=== PATIENT | female | born 1940 | race Caucasian/White ===

== ENCOUNTER → 2018-01-15 | Outpatient (CLI) | payer MEDICARE ==
--- NOTE | 2018-01-15 14:39 | US ---
EXAMINATION TYPE: US liver DATE OF EXAM: 01/15/2018 COMPARISON: NONE CLINICAL HISTORY: R94.5 Elevated Liver Tests; on multiple medications for epilepsy and HTN; gallbladd er removed EXAM MEASUREMENTS: Liver Length: 18.4 cm Gallbladder Wall: surgically removed CBD: 0.8 cm Right Kidney: 10.2 x 5.3 x 4.0 cm Pancreas: wnl Liver: mildly heterogeneous right lobe . Liver is enlarged at 18 cm. Gallbladder: surgically removed Evidence for sonographic Austin's sign: no CBD: wnl for size post cholecystectomy Right Kidney: lower pole hyperechoic oval focus = 1.4 x 1.4 x 1.1cm (possible angiomyolipoma), upper cortical simple cyst =0.9 x 0.9 x 0.8cm; upper cortical hyperechoic oval mass with adjacent calcific ation (may be small angiomyolipoma with adjacent vessel wall calcification vs. complex mass) and size = 0.7 x 0.5 x 0.5cm. IMPRESSION: 1. 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 This can be further evaluated with CT abdomen pelvis with contrast. 2. Cortical renal cyst. 3. Hepatomegaly with mild fatty infiltration
== END | disposition home or self-care (01) ==
LOC: RADUSWWP 07:36
PROVIDERS: ATTEND Internal Medicine
DX: N28.1 Cyst of kidney, acquired (principal); R16.0 Hepatomegaly, not elsewhere classified; K76.0 Fatty (change of) liver, not elsewhere classified
CPT/HCPCS: 76705

== ENCOUNTER → 2018-09-24 | Outpatient (CLI) | payer MEDICARE ==
[2018-09-24 19:24] LABS: ALT 21 U/L (8-44); AST 36 U/L (13-35); Albumin/Globulin Ratio 1.74 (1.20-2.10); Alkaline Phosphatase 65 U/L (41-126); Bilirubin, Conjugated <0.20 mg/dL (0.20-0.40); Calcium 8.5 mg/dL (8.7-10.3); Carbon Dioxide 26.1 mmol/L (21.6-31.8); Chloride 105 mmol/L (96-109); Cholesterol 281 mg/dL (0-200); Globulin 2.3 g/dL (2.1-3.7); Glucose 76 mg/dL (70-110); LDL Cholesterol,Calculated 158.6 mg/dL (0.0-131.0); Sodium 139 mmol/L (135-145); Total Bilirubin 0.2 mg/dL (0.2-1.2); Total Protein 6.3 g/dL (6.2-8.2)
[2018-09-24 19:33] LABS: Alpha Fetoprotein, Tumor Mkr 7.8 ng/mL (0.0-7.9)
[2018-09-24 21:16] LABS: Iron Saturation 38.16 (12.00-45.00)
[2018-09-24 21:34] LABS: Hemoglobin A1C 5.2 % (4.0-6.0)
[2018-09-24 22:59] LABS: Hepatitis A Antibody IgM Non-Reactive (Non-Reactive); Hepatitis B Core IgM Non-Reactive (Non-Reactive)
[2018-09-25 12:25] LABS: Ceruloplasmin 28.1 mg/dL (20.0-60.0)
== END ==
LOC: LABWHC1 12:06
DX: E78.2 Mixed hyperlipidemia (principal); K76.0 Fatty (change of) liver, not elsewhere classified
CPT/HCPCS: 36415; 80053; 80061; 80074; 82103; 82105; 82248; 82390; 82728; 83036; 83540; 83550; 86038

== ENCOUNTER → 2018-12-31 | Outpatient (CLI) | payer MEDICARE ==
[2018-12-31 16:20] LABS: Albumin 3.9 g/dL (3.80-4.90); Albumin/Globulin Ratio 1.86 (1.60-3.17); Anion Gap 3.7 mmol/L (4.00-12.00); Calcium 9.2 mg/dL (8.7-10.3); Carbon Dioxide 29.3 mmol/L (21.6-31.8); Globulin 2.1 g/dL (1.6-3.3); LDL Cholesterol,Calculated 107.6 mg/dL (0.0-131.0); Potassium 4.8 mmol/L (3.5-5.5); Total Bilirubin 0.5 mg/dL (0.3-1.2); VLDL Calculation 11.4 mg/dL (5.00-40.00)
== END | disposition home or self-care (01) ==
LOC: LABWHC1 10:49
PROVIDERS: ATTEND Internal Medicine Interventional Cardiology
DX: E78.2 Mixed hyperlipidemia (principal)
CPT/HCPCS: 36415; 80053; 80061

== ENCOUNTER → 2019-04-20 | Outpatient (CLI) | payer MEDICARE ==
[2019-04-20 15:57] LABS: LDL Cholesterol,Calculated 100.2 mg/dL (0.0-131.0); VLDL Calculation 18.8 mg/dL (5.00-40.00)
== END | disposition home or self-care (01) ==
LOC: LABWHC1 11:48
PROVIDERS: ATTEND Internal Medicine Interventional Cardiology
DX: E78.2 Mixed hyperlipidemia (principal)
CPT/HCPCS: 36415; 80061; 84450; 84460

== ENCOUNTER → 2020-12-06 | Outpatient (CLI) | payer MEDICARE ==
[2020-12-06 21:51] LABS: Albumin 3.9 g/dL (3.80-4.90); Albumin/Globulin Ratio 1.95 (1.60-3.17); Anion Gap 9.1 mmol/L (4.00-12.00); BUN/Creat Ratio 24.44 Ratio (12.00-20.00); Calcium 8.8 mg/dL (8.7-10.3); Carbon Dioxide 27.9 mmol/L (21.6-31.8); Chol/HDL Ratio 2.8; Non-African American GFR(CKD) 61.2 (60.0-200.0); Potassium 4.6 mmol/L (3.5-5.5); Total Bilirubin 0.5 mg/dL (0.2-1.2); Total Protein 5.9 g/dL (6.2-8.2)
== END | disposition home or self-care (01) ==
LOC: LABWHC1 11:14
PROVIDERS: ATTEND Nurse Practitioner Adult Health
DX: I10 Essential (primary) hypertension (principal); E78.2 Mixed hyperlipidemia
CPT/HCPCS: 36415; 80053; 80061

== ENCOUNTER → 2021-01-02 | Outpatient (CLI) | payer MEDICARE ==
[2021-01-02 19:24] LABS: Chol/HDL Ratio 2.36; LDL Cholesterol,Calculated 109.8 mg/dL (0.0-131.0); VLDL Calculation 15.2 mg/dL (5.00-40.00)
== END | disposition home or self-care (01) ==
LOC: LABWHC1 10:52
PROVIDERS: ATTEND Nurse Practitioner Adult Health
DX: E78.2 Mixed hyperlipidemia (principal)
CPT/HCPCS: 36415; 80061; 84450; 84460

== ENCOUNTER 2021-12-31 19:53 | Observation (INO) | payer MEDICARE ==
[2021-12-31] MEDS ORDERED: ASPIRIN 81 MG PO STA (20:06)
[2021-12-31] MEDS ORDERED: MORPHINE SULFATE 4 MG/ML SYRINGE IV STA (20:11)
[2021-12-31] MEDS ORDERED: KETOROLAC 15 MG/ML 1 ML VIAL IVP STA (20:13)
[2021-12-31 20:32] LABS: Basophils % (A) 0 %; Eosinophils # (A) 0.1 k/uL (0-0.7); Eosinophils % (A) 1 %; HCT 35.7 % (34.0-46.0); HGB 12.1 gm/dL (11.4-16.0); Lymphocytes # (A) 1.8 k/uL (1.0-4.8); Lymphocytes % (A) 44 %; MCH 33.7 pg (25.0-35.0); MCHC 33.9 g/dL (31.0-37.0); MCV 99.3 fL (80.0-100.0); Monocytes # (A) 0.3 k/uL (0-1.0); Monocytes % (A) 6 %; Neutrophils # (A) 1.9 k/uL (1.3-7.7); Neutrophils % (A) 46 %; Platelet Count 214 k/uL (150-450); RBC 3.59 m/uL (3.80-5.40); RDW 13.6 % (11.5-15.5); WBC 4.1 k/uL (3.8-10.6)
[2021-12-31 20:50] LABS: Albumin 3.6 g/dL (3.5-5.0); Potassium 4.2 mmol/L (3.5-5.1); Total Bilirubin 0.4 mg/dL (0.2-1.3); Total Protein 6.3 g/dL (6.3-8.2)
[2021-12-31 21:13] LABS: INR 1.1 (<1.2); Partial Thromboplastin Time 22.4 sec (22.0-30.0); Prothrombin Time 11.5 sec (9.0-12.0)
[2021-12-31] MEDS ORDERED: NITROGLYCERIN SL TABS 0.4 MG TAB SUBLINGUAL STA (21:21)
--- NOTE | 2021-12-31 21:26 | XR ---
EXAMINATION TYPE: XR chest 2V DATE OF EXAM: 12/31/2021 9:00 PM COMPARISON:Chest radiographs from the 2014 TECHNIQUE: XR chest 2V Frontal and lateral views of the chest. CLINICAL INDICATION:Female, 81 years old with history of Chest Pain; FINDINGS: Lungs/Pleura: Prominent interstitial lung markings are seen scattered throughout the lungs. No eviden ce of focal consolidation, pneumothorax or pleural effusion. There is flattening of the diaphragms wi th relative increased lucency within the lung apices. Pulmonary vascularity: Unremarkable. Heart/mediastinum: Cardiomediastinal silhouette is unremarkable. Musculoskeletal: No acute osseous pathology. Multilevel disc degeneration changes. IMPRESSION: 1. Chronic changes without acute pulmonary process. No significant change from prior. 2. COPD changes
--- NOTE | 2021-12-31 21:36 | ED ---
General Adult HPI - General Chief complaint: Chest Pain Stated complaint: Chest Pain Time Seen by Provider: 12/31/21 20:04 Source: EMS, RN notes reviewed, old records reviewed Mode of arrival: EMS - History of Present Illness Initial comments: She is a 81-year-old female who presents emergency Department complaining of left-sided chest pain. Believes it started approximately an hour and a half ago. Describes it as a sharp sensation. She presses her chest, Jansson pain. She states it is palpable. Denies any shortness of breath. States this has happened previously and they were unable to figure out what is causing it. Denies any abdominal pain, nausea, vomiting. Denies any headaches, weakness, numbness. Otherwise has no acute concerns at this time. States she does have a history of a heart attack. Is a poor historian otherwise. His chronic lower extremity edema. Presents over concern for chest pain.Patient did receive 1 nitro tab from EMS, to no effect. - Related Data Home Medications Medication Instructions Recorded Confirmed Divalproex ER [Depakote ER] 250 mg PO BID@0800,1200 12/31/21 12/31/21 Divalproex ER [Depakote ER] 500 mg PO HS 12/31/21 12/31/21 Metoprolol Tartrate [Lopressor] 25 mg PO BID 12/31/21 12/31/21 Multivitamins, Thera [Multivitamin 1 tab PO DAILY 12/31/21 12/31/21 (formulary)] Primidone [Mysoline] 50 mg PO TID 12/31/21 12/31/21 Rosuvastatin [Crestor] 20 mg PO HS 12/31/21 12/31/21 Allergies Allergy/AdvReac Type Severity Reaction Status Date / Time No Known Allergies Allergy Verified 12/31/21 20:47 Review of Systems ROS Statement: Those systems with pertinent positive or pertinent negative responses have been documented in the HPI. Review of Systems: CONST: Denies fever EYES: Denies blurry vision ENT: Denies nasal congestion C/V: Endorses chest pain RESP: Denies shortness of breath GI: Denies abdominal pain : Denies dysuria SKIN: Denies rash. MSK: Denies joint pain. NEURO: Denies headache ROS Other: All systems not noted in ROS Statement are negative. Past Medical History Past Medical History: Hypertension, Seizure Disorder Additional Past Medical History / Comment(s): Headaches History of Any Multi-Drug Resistant Organisms: None Reported Past Surgical History: Appendectomy, Section, Cholecystectomy, Orthopedic Surgery Past Psychological History: No Psychological Hx Reported Past Alcohol Use History: None Reported Past Drug Use History: None Reported General Exam - General Exam Comments Initial Comments: General: Appears in intermittent mild distress secondary to chest pain. HEAD: Normal with no signs of head trauma. EYES: PERRLA, EOMI, conjunctiva normal, no discharge. ENT: Hearing grossly intact, normal oropharynx. RESPIRATORY: Clear breath sounds bilaterally. No wheezes, rales, or rhonchi. C/V: Regular rate and rhythm. S1 and S2 auscultated. Peripheral pulses are 2+ and intact throughout. Patient does have 1+ pitting edema in the bilateral lower extremities and symmetrical chronic per patient. Patient has palpable chest wall pain located over the medial aspect of the left breast. Patient jumps with any mild pressure applied to the site. Appears muscle skeletal in nature. No radiation of the pain. ABD: Abd is soft, nontender, nondistended EXT: Normal range of motion, no obvious deformity SKIN: No rashes or lesions observed on exposed skin. NEURO: Alert and oriented 4. Course Vital Signs 12/31/21 12/31/21 12/31/21 20:01 21:16 23:03 Temperature 98.2 F Pulse Rate 92 88 82 Respiratory 18 20 18 Rate Blood Pressure 159/81 142/95 O2 Sat by Pulse 95 100 97 Oximetry 01/01/22 01/01/22 00:09 00:10 Temperature Pulse Rate 78 78 Respiratory 18 18 Rate Blood Pressure 148/79 148/76 O2 Sat by Pulse 98 97 Oximetry Medical Decision Making - Medical Decision Making Based on the patient's presentation and physical exam, I'm concerned for possible cardiopulmonary etiology for the current symptoms due to her history. Therefore we will obtain a cardiac workup. However it does appear to be more of a chest wall pain issue, as is very obviously palpable, and worse with palpation by staff or the patient. Patient reproduces the pain on palpation herself. It appears to be an atypical chest pain that is unlikely to be cardiogenic in nature. She already received a nitroglycerin tablet from EMS to no effect and therefore we will treat him with morphine, Toradol, aspirin. Patient was in agreement this plan. EKG showed no signs of acute ischemia. Chest x-ray revealed chronic changes without any acute cardiopulmonary process. The laboratory studies are r emarkable for a undetected troponin. On reevaluation, activation states her pain is still present. We will attempt a second nitro tablet. It has no effect. Patient was administered Dilaudid, this had no effect. Patient states it is still severe chest pain. States it is palpable. Patient yells out in pain when I reach to palpate, even if I barely brush her skin. She states during these exams that it hurts on palpation. No skin changes to suggest any rash, such as shingles. Patient is anticipatory in terms of her pain, and seems to jump and cry out prior to myself or the nurse even making contact with her chest wall during exam. When we ask her to press on her chest pain, she presses and screams out in pain. It does appear to be musculoskeletal in nature, however with her suspected cardiac history, she'll be admitted to the hospital for continued monitoring. We'll trend troponins. I spoke with the car worker helper on-call, Dr. Altamirano, who was in agreement to hold heparin at this time. EKGs are unremarkable, including the repeat with no obvious signs of acute ACS. Patient appears to be having chest wall pain. I discussed the case with Dr. goel of the [facility], who accepted the patient. He was also in agreement with the plan. Patient was therefore admitted in stable condition to observation telemetry. Troponins will be trended. Repeat troponin returned while the patient remained in the emergency department and was still undetectable at this time. - Lab Data Result diagrams: 12/31/21 20:17 12/31/21 20:17 Lab Results 12/31/21 12/31/21 12/31/21 Range/Units 20:17 20:17 20:17 WBC 4.1 (3.8-10.6) k/uL RBC 3.59 L (3.80-5.40) m/uL Hgb 12.1 (11.4-16.0) gm/dL Hct 35.7 (34.0-46.0) % MCV 99.3 (80.0-100.0) fL MCH 33.7 (25.0-35.0) pg MCHC 33.9 (31.0-37.0) g/dL RDW 13.6 (11.5-15.5) % Plt Count 214 (150-450) k/uL MPV 8.0 Neutrophils % 46 % Lymphocytes % 44 % Monocytes % 6 % Eosinophils % 1 % Basophils % 0 % Neutrophils # 1.9 (1.3-7.7) k/uL Lymphocytes # 1.8 (1.0-4.8) k/uL Monocytes # 0.3 (0-1.0) k/uL Eosinophils # 0.1 (0-0.7) k/uL Basophils # 0.0 (0-0.2) k/uL PT 11.5 (9.0-12.0) sec INR 1.1 (<1.2) APTT 22.4 (22.0-30.0) sec Sodium 135 L (137-145) mmol/L Potassium 4.2 (3.5-5.1) mmol/L Chloride 103 (98-107) mmol/L Carbon Dioxide 30 (22-30) mmol/L Anion Gap 2 mmol/L BUN 16 (7-17) mg/dL Creatinine 0.79 (0.52-1.04) mg/dL Est GFR (CKD-EPI)AfAm 83 (>60 ml/min/1.73 sqM) Est GFR (CKD-EPI)NonAf 72 (>60 ml/min/1.73 sqM) Glucose 140 H (74-99) mg/dL Calcium 9.0 (8.4-10.2) mg/dL Magnesium 2.0 (1.6-2.3) mg/dL Total Bilirubin 0.4 (0.2-1.3) mg/dL AST 23 (14-36) U/L ALT 11 (4-34) U/L Alkaline Phosphatase 45 (38-126) U/L Troponin I (0.000-0.034) ng/mL NT-Pro-B Natriuret Pep pg/mL Total Protein 6.3 (6.3-8.2) g/dL Albumin 3.6 (3.5-5.0) g/dL 12/31/21 12/31/21 Range/Units 20:17 20:17 WBC (3.8-10.6) k/uL RBC (3.80-5.40) m/uL Hgb (11.4-16.0) gm/dL Hct (34.0-46.0) % MCV (80.0-100.0) fL MCH (25.0-35.0) pg MCHC (31.0-37.0) g/dL RDW (11.5-15.5) % Plt Count (150-450) k/uL MPV Neutrophils % % Lymphocytes % % Monocytes % % Eosinophils % % Basophils % % Neutrophils # (1.3-7.7) k/uL Lymphocytes # (1.0-4.8) k/uL Monocytes # (0-1.0) k/uL Eosinophils # (0-0.7) k/uL Basophils # (0-0.2) k/uL PT (9.0-12.0) sec INR (<1.2) APTT (22.0-30.0) sec Sodium (137-145) mmol/L Potassium (3.5-5.1) mmol/L Chloride (98-107) mmol/L Carbon Dioxide (22-30) mmol/L Anion Gap mmol/L BUN (7-17) mg/dL Creatinine (0.52-1.04) mg/dL Est GFR (CKD-EPI)AfAm (>60 ml/min/1.73 sqM) Est GFR (CKD-EPI)NonAf (>60 ml/min/1.73 sqM) Glucose (74-99) mg/dL Calcium (8.4-10.2) mg/dL Magnesium (1.6-2.3) mg/dL Total Bilirubin (0.2-1.3) mg/dL AST (14-36) U/L ALT (4-34) U/L Alkaline Phosphatase (38-126) U/L Troponin I <0.012 (0.000-0.034) ng/mL NT-Pro-B Natriuret Pep 406 pg/mL Total Protein (6.3-8.2) g/dL Albumin (3.5-5.0) g/dL - EKG Data -: EKG Interpreted by Me EKG Comments: 12-lead Electrocardiogram Interpretation Note EKG was reviewed and interpreted by myself. 12-lead ECG performed at 2000 is interpreted by me as revealing normal sinus rhythm at a rate of 90 beats per minute. [place] is normal. IN interval is 190 ms, QRS duration is 94 ms, QTc is 391 ms.. There were no ST or T wave abnormalities to suggest myocardial ischemia or injury. R wave progression across the precordium was satisfactory. By my interpretation this EKG is non-diagnostic for acute ischemia. repeat ekg was obtained due to continued chest pain. 12-lead Electrocardiogram Interpretation Note EKG was reviewed and interpreted by myself. 12-lead ECG performed at 2212 is interpreted by me as revealing normal sinus rhythm at a rate of 84 beats per minute. [place] is normal. IN interval is 183 ms, QRS duration is 94 ms, QTc is 405 ms.. There were no ST or T wave abnormalities to suggest myocardial ischemia or injury. R wave progression across the precordium was satisfactory. By my interpretation this EKG is non-diagnostic for acute ischemia. Comparison to prior EKGs there are no acute changes. There is some slight QRS changes compared to prior EKGs, however this is likely secondary to lead placement, as the R wave progression is delayed in the second EKG. Disposition Clinical Impression: Chest wall pain Disposition: ADMITTED IP TO THIS HOSP Condition: Stable
[2021-12-31] MEDS ORDERED: HYDROmorphone 0.5 MG/0.5 ML SYRINGE IVP STA (21:52)
[2021-12-31] MEDS ORDERED: ONDANSETRON 4 MG/2 ML VIAL IVP PRN (22:31)
[2021-12-31] MEDS ORDERED: NALOXONE 0.4 MG/ML 1 ML VIAL IV PRN (22:31)
[2021-12-31] MEDS ORDERED: HYDROmorphone 1 MG/ML 1 ML SYRINGE IVP PRN (22:31)
[2022-01-01 01:08] LABS: Appearance,Urine Clear (Clear); Bilirubin,Urine Negative (Negative); Blood,Urine Negative (Negative); Color,Urine Yellow; Glucose,Urine (UA) Negative (Negative); Ketones,Urine Negative (Negative); Leukocyte Esterase,Urine Trace (Negative); Mucus,Urine Rare /hpf; Nitrite,Urine Negative (Negative); PH, Urine 7.5 (5.0-8.0); Protein,Urine Negative (Negative); RBC,Urine 1 /hpf (0-5); Specific Gravity,Urine 1.012 (1.001-1.035); Squamous Epithelial Cell,Urine <1 /hpf (0-4); Urobilinogen,Urine <2.0 mg/dL (<2.0); WBC,Urine 3 /hpf (0-5)
[2022-01-01] MEDS: SODIUM CHLORIDE 0.9% 1,000 ML IV SCH ×2 (02:36→12:41)
[2022-01-01 07:20] VITALS: RESP 16; TEMP 98
[2022-01-01 07:34] LABS: Basophils % (A) 0 %; Eosinophils % (A) 1 %; HCT 33.9 % (34.0-46.0); HGB 11.2 gm/dL (11.4-16.0); Lymphocytes # (A) 1.1 k/uL (1.0-4.8); Lymphocytes % (A) 27 %; MCH 33.7 pg (25.0-35.0); MCHC 32.9 g/dL (31.0-37.0); MCV 102.2 fL (80.0-100.0); Macrocytosis Slight; Mean Platelet Volume 8.1; Monocytes # (A) 0.3 k/uL (0-1.0); Monocytes % (A) 7 %; Neutrophils # (A) 2.5 k/uL (1.3-7.7); Neutrophils % (A) 63 %; Platelet Count 188 k/uL (150-450); RBC 3.32 m/uL (3.80-5.40); RDW 13.1 % (11.5-15.5); WBC 3.9 k/uL (3.8-10.6)
[2022-01-01 07:47] LABS: Albumin 2.9 g/dL (3.5-5.0); Calcium 8.4 mg/dL (8.4-10.2); Potassium 4.5 mmol/L (3.5-5.1); Total Bilirubin 0.5 mg/dL (0.2-1.3); Total Protein 5.5 g/dL (6.3-8.2)
[2022-01-01] MEDS ORDERED: HEPARIN SODIUM,PORCINE/PF 5,000 UNIT/0.5 ML SYRINGE SQ SCH (09:00)
[2022-01-01] MEDS ORDERED: METOPROLOL TARTRATE 25 MG TAB PO SCH (09:00)
[2022-01-01] MEDS ORDERED: ASPIRIN 81 MG PO SCH (09:00)
--- NOTE | 2022-01-01 10:32 | P.CRDCN ---
History of Present Illness History of present illness: HISTORY OF PRESENTING ILLNESS This is a pleasant 81-year-old female past medical history significant for mild nonobstructive coronary artery disease, hypertension, dyslipidemia, seizure disorder. She follows in the office with Dr. Rubio. We have been asked to see in consultation for chest pain. Patient presents with left-sided sharp chest discomfort with palpation and movement of her left arm, starting yesterday. She states she was sitting in the chair and had acute onset and worsening chest discomfort. It is significantly tender to palpation, and aggravated by Deep breathing. Describes it as sharp. It is non-radiating, non-exertional. She does not have any associated symptoms. She denies any injury to her chest. She is somewhat a poor historian. Patient yells out in pain when palpating her left chest. DIAGNOSTICS EKG reveals sinus rhythm, heart rate 84, nonspecific ST ST-T wave abnormalities prior EKG was similar findings Cardiac catheterization 10/2016 revealed normal ejection fraction, 30% distal left main, 30% proximal LAD, 30% mid RCA Echocardiogram 06/2020 revealed an EF 54%, mild aortic regurgitation, moderate mitral regurgitation, mild tricuspid regurgitation Lexiscan stress test 04/2020 was negative for reversible ischemia Chest xray no acute cardiopulmonary process Laboratory reviewed, WBC 3.9, hemoglobin 11.2, platelets 188, troponin negative 3, proBNP 406, sodium 138, potassium 4.5, BUN 18, serum crit 0.8 Current home medications include simvastatin 20 mg nightly, metoprolol tartrate 25 mg twice a day, Depakote, primidone. REVIEW OF SYSTEMS At the time of my exam: CONSTITUTIONAL: Denies fever or chills. CARDIOVASCULAR: Denies chest pain, shortness of breath, orthopnea, PND or palpitations. RESPIRATORY: Denies cough. GASTROINTESTINAL: Denies abdominal pain, diarrhea, constipation, nausea or vomiting. MUSCULOSKELETAL: Positive left chest wall pain with palpation NEUROLOGIC: Denies numbness, tingling, headache or weakness. ENDOCRINE: Denies fatigue, weight change, polydipsia or polyurina. GENITOURINARY: Denies burning, hematuria or urgency with micturation. HEMATOLOGIC: Denies history of anemia or bleeding. PHYSICAL EXAMINATION Blood pressure 145/72, heart rate 85, afebrile, saturations 98% on room air CONSTITUTIONAL: No apparent distress. HEENT: Head is normocephalic. Pupils are equal, round. Sclerae anicteric. Mucous membranes of the mouth are moist. No JVD. No carotid bruit. CHEST EXAMINATION: Lungs are clear to auscultation. Chest wall tenderness is noted on palpation and with deep breathing. HEART EXAMINATION: Regular rate and rhythm. S1, S2 heard. Systolic ejection murmur at the apex noted ABDOMEN: Soft, nontender. Positive bowel sounds. EXTREMITIES: 2+ peripheral pulses, no lower extremity edema and no calf te nderness. SKIN: warm dry NEUROLOGIC EXAMINATION: Patient is awake, alert and oriented x3. ASSESSMENT Chest discomfort, noncardiac, appears musculoskeletal in nature Mild nonobstructive coronary artery disease Hypertension Dyslipidemia History of seizure disorder PLAN Patient with significant chest pain with palpation to her left chest, appears musculoskeletal in nature An acute coronary event has been ruled out with no EKG evidence of ischemia and negative cardiac enzymes. From cardiology perspective, no further cardiac testing indicated at this time. Follow up outpatient with Dr. Rubio. Please reach out with any further questions or concerns Thank you kindly for this consultation. Nurse practitioner note has been reviewed by physician. Signing provider agrees with the documented findings, assessment, and plan of care. Past Medical History Past Medical History: Hypertension, Seizure Disorder Additional Past Medical History / Comment(s): Headaches Last Myocardial Infarction Date:: unknown History of Any Multi-Drug Resistant Organisms: None Reported Past Surgical History: Appendectomy, Section, Cholecystectomy, Orthopedic Surgery Past Psychological History: No Psychological Hx Reported Past Alcohol Use History: None Reported Past Drug Use History: None Reported Medications and Allergies Home Medications Medication Instructions Recorded Confirmed Type Divalproex ER [Depakote ER] 250 mg PO BID@0800,1200 12/31/21 12/31/21 History Divalproex ER [Depakote ER] 500 mg PO HS 12/31/21 12/31/21 History Metoprolol Tartrate [Lopressor] 25 mg PO BID 12/31/21 12/31/21 History Multivitamins, Thera [Multivitamin 1 tab PO DAILY 12/31/21 12/31/21 History (formulary)] Primidone [Mysoline] 50 mg PO TID 12/31/21 12/31/21 History Rosuvastatin [Crestor] 20 mg PO HS 12/31/21 12/31/21 History Allergies Allergy/AdvReac Type Severity Reaction Status Date / Time No Known Allergies Allergy Verified 12/31/21 20:47 Physical Exam Vitals: Vital Signs Temp Pulse Pulse Resp BP BP Pulse Ox 01/01/22 07:00 98 F 85 16 145/72 98 01/01/22 02:20 98.7 F 89 17 148/67 96 01/01/22 00:10 78 18 148/76 97 01/01/22 00:09 78 18 148/79 98 12/31/21 23:03 82 18 142/95 97 12/31/21 21:16 88 20 100 12/31/21 20:01 98.2 F 92 18 159/81 95 Intake and Output 12/31/21 01/01/22 01/01/22 22:59 06:59 14:59 Other: # Voids 2 Weight 72.575 kg Results 01/01/22 06:54 01/01/22 06:54 Cardiac Enzymes 12/31/21 12/31/21 12/31/21 Range/Units 20:17 20:17 23:14 AST 23 (14-36) U/L Troponin I <0.012 <0.012 (0.000-0.034) ng/mL 01/01/22 Range/Units 01:46 AST (14-36) U/L Troponin I <0.012 (0.000-0.034) ng/mL Coagulation 12/31/21 Range/Units 20:17 PT 11.5 (9.0-12.0) sec APTT 22.4 (22.0-30.0) sec CBC 12/31/21 Range/Units 20:17 WBC 4.1 (3.8-10.6) k/uL RBC 3.59 L (3.80-5.40) m/uL Hgb 12.1 (11.4-16.0) gm/dL Hct 35.7 (34.0-46.0) % Plt Count 214 (150-450) k/uL Comprehensive Metabolic Panel 12/31/21 Range/Units 20:17 Sodium 135 L (137-145) mmol/L Potassium 4.2 (3.5-5.1) mmol/L Chloride 103 (98-107) mmol/L Carbon Dioxide 30 (22-30) mmol/L BUN 16 (7-17) mg/dL Creatinine 0.79 (0.52-1.04) mg/dL Glucose 140 H (74-99) mg/dL Calcium 9.0 (8.4-10.2) mg/dL AST 23 (14-36) U/L ALT 11 (4-34) U/L Alkaline Phosphatase 45 (38-126) U/L Total Protein 6.3 (6.3-8.2) g/dL Albumin 3.6 (3.5-5.0) g/dL Current Medications Generic Name Dose Route Start Last Admin Trade Name Freq PRN Reason Stop Dose Admin Heparin Sodium (Porcine) 5,000 unit 01/01/22 09:00 Heparin Sodium,Porcine/Pf 5,000 Unit/0.5 Ml Syringe SQ Q12HR VIC Hydromorphone HCl 1 mg 12/31/21 22:31 Hydromorphone 1 Mg/Ml 1 Ml Syringe IVP Q3HR PRN Severe Pain Sodium Chloride 1,000 mls @ 75 mls/hr 12/31/21 22:45 01/01/22 02:36 Saline 0.9% IV 75 mls/hr .[id number] VIC Administration Naloxone HCl 0.2 mg 12/31/21 22:31 Naloxone 0.4 Mg/Ml 1 Ml Vial IV Q2M PRN Opioid Reversal Ondansetron HCl 4 mg 12/31/21 22:31 Ondansetron 4 Mg/2 Ml Vial IVP Q8HR PRN Nausea And Vomiting Intake and Output 12/31/21 01/01/22 01/01/22 22:59 06:59 14:59 Other: # Voids 2 Weight 72.575 kg 12/31/21 20:17 12/31/21 20:17
[2022-01-01] MEDS ORDERED: ACETAMINOPHEN TAB 325 MG TAB PO STA (15:03)
[2022-01-01 15:42] VITALS: BP 116/65; PULSE 58
--- NOTE | 2022-01-01 16:38 | P.HPIM ---
History of Present Illness 9-year-old female the with the history of a came in with complains of chest pain. Patient pain is in the left side of the chest to crampy in nature and some radiation to the left arm denied any lightheadedness shortness of breath p atient just pain is nonpleuritic not associated with food. Patient was evaluated cardiology patient had history of coronary artery disease, patient had a cardiac catheterization in 2016 which showed around 30% disease in the all 3 coronary vasculature. Stress test on April 2020 is negative for any reversible ischemia. Clinically chest pain appears to be noncardiac. As per cardiology it's musculoskeletal but it appear like psychosomatic at this time. Patient has pain everywhere I touch. REVIEW OF SYSTEMS: CONSTITUTIONAL: No fever, no malaise, no fatigue. HEENT: No recent visual problems or hearing problems. Denied any sore throat. CARDIOVASCULAR: No orthopnea, PND, no palpitations, no syncope. PULMONARY: No shortness of breath, no cough, no hemoptysis. GASTROINTESTINAL: No diarrhea, no nausea, no vomiting, no abdominal pain. NEUROLOGICAL: No headaches, no weakness, no numbness. HEMATOLOGICAL: Denies any bleeding or petechiae. GENITOURINARY: Denies any burning micturition, frequency, or urgency. MUSCULOSKELETAL/RHEUMATOLOGICAL: Denies any joint pain, swelling, or any muscle pain. ENDOCRINE: Denies any polyuria or polydipsia. The rest of the 14-point review of systems is negative. PHYSICAL EXAMINATION: GENERAL: The patient is alert and oriented x3, not in any acute distress. Well developed, well nourished. HEENT: Pupils are round and equally reacting to light. EOMI. No scleral icterus. No conjunctival pallor. Normocephalic, atraumatic. No pharyngeal erythema. No thyromegaly. CARDIOVASCULAR: S1 and S2 present. No murmurs, rubs, or gallops. PULMONARY: Chest is clear to auscultation, no wheezing or crackles. ABDOMEN: Soft, nontender, nondistended, normoactive bowel sounds. No palpable organomegaly. MUSCULOSKELETAL: No joint swelling or deformity. EXTREMITIES: No cyanosis, clubbing, or pedal edema. NEUROLOGICAL: Gross neurological examination did not reveal any focal deficits. SKIN: No rashes. Patient has objective tenderness in multiple locations but not on the bony prominences. Assessment and plan -Chest pain rule out acute medicine syndromes that etiology valid the patient patient just pain appears to be mostly psychosomatic in nature. Patient will be discharged today. -Hypertension -Nonobstructive coronary artery disease -Seizure disorder for which patient is on Depakote which she will continue. Patient will be discharged today in follow-up with primary care physician as an outpatient Past Medical History Past Medical History: Hypertension, Seizure Disorder Additional Past Medical History / Comment(s): Headaches Last Myocardial Infarction Date:: unknown History of Any Multi-Drug Resistant Organisms: None Reported Past Surgical History: Appendectomy, Section, Cholecystectomy, Orthopedic Surgery Past Psychological History: No Psychological Hx Reported Past Alcohol Use History: None Reported Past Drug Use History: None Reported Medications and Allergies Home Medications Medication Instructions Recorded Confirmed Type Divalproex ER [Depakote ER] 250 mg PO BID@0800,1200 12/31/21 12/31/21 History Divalproex ER [Depakote ER] 500 mg PO HS 12/31/21 12/31/21 History Metoprolol Tartrate [Lopressor] 25 mg PO BID 12/31/21 12/31/21 History Multivitamins, Thera [Multivitamin 1 tab PO DAILY 12/31/21 12/31/21 History (formulary)] Primidone [Mysoline] 50 mg PO TID 12/31/21 12/31/21 History Rosuvastatin [Crestor] 20 mg PO HS 12/31/21 12/31/21 History Allergies Allergy/AdvReac Type Severity Reaction Status Date / Time No Known Allergies Allergy Verified 12/31/21 20:47 Physical Exam Vitals: Vital Signs Temp Pulse Pulse Resp BP BP Pulse Ox 01/01/22 15:00 98 F 58 L 16 116/65 99 01/01/22 08:00 85 16 01/01/22 07:00 98 F 85 16 145/72 98 01/01/22 02:20 98.7 F 89 17 148/67 96 01/01/22 00:10 78 18 148/76 97 01/01/22 00:09 78 18 148/79 98 12/31/21 23:03 82 18 142/95 97 12/31/21 21:16 88 20 100 12/31/21 20:01 98.2 F 92 18 159/81 95 Intake and Output 01/01/22 01/01/2222 06:59 14:59 22:59 Intake Total 300 Balance 300 Intake: Oral 300 Other: Voiding Method Toilet # Voids 2 0 1 Results CBC & Chem 7: 01/01/22 06:54 01/01/22 06:54 Labs: Abnormal Lab Results - Last 24 Hours (Table) 12/31/21 12/31/21 01/01/22 Range/Units 20:17 20:17 00:20 RBC 3.59 L (3.80-5.40) m/uL Hgb (11.4-16.0) gm/dL Hct (34.0-46.0) % MCV (80.0-100.0) fL Sodium 135 L (137-145) mmol/L Carbon Dioxide (22-30) mmol/L BUN (7-17) mg/dL Glucose 140 H (74-99) mg/dL AST (14-36) U/L ALT (4-34) U/L Total Protein (6.3-8.2) g/dL Albumin (3.5-5.0) g/dL Ur Leukocyte Esterase Trace H (Negative) Urine Mucus Rare H (None) /hpf 01/01/22 01/01/22 Range/Units 06:54 06:54 RBC 3.32 L (3.80-5.40) m/uL Hgb 11.2 L (11.4-16.0) gm/dL Hct 33.9 L (34.0-46.0) % MCV 102.2 H (80.0-100.0) fL Sodium (137-145) mmol/L Carbon Dioxide 31 H (22-30) mmol/L BUN 18 H (7-17) mg/dL Glucose (74-99) mg/dL AST 234 H (14-36) U/L ALT 129 H (4-34) U/L Total Protein 5.5 L (6.3-8.2) g/dL Albumin 2.9 L (3.5-5.0) g/dL Ur Leukocyte Esterase (Negative) Urine Mucus (None) /hpf Thrombosis Risk Factor Assmnt - Choose All That Apply Any of the Below Risk Factors Present?: Yes Each Factor Represents 1 point: Obesity (BMI >25) Other Risk Factors: Yes Each Risk Factor Represents 3 Points: Age 75 years or older Thrombosis Risk Factor Assessment Total Risk Factor Score: 4 Thrombosis Risk Factor Assessment Level: Moderate Risk
--- NOTE | 2022-01-01 16:39 | P.DS ---
Providers Date of admission: 12/31/21 22:31 Attending physician: Lili Rogers Consults: 12/31/21 22:32 Consult Physician Routine Consulting Provider: [facility] Consult Reason/Comments: chest pain, chest wall pain. Do you want consulting provider notified?: Yes Primary care physician: Mike Sanches [facility] Course: Please refer to history of present illness for further details Patient Condition at Discharge: Stable Plan - Discharge Summary Discharge Rx Participant: Yes New Discharge Prescriptions: Continue Divalproex ER [Depakote ER] 250 mg PO BID@0800,1200 Divalproex ER [Depakote ER] 500 mg PO HS Multivitamins, Thera [Multivitamin (formulary)] 1 tab PO DAILY Primidone [Mysoline] 50 mg PO TID Metoprolol Tartrate [Lopressor] 25 mg PO BID Rosuvastatin [Crestor] 20 mg PO HS Discharge Medication List Divalproex ER [Depakote ER] 250 mg PO BID@0800,1200 12/31/21 [History] Divalproex ER [Depakote ER] 500 mg PO HS 12/31/21 [History] Metoprolol Tartrate [Lopressor] 25 mg PO BID 12/31/21 [History] Multivitamins, Thera [Multivitamin (formulary)] 1 tab PO DAILY 12/31/21 [History] Primidone [Mysoline] 50 mg PO TID 12/31/21 [History] Rosuvastatin [Crestor] 20 mg PO HS 12/31/21 [History] Follow up Appointment(s)/Referral(s): Tony Rubio MD [STAFF PHYSICIAN] - 01/17/22 4:00 pm Mike Sanches MD [Primary Care Provider] - 3 Days Discharge Disposition: HOME SELF-CARE
[2022-01-01] MEDS ORDERED: ATORVASTATIN 40 MG TAB PO SCH (21:00)
== END 2022-01-01 16:15 | disposition home or self-care (01) ==
LOC: EC 19:53 → 6NMEDSUR 22:31
PROVIDERS: ADMIT Hospitalist; ATTEND Hospitalist
DX: R07.89 Other chest pain (principal); I25.2 Old myocardial infarction; R60.0 Localized edema; I10 Essential (primary) hypertension; I25.10 Atherosclerotic heart disease of native coronary artery without angina pectoris; Z79.899 Other long term (current) drug therapy; I08.3 Combined rheumatic disorders of mitral, aortic and tricuspid valves; E78.5 Hyperlipidemia, unspecified; E66.9 Obesity, unspecified; Z68.25 Body mass index [BMI] 25.0-25.9, adult; G40.909 Epilepsy, unspecified, not intractable, without status epilepticus; Z90.49 Acquired absence of other specified parts of digestive tract; Z98.890 Other specified postprocedural states; Z98.891 History of uterine scar from previous surgery
CPT/HCPCS: 96372; 96374; 96375; 99285; 36415; 93005; 83880; 80053 ×2; 83735; 84484 ×2; 85025 ×2; 85610; 85730; 81001; 71046; G0378 ×2; J2270; J1885; J1170; J1644

== ENCOUNTER → 2022-02-02 | Outpatient (CLI) | payer MEDICARE ==
[2022-02-02 14:06] LABS: Basophils # (A) 0.03 X 10*3/uL (0.00-0.10); Basophils % (A) 0.7 %; Eosinophils # (A) 0.04 X 10*3/uL (0.04-0.35); Eosinophils % (A) 0.9 %; HCT 36.7 % (37.2-46.3); HGB 11.6 g/dL (12.0-15.0); Immature Grans, Automated 0.2 %; Lymphocytes # (A) 1.49 X 10*3/uL (0.90-5.00); Lymphocytes % (A) 32.7 %; MCH 31.6 pg (27.0-32.0); MCHC 31.6 g/dL (32.0-37.0); Mean Platelet Volume 10.3 fL (9.5-12.2); Monocytes # (A) 0.45 X 10*3/uL (0.20-1.00); Monocytes % (A) 9.9 %; NRBC Per 100 WBC 0 /100 WBCS (0.0-0.0); Neutrophils # (A) 2.54 X 10*3/uL (1.80-7.70); Neutrophils % (A) 55.6 %; Platelet Count 253 X 10*3/uL (140-440); RBC 3.67 X 10*6/uL (4.10-5.20); RDW 13.2 % (11.5-14.5); WBC 4.56 X 10*3/uL (4.50-10.00)
[2022-02-02 14:20] LABS: ALT 11 U/L (8-44); AST 21 U/L (13-35); African American GFR (CKD) 77.9 (60.0-200.0); Albumin 3.7 g/dL (3.8-4.9); Alkaline Phosphatase 50 U/L (41-126); BUN/Creat Ratio 19.06 Ratio (12.00-20.00); Blood Urea Nitrogen 15.8 mg/dL (9.0-27.0); Calcium 9.1 mg/dL (8.7-10.3); Carbon Dioxide 27.4 mmol/L (20.0-27.5); Chloride 102 mmol/L (96-109); Chol/HDL Ratio 2.34 Ratio; Globulin 2.7 g/dL (1.6-3.3); Glucose 87 mg/dL (70-110); LDL Cholesterol,Calculated 94.6 mg/dL (0.0-131.0); Non-African American GFR(CKD) 67.2 (60.0-200.0); Potassium 4.9 mmol/L (3.5-5.5); Sodium 137 mmol/L (135-145); Total Protein 6.4 g/dL (6.2-8.2)
== END | disposition home or self-care (01) ==
LOC: LABWHC1 01-19 09:47
PROVIDERS: ATTEND Family Medicine
DX: I10 Essential (primary) hypertension (principal); E78.5 Hyperlipidemia, unspecified
CPT/HCPCS: 36415; 80053; 80061; 85025

== ENCOUNTER 2022-04-16 10:14 | Observation (INO) | payer MEDICARE, OTHER ==
[2022-04-16] MEDS ORDERED: SODIUM CHLORIDE 0.9% 500 ML 500 ML IV STA (10:41)
[2022-04-16 10:59] LABS: Basophils % (A) 1 %; Eosinophils # (A) 0.1 k/uL (0-0.7); Eosinophils % (A) 1 %; HCT 34.8 % (34.0-46.0); HGB 11.3 gm/dL (11.4-16.0); Lymphocytes # (A) 0.9 k/uL (1.0-4.8); Lymphocytes % (A) 11 %; MCH 30.4 pg (25.0-35.0); MCHC 32.3 g/dL (31.0-37.0); MCV 94.1 fL (80.0-100.0); Mean Platelet Volume 8.3; Monocytes # (A) 0.5 k/uL (0-1.0); Monocytes % (A) 6 %; Neutrophils # (A) 6.9 k/uL (1.3-7.7); Neutrophils % (A) 81 %; Platelet Count 377 k/uL (150-450); RDW 14.4 % (11.5-15.5); WBC 8.5 k/uL (3.8-10.6)
[2022-04-16 11:11] LABS: Albumin 3.6 g/dL (3.5-5.0); Calcium 9.7 mg/dL (8.4-10.2); Magnesium 1.8 mg/dL (1.6-2.3); Potassium 3.6 mmol/L (3.5-5.1); Total Bilirubin 0.6 mg/dL (0.2-1.3); Total Protein 7.3 g/dL (6.3-8.2)
--- NOTE | 2022-04-16 11:12 | ED ---
General Adult HPI - General Chief complaint: Chest Pain Stated complaint: Chest Pain Time Seen by Provider: 04/16/22 10:20 Source: patient, EMS, RN notes reviewed, old records reviewed Mode of arrival: EMS Limitations: physical limitation - History of Present Illness Initial comments: This is a 81-year-old female presents emergency department via EMS she is at a shelter and told them she is having left-sided chest pain so they sent to the emergency department. Patient states the pain is sharp in nature and is reproducible with palpation. Patient denies any rashes or redness. Patient denies any fever. Patient denies cough patient denies any palpitation. Patient denies being short of breath. Patient states the pain started at 5 AM this morning. Patient states it comes and lasts 1-2 seconds and goes away. Patient denies any abdominal pain patient denies nausea vomiting diarrhea. - Related Data Home Medications Medication Instructions Recorded Confirmed Divalproex ER [Depakote ER] 250 mg PO DAILY@0900,1400 12/31/21 04/16/22 Divalproex ER [Depakote ER] 500 mg PO HS@209912/31/21 04/16/22 Metoprolol Tartrate [Lopressor] 25 mg PO BID@0900,1700 12/31/21 04/16/22 Multivitamins, Thera [Multivitamin 1 tab PO DAILY@1400 12/31/21 04/16/22 (formulary)] Primidone [Mysoline] 50 mg PO TID@0800,1400,2200 12/31/21 04/16/22 Acetaminophen Tab [Tylenol Tab] 500 mg PO Q6HR PRN 04/16/22 04/16/22 Aspirin EC [Ecotrin Low Dose] 81 mg PO HS@209904/16/22 04/16/22 Atorvastatin [Lipitor] 40 mg PO HS@209904/16/22 04/16/22 Budesonide 0.5 mg INHALATION RT-BID@00,209904/16/22 04/16/22 Fluticasone Nasal [place] [Flonase 1 spray EA NOSTRIL DAILY@0900 04/16/22 04/16/22 Nasal [place]] Furosemide [Lasix] 40 mg PO BID@0600,1200 04/16/22 04/16/22 Ipratropium-Albuterol Nebulize 3 ml INHALATION RT-Q6H 04/16/22 04/16/22 [Duoneb 0.5 mg-3 mg/3 ml Soln] Megestrol [Megace] 400 mg PO DAILY@89904/16/22 04/16/22 Pantoprazole [Protonix] 40 mg PO DAILY@59904/16/22 04/16/22 Potassium Chloride ER [K-Dur 20] 20 meq PO DAILY@89904/16/22 04/16/22 Propylene Glycol/Peg 400/Pf 1 drop BOTH EYES HS@209904/16/22 04/16/22 [Systane 0.3-0.4% Eye Drop] Sertraline [Zoloft] 25 mg PO DAILY@89904/16/22 04/16/22 Sodium Chloride 0.65% Nasal [Deep 1 spray NASAL BID PRN 04/16/22 04/16/22 Sea (Saline)] diphenhydrAMINE [Benadryl] 12.5 mg PO HS@209904/16/22 04/16/22 Allergies Allergy/AdvReac Type Severity Reaction Status Date / Time aspirin Allergy Unknown Verified 04/16/22 10:25 Iodinated Contrast Media Allergy Unknown Verified 04/16/22 10:25 lanolin Allergy Unknown Verified 04/16/22 10:25 Penicillins Allergy Unknown Verified 04/16/22 10:25 latex AdvReac Rash/Hives Verified 04/16/22 10:25 Review of Systems ROS Statement: Those systems with pertinent positive or pertinent negative responses have been documented in the HPI. ROS Other: All systems not noted in ROS Statement are negative. Past Medical History Past Medical History: Hypertension, Seizure Disorder Additional Past Medical History / Comment(s): Headaches Last Myocardial Infarction Date:: unknown History of Any Multi-Drug Resistant Organisms: None Reported Past Surgical History: Appendectomy, Section, Cholecystectomy, Orthopedic Surgery Past Psychological History: No Psychological Hx Reported Smoking Status: Never smoker Past Alcohol Use History: None Reported Past Drug Use History: None Reported General Exam - General Exam Comments Initial Comments: GENERAL: Patient is well-developed and well-nourished. Patient is nontoxic and well- hydrated and is in no acute distress. ENT: Neck is soft and supple. No significant lymphadenopathy is noted. Oropharynx is clear. Moist mucous membranes. Neck has full range of motion without eliciting any pain. EYES: The sclera were anicteric and conjunctiva were pink and moist. Extraocular movements were intact and pupils were equal round and reactive to light. Eyelids were unremarkable. PULMONARY: Unlabored respirations. Good breath sounds bilaterally. No audible rales rhonchi or wheezing was noted. CARDIOVASCULAR: There is a regular rate and rhythm without any murmurs gallops or rubs. Chest pain is reproducible above the left breast ABDOMEN: Soft and nontender with normal bowel sounds. No palpable organomegaly was noted. There is no palpable pulsatile mass. SKIN: Skin is clear with no lesions or rashes and otherwise unremarkable. NEUROLOGIC: Patient is alert and oriented 2. Cranial nerves II through XII are grossly intact. Motor and sensory are also intact. Normal speech, volume and content. Symmetrical smile. MUSCULOSKELETAL: Normal extremities with adequate strength and full range of motion. No lower extremity swelling or edema. No calf tenderness. LYMPHATICS: No significant lymphadenopathy is noted PSYCHIATRIC: Normal psychiatric evaluation. Limitations: physical limitation Course Vital Signs 04/16/22 04/16/22 10:19 12:04 Temperature 97.8 F Pulse Rate 118 H 108 H Respiratory 18 20 Rate Blood Pressure 114/73 113/71 O2 Sat by Pulse 97 99 Oximetry Medical Decision Making - Medical Decision Making EKG shows sinus tachycardia to 114 bpm DE interval is 152 QRS is under QT interval 3:30 QTC is 398. Patient's EKG shows no ST segment elevation or depression Chest x-ray shows bilateral pleural effusions. Patient received Toradol emergency department as well as 0.5 Dilaudid and she continued to complain of left-sided chest pain. Patient is extremely poor historian. And seems to be very dramatic when you're in the room however when outside of the room she doesn't seem to complain much. I spoke with sounds physician Z agreed to admit the patient admitted the patient wrote admitting orders. - Lab Data Result diagrams: 04/16/22 10:49 04/16/22 10:49 Lab Results 04/16/22 04/16/22 04/16/22 Range/Units 10:49 10:49 10:49 WBC 8.5 (3.8-10.6) k/uL RBC 3.70 L (3.80-5.40) m/uL Hgb 11.3 L (11.4-16.0) gm/dL Hct 34.8 (34.0-46.0) % MCV 94.1 (80.0-100.0) fL MCH 30.4 (25.0-35.0) pg MCHC 32.3 (31.0-37.0) g/dL RDW 14.4 (11.5-15.5) % Plt Count 377 (150-450) k/uL MPV 8.3 Neutrophils % 81 % Lymphocytes % 11 % Monocytes % 6 % Eosinophils % 1 % Basophils % 1 % Neutrophils # 6.9 (1.3-7.7) k/uL Lymphocytes # 0.9 L (1.0-4.8) k/uL Monocytes # 0.5 (0-1.0) k/uL Eosinophils # 0.1 (0-0.7) k/uL Basophils # 0.0 (0-0.2) k/uL Sodium 133 L (137-145) mmol/L Potassium 3.6 (3.5-5.1) mmol/L Chloride 88 L (98-107) mmol/L Carbon Dioxide 25 (22-30) mmol/L Anion Gap 20 mmol/L BUN 26 H (7-17) mg/dL Creatinine 0.88 (0.52-1.04) mg/dL Est GFR (CKD-EPI)AfAm 73 (>60 ml/min/1.73 sqM) Est GFR (CKD-EPI)NonAf 63 (>60 ml/min/1.73 sqM) Glucose 78 (74-99) mg/dL Calcium 9.7 (8.4-10.2) mg/dL Magnesium 1.8 (1.6-2.3) mg/dL Total Bilirubin 0.6 (0.2-1.3) mg/dL AST 29 (14-36) U/L ALT 12 (4-34) U/L Alkaline Phosphatase 84 (38-126) U/L Troponin I <0.012 (0.000-0.034) ng/mL Total Protein 7.3 (6.3-8.2) g/dL Albumin 3.6 (3.5-5.0) g/dL Disposition Clinical Impression: Chest pain, Pleural effusion, Urinary tract infection Disposition: ADMITTED IP TO THIS HOSP Referrals: Mike Sanches MD [Primary Care Provider] - 1-2 days Time of Disposition: 12:59
[2022-04-16] MEDS ORDERED: cefTRIAXone IN SWFI 1,000 MG/10 ML SYRINGE IVP STA (11:13)
--- NOTE | 2022-04-16 11:16 | XR ---
EXAMINATION TYPE: XR chest 2V DATE OF EXAM: 04/16/2022 10:57 AM COMPARISON: Chest radiographs from 12/31/2021 TECHNIQUE: XR chest 2V Frontal and lateral views of the chest. CLINICAL INDICATION:Female, 81 years old with history of Chest Pain; FINDINGS: Lungs/Pleura: Low lung volumes with bibasilar atelectasis. Blunting of the costophrenic angles. There is no evidence of focal consolidation, or pneumothorax. Pulmonary vascularity: Unremarkable. Heart/mediastinum: Cardiomediastinal silhouette is unremarkable. Musculoskeletal: No acute osseous pathology. IMPRESSION: Small bilateral pleural effusions associated atelectasis.
[2022-04-16] MEDS ORDERED: KETOROLAC 15 MG/ML 1 ML VIAL IVP STA (12:25)
[2022-04-16] MEDS ORDERED: HYDROmorphone 0.5 MG/0.5 ML SYRINGE IVP STA (13:00)
[2022-04-16] MEDS ORDERED: NITROGLYCERIN SL TABS 0.4 MG TAB SUBLINGUAL PRN (13:02)
[2022-04-16] MEDS ORDERED: SODIUM CHLORIDE 0.65% NASAL SPRAY 44 ML BTL NASAL PRN (14:18)
[2022-04-16] MEDS ORDERED: ACETAMINOPHEN TAB 500 MG TAB PO PRN (14:18)
--- NOTE | 2022-04-16 14:29 | P.HPIM ---
History of Present Illness H&P Date: 04/16/22 Chief Complaint: Chest pain 81-year-old woman with a history of hyperlipidemia, CAD, seizure disorder, COPD presented with chest pain. She had a left heart catheterization 2016 which showed 30% nonocclusive CAD in all 3 major vessels. She also had a stress test in 2019 which was negative for reversible ischemia. Patient says that her pain is sharp in nature and includes a left side of her chest. It started today. Movement makes it worse. She denies fevers, chills, nausea, vomiting, palpitations, syncope, presyncope, cough, dyspnea, abdominal pain, constipation, diarrhea, dysuria, dyschezia, numbness/weakness of extremities, diaphoresis. In the emergency room, patient is afebrile, 114/73, heart rate 118, 97% on room air. CBC shows mild anemia down to 11.3, chemistries show mild hyponatremia to 133, mildly elevated BUN at 26, creatinine is normal. LFTs are unremarkable. Initial troponin was less than 0.012. EKG shows sinus tachycardia with incomplete right bundle-branch block. Chest x-ray shows small bilateral pleural effusions. All Systems reviewed and pertinent positives and negatives noted in HPI, all other symptoms are negative Gen: in no apparent distress, resting comfortably in bed Eyes: PERRL, no scleral injection or icterus HENT: normocephalic, atraumatic, good hearing acuity, moist mucous membranes Neck: no tracheal deviation, full range of motion Resp: good air exchange, breathing comfortably with no accessory muscle use, no tactile fremitus, clear to auscultation bilaterally CVS: good distal perfusion x 4, no pitting edema, regular rate and rhythm GI: soft, no tenderness to palpation, periumbilical area, ND, no hepatosplenom egaly : no suprapubic tenderness, no CVAT, almeida catheter not present MSK: no clubbing, no cyanosis, no noted contractures of extremities, tenderness to palpation of the chest, abdomen, extremities Skin: no noted rashes, petechiae; temperature of skin is appropriate Neuro: moving all extremities without signs of weakness, CN II-XII intact Psych: cooperative, euthymic mood, insight and judgment intact Labs and imaging reviewed as above Assessment/plan: Musculoskeletal chest pain -Admit to observation, telemetry -PT consult -Pain control -Trend troponins Pleural effusions, bilateral -Obtain BNP -Echocardiogram COPD without exacerbation Nonocclusive CAD Seizure disorder Hyperlipidemia -Home medications reviewed and reconciled Patient is full code DVT prophylaxis with enoxaparin daily Past Medical History Past Medical History: Hypertension, Seizure Disorder Additional Past Medical History / Comment(s): Headaches Last Myocardial Infarction Date:: unknown History of Any Multi-Drug Resistant Organisms: None Reported Past Surgical History: Appendectomy, Section, Cholecystectomy, Orthopedic Surgery Past Psychological History: No Psychological Hx Reported Smoking Status: Never smoker Past Alcohol Use History: None Reported Past Drug Use History: None Reported Medications and Allergies Home Medications Medication Instructions Recorded Confirmed Type Divalproex ER [Depakote ER] 250 mg PO DAILY@0900,1400 12/31/21 04/16/22 History Divalproex ER [Depakote ER] 500 mg PO HS@209912/31/21 04/16/22 History Metoprolol Tartrate [Lopressor] 25 mg PO BID@0900,1700 12/31/21 04/16/22 History Multivitamins, Thera [Multivitamin 1 tab PO DAILY@1400 12/31/21 04/16/22 History (formulary)] Primidone [Mysoline] 50 mg PO TID@0800,1400,2200 12/31/21 04/16/22 History Acetaminophen Tab [Tylenol Tab] 500 mg PO Q6HR PRN 04/16/22 04/16/22 History Aspirin EC [Ecotrin Low Dose] 81 mg PO HS@209904/16/22 04/16/22 History Atorvastatin [Lipitor] 40 mg PO HS@209904/16/22 04/16/22 History Budesonide 0.5 mg INHALATION RT-BID@0900,2100 04/16/22 04/16/22 History Fluticasone Nasal [place] [Flonase 1 spray EA NOSTRIL DAILY@0900 04/16/22 04/16/22 History Nasal [place]] Furosemide [Lasix] 40 mg PO BID@0600,1200 04/16/22 04/16/22 History Ipratropium-Albuterol Nebulize 3 ml INHALATION RT-Q6H 04/16/22 04/16/22 History [Duoneb 0.5 mg-3 mg/3 ml Soln] Megestrol [Megace] 400 mg PO DAILY@89904/16/22 04/16/22 History Pantoprazole [Protonix] 40 mg PO DAILY@59904/16/22 04/16/22 History Potassium Chloride ER [K-Dur 20] 20 meq PO DAILY@89904/16/22 04/16/22 History Propylene Glycol/Peg 400/Pf 1 drop BOTH EYES HS@209904/16/22 04/16/22 History [Systane 0.3-0.4% Eye Drop] Sertraline [Zoloft] 25 mg PO DAILY@89904/16/22 04/16/22 History Sodium Chloride 0.65% Nasal [Deep 1 spray NASAL BID PRN 04/16/22 04/16/22 History Sea (Saline)] diphenhydrAMINE [Benadryl] 12.5 mg PO HS@209904/16/22 04/16/22 History Allergies Allergy/AdvReac Type Severity Reaction Status Date / Time aspirin Allergy Unknown Verified 04/16/22 10:25 Iodinated Contrast Media Allergy Unknown Verified 04/16/22 10:25 lanolin Allergy Unknown Verified 04/16/22 10:25 Penicillins Allergy Unknown Verified 04/16/22 10:25 latex AdvReac Rash/Hives Verified 04/16/22 10:25 Physical Exam Osteopathic Statement: *. No significant issues noted on an osteopathic structural exam other than those noted in the History and Physical/Consult. Vitals: Vital Signs Temp Pulse Resp BP Pulse Ox 04/16/22 13:02 95 04/16/22 12:04 108 H 20 113/71 99 04/16/22 10:19 97.8 F 118 H 18 114/73 97 Intake and Output 04/15/22 04/16/22 04/16/22 22:59 06:59 14:59 Other: Weight 71.3 kg Results CBC & Chem 7: 04/16/22 10:49 04/16/22 10:49 Labs: Abnormal Lab Results - Last 24 Hours (Table) 04/16/22 04/16/22 Range/Units 10:49 10:49 RBC 3.70 L (3.80-5.40) m/uL Hgb 11.3 L (11.4-16.0) gm/dL Lymphocytes # 0.9 L (1.0-4.8) k/uL Sodium 133 L (137-145) mmol/L Chloride 88 L (98-107) mmol/L BUN 26 H (7-17) mg/dL
[2022-04-16] MEDS: METOPROLOL TARTRATE 25 MG TAB PO SCH (16:55)
[2022-04-16] MEDS: KETOROLAC 15 MG/ML 1 ML VIAL IVP SCH (17:47)
[2022-04-16] MEDS ORDERED: diphenhydrAMINE 25 MG CAP PO SCH (21:00)
[2022-04-16] MEDS ORDERED: NON FORMULARY DRUG (Propylene Glycol/Peg 400/Pf [Systane 0.3-0.4% Eye Drop] 1 EACH Dropere BOTH EYES SCH (21:00)
[2022-04-16] MEDS ORDERED: ATORVASTATIN 40 MG TAB PO SCH (21:00)
[2022-04-16] MEDS ORDERED: DIVALPROEX ER 250 MG TAB.ER.24H PO SCH (21:00)
[2022-04-16] MEDS: IPRATROPIUM-ALBUTEROL 3 ML NEB INHALATION SCH (21:05)
[2022-04-16] MEDS: BUDESONIDE 0.5 MG/2 ML NEBU INHALATION SCH (21:05)
[2022-04-16] MEDS: PRIMIDONE 50 MG TAB PO SCH (21:20)
[2022-04-17] MEDS: KETOROLAC 15 MG/ML 1 ML VIAL IVP SCH ×4 (01:14→16:37)
[2022-04-17] MEDS: FUROSEMIDE 40 MG TAB PO SCH ×2 (04:59→11:35)
[2022-04-17] MEDS: IPRATROPIUM-ALBUTEROL 3 ML NEB INHALATION SCH ×3 (05:19→12:42)
[2022-04-17] MEDS ORDERED: PANTOPRAZOLE 40 MG TABLET PO SCH (06:00)
[2022-04-17] MEDS: BUDESONIDE 0.5 MG/2 ML NEBU INHALATION SCH (07:56)
[2022-04-17] MEDS: DIVALPROEX ER 250 MG TAB.ER.24H PO SCH ×2 (08:09→15:14)
[2022-04-17] MEDS: PRIMIDONE 50 MG TAB PO SCH ×2 (08:09→15:14)
[2022-04-17] MEDS: METOPROLOL TARTRATE 25 MG TAB PO SCH (08:10)
[2022-04-17] MEDS ORDERED: MEGESTROL 400 MG/10 ML CUP PO SCH (09:00)
[2022-04-17] MEDS ORDERED: FLUTICASONE 50MCG/SPRAY NASAL 16GM EA NOSTRIL SCH (09:00)
[2022-04-17] MEDS ORDERED: ASPIRIN 325 MG TAB PO SCH ×2 (09:00)
[2022-04-17] MEDS ORDERED: SERTRALINE 25 MG TAB PO SCH (09:00)
[2022-04-17 11:12] LABS: Chol/HDL Ratio 4.32 Ratio; LDL Cholesterol,Calculated 105.8 mg/dL (0.0-131.0)
--- NOTE | 2022-04-17 12:24 | CA ---
Transthoracic Echo Report Name: Arin Fulton Age: 81 Gender: F : 1940 Exam Date: 04/17/2022 08:25 Exam Location: [facility] Ht (in): 66 Wt (lb): 157 Ordering Physician: Nannette Maxwell MD Attending/Referring Phys: [employer] Developer Aziza Olsen RDCS Procedure CPT: Indications: pleural effusions Cardiac Hx: Technical Quality: Fair Contrast 1: Total Dose (mL): Contrast 2: Total Dose (mL): MEASUREMENTS (Male / Female) Normal Values 2D ECHO LV Diastolic Diameter PLAX 4.0 cm 4.2 - 5.9 / 3.9 - 5.3 cm LV Systolic Diameter PLAX 2.2 cm IVS Diastolic Thickness 1.0 cm 0.6 - 1.0 / 0.6 - 0.9 cm LVPW Diastolic Thickness 0.9 cm 0.6 - 1.0 / 0.6 - 0.9 cm LV Relative Wall Thickness 0.5 RV Internal Dim ED PLAX 2.1 cm LA Volume 29.6 cm??? 18 - 58 / 22 - 52 cm??? M-MODE Aortic Root Diameter MM 2.9 cm LA Systolic Diameter MM 2.9 cm LA Ao Ratio MM 1.0 AV Cusp Separation MM 1.3 cm DOPPLER AV Peak Velocity 132.7 cm/s AV Peak Gradient 7.0 mmHg LVOT Peak Velocity 111.0 cm/s LVOT Peak Gradient 4.9 mmHg MV Area PHT 4.2 cm??? Mitral E Point Velocity 93.0 cm/s Mitral A Point Velocity 107.7 cm/s Mitral E to A Ratio 0.9 MV Deceleration Time 179.4 ms TR Peak Velocity 210.3 cm/s TR Peak Gradient 17.7 mmHg Right Ventricular Systolic Press 21.4 mmHg FINDINGS Left Ventricle Mildly increased septal wall thickness. Mildly increased left ventricular wall thickness. Normal left ventricular systolic function with no obvious regional wall motion abnormalities. Left ventricular ejection fraction is estimated at 55 %. Right Ventricle Normal right ventricular size and function. Right ventricular systolic pressure within normal limits. Right Atrium Normal right atrial size. Left Atrium Normal left atrial size. No evidence for an atrial septal defect. Mitral Valve No mitral stenosis, regurgitation or prolapse.mitral valve thickened. Mild mitral annular calcification. Aortic Valve No aortic valve stenosis or regurgitation. Aortic valve sclerosis. Tricuspid Valve Structurally normal tricuspid valve. Mild tricuspid regurgitation. Pulmonic Valve Structurally normal pulmonic valve. Trace pulmonic regurgitation. Pericardium Small pericardial effusion. Aorta Normal size aortic root and proximal ascending aorta. CONCLUSIONS Normal left ventricular dimension and systolic function Previewed by: Dr. Brandon Pisano MD (Electronically Signed) Final Date: 17 April 2022 12:23
--- NOTE | 2022-04-17 12:56 | P.PN ---
Subjective Progress Note Date: 04/17/22 81-year-old woman with a history of hyperlipidemia, CAD, seizure disorder, COPD presented with chest pain. In the emergency room, patient is afebrile, 114/73, heart rate 118, 97% on room air. CBC shows mild anemia down to 11.3, chemistries show mild hyponatremia to 133, mildly elevated BUN at 26, creatinine is normal. LFTs are unremarkable. Initial troponin was less than 0.012. EKG shows sinus tachycardia with incomplete right bundle-branch block. Chest x-ray shows small bilateral pleural effusions. 04/17: Echo normal, troponins negative. Pain is reproducible on palpation of chest. Pt stable for d/c with pain regimen, PT/OT. Insurance authorization is pending. Gen: in no apparent distress, resting comfortably in bed Eyes: PERRL, no scleral injection or icterus HENT: normocephalic, atraumatic, good hearing acuity, moist mucous membranes Neck: no tracheal deviation, full range of motion Resp: good air exchange, breathing comfortably with no accessory muscle use, no tactile fremitus, clear to auscultation bilaterally CVS: good distal perfusion x 4, no pitting edema, regular rate and rhythm GI: soft, no tenderness to palpation, periumbilical area, ND, no hepatosplenomegaly : no suprapubic tenderness, no CVAT, almeida catheter not present MSK: no clubbing, no cyanosis, no noted contractures of extremities, tenderness to palpation of the chest, abdomen, extremities Skin: no noted rashes, petechiae; temperature of skin is appropriate Neuro: moving all extremities without signs of weakness, CN II-XII intact Psych: cooperative, euthymic mood, insight and judgment intact Assessment/plan: Musculoskeletal chest pain -Admit to observation, telemetry -PT consult -Pain control -Trend troponins Pleural effusions, bilateral -Obtain BNP -Echocardiogram COPD without exacerbation Nonocclusive CAD Seizure disorder Hyperlipidemia -Home medications reviewed and reconciled Patient is full code DVT prophylaxis with enoxaparin daily Objective - Vital Signs Vital signs: Vital Signs Temp 97.8 F 04/17/22 07:00 Pulse 92 04/17/22 08:12 Resp 18 04/17/22 08:00 BP 94/57 04/17/22 07:00 Pulse Ox 96 04/17/22 07:00 FiO2 Intake & Output 04/16/22 04/17/22 04/17/22 18:59 06:59 18:59 Intake Total 290 90 Balance 290 90 Weight 71.3 kg Intake: Intake, IV Titration 50 Amount cefTRIAXone 1 gm In 50 Sodium Chloride 0.9% 50 ml @ 100 mls/hr IVPB Q24HR [facility] Rx#:[id number] Oral 240 90 Other: Voiding Method Diaper Diaper # Voids 1 0 - Labs CBC & Chem 7: 04/16/22 10:49 04/16/22 10:49 Labs: Abnormal Lab Results - Last 24 Hours (Table) 04/17/22 Range/Units 06:32 Triglycerides 151.00 H (0.00-149.00) mg/dL
[2022-04-17 13:33] VITALS: BMI 25.3
[2022-04-17 13:52] VITALS: BP 102/64; PULSE 85; RESP 16; TEMP 97.4
[2022-04-17] MEDS ORDERED: MULTIVITAMINS, THERA 1 EACH TAB PO SCH (14:00)
--- NOTE | 2022-04-17 15:46 | P.DS ---
Providers Date of admission: 04/16/22 13:17 Expected date of discharge: 04/17/22 Attending physician: Darcy Law MD Primary care physician: Mike Sanches Hospital Course: Musculoskeletal chest pain Pleural effusions, bilateral COPD without exacerbation Nonocclusive CAD Seizure disorder Hyperlipidemia 81-year-old woman with a history of hyperlipidemia, CAD, seizure disorder, COPD presented with chest pain. In the emergency room, patient is afebrile, 114/73, heart rate 118, 97% on room air. CBC shows mild anemia down to 11.3, chemistries show mild hyponatremia to 133, mildly elevated BUN at 26, creatinine is normal. LFTs are unremarkable. Initial troponin was less than 0.012. EKG shows sinus tachycardia with incomplete right bundle-branch block. Chest x-ray shows small bilateral pleural effusions. 04/17: Echo normal, troponins negative. Pain is reproducible on palpation of chest. Pt stable for d/c with pain regimen, PT/OT. Insurance authorization is pending and completed. Pt to go to [facility] for more rehab. Lidocaine patches prescribed for pain. Gen: in no apparent distress, resting comfortably in bed Eyes: PERRL, no scleral injection or icterus HENT: normocephalic, atraumatic, good hearing acuity, moist mucous membranes Neck: no tracheal deviation, full range of motion Resp: good air exchange, breathing comfortably with no accessory muscle use, no tactile fremitus, clear to auscultation bilaterally CVS: good distal perfusion x 4, no pitting edema, regular rate and rhythm GI: soft, no tenderness to palpation, periumbilical area, ND, no hepatosplenomegaly : no suprapubic tenderness, no CVAT, almeida catheter not present MSK: no clubbing, no cyanosis, no noted contractures of extremities, tenderness to palpation of the chest, abdomen, extremities Skin: no noted rashes, petechiae; temperature of skin is appropriate Neuro: moving all extremities without signs of weakness, CN II-XII intact Psych: cooperative, euthymic mood, insight and judgment intact Patient Condition at Discharge: Good Plan - Discharge Summary Discharge Rx Participant: No New Discharge Prescriptions: New Lidocaine 5% Patch [Lidoderm 5% Patch] 1 patch TOPICAL DAILY #30 patch Clopidogrel [Plavix] 75 mg PO DAILY #30 tablet Continue Divalproex ER [Depakote ER] 250 mg PO DAILY@0900,1400 Divalproex ER [Depakote ER] 500 mg PO HS@2100 Multivitamins, Thera [Multivitamin (formulary)] 1 tab PO DAILY@1400 Acetaminophen Tab [Tylenol] 500 mg PO Q6HR PRN PRN Reason: Pain Potassium Chloride ER [K-Dur 20] 20 meq PO DAILY@0900 diphenhydrAMINE [Benadryl] 12.5 mg PO HS@2100 Primidone [Mysoline] 50 mg PO TID@0800,1400,2200 Metoprolol Tartrate [Lopressor] 25 mg PO BID@0900,1700 Sodium Chloride 0.65% Nasal [Deep Sea (Saline)] 1 spray NASAL BID PRN PRN Reason: DRY NOSE Ipratropium-Albuterol Nebulize [Duoneb 0.5 mg-3 mg/3 ml Soln] 3 ml INHALATION RT-Q6H Furosemide [Lasix] 40 mg PO BID@0600,1200 Budesonide 0.5 mg INHALATION RT-BID@0900,2100 Sertraline [Zoloft] 25 mg PO DAILY@0900 Propylene Glycol/Peg 400/Pf [Systane 0.3-0.4% Eye Drop] 1 drop BOTH EYES HS@2100 Pantoprazole [Protonix] 40 mg PO DAILY@0600 Megestrol [Megace] 400 mg PO DAILY@0900 Fluticasone Nasal [place] [Flonase Nasal [place]] 1 spray EA NOSTRIL DAILY@0900 Atorvastatin [Lipitor] 40 mg PO HS@2100 Aspirin EC [Ecotrin Low Dose] 81 mg PO HS@2100 Discharge Medication List Divalproex ER [Depakote ER] 250 mg PO DAILY@0900,1400 12/31/21 [History] Divalproex ER [Depakote ER] 500 mg PO HS@2100 12/31/21 [History] Metoprolol Tartrate [Lopressor] 25 mg PO BID@0900,1700 12/31/21 [History] Multivitamins, Thera [Multivitamin (formulary)] 1 tab PO DAILY@1400 12/31/21 [History] Primidone [Mysoline] 50 mg PO TID@0800,1400,2200 12/31/21 [History] Acetaminophen Tab [Tylenol] 500 mg PO Q6HR PRN 04/16/22 [History] Aspirin EC [Ecotrin Low Dose] 81 mg PO HS@209904/16/22 [History] Atorvastatin [Lipitor] 40 mg PO HS@209904/16/22 [History] Budesonide 0.5 mg INHALATION RT-BID@899,209904/16/22 [History] Fluticasone Nasal [place] [Flonase Nasal [place]] 1 spray EA NOSTRIL DAILY@89904/16/22 [History] Furosemide [Lasix] 40 mg PO BID@0600,1200 04/16/22 [History] Ipratropium-Albuterol Nebulize [Duoneb 0.5 mg-3 mg/3 ml Soln] 3 ml INHALATION RT-Q6H 04/16/22 [History] Megestrol [Megace] 400 mg PO DAILY@89904/16/22 [History] Pantoprazole [Protonix] 40 mg PO DAILY@59904/16/22 [History] Potassium Chloride ER [K-Dur 20] 20 meq PO DAILY@89904/16/22 [History] Propylene Glycol/Peg 400/Pf [Systane 0.3-0.4% Eye Drop] 1 drop BOTH EYES HS@209904/16/22 [History] Sertraline [Zoloft] 25 mg PO DAILY@89904/16/22 [History] Sodium Chloride 0.65% Nasal [Deep Sea (Saline)] 1 spray NASAL BID PRN 04/16/22 [History] diphenhydrAMINE [Benadryl] 12.5 mg PO HS@209904/16/22 [History] Clopidogrel [Plavix] 75 mg PO DAILY #30 tablet 04/17/22 [Rx] Lidocaine 5% Patch [Lidoderm 5% Patch] 1 patch TOPICAL DAILY #30 patch 04/17/22 [Rx] Follow up Appointment(s)/Referral(s): Mike Sanches MD [Primary Care Provider] - 1-2 days Discharge Disposition: TRANSFER TO [facility]
== END 2022-04-17 17:22 ==
LOC: EC 10:14 → EEVIPCON 13:17 → 6NMEDSUR 13:17
PROVIDERS: ADMIT Internal Medicine; ATTEND Internal Medicine
DX: R07.89 Other chest pain (principal); J90 Pleural effusion, not elsewhere classified; J44.9 Chronic obstructive pulmonary disease, unspecified; I10 Essential (primary) hypertension; G40.909 Epilepsy, unspecified, not intractable, without status epilepticus; N39.0 Urinary tract infection, site not specified; I25.10 Atherosclerotic heart disease of native coronary artery without angina pectoris; E78.5 Hyperlipidemia, unspecified; I45.10 Unspecified right bundle-branch block; E87.1 Hypo-osmolality and hyponatremia; D64.9 Anemia, unspecified; R79.89 Other specified abnormal findings of blood chemistry; J98.11 Atelectasis; R00.0 Tachycardia, unspecified; Z79.82 Long term (current) use of aspirin; Z79.51 Long term (current) use of inhaled steroids; Z79.899 Other long term (current) drug therapy; Z90.49 Acquired absence of other specified parts of digestive tract; Z98.891 History of uterine scar from previous surgery; Z98.890 Other specified postprocedural states
CPT/HCPCS: 96376 ×3; 96365; 96366; 96361; 96375; 99285; 36415; 94640 ×2; 93005; 93306; 97163; 97167; 83880; 80061; 80053; 83735; 84484; 85025; 71046; G0378 ×2; J0696 ×2; S0179; J1885 ×2; J1170

== ENCOUNTER 2022-04-21 21:30 | Observation (INO) | payer MEDICARE ==
[2022-04-21] MEDS ORDERED: SODIUM CHLORIDE 0.9% 1,000 ML IV STA (21:42)
--- NOTE | 2022-04-21 21:48 | ED ---
Chest Pain HPI - General Chief Complaint: Chest Pain Stated Complaint: Chest Pain Time Seen by Provider: 04/21/22 21:40 Source: patient, EMS, RN notes reviewed, old records reviewed Mode of arrival: EMS Limitations: physical limitation - History of Present Illness Initial Comments: This is a 81-year-old female to the emergency department for evaluation. Patient's is presenting to us us for evaluation regards to chest pain. Patient does have history of high blood pressure. History of seizure disorder. Patient has no cough or congestion or shortness of breath no recent travel history or sick contacts MD Complaint: chest pain -: days(s) Onset: during rest, during exertion Pain Location: substernal Pain Radiation: none Severity: mild Severity scale (1-10): 3 Quality: tightness Consistency: intermittent Improves With: nothing Worsens With: nothing Other Symptoms: palpitations Treatments Prior to Arrival: none - Related Data Home Medications Medication Instructions Recorded Confirmed Divalproex ER [Depakote ER] 250 mg PO BID@0900,1400 12/31/21 04/21/22 Metoprolol Tartrate [Lopressor] 25 mg PO BID@0900,209912/31/21 04/21/22 Multivitamins, Thera [Multivitamin 1 tab PO DAILY@0900 12/31/21 04/21/22 (formulary)] Primidone [Mysoline] 50 mg PO TID@0800,1400,209912/31/21 04/21/22 Acetaminophen Tab [Tylenol] 500 mg PO Q6HR PRN 04/16/22 04/21/22 Aspirin EC [Ecotrin Low Dose] 81 mg PO DAILY@89904/16/22 04/21/22 Atorvastatin [Lipitor] 40 mg PO HS@209904/16/22 04/21/22 Budesonide 0.5 mg INHALATION RT-BID@0900,209904/16/22 04/21/22 Fluticasone Nasal [place] [Flonase 1 spray EA NOSTRIL DAILY@89904/16/22 04/21/22 Nasal [place]] Furosemide [Lasix] 40 mg PO BID@0600,1200 04/16/22 04/21/22 Ipratropium-Albuterol Nebulize 3 ml INHALATION RT-Q6H 04/16/22 04/21/22 [Duoneb 0.5 mg-3 mg/3 ml Soln] Megestrol [Megace] 400 mg PO DAILY@89904/16/22 04/21/22 Pantoprazole [Protonix] 40 mg PO DAILY@59904/16/22 04/21/22 Potassium Chloride ER [K-Dur 20] 20 meq PO DAILY@89904/16/22 04/21/22 Propylene Glycol/Peg 400/Pf 1 drop BOTH EYES HS@209904/16/22 04/21/22 [Systane 0.3-0.4% Eye Drop] Sertraline [Zoloft] 25 mg PO DAILY@89904/16/22 04/21/22 Sodium Chloride 0.65% Nasal [Deep 1 spray NASAL BID PRN 04/16/22 04/21/22 Sea (Saline)] diphenhydrAMINE [Benadryl] 12.5 mg PO HS@209904/16/22 04/21/22 Clopidogrel [Plavix] 75 mg PO DAILY@89904/21/22 04/21/22 Divalproex Sodium [Depakote] 500 mg PO HS@209904/21/22 04/21/22 Previous Rx's Medication Instructions Recorded Cefdinir [Omnicef] 300 mg PO Q12HR 3 Days #6 capsule 04/17/22 Lidocaine 5% Patch [Lidoderm 5% 1 patch TOPICAL DAILY #30 patch 04/17/22 Patch] Allergies Allergy/AdvReac Type Severity Reaction Status Date / Time aspirin Allergy Unknown Verified 04/21/22 21:34 Iodinated Contrast Media Allergy Unknown Verified 04/21/22 21:34 lanolin Allergy Unknown Verified 04/21/22 21:34 Penicillins Allergy Unknown Verified 04/21/22 21:34 latex AdvReac Rash/Hives Verified 04/21/22 21:34 Review of Systems ROS Statement: Those systems with pertinent positive or pertinent negative responses have been documented in the HPI. ROS Other: All systems not noted in ROS Statement are negative. EKG Findings - EKG Comments: EKG Findings:: EKG is sinus tachycaradia 101 MA 172 QRS 94 QTc 397 Past Medical History Past Medical History: Hypertension, Seizure Disorder Additional Past Medical History / Comment(s): Headaches Last Myocardial Infarction Date:: unknown History of Any Multi-Drug Resistant Organisms: None Reported Past Surgical History: Appendectomy, Section, Cholecystectomy, Orthopedic Surgery Past Psychological History: No Psychological Hx Reported Smoking Status: Never smoker Past Alcohol Use History: None Reported Past Drug Use History: None Reported General Exam Limitations: physical limitation General appearance: alert, in no apparent distress, anxious Head exam: Present: atraumatic, normocephalic, normal inspection Eye exam: Present: normal appearance, PERRL, EOMI. Absent: scleral icterus, conjunctival injection, periorbital swelling ENT exam: Present: normal exam, mucous membranes moist Neck exam: Present: normal inspection. Absent: tenderness, meningismus, lymphadenopathy Respiratory exam: Present: normal lung sounds bilaterally. Absent: respiratory distress, wheezes, rales, rhonchi, stridor Cardiovascular Exam: Present: regular rate, normal rhythm, normal heart sounds. Absent: systolic murmur, diastolic murmur, rubs, gallop, clicks GI/Abdominal exam: Present: soft, normal bowel sounds. Absent: distended, tenderness, guarding, rebound, rigid Extremities exam: Present: normal inspection, full ROM, normal capillary refill. Absent: tenderness, pedal edema, joint swelling, calf tenderness Back exam: Present: normal inspection Neurological exam: Present: alert, oriented X3, CN II-XII intact Psychiatric exam: Present: normal affect, normal mood Skin exam: Present: warm, dry, intact, normal color. Absent: rash Course Vital Signs 04/21/22 04/21/22 21:31 23:09 Temperature 98.2 F Pulse Rate 105 H 74 Respiratory 18 20 Rate Blood Pressure 105/68 130/70 O2 Sat by Pulse 90 L 96 Oximetry - Reevaluation(s) Reevaluation #1: 04/21/22 22:07 Medical records reviewed Reevaluation #2: 04/22/22 00:57 A shunt remains poor historian but continues to complain screen Chest pain - Consultations Consultation #1: Spoke with admitting physicians who agreed to admit this patient Chest Pain MDM - MDM 81 female to the emergency department for evaluation patient continues to complain of chest pain here in the ER. Patient will be admitted for chest pain observation correction of potassium and magnesium. Recurrent pleural effusions Disposition Clinical Impression: Chest wall pain, Chest pain, Pleural effusion, Atypical chest pain, Hypokalemia, Hypomagnesemia Disposition: ADMITTED IP TO THIS HOSP Condition: Fair Is patient prescribed a controlled substance at d/c from ED?: No Referrals: Mike Sanches MD [Primary Care Provider] - 1-2 days Time of Disposition: 01:00
[2022-04-21 22:15] LABS: Basophils % (A) 1 %; Eosinophils # (A) 0.1 k/uL (0-0.7); Eosinophils % (A) 3 %; HCT 36.6 % (34.0-46.0); HGB 12.1 gm/dL (11.4-16.0); Lymphocytes # (A) 1.6 k/uL (1.0-4.8); Lymphocytes % (A) 36 %; MCH 30.7 pg (25.0-35.0); MCV 93.3 fL (80.0-100.0); Mean Platelet Volume 7.6; Monocytes # (A) 0.3 k/uL (0-1.0); Monocytes % (A) 7 %; Neutrophils # (A) 2.3 k/uL (1.3-7.7); Neutrophils % (A) 52 %; Platelet Count 298 k/uL (150-450); RBC 3.92 m/uL (3.80-5.40); RDW 14.5 % (11.5-15.5); WBC 4.4 k/uL (3.8-10.6)
[2022-04-21] MEDS ORDERED: MORPHINE SULFATE 2 MG/ML SYRINGE IVP STA (22:18)
[2022-04-21 22:30] LABS: INR 1.3 (<1.2); Partial Thromboplastin Time 25.3 sec (22.0-30.0); Prothrombin Time 13.7 sec (9.0-12.0)
[2022-04-21 22:31] LABS: ALT 13 U/L (4-34); AST 38 U/L (14-36); African American GFR (CKD) >90 (>60 ml/min/1.73 sqM); Albumin 3.5 g/dL (3.5-5.0); Alkaline Phosphatase 84 U/L (38-126); Anion Gap 14 mmol/L; Blood Urea Nitrogen 15 mg/dL (7-17); Calcium 9.2 mg/dL (8.4-10.2); Carbon Dioxide 29 mmol/L (22-30); Chloride 90 mmol/L (98-107); Glucose 68 mg/dL (74-99); Lipase 438 U/L (23-300); Magnesium 1.5 mg/dL (1.6-2.3); Non-African American GFR(CKD) 84 (>60 ml/min/1.73 sqM); Potassium 3.2 mmol/L (3.5-5.1); Sodium 133 mmol/L (137-145); Total Bilirubin 0.5 mg/dL (0.2-1.3); Total Protein 7.2 g/dL (6.3-8.2)
--- NOTE | 2022-04-21 23:23 | XR ---
EXAMINATION TYPE: XR chest 1V portable DATE OF EXAM: 04/21/2022 COMPARISON: 04/16/2022 HISTORY: Chest pain TECHNIQUE: Single view FINDINGS: There is blunting of the costophrenic angles. No heart failure. Heart is slightly enlarged. IMPRESSION: Chronic bilateral pleural effusions without much change compared to recent exam. No obvio us heart failure. Lower lobe pneumonia also possible.
[2022-04-22] MEDS ORDERED: NALOXONE 0.4 MG/ML 1 ML VIAL IV PRN (00:55)
[2022-04-22] MEDS ORDERED: ONDANSETRON 4 MG/2 ML VIAL IVP PRN (00:55)
[2022-04-22] MEDS ORDERED: POTASSIUM BICARBONATE/CIT AC 20 MEQ TABLET.EFF PO ONE (01:00)
[2022-04-22] MEDS: SODIUM CHLORIDE 0.9% 1,000 ML IV SCH ×4 (01:59→21:28)
[2022-04-22] MEDS: MAGNESIUM SULFATE-D5W PMX 1 GM in DEXTROSE/WATER 1 100ML.BAG IVPB SCH ×2 (02:00→02:50)
[2022-04-22] MEDS: MORPHINE SULFATE 4 MG/ML SYRINGE IV PRN ×2 (07:25→11:19)
[2022-04-22] MEDS ORDERED: SODIUM CHLORIDE 0.65% NASAL SPRAY 44 ML BTL NASAL PRN (07:52)
[2022-04-22] MEDS: POTASSIUM CHLORIDE ER 20 MEQ TAB.ER PO SCH (09:09)
[2022-04-22] MEDS: ASPIRIN 81 MG PO SCH (09:09)
[2022-04-22] MEDS: MULTIVITAMINS, THERA 1 EACH TAB PO SCH (09:09)
[2022-04-22] MEDS: POTASSIUM CHLORIDE 20 MEQ in WATER FOR INJECTION 1 100ML.BAG IVPB SCH (09:09)
[2022-04-22] MEDS: CLOPIDOGREL 75 MG TAB PO SCH (09:09)
[2022-04-22] MEDS: PRIMIDONE 50 MG TAB PO SCH ×3 (09:10→21:28)
[2022-04-22] MEDS: SERTRALINE 25 MG TAB PO SCH (09:10)
[2022-04-22] MEDS: DIVALPROEX ER 250 MG TAB.ER.24H PO SCH ×2 (09:11→14:33)
[2022-04-22 11:10] LABS: Basophils % (A) 1 %; Eosinophils # (A) 0.1 k/uL (0-0.7); Eosinophils % (A) 2 %; HCT 30.7 % (34.0-46.0); HGB 10.1 gm/dL (11.4-16.0); Lymphocytes # (A) 0.9 k/uL (1.0-4.8); Lymphocytes % (A) 18 %; MCHC 32.7 g/dL (31.0-37.0); MCV 94.8 fL (80.0-100.0); Mean Platelet Volume 7.3; Monocytes # (A) 0.2 k/uL (0-1.0); Monocytes % (A) 5 %; Neutrophils # (A) 3.5 k/uL (1.3-7.7); Neutrophils % (A) 72 %; Platelet Count 242 k/uL (150-450); RBC 3.24 m/uL (3.80-5.40); RDW 14.5 % (11.5-15.5); WBC 4.8 k/uL (3.8-10.6)
[2022-04-22] MEDS: FLUTICASONE 50MCG/SPRAY NASAL 16GM EA NOSTRIL SCH (11:19)
[2022-04-22] MEDS: MEGESTROL 400 MG/10 ML CUP PO SCH (11:19)
[2022-04-22 11:22] LABS: African American GFR (CKD) >90 (>60 ml/min/1.73 sqM); Anion Gap 11 mmol/L; Blood Urea Nitrogen 13 mg/dL (7-17); Calcium 8.5 mg/dL (8.4-10.2); Carbon Dioxide 28 mmol/L (22-30); Chloride 97 mmol/L (98-107); Glucose 59 mg/dL (74-99); Magnesium 1.7 mg/dL (1.6-2.3); Non-African American GFR(CKD) 89 (>60 ml/min/1.73 sqM); Potassium 4.2 mmol/L (3.5-5.1); Sodium 136 mmol/L (137-145)
[2022-04-22] MEDS: FUROSEMIDE 40 MG TAB PO SCH (11:23)
[2022-04-22] MEDS: BUDESONIDE 0.5 MG/2 ML NEBU INHALATION SCH ×2 (11:34→19:55)
[2022-04-22] MEDS: IPRATROPIUM-ALBUTEROL 3 ML NEB INHALATION SCH ×3 (11:34→19:54)
[2022-04-22 12:14] LABS: C Reactive Protein 5.7 mg/dL (<1.0)
[2022-04-22] MEDS: METOPROLOL TARTRATE 25 MG TAB PO SCH ×2 (14:33→21:28)
--- NOTE | 2022-04-22 16:05 | P.CRDCN ---
History of Present Illness History of present illness: HISTORY OF PRESENTING ILLNESS This is a pleasant 81-year-old female past medical history significant for mild nonobstructive coronary artery disease, hypertension, dyslipidemia, seizure diso rder. She follows in the office with Dr. Rubio. Patient states she has been having sharp left chest pain around her breasts when she moves her arm and with palpation. Denies any shortness breath. Pain is worse with any movement. Pain is very reproducible with outpatient. Troponins noted to be normal 3. EKG was sinus rhythm without significant ST or T wave abnormalities. DIAGNOSTICS EKG reveals sinus rhythm, heart rate 84, nonspecific ST ST-T wave abnormalities prior EKG was similar findings Cardiac catheterization 10/2016 revealed normal ejection fraction, 30% distal left main, 30% proximal LAD, 30% mid RCA Echocardiogram 06/2020 revealed an EF 54%, mild aortic regurgitation, moderate mitral regurgitation, mild tricuspid regurgitation Lexiscan stress test 04/2020 was negative for reversible ischemia Chest xray no acute cardiopulmonary process Laboratory reviewed, WBC 3.9, hemoglobin 11.2, platelets 188, troponin negative 3, proBNP 406, sodium 138, potassium 4.5, BUN 18, serum crit 0.8 Current home medications include simvastatin 20 mg nightly, metoprolol tartrate 25 mg twice a day, Depakote, primidone. REVIEW OF SYSTEMS At the time of my exam: CONSTITUTIONAL: Denies fever or chills. CARDIOVASCULAR: Denies chest pain, shortness of breath, orthopnea, PND or palpitations. RESPIRATORY: Denies cough. GASTROINTESTINAL: Denies abdominal pain, diarrhea, constipation, nausea or vomiting. MUSCULOSKELETAL: Positive left chest wall pain with palpation NEUROLOGIC: Denies numbness, tingling, headache or weakness. ENDOCRINE: Denies fatigue, weight change, polydipsia or polyurina. GENITOURINARY: Denies burning, hematuria or urgency with micturation. HEMATOLOGIC: Denies history of anemia or bleeding. PHYSICAL EXAMINATION Vitals reviewed CONSTITUTIONAL: No apparent distress. HEENT: Head is normocephalic. Pupils are equal, round. Sclerae anicteric. Mucous membranes of the mouth are moist. No JVD. No carotid bruit. CHEST EXAMINATION: Lungs are clear to auscultation. Chest wall tenderness is noted on palpation and with deep breathing. HEART EXAMINATION: Regular rate and rhythm. S1, S2 heard. Systolic ejection murmur at the apex noted ABDOMEN: Soft, nontender. Positive bowel sounds. EXTREMITIES: 2+ peripheral pulses, no lower extremity edema and no calf tender ness. SKIN: warm dry NEUROLOGIC EXAMINATION: Patient is awake, alert and oriented x3. ASSESSMENT Chest discomfort, noncardiac, appears musculoskeletal in nature Mild nonobstructive coronary artery disease Hypertension Dyslipidemia History of seizure disorder PLAN Patient with reproducible chest pain which is not cardiac in etiology. Otherwise appears stable from a cardiac standpoint. Patient is stable for discharge home and follow-up in one week with Dr. Rubio. Past Medical History Past Medical History: Hypertension, Seizure Disorder Additional Past Medical History / Comment(s): Headaches Last Myocardial Infarction Date:: unknown History of Any Multi-Drug Resistant Organisms: None Reported Past Surgical History: Appendectomy, Section, Cholecystectomy, Orthopedic Surgery Past Psychological History: No Psychological Hx Reported Smoking Status: Never smoker Past Alcohol Use History: None Reported Past Drug Use History: None Reported Medications and Allergies Home Medications Medication Instructions Recorded Confirmed Type Divalproex ER [Depakote ER] 250 mg PO BID@0900,1400 12/31/21 04/21/22 History Metoprolol Tartrate [Lopressor] 25 mg PO BID@0900,2100 12/31/21 04/21/22 History Multivitamins, Thera [Multivitamin 1 tab PO DAILY@89912/31/21 04/21/22 History (formulary)] Primidone [Mysoline] 50 mg PO TID@0800,1400,209912/31/21 04/21/22 History Acetaminophen Tab [Tylenol] 500 mg PO Q6HR PRN 04/16/22 04/21/22 History Aspirin EC [Ecotrin Low Dose] 81 mg PO DAILY@89904/16/22 04/21/22 History Atorvastatin [Lipitor] 40 mg PO HS@209904/16/22 04/21/22 History Budesonide 0.5 mg INHALATION RT-BID@00,209904/16/22 04/21/22 History Fluticasone Nasal [place] [Flonase 1 spray EA NOSTRIL DAILY@00 04/16/22 04/21/22 History Nasal [place]] Furosemide [Lasix] 40 mg PO BID@0600,1200 04/16/22 04/21/22 History Ipratropium-Albuterol Nebulize 3 ml INHALATION RT-Q6H 04/16/22 04/21/22 History [Duoneb 0.5 mg-3 mg/3 ml Soln] Megestrol [Megace] 400 mg PO DAILY@89904/16/22 04/21/22 History Pantoprazole [Protonix] 40 mg PO DAILY@59904/16/22 04/21/22 History Potassium Chloride ER [K-Dur 20] 20 meq PO DAILY@89904/16/22 04/21/22 History Propylene Glycol/Peg 400/Pf 1 drop BOTH EYES HS@209904/16/22 04/21/22 History [Systane 0.3-0.4% Eye Drop] Sertraline [Zoloft] 25 mg PO DAILY@89904/16/22 04/21/22 History Sodium Chloride 0.65% Nasal [Deep 1 spray NASAL BID PRN 04/16/22 04/21/22 History Sea (Saline)] diphenhydrAMINE [Benadryl] 12.5 mg PO HS@209904/16/22 04/21/22 History Cefdinir [Omnicef] 300 mg PO Q12HR 3 Days #6 capsule 04/17/22 04/21/22 Rx Lidocaine 5% Patch [Lidoderm 5% 1 patch TOPICAL DAILY #30 patch 04/17/22 04/21/22 Rx Patch] Clopidogrel [Plavix] 75 mg PO DAILY@89904/21/22 04/21/22 History Divalproex Sodium [Depakote] 500 mg PO HS@209904/21/22 04/21/22 History Allergies Allergy/AdvReac Type Severity Reaction Status Date / Time aspirin Allergy Unknown Verified 04/21/22 21:34 Iodinated Contrast Media Allergy Unknown Verified 04/21/22 21:34 lanolin Allergy Unknown Verified 04/21/22 21:34 Penicillins Allergy Unknown Verified 04/21/22 21:34 latex AdvReac Rash/Hives Verified 04/21/22 21:34 Physical Exam Vitals: Vital Signs Temp Pulse Pulse Resp BP BP Pulse Ox 04/22/22 14:04 97.5 F L 81 16 104/59 98 04/22/22 11:45 72 04/22/22 11:35 72 04/22/22 07:00 97.5 F L 79 16 106/63 98 04/22/22 03:16 64 18 04/22/22 03:15 98.0 F 64 18 123/64 94 L 04/22/22 03:07 97.9 F 79 18 103/58 98 04/22/22 01:47 74 20 100/68 96 04/22/22 01:00 77 19 110/70 96 04/21/22 23:09 74 20 130/70 96 04/21/22 21:31 98.2 F 105 H 18 105/68 90 L Intake and Output 04/22/22 04/22/22 04/22/22 06:59 14:59 22:59 Output Total 400 150 Balance -400 -150 Output: Urine 400 150 Other: Voiding Method Indwelling Catheter Indwelling Catheter Weight 74 kg Results 04/22/22 10:48 04/22/22 10:57 Cardiac Enzymes 04/21/22 04/21/22 04/22/22 Range/Units 21:54 21:54 03:03 AST 38 H (14-36) U/L Troponin I <0.012 0.015 (0.000-0.034) ng/mL 04/22/22 Range/Units 06:28 AST (14-36) U/L Troponin I 0.014 (0.000-0.034) ng/mL Coagulation 04/21/22 Range/Units 21:54 PT 13.7 H (9.0-12.0) sec APTT 25.3 (22.0-30.0) sec CBC 04/21/22 04/22/22 Range/Units 21:54 10:48 WBC 4.4 4.8 (3.8-10.6) k/uL RBC 3.92 3.24 L (3.80-5.40) m/uL Hgb 12.1 10.1 L (11.4-16.0) gm/dL Hct 36.6 30.7 L (34.0-46.0) % Plt Count 298 242 (150-450) k/uL Comprehensive Metabolic Panel 04/21/22 04/22/22 Range/Units 21:54 10:57 Sodium 133 L 136 L (137-145) mmol/L Potassium 3.2 L 4.2 (3.5-5.1) mmol/L Chloride 90 L 97 L (98-107) mmol/L Carbon Dioxide 29 28 (22-30) mmol/L BUN 15 13 (7-17) mg/dL Creatinine 0.66 0.57 (0.52-1.04) mg/dL Glucose 68 L 59 L (74-99) mg/dL Calcium 9.2 8.5 (8.4-10.2) mg/dL AST 38 H (14-36) U/L ALT 13 (4-34) U/L Alkaline Phosphatase 84 (38-126) U/L Total Protein 7.2 (6.3-8.2) g/dL Albumin 3.5 (3.5-5.0) g/dL Current Medications Generic Name Dose Route Start Last Admin Trade Name Freq PRN Reason Stop Dose Admin Acetaminophen 500 mg 04/22/22 07:52 Acetaminophen Tab 500 Mg Tab PO Q6HR PRN Pain Albuterol/Ipratropium 3 ml 04/22/22 08:00 04/22/22 11:34 Ipratropium-Albuterol 3 Ml Neb INHALATION 3 ml RT-Q6H VIC Administration Artificial Tears 1 drops 04/22/22 21:00 Artificial Tears-Hypromellose Drops 15 Ml Btl BOTH EYES HS@2100 [facility] Aspirin 81 mg 04/22/22 09:00 04/22/22 09:09 Aspirin 81 Mg PO 81 mg DAILY@0900 VIC Administration Atorvastatin Calcium 40 mg 04/22/22 21:00 Atorvastatin 40 Mg Tab PO HS@2100 [facility] Budesonide 0.5 mg 04/22/22 09:00 04/22/22 11:34 Budesonide 0.5 Mg/2 Ml Nebu INHALATION Not Given RT-BID@00,2099 [facility] Clopidogrel Bisulfate 75 mg 04/22/22 09:00 04/22/22 09:09 Clopidogrel 75 Mg Tab PO 75 mg DAILY@0900 VIC Administration Divalproex Sodium 500 mg 04/22/22 21:00 Divalproex 500 Mg Tablet. PO HS@2100 [facility] Divalproex Sodium 250 mg 04/22/22 09:00 04/22/22 14:33 Divalproex Er 250 Mg Tab.Er.24h PO 250 mg BID@0900,1400 VIC Administration Fluticasone Propionate 1 spray 04/22/22 09:00 04/22/22 11:19 Fluticasone 50mcg/[place] Nasal 16gm EA NOSTRIL 1 spray DAILY@0900 VIC Administration Furosemide 40 mg 04/22/22 12:00 04/22/22 11:23 Furosemide 40 Mg Tab PO 40 mg BID@0600,1200 VIC Administration Potassium Chloride 20 meq/ IV 100 mls @ 50 mls/hr 04/22/22 09:00 04/22/22 09:09 Solution IVPB 50 mls/hr DAILY VIC Administration Sodium Chloride 1,000 mls @ 130 mls/hr 04/22/22 01:00 04/22/22 11:19 Saline 0.9% IV 130 mls/hr .Q7H42M VIC Administration Megestrol Acetate 400 mg 04/22/22 09:00 04/22/22 11:19 Megestrol 400 Mg/10 Ml Cup PO 400 mg DAILY@09 VIC Administration Metoprolol Tartrate 25 mg 04/22/22 09:00 04/22/22 14:33 Metoprolol Tartrate 25 Mg Tab PO Not Given BID@09,2100 [facility] Morphine Sulfate 4 mg 04/22/22 00:55 04/22/22 11:19 Morphine Sulfate 4 Mg/Ml Syringe IV 4 mg Q4HR PRN Administration Severe Pain Multivitamins 1 each 04/22/22 09:00 04/22/22 09:09 Multivitamins, Thera 1 Each Tab PO 1 each DAILY@09 VIC Administration Naloxone HCl 0.2 mg 04/22/22 00:55 Naloxone 0.4 Mg/Ml 1 Ml Vial IV Q2M PRN Opioid Reversal Ondansetron HCl 4 mg 04/22/22 00:55 Ondansetron 4 Mg/2 Ml Vial IVP Q8HR PRN Nausea And Vomiting Pantoprazole Sodium 40 mg 04/23/22 06:00 Pantoprazole 40 Mg Tablet PO DAILY@0600 VIC Potassium Chloride 20 meq 04/22/22 09:00 04/22/22 09:09 Potassium Chloride Er 20 Meq Tab.Er PO 20 meq DAILY@0900 VIC Administration Primidone 50 mg 04/22/22 08:00 04/22/22 14:33 Primidone 50 Mg Tab PO 50 mg TID@0800,1400,2100 VIC Administration Sertraline HCl 25 mg 04/22/22 09:00 04/22/22 09:10 Sertraline 25 Mg Tab PO 25 mg DAILY@0900 VIC Administration Sodium Chloride 1 spray 04/22/22 07:52 Sodium Chloride 0.65% Nasal [place] 44 Ml Btl NASAL BID PRN DRY NOSE Intake and Output 04/22/22 04/22/22 04/22/22 06:59 14:59 22:59 Output Total 400 150 Balance -400 -150 Output: Urine 400 150 Other: Voiding Method Indwelling Catheter Indwelling Catheter Weight 74 kg 04/22/22 10:48 04/22/22 10:57
--- NOTE | 2022-04-22 17:40 | P.HPIM ---
History of Present Illness H&P Date: 04/22/22 Chief Complaint: Chest pain 81-year-old female to the emergency department for evaluation. Patient's is presenting to us us for evaluation regards to chest pain. Patient does have history of high blood pressure. History of seizure disorder. Patient has no cough or congestion or shortness of breath no recent travel history or sick contacts EKG reveals sinus rhythm, heart rate 84, nonspecific ST ST-T wave abnormalities prior EKG was similar findings Cardiac catheterization 10/2016 revealed normal ejection fraction, 30% distal left main, 30% proximal LAD, 30% mid RCA Echocardiogram 06/2020 revealed an EF 54%, mild aortic regurgitation, moderate mitral regurgitation, mild tricuspid regurgitation Lexiscan stress test 04/2020 was negative for reversible ischemia Chest xray no acute cardiopulmonary process Laboratory reviewed, WBC 3.9, hemoglobin 11.2, platelets 188, troponin negative 3, proBNP 406, sodium 138, potassium 4.5, BUN 18, serum crit 0.8 Review of Systems REVIEW OF SYSTEMS: CONSTITUTIONAL: No fever, no malaise, no fatigue. HEENT: No recent visual problems or hearing problems. Denied any sore throat. CARDIOVASCULAR: No chest pain, orthopnea, PND, no palpitations, no syncope. PULMONARY: No shortness of breath, no cough, no hemoptysis. GASTROINTESTINAL: No diarrhea, no nausea, no vomiting, no abdominal pain. NEUROLOGICAL: No headaches, no weakness, no numbness. HEMATOLOGICAL: Denies any bleeding or petechiae. GENITOURINARY: Denies any burning micturition, frequency, or urgency. MUSCULOSKELETAL/RHEUMATOLOGICAL: Denies any joint pain, swelling, or any muscle pain. ENDOCRINE: Denies any polyuria or polydipsia. The rest of the 14-point review of systems is negative. Past Medical History Past Medical History: Hypertension, Seizure Disorder Additional Past Medical History / Comment(s): Headaches Last Myocardial Infarction Date:: unknown History of Any Multi-Drug Resistant Organisms: None Reported Past Surgical History: Appendectomy, Section, Cholecystectomy, Orthopedic Surgery Past Psychological History: No Psychological Hx Reported Smoking Status: Never smoker Past Alcohol Use History: None Reported Past Drug Use History: None Reported Medications and Allergies Home Medications Medication Instructions Recorded Confirmed Type Divalproex ER [Depakote ER] 250 mg PO BID@0900,1400 12/31/21 04/21/22 History Metoprolol Tartrate [Lopressor] 25 mg PO BID@0900,2100 12/31/21 04/21/22 History Multivitamins, Thera [Multivitamin 1 tab PO DAILY@89912/31/21 04/21/22 History (formulary)] Primidone [Mysoline] 50 mg PO TID@0800,1400,2100 12/31/21 04/21/22 History Acetaminophen Tab [Tylenol] 500 mg PO Q6HR PRN 04/16/22 04/21/22 History Aspirin EC [Ecotrin Low Dose] 81 mg PO DAILY@89904/16/22 04/21/22 History Atorvastatin [Lipitor] 40 mg PO HS@209904/16/22 04/21/22 History Budesonide 0.5 mg INHALATION RT-BID@899,209904/16/22 04/21/22 History Fluticasone Nasal [place] [Flonase 1 spray EA NOSTRIL DAILY@89904/16/22 04/21/22 History Nasal [place]] Furosemide [Lasix] 40 mg PO BID@0600,1200 04/16/22 04/21/22 History Ipratropium-Albuterol Nebulize 3 ml INHALATION RT-Q6H 04/16/22 04/21/22 History [Duoneb 0.5 mg-3 mg/3 ml Soln] Megestrol [Megace] 400 mg PO DAILY@89904/16/22 04/21/22 History Pantoprazole [Protonix] 40 mg PO DAILY@59904/16/22 04/21/22 History Potassium Chloride ER [K-Dur 20] 20 meq PO DAILY@89904/16/22 04/21/22 History Propylene Glycol/Peg 400/Pf 1 drop BOTH EYES HS@209904/16/22 04/21/22 History [Systane 0.3-0.4% Eye Drop] Sertraline [Zoloft] 25 mg PO DAILY@89904/16/22 04/21/22 History Sodium Chloride 0.65% Nasal [Deep 1 spray NASAL BID PRN 04/16/22 04/21/22 History Sea (Saline)] diphenhydrAMINE [Benadryl] 12.5 mg PO HS@209904/16/22 04/21/22 History Cefdinir [Omnicef] 300 mg PO Q12HR 3 Days #6 capsule 04/17/22 04/21/22 Rx Lidocaine 5% Patch [Lidoderm 5% 1 patch TOPICAL DAILY #30 patch 04/17/22 04/21/22 Rx Patch] Clopidogrel [Plavix] 75 mg PO DAILY@0900 04/21/22 04/21/22 History Divalproex Sodium [Depakote] 500 mg PO HS@2100 04/21/22 04/21/22 History Allergies Allergy/AdvReac Type Severity Reaction Status Date / Time aspirin Allergy Unknown Verified 04/21/22 21:34 Iodinated Contrast Media Allergy Unknown Verified 04/21/22 21:34 lanolin Allergy Unknown Verified 04/21/22 21:34 Penicillins Allergy Unknown Verified 04/21/22 21:34 latex AdvReac Rash/Hives Verified 04/21/22 21:34 Physical Exam Vitals: Vital Signs Temp Pulse Pulse Resp BP BP Pulse Ox 04/22/22 07:00 97.5 F L 79 16 106/63 98 04/22/22 03:16 64 18 04/22/22 03:15 98.0 F 64 18 123/64 94 L 04/22/22 03:07 97.9 F 79 18 103/58 98 04/22/22 01:47 74 20 100/68 96 04/22/22 01:00 77 19 110/70 96 04/21/22 23:09 74 20 130/70 96 04/21/22 21:31 98.2 F 105 H 18 105/68 90 L Intake and Output 04/21/22 04/22/22 04/22/22 22:59 06:59 14:59 Output Total 400 Balance -400 Output: Urine 400 Other: Voiding Method Indwelling Catheter Indwelling Catheter Weight 69.853 kg 74 kg PHYSICAL EXAMINATION: GENERAL: The patient is alert and oriented x3, not in any acute distress. Well developed, well nourished. HEENT: Pupils are round and equally reacting to light. EOMI. No scleral icterus. No conjunctival pallor. Normocephalic, atraumatic. No pharyngeal erythema. No thyromegaly. CARDIOVASCULAR: S1 and S2 present. No murmurs, rubs, or gallops. PULMONARY: Chest is clear to auscultation, no wheezing or crackles. ABDOMEN: Soft, nontender, nondistended, normoactive bowel sounds. No palpable organomegaly. MUSCULOSKELETAL: No joint swelling or deformity. EXTREMITIES: No cyanosis, clubbing, or pedal edema. NEUROLOGICAL: Gross neurological examination did not reveal any focal deficits. SKIN: No rashes. Results CBC & Chem 7: 04/22/22 10:48 04/22/22 10:57 Labs: Abnormal Lab Results - Last 24 Hours (Table) 04/21/22 04/21/22 Range/Units 21:54 21:54 PT 13.7 H (9.0-12.0) sec INR 1.3 H (<1.2) Sodium 133 L (137-145) mmol/L Potassium 3.2 L (3.5-5.1) mmol/L Chloride 90 L (98-107) mmol/L Glucose 68 L (74-99) mg/dL Magnesium 1.5 L (1.6-2.3) mg/dL AST 38 H (14-36) U/L Lipase 438 H (23-300) U/L Thrombosis Risk Factor Assmnt - Choose All That Apply Any of the Below Risk Factors Present?: No Other Risk Factors: No Each Risk Factor Represents 3 Points: Age 75 years or older Thrombosis Risk Factor Assessment Total Risk Factor Score: 3 Thrombosis Risk Factor Assessment Level: Very Low Risk Assessment and Plan Assessment: 1. Chest pain rule out acute coronary syndrome; we will admit to telemetry and monitor cardiac enzymes every 43 and monitor EKG; further recommendations once patient gets evaluated by cardiology 2. Electrolyte imbalance; hypokalemia/hypomagnesemia; supplemented in ED; we will monitor electrolytes closely and make further supplementation as needed 2. Hypertension; metoprolol 25 mg twice a day 3. Hyperlipidemia; simvastatin 20 mg by mouth daily at bedtime 4. History of seizure disorder; continue with home dose of Depakote and primidone 5. Bilateral pleural effusion; which is chronic and stable; patient currently in no acute distress 6. Elevated lipase; abdominal exam is benign; we will repeat lipase level and make recommendations accordingly DVT prophylaxis; SCDs CODE STATUS; full code
[2022-04-22 19:02] LABS: Albumin 3.1 g/dL (3.5-5.0); Albumin/Globulin Ratio 0.9; Globulin 3.3 g/dL; Total Bilirubin 0.4 mg/dL (0.2-1.3); Total Protein 6.4 g/dL (6.3-8.2)
[2022-04-22] MEDS: ARTIFICIAL TEARS-HYPROMELLOSE DROPS 15 ML BTL BOTH EYES SCH (21:26)
[2022-04-22] MEDS: ATORVASTATIN 40 MG TAB PO SCH (21:28)
[2022-04-22] MEDS: DIVALPROEX 500 MG TABLET.DR PO SCH (21:28)
[2022-04-23] MEDS: IPRATROPIUM-ALBUTEROL 3 ML NEB INHALATION SCH ×4 (01:23→19:34)
[2022-04-23] MEDS: FUROSEMIDE 40 MG TAB PO SCH ×2 (06:32→11:14)
[2022-04-23] MEDS: PANTOPRAZOLE 40 MG TABLET PO SCH (06:32)
[2022-04-23] MEDS: BUDESONIDE 0.5 MG/2 ML NEBU INHALATION SCH ×2 (07:29→19:35)
[2022-04-23] MEDS: SERTRALINE 25 MG TAB PO SCH (08:23)
[2022-04-23] MEDS: METOPROLOL TARTRATE 25 MG TAB PO SCH ×2 (08:23→20:50)
[2022-04-23] MEDS: POTASSIUM CHLORIDE ER 20 MEQ TAB.ER PO SCH (08:23)
[2022-04-23] MEDS: PRIMIDONE 50 MG TAB PO SCH ×3 (08:23→20:43)
[2022-04-23] MEDS: MULTIVITAMINS, THERA 1 EACH TAB PO SCH (08:23)
[2022-04-23] MEDS: CLOPIDOGREL 75 MG TAB PO SCH (08:23)
[2022-04-23] MEDS: ASPIRIN 81 MG PO SCH (08:23)
[2022-04-23] MEDS: FLUTICASONE 50MCG/SPRAY NASAL 16GM EA NOSTRIL SCH (08:23)
[2022-04-23] MEDS: MEGESTROL 400 MG/10 ML CUP PO SCH (08:23)
[2022-04-23] MEDS: DIVALPROEX ER 250 MG TAB.ER.24H PO SCH ×2 (08:23→13:04)
[2022-04-23] MEDS: POTASSIUM CHLORIDE 20 MEQ in WATER FOR INJECTION 1 100ML.BAG IVPB SCH (08:23)
[2022-04-23] MEDS: SODIUM CHLORIDE 0.9% 1,000 ML IV SCH (08:24)
[2022-04-23 09:10] LABS: Basophils # (A) 0.03 X 10*3/uL (0.00-0.10); Basophils % (A) 0.8 %; Eosinophils # (A) 0.14 X 10*3/uL (0.04-0.35); Eosinophils % (A) 3.9 %; HCT 29.8 % (37.2-46.3); HGB 9.3 g/dL (12.0-15.0); Immature Grans, Automated 0.3 %; Lymphocytes # (A) 0.84 X 10*3/uL (0.90-5.00); Lymphocytes % (A) 23.2 %; MCH 29.6 pg (27.0-32.0); MCHC 31.2 g/dL (32.0-37.0); MCV 94.9 fL (80.0-97.0); Mean Platelet Volume 10.5 fL (9.5-12.2); Monocytes # (A) 0.41 X 10*3/uL (0.20-1.00); Monocytes % (A) 11.3 %; NRBC Per 100 WBC 0 /100 WBCS (0.0-0.0); Neutrophils # (A) 2.19 X 10*3/uL (1.80-7.70); Neutrophils % (A) 60.5 %; Platelet Count 197 X 10*3/uL (140-440); RBC 3.14 X 10*6/uL (4.10-5.20); RDW 14.6 % (11.5-14.5); WBC 3.62 X 10*3/uL (4.50-10.00)
--- NOTE | 2022-04-23 09:18 | US ---
EXAMINATION TYPE: US abdomen limited DATE OF EXAM: 04/23/2022 COMPARISON: US 01/15/18. CLINICAL HISTORY: abdominal pain. Epigastric pain. Cholecystectomy. Limited due to patient not being able to hold breath. EXAM MEASUREMENTS: Liver Length: 13.1 cm Gallbladder Wall: Surgically absent CBD: 0.6 cm Right Kidney: 11.9 x 4.0 x 4.7 cm Pancreas: Partially obscured by bowel gas Liver: wnl Gallbladder: Surgically absent Evidence for sonographic Austin's sign: No CBD: wnl Right Kidney: Cystic area seen in super pole measuring 1.3 x 1.1 x 1.0 cm. 2 echogenic areas seen - one in sup pole and one in inf pole. Inferior pole is larger measuring 0.9 x 0.9 x 0.7 cm. IMPRESSION: 1. Hyperechoic areas within the right kidney likely represent small nonobstructing renal calculi
[2022-04-23] MEDS ORDERED: Magnesium Replacement Protocol 1 EACH MISC MISCELLANE PRN (09:21)
[2022-04-23 09:29] LABS: BUN/Creat Ratio 11.71 Ratio (12.00-20.00); Globulin 2.9 g/dL (1.6-3.3)
[2022-04-23 09:30] LABS: ALT 20 U/L (8-44); AST 51 U/L (13-35); African American GFR (CKD) 97.6 (60.0-200.0); Albumin 2.6 g/dL (3.8-4.9); Albumin/Globulin Ratio 0.89 (1.60-3.17); Alkaline Phosphatase 81 U/L (41-126); Bilirubin, Conjugated <0.20 mg/dL (0.20-0.40); Blood Urea Nitrogen 7.7 mg/dL (9.0-27.0); Calcium 8.4 mg/dL (8.7-10.3); Carbon Dioxide 28.5 mmol/L (20.0-27.5); Chloride 100 mmol/L (96-109); Glucose 68 mg/dL (70-110); Lipase 35 U/L (14-63); Magnesium 1.5 mg/dL (1.5-2.4); Non-African American GFR(CKD) 84.2 (60.0-200.0); Phosphorus 2.8 mg/dL (2.4-5.1); Potassium 5.2 mmol/L (3.5-5.5); Sodium 140 mmol/L (135-145); Total Bilirubin <0.15 mg/dL (0.30-1.20); Total Protein 5.5 g/dL (6.2-8.2)
[2022-04-23] MEDS: MAGNESIUM SULFATE-D5W PMX 1 GM in DEXTROSE/WATER 1 100ML.BAG IVPB SCH ×2 (09:57→11:14)
[2022-04-23 10:15] LABS: Lipase 370 U/L (23-300)
[2022-04-23] MEDS ORDERED: diphenhydrAMINE 50 MG/ML 1 ML VIAL IVP ONE (12:40)
[2022-04-23] MEDS ORDERED: methylPREDNISolone SOD SUCCI 125 MG/2 ML VIAL IV ONE (12:40)
[2022-04-23] MEDS ORDERED: FAMOTIDINE 20 MG/2 ML VIAL IV ONE (12:40)
[2022-04-23 14:09] VITALS: BMI 26.4
--- NOTE | 2022-04-23 14:41 | CT ---
EXAMINATION TYPE: CT chest angio for PE CT DLP: 257.20 mGycm, Automated exposure control for dose reduction was used. DATE OF EXAM: 04/23/2022 2:10 PM COMPARISON: CTA chest 06/08/2015. Chest radiograph 04/21/2022 CLINICAL INDICATION:Female, 81 years old with history of PE; Elevated d-dimer TECHNIQUE/CONTRAST: CTA scan of the thorax is performed with IV Contrast, patient injected with 100 mL of Isovue 370, pul monary embolism protocol. MIP images are created and reviewed. FINDINGS: Pulmonary Artery: There is no evidence for a filling defect within the pulmonary vasculature to sugge st acute pulmonary embolism. The pulmonary artery is of normal size. Lungs/Pleura: No pneumothorax. Moderate bilateral pleural effusions with near complete atelectasis of the bilateral lower lobes and partial atelectasis of the right middle lobe. Minimal right upper lobe pleural parenchymal scarring demonstrated. Airway: Large airways are patent. Heart: The heart is mildly enlarged for size. Trace pericardial fluid. Vasculature: Mild atherosclerotic calcifications are present throughout the aorta and its branches. N o thoracic aortic aneurysm. Coronary artery calcifications. Mediastinum: No gross evidence of adenopathy. Musculoskeletal: Mild degenerative disc disease changes are present throughout the thoracolumbar spin e. No acute osseous anomalies. Soft Tissues: Unremarkable. Lower neck: No significant findings. Upper Abdomen: No significant findings. IMPRESSION: 1. No evidence of pulmonary embolism. 2. Moderate bilateral pleural effusions with associated atelectasis and cardiomegaly.
[2022-04-23 15:24] LABS: % Iron Saturation 38.29 (12.00-45.00); Iron 58 ug/dL (50-170); Total Iron Binding Capacity 151 ug/dL (228-460); Vitamin B12 >2000.0 pg/mL (200.0-944.0)
--- NOTE | 2022-04-23 15:58 | P.DS ---
Providers Date of admission: 04/22/22 00:55 Attending physician: Lili Rogers Primary care physician: Mike Sanches Hospital Course: Diagnosis Chest pain ACS is ruled out most likely musculoskeletal Electrolyte imbalance with hypokalemia, hypomagnesemia Hypertension currently normotensive Anemia, ongoing work-up B12, Folate, Iron studies have been completed. No evidence for acute bleeding. Hyperlipidemia History of seizure disorder Bilateral pleural effusion, chronic and stable Elevated lipase, benign, can follow up outpatient Elevated D-Dimer, CTA has been completed Full Code Discharge Disposition Patient is stable for discharge back to rehab in guarded prognosis. Recommend repeat labs in 2-3 days. Iron studies, B12 and Folate levels are pending which can be followed up outpatient. She has been cleared by cardiology. Hospital Course This is a pleasant 81 year old female with medical history of hypertension, hyperlipidemia, seizure disorder, chronic pleural effusion who presents to the hospital with concern of sharp left-sided chest pain around her breast which is reproducible with palpation. She denies any shortness of breath. Pain is reproducible and is also worse with movement. Patient underwent cardiac evaluation. Troponins are negative 3, EKG shows sinus rhythm without significant ST or T-wave abnormalities. She does also have history of nonobstructive coronary artery disease and follows with Dr Rubio in the office. Cardiology has no further work up in patient. Chest x-ray on admission shows chronic bilateral pleural effusions without much change compared to recent exam. There is no heart failure. left lower lobe pneumonia is also possible. Although there is no white count on admission patient has no fevers and procalcitonin level was found to be 0.05. Clinically pneumonia is not felt likely. CRP was found to be 5.7 on admission. HGB was found to be 10.1 and 9.3 with no signs for acute active bleeding. B12 and folate levels as well as iron studies have been completed and are pending results. This can be monitored outpatient. D-Dimer was found to be elevated at 3.[address] angiography has been completed. AST elevated at 85, 51. Lipase 350, 370. Abdomen ultrasound shows liver within normal limits she is post cholecystectomy. Abdomen ultrasound did show hyperechoic area within the right kidney likely representing small nonobstructing renal calculi. Patient has remained afebrile, blood pressure stable 123/64, heart rate in the 70s normal sinus rhythm, 97% on 2L nasal cannula. 04/23/2022 Patient evaluated today at the bedside. Denies fever, denies cough, no shortness of breath. No chest pain at rest. With palpation there is left sharp chest pain under left breast. Would recommend follow up with routine breast screening outpatient with mammogram if patient is not up to date. No nausea, vomiting, or diarrhea noted. Appetite is fair. Would recommend to continue oral protein supplements with meals. She is alert and oriented, focal neurological exam is negative. Abdomen is soft and nontender. Lungs are clear, S1 S2 auscultated. No peripheral edema noted. Chest CTA showing no evidence for PE, with moderate bilateral pleural effusions and associated atelectasis and cardiomegaly. Labs are reviewed today; white count 3.62, hgb 9.3, D-Dimer 2.24, sodium 140, potassium 5.2, chloride 100, BUN 7.7, creatinine 0.7, magnesium 1.5, AST 51, total eneida <0.15. Please see medication reconciliation for a list of current medications. Thank you for allowing us to participate in the care of this patient. The impression and plan of care has been dictated by Jessica Ding, Nurse Practitioner as directed. Dr. Georgette MD I have performed a history and physical examination and medical decision making of this patient, discussed the same with the dictator, and agree with the dictators assessment and plan as written, documented as a scribe. Based on total visit time, I have performed more than 50% of this visit. Patient Condition at Discharge: Fair Plan - Discharge Summary Discharge Rx Participant: No New Discharge Prescriptions: Continue Divalproex ER [Depakote ER] 250 mg PO BID@0900,1400 Multivitamins, Thera [Multivitamin (formulary)] 1 tab PO DAILY@0900 Acetaminophen Tab [Tylenol] 500 mg PO Q6HR PRN PRN Reason: Pain diphenhydrAMINE [Benadryl] 12.5 mg PO HS@2100 Lidocaine 5% Patch [Lidoderm 5% Patch] 1 patch TOPICAL DAILY #30 patch Clopidogrel [Plavix] 75 mg PO DAILY@0900 Primidone [Mysoline] 50 mg PO TID@0800,1400,2100 Metoprolol Tartrate [Lopressor] 25 mg PO BID@0900,2100 Sodium Chloride 0.65% Nasal [Deep Sea (Saline)] 1 spray NASAL BID PRN PRN Reason: DRY NOSE Ipratropium-Albuterol Nebulize [Duoneb 0.5 mg-3 mg/3 ml Soln] 3 ml INHALATION RT-Q6H Furosemide [Lasix] 40 mg PO BID@0600,1200 Budesonide 0.5 mg INHALATION RT-BID@0900,2099 Sertraline [Zoloft] 25 mg PO DAILY@0900 Propylene Glycol/Peg 400/Pf [Systane 0.3-0.4% Eye Drop] 1 drop BOTH EYES HS@2100 Pantoprazole [Protonix] 40 mg PO DAILY@0600 Megestrol [Megace] 400 mg PO DAILY@0900 Fluticasone Nasal [place] [Flonase Nasal [place]] 1 spray EA NOSTRIL DAILY@0900 Atorvastatin [Lipitor] 40 mg PO HS@2100 Aspirin EC [Ecotrin Low Dose] 81 mg PO DAILY@0900 Divalproex Sodium [Depakote] 500 mg PO HS@2100 Discontinued Potassium Chloride ER [K-Dur 20] 20 meq PO DAILY@0900 Cefdinir [Omnicef] 300 mg PO Q12HR 3 Days #6 capsule Discharge Medication List Divalproex ER [Depakote ER] 250 mg PO BID@0900,1400 12/31/21 [History] Metoprolol Tartrate [Lopressor] 25 mg PO BID@0900,209912/31/21 [History] Multivitamins, Thera [Multivitamin (formulary)] 1 tab PO DAILY@0900 12/31/21 [History] Primidone [Mysoline] 50 mg PO TID@0800,1400,209912/31/21 [History] Acetaminophen Tab [Tylenol] 500 mg PO Q6HR PRN 04/16/22 [History] Aspirin EC [Ecotrin Low Dose] 81 mg PO DAILY@0900 04/16/22 [History] Atorvastatin [Lipitor] 40 mg PO HS@209904/16/22 [History] Budesonide 0.5 mg INHALATION RT-BID@0900,209904/16/22 [History] Fluticasone Nasal [place] [Flonase Nasal [place]] 1 spray EA NOSTRIL DAILY@0900 04/16/22 [History] Furosemide [Lasix] 40 mg PO BID@0600,1200 04/16/22 [History] Ipratropium-Albuterol Nebulize [Duoneb 0.5 mg-3 mg/3 ml Soln] 3 ml INHALATION RT-Q6H 04/16/22 [History] Megestrol [Megace] 400 mg PO DAILY@89904/16/22 [History] Pantoprazole [Protonix] 40 mg PO DAILY@59904/16/22 [History] Propylene Glycol/Peg 400/Pf [Systane 0.3-0.4% Eye Drop] 1 drop BOTH EYES HS@209904/16/22 [History] Sertraline [Zoloft] 25 mg PO DAILY@89904/16/22 [History] Sodium Chloride 0.65% Nasal [Deep Sea (Saline)] 1 spray NASAL BID PRN 04/16/22 [History] diphenhydrAMINE [Benadryl] 12.5 mg PO HS@209904/16/22 [History] Lidocaine 5% Patch [Lidoderm 5% Patch] 1 patch TOPICAL DAILY #30 patch 04/17/22 [Rx] Clopidogrel [Plavix] 75 mg PO DAILY@89904/21/22 [History] Divalproex Sodium [Depakote] 500 mg PO HS@209904/21/22 [History] Follow up Appointment(s)/Referral(s): Tony Rubio MD [STAFF PHYSICIAN] - 2 Weeks Mike Sanches MD [Primary Care Provider] - 1-2 days Ambulatory/Diagnostic Orders: Basic Metabolic Panel [LAB.AMB] Time Frame: 2 Days, Location: None Selected Complete Blood Count w/diff [LAB.AMB] Time Frame: 2 Days, Location: None Selected Magnesium [LAB.AMB] Time Frame: 2 Days, Location: None Selected Activity/Diet/Wound Care/Special Instructions: Recommend routine breast screening with mammogram outpatient. Continue with Santiago protein supplementation twice a day with meals. Dysphagia level 3: Chopped Diet with 1:1 Supervision. Discharge Disposition: TRANSFER TO SNF/ECF
[2022-04-23] MEDS: DIVALPROEX 500 MG TABLET.DR PO SCH (20:43)
[2022-04-23] MEDS: ARTIFICIAL TEARS-HYPROMELLOSE DROPS 15 ML BTL BOTH EYES SCH (20:43)
[2022-04-23] MEDS: ATORVASTATIN 40 MG TAB PO SCH (20:43)
[2022-04-24] MEDS: IPRATROPIUM-ALBUTEROL 3 ML NEB INHALATION SCH ×4 (02:52→19:37)
[2022-04-24] MEDS: FUROSEMIDE 40 MG TAB PO SCH ×2 (05:28→11:27)
[2022-04-24] MEDS: PANTOPRAZOLE 40 MG TABLET PO SCH (05:28)
[2022-04-24 06:16] LABS: Basophils % (A) 1 %; Eosinophils % (A) 1 %; HCT 31.8 % (34.0-46.0); HGB 10.3 gm/dL (11.4-16.0); Lymphocytes # (A) 1.3 k/uL (1.0-4.8); Lymphocytes % (A) 35 %; MCH 30.5 pg (25.0-35.0); MCHC 32.5 g/dL (31.0-37.0); MCV 93.8 fL (80.0-100.0); Mean Platelet Volume 8.3; Monocytes # (A) 0.3 k/uL (0-1.0); Monocytes % (A) 8 %; Neutrophils % (A) 54 %; Platelet Count 158 k/uL (150-450); RBC 3.38 m/uL (3.80-5.40); RDW 15.1 % (11.5-15.5); WBC 3.8 k/uL (3.8-10.6)
[2022-04-24 06:23] LABS: African American GFR (CKD) >90 (>60 ml/min/1.73 sqM); Anion Gap 11 mmol/L; Blood Urea Nitrogen 12 mg/dL (7-17); Calcium 8.7 mg/dL (8.4-10.2); Carbon Dioxide 29 mmol/L (22-30); Chloride 94 mmol/L (98-107); Glucose 70 mg/dL (74-99); Non-African American GFR(CKD) 79 (>60 ml/min/1.73 sqM); Potassium 4.3 mmol/L (3.5-5.1); Sodium 134 mmol/L (137-145)
[2022-04-24] MEDS: BUDESONIDE 0.5 MG/2 ML NEBU INHALATION SCH ×2 (07:40→19:37)
[2022-04-24] MEDS: MEGESTROL 400 MG/10 ML CUP PO SCH (09:35)
[2022-04-24] MEDS: DIVALPROEX ER 250 MG TAB.ER.24H PO SCH ×2 (09:35→15:45)
[2022-04-24] MEDS: PRIMIDONE 50 MG TAB PO SCH ×3 (09:35→20:37)
[2022-04-24] MEDS: ASPIRIN 81 MG PO SCH (09:36)
[2022-04-24] MEDS: MULTIVITAMINS, THERA 1 EACH TAB PO SCH (09:36)
[2022-04-24] MEDS: CLOPIDOGREL 75 MG TAB PO SCH (09:36)
[2022-04-24] MEDS: SERTRALINE 25 MG TAB PO SCH (09:36)
[2022-04-24] MEDS: METOPROLOL TARTRATE 25 MG TAB PO SCH ×2 (09:36→20:36)
[2022-04-24] MEDS: FLUTICASONE 50MCG/SPRAY NASAL 16GM EA NOSTRIL SCH (09:45)
--- NOTE | 2022-04-24 14:09 | P.PN ---
Subjective Progress Note Date: 04/24/22 81-year-old female to the emergency department for evaluation. Patient's is presenting to us us for evaluation regards to chest pain. Patient does have history of high blood pressure. History of seizure disorder. Patient has no cough or congestion or shortness of breath no recent travel history or sick contacts EKG reveals sinus rhythm, heart rate 84, nonspecific ST ST-T wave abnormalities prior EKG was similar findings Cardiac catheterization 10/2016 revealed normal ejection fraction, 30% distal left main, 30% proximal LAD, 30% mid RCA Echocardiogram 06/2020 revealed an EF 54%, mild aortic regurgitation, moderate mitral regurgitation, mild tricuspid regurgitation Lexiscan stress test 04/2020 was negative for reversible ischemia Chest xray no acute cardiopulmonary process Laboratory reviewed, WBC 3.9, hemoglobin 11.2, platelets 188, troponin negative 3, proBNP 406, sodium 138, potassium 4.5, BUN 18, serum crit 0.8 04/23/2022 Patient evaluated today at the bedside. Denies fever, denies cough, no shortness of breath. No chest pain at rest. With palpation there is left sharp chest pain under left breast. Would recommend follow up with routine breast screening outpatient with mammogram if patient is not up to date. No nausea, vomiting, or diarrhea noted. Appetite is fair. Would recommend to continue oral protein supplements with meals. She is alert and oriented, focal neurological exam is negative. Abdomen is soft and nontender. Lungs are clear, S1 S2 auscultated. No peripheral edema noted. Chest CTA showing no evidence for PE, with moderate bilateral pleural effusions and associated atelectasis and cardiomegaly. Labs are reviewed today; white count 3.62, hgb 9.3, D-Dimer 2.24, sodium 140, potassium 5.2, chloride 100, BUN 7.7, creatinine 0.7, magnesium 1.5, AST 51, total eneida <0.15. 04/24/2022 Patient has not received insurance auth. Reviewed chest CTA and felt patient possible mild heart failure exacerbation, she will be given a dose of IV lasix today and tomorrow morning. Procalcitonin level 0.05. Will repeat proBNP was 122 on admission. She should be able to discharge to rehab tomorrow if there is insurance authorization. Otherwise she denies pain today. No acute events overnight. Tolerating diet, no nausea, vomiting, diarrhea. Eating about 50% of meals. Labs today show hemoglobin 10.3, sodium 134, potassium 4.3, magnesium 2.0. She is afebrile, blood pressure 114/67, 76 heart rate normal sinus rhythm, and 96% on 2L nasal cannula. Review of Systems Constitutional: Denied any fatigue denied any fever. Cardio vascular: denied any chest pain, palpitations Gastrointestinal: denied any nausea, vomiting, diarrhea Pulmonary: Denied any shortness of breath cough Neurologic denied any new focal deficits All inpatient medications were reviewed and appropriate changes in these medications as dictated in the interval history and assessment and plan. PHYSICAL EXAMINATION: GENERAL: The patient is alert and oriented x3, not in any acute distress. Well developed, well nourished. HEENT: Pupils are round and equally reacting to light. EOMI. No scleral icterus. No conjunctival pallor. Normocephalic, atraumatic. No pharyngeal erythema. No thyromegaly. CARDIOVASCULAR: S1 and S2 present. No murmurs, rubs, or gallops. PULMONARY: Chest is clear to auscultation, no wheezing or crackles. ABDOMEN: Soft, nontender, nondistended, normoactive bowel sounds. No palpable organomegaly. MUSCULOSKELETAL: No joint swelling or deformity. EXTREMITIES: No cyanosis, clubbing, or pedal edema. NEUROLOGICAL: Gross neurological examination did not reveal any focal deficits. SKIN: No rashes. Assessment and Plan Assessment Chest pain ACS is ruled out most likely musculoskeletal Mild acute diastolic heart failure with moderate pleural effusions on CTA, pat ient will be given IV lasix Elevated D-Dimer, no evidence for pulmonary embolism found on imaging Electrolyte imbalance with hypokalemia, hypomagnesemia, resolved Hypertension currently normotensive Anemia, ongoing work-up B12, Folate, Iron studies have been completed. No evidence for acute bleeding. Hyperlipidemia History of seizure disorder Bilateral pleural effusion, chronic Elevated lipase, benign, can follow up outpatient Stage 2 decubitus ulcer right buttock, present on admission Full Code Plan Repeat proBNP Patient had 2D echo completed 04/17/2022 with normal LV function Patient will be given IV lasix 40 mg today and tomorrow morning Continue with protein supplementation BID Indwelling catheter in place investigation whether chronic or can be discontinued prior to discharge Pending insurance authorization for return to subacute rehab If authorization tomorrow patient will be transitioned to oral lasix and discharge back to rehab The impression and plan of care has been dictated by Jessica Ding Nurse Practitioner as directed. Dr. Georgette MD I have performed a history and physical examination and medical decision making of this patient, discussed the same with the dictator, and agree with the dictators assessment and plan as written, documented as a scribe. Based on total visit time, I have performed more than 50% of this visit. Objective - Vital Signs Vital signs: Vital Signs Temp 98.3 F 04/24/22 07:00 Pulse 76 04/24/22 11:57 Resp 16 04/24/22 08:00 BP 111/63 04/24/22 07:00 Pulse Ox 96 04/24/22 07:41 FiO2 Intake & Output 04/23/22 04/24/22 04/24/22 18:59 06:59 18:59 Intake Total 300 Output Total 1600 600 Balance -1600 -300 Weight 72 kg 73.5 kg Intake: Oral 300 Output: Urine 1600 600 Other: Voiding Method Indwelling Catheter Indwelling Catheter Indwelling Catheter # Bowel Movements 0 - Labs CBC & Chem 7: 04/24/22 04:58 04/24/22 04:58 Labs: Abnormal Lab Results - Last 24 Hours (Table) 04/23/22 04/23/22 04/24/22 Range/Units 09:52 09:52 04:58 RBC (3.80-5.40) m/uL Hgb (11.4-16.0) gm/dL Hct (34.0-46.0) % Sodium 134 L (137-145) mmol/L Chloride 94 L (98-107) mmol/L Glucose 70 L (74-99) mg/dL TIBC 151 L (228-460) ug/dL Transferrin 108.0 L (204.0-354.0) mg/dL Ferritin 1894.0 H (10.0-291.0) ng/mL Vitamin B12 >2000.0 H (200.0-944.0) pg/mL RBC Folate 846 H (280 - 791) ng/mL 04/24/22 Range/Units 04:58 RBC 3.38 L (3.80-5.40) m/uL Hgb 10.3 L (11.4-16.0) gm/dL Hct 31.8 L (34.0-46.0) % Sodium (137-145) mmol/L Chloride (98-107) mmol/L Glucose (74-99) mg/dL TIBC (228-460) ug/dL Transferrin (204.0-354.0) mg/dL Ferritin (10.0-291.0) ng/mL Vitamin B12 (200.0-944.0) pg/mL RBC Folate (280 - 791) ng/mL Assessment and Plan Time with Patient: Less than 30
[2022-04-24] MEDS: FUROSEMIDE 10 MG/ML 4 ML VIAL IV SCH (15:47)
[2022-04-24] MEDS: ARTIFICIAL TEARS-HYPROMELLOSE DROPS 15 ML BTL BOTH EYES SCH (20:37)
[2022-04-24] MEDS: DIVALPROEX 500 MG TABLET.DR PO SCH (20:37)
[2022-04-24] MEDS: ATORVASTATIN 40 MG TAB PO SCH (20:37)
[2022-04-24] MEDS: ACETAMINOPHEN TAB 500 MG TAB PO PRN (21:08)
[2022-04-25] MEDS: IPRATROPIUM-ALBUTEROL 3 ML NEB INHALATION SCH ×3 (01:09→11:09)
[2022-04-25] MEDS: PANTOPRAZOLE 40 MG TABLET PO SCH (05:53)
[2022-04-25] MEDS: BUDESONIDE 0.5 MG/2 ML NEBU INHALATION SCH (07:12)
[2022-04-25 07:26] VITALS: BP 100/59; PULSE 84; RESP 18; TEMP 98.2
[2022-04-25 08:56] LABS: Basophils # (A) 0.04 X 10*3/uL (0.00-0.10); Eosinophils # (A) 0.11 X 10*3/uL (0.04-0.35); Eosinophils % (A) 2.8 %; HCT 26.2 % (37.2-46.3); HGB 8.6 g/dL (12.0-15.0); Immature Grans, Automated 0.5 %; Lymphocytes # (A) 1.35 X 10*3/uL (0.90-5.00); Lymphocytes % (A) 34.6 %; MCH 30.2 pg (27.0-32.0); MCHC 32.8 g/dL (32.0-37.0); MCV 91.9 fL (80.0-97.0); Mean Platelet Volume 10.7 fL (9.5-12.2); Monocytes # (A) 0.37 X 10*3/uL (0.20-1.00); Monocytes % (A) 9.5 %; NRBC Per 100 WBC 0 /100 WBCS (0.0-0.0); Neutrophils # (A) 2.01 X 10*3/uL (1.80-7.70); Neutrophils % (A) 51.6 %; Platelet Count 187 X 10*3/uL (140-440); RBC 2.85 X 10*6/uL (4.10-5.20); RDW 15.2 % (11.5-14.5)
[2022-04-25] MEDS: ASPIRIN 81 MG PO SCH (09:59)
[2022-04-25] MEDS: DIVALPROEX ER 250 MG TAB.ER.24H PO SCH (09:59)
[2022-04-25] MEDS: SERTRALINE 25 MG TAB PO SCH (09:59)
[2022-04-25] MEDS: CLOPIDOGREL 75 MG TAB PO SCH (09:59)
[2022-04-25] MEDS: PRIMIDONE 50 MG TAB PO SCH (10:00)
[2022-04-25] MEDS: ACETAMINOPHEN TAB 500 MG TAB PO PRN (10:00)
[2022-04-25] MEDS: MEGESTROL 400 MG/10 ML CUP PO SCH ×2 (10:00→10:08)
[2022-04-25] MEDS: METOPROLOL TARTRATE 25 MG TAB PO SCH (10:00)
[2022-04-25] MEDS: MULTIVITAMINS, THERA 1 EACH TAB PO SCH (10:00)
[2022-04-25] MEDS: FLUTICASONE 50MCG/SPRAY NASAL 16GM EA NOSTRIL SCH (10:01)
[2022-04-25] MEDS: FUROSEMIDE 10 MG/ML 4 ML VIAL IV SCH (10:01)
[2022-04-25 10:43] LABS: African American GFR (CKD) 81.3 (60.0-200.0); Albumin 2.8 g/dL (3.8-4.9); Albumin/Globulin Ratio 0.93 (1.60-3.17); Anion Gap 13.4 mmol/L (10.00-18.00); BUN/Creat Ratio 19.5 Ratio (12.00-20.00); Blood Urea Nitrogen 15.6 mg/dL (9.0-27.0); Calcium 8.8 mg/dL (8.7-10.3); Carbon Dioxide 27.6 mmol/L (20.0-27.5); Non-African American GFR(CKD) 70.1 (60.0-200.0); Total Bilirubin 0.2 mg/dL (0.30-1.20); Total Protein 5.8 g/dL (6.2-8.2)
--- NOTE | 2022-04-25 11:48 | P.DS ---
Providers Date of admission: 04/22/22 00:55 Attending physician: Lili Rogers Primary care physician: Mike Sanches Hospital Course: Diagnosis Chest pain ACS is ruled out most likely musculoskeletal Electrolyte imbalance with hypokalemia, hypomagnesemia resolved Hypertension currently normotensive Anemia, ongoing work-up B12, Folate, Iron studies have been completed. No evidence for acute bleeding. Hyperlipidemia History of seizure disorder Bilateral pleural effusion, chronic and stable Elevated lipase, benign, can follow up outpatient Elevated D-Dimer, CTA shows no evidence for pulmonary embolism Full Code Discharge Disposition Patient is stable for discharge back to rehab in guarded prognosis. Recommend repeat labs in 2-3 days. She has been cleared by cardiology and can follow up in the office outpatient. Hospital Course This is a pleasant 81 year old female with medical history of hypertension, hyperlipidemia, seizure disorder, chronic pleural effusion who presents to the hospital with concern of sharp left-sided chest pain around her breast which is reproducible with palpation. She denies any shortness of breath. Pain is reproducible and is also worse with movement. Patient underwent cardiac evaluation. Troponins are negative 3, EKG shows sinus rhythm without significant ST or T-wave abnormalities. She does also have history of nonobstructive coronary artery disease and follows with Dr Rubio in the office. Cardiology has no further work up in patient. Chest x-ray on admission shows chronic bilateral pleural effusions without much change compared to recent exam. There is no heart failure. left lower lobe pneumonia is also possible. Although there is no white count on admission patient has no fevers and procalcitonin level was found to be 0.05. Clinically pneumonia is not felt likely. CRP was found to be 5.7 on admission. HGB was found to be 10.1 and 9.3 with no signs for acute active bleeding. B12 and folate levels as well as iron studies have been completed and are pending results. This can be monitored outpatient. D-Dimer was found to be elevated at 3.56. Chest CTA showing no evidence for PE, with moderate bilateral pleural effusions and associated atelectasis and cardiomegaly. AST elevated at 85, 51. Lipase 350, 370. Abdomen ultrasound shows liver within normal limits she is post cholecystectomy. Liver enzymes have normalized. Abdomen ultrasound did show hyperechoic area within the right kidney likely representing small nonobstructing renal calculi. Patient has remained afebrile, blood pressure stable 123/64, heart rate in the 70s normal sinus rhythm, 97% on 2L nasal cannula. 04/25/2022 Patient is evaluated today resting in bed. At rest denies shortness of breath, no chest pain noted. Repeat BNP 671. She received a dose of IV lasix x 2. Shes had good urine output. She continues with indwelling catheter from previous admission from urinary retention and will see urology outpatient. She will discharge with IDC in place. Patient continues with musculoskeletal left sided chest pain with movement. EKG was completed today due to complaints of left sided chest pain and EKG shows normal sinus rhythm with no ST or T wave abnormalities. Heart rate in the 70s. No acute osseous abnormalities have been found on imaging. Iron studies have been completed, no iron deficiency anemia, no acute bleeding noted. Will follow up and repeat CBC outpatient. No nausea, vomiting, diarrhea, no abdominal pain. Denies dysuria. Lungs are clear, Left base diminished no wheezing or crackles. Patient is encouraged to use incentive spirometry. S1 S2 auscultated, abdomen is soft and nontender. Continues with indwelling catheter. She is alert x 3, hard of hearing. Focal neurological exam is negative. Labs today showing white count 3.90, hgb 8.6, sodium 136, potassium 4.0, BUN 15.6, creatinine 0.8, glucose 76. Liver enzymes have normalized. She is afebrile, blood pressure 100/59, 93% room air. Patient will be discharged back to rehab today with indwelling catheter in place. She has been transitioned back to oral lasix. Please see medication reconciliation for a list of current medications. Thank you for allowing us to participate in the care of this patient. The impression and plan of care has been dictated by Jessica Ding, Nurse Practitioner as directed. Dr. Georgette MD I have performed a history and physical examination and medical decision making of this patient, discussed the same with the dictator, and agree with the dictators assessment and plan as written, documented as a scribe. Based on total visit time, I have performed more than 50% of this visit. Patient Condition at Discharge: Fair Plan - Discharge Summary Discharge Rx Participant: No New Discharge Prescriptions: Continue Divalproex ER [Depakote ER] 250 mg PO BID@0900,1400 Multivitamins, Thera [Multivitamin (formulary)] 1 tab PO DAILY@0900 Acetaminophen Tab [Tylenol] 500 mg PO Q6HR PRN PRN Reason: Pain diphenhydrAMINE [Benadryl] 12.5 mg PO HS@2100 Lidocaine 5% Patch [Lidoderm 5% Patch] 1 patch TOPICAL DAILY #30 patch Clopidogrel [Plavix] 75 mg PO DAILY@0900 Primidone [Mysoline] 50 mg PO TID@0800,1400,2099 Metoprolol Tartrate [Lopressor] 25 mg PO BID@0900,2099 Sodium Chloride 0.65% Nasal [Deep Sea (Saline)] 1 spray NASAL BID PRN PRN Reason: DRY NOSE Ipratropium-Albuterol Nebulize [Duoneb 0.5 mg-3 mg/3 ml Soln] 3 ml INHALATION RT-Q6H Furosemide [Lasix] 40 mg PO BID@0600,1200 Budesonide 0.5 mg INHALATION RT-BID@0900,2099 Sertraline [Zoloft] 25 mg PO DAILY@0900 Propylene Glycol/Peg 400/Pf [Systane 0.3-0.4% Eye Drop] 1 drop BOTH EYES HS@2100 Pantoprazole [Protonix] 40 mg PO DAILY@0600 Megestrol [Megace] 400 mg PO DAILY@0900 Fluticasone Nasal [place] [Flonase Nasal [place]] 1 spray EA NOSTRIL DAILY@0900 Atorvastatin [Lipitor] 40 mg PO HS@2100 Aspirin EC [Ecotrin Low Dose] 81 mg PO DAILY@0900 Divalproex Sodium [Depakote] 500 mg PO HS@2100 Discontinued Potassium Chloride ER [K-Dur 20] 20 meq PO DAILY@0900 Cefdinir [Omnicef] 300 mg PO Q12HR 3 Days #6 capsule Discharge Medication List Divalproex ER [Depakote ER] 250 mg PO BID@0900,1400 12/31/21 [History] Metoprolol Tartrate [Lopressor] 25 mg PO BID@0900,209912/31/21 [History] Multivitamins, Thera [Multivitamin (formulary)] 1 tab PO DAILY@0900 12/31/21 [History] Primidone [Mysoline] 50 mg PO TID@0800,1400,209912/31/21 [History] Acetaminophen Tab [Tylenol] 500 mg PO Q6HR PRN 04/16/22 [History] Aspirin EC [Ecotrin Low Dose] 81 mg PO DAILY@89904/16/22 [History] Atorvastatin [Lipitor] 40 mg PO HS@209904/16/22 [History] Budesonide 0.5 mg INHALATION RT-BID@899,209904/16/22 [History] Fluticasone Nasal [place] [Flonase Nasal [place]] 1 spray EA NOSTRIL DAILY@89904/16/22 [History] Furosemide [Lasix] 40 mg PO BID@0600,1200 04/16/22 [History] Ipratropium-Albuterol Nebulize [Duoneb 0.5 mg-3 mg/3 ml Soln] 3 ml INHALATION RT-Q6H 04/16/22 [History] Megestrol [Megace] 400 mg PO DAILY@89904/16/22 [History] Pantoprazole [Protonix] 40 mg PO DAILY@59904/16/22 [History] Propylene Glycol/Peg 400/Pf [Systane 0.3-0.4% Eye Drop] 1 drop BOTH EYES HS@209904/16/22 [History] Sertraline [Zoloft] 25 mg PO DAILY@89904/16/22 [History] Sodium Chloride 0.65% Nasal [Deep Sea (Saline)] 1 spray NASAL BID PRN 04/16/22 [History] diphenhydrAMINE [Benadryl] 12.5 mg PO HS@209904/16/22 [History] Lidocaine 5% Patch [Lidoderm 5% Patch] 1 patch TOPICAL DAILY #30 patch 04/17/22 [Rx] Clopidogrel [Plavix] 75 mg PO DAILY@89904/21/22 [History] Divalproex Sodium [Depakote] 500 mg PO HS@209904/21/22 [History] Follow up Appointment(s)/Referral(s): Tony Rubio MD [STAFF PHYSICIAN] - 2 Weeks Mike Sanches MD [Primary Care Provider] - 1-2 days Ambulatory/Diagnostic Orders: Basic Metabolic Panel [LAB.AMB] Time Frame: 2 Days, Location: None Selected Complete Blood Count w/diff [LAB.AMB] Time Frame: 2 Days, Location: None Selected Magnesium [LAB.AMB] Time Frame: 2 Days, Location: None Selected Activity/Diet/Wound Care/Special Instructions: Recommend routine breast screening with mammogram outpatient. Continue with Santiago protein supplementation twice a day with meals. Dysphagia level 3: Chopped Diet with 1:1 Supervision. Discharge Disposition: TRANSFER TO SNF/ECF
[2022-04-25] MEDS ORDERED: FUROSEMIDE 40 MG TAB PO SCH (16:00)
== END 2022-04-25 14:25 ==
LOC: EC 21:30 → 6NMEDSUR 04-22 00:55
PROVIDERS: ADMIT Hospitalist; ATTEND Hospitalist
DX: R07.89 Other chest pain (principal); E87.6 Hypokalemia; E83.42 Hypomagnesemia; J90 Pleural effusion, not elsewhere classified; I11.9 Hypertensive heart disease without heart failure; R79.89 Other specified abnormal findings of blood chemistry; R74.8 Abnormal levels of other serum enzymes; J98.11 Atelectasis; L89.312 Pressure ulcer of right buttock, stage 2; G40.909 Epilepsy, unspecified, not intractable, without status epilepticus; I25.10 Atherosclerotic heart disease of native coronary artery without angina pectoris; I08.3 Combined rheumatic disorders of mitral, aortic and tricuspid valves; D64.9 Anemia, unspecified; E78.5 Hyperlipidemia, unspecified; H91.90 Unspecified hearing loss, unspecified ear; Z79.82 Long term (current) use of aspirin; Z79.02 Long term (current) use of antithrombotics/antiplatelets; Z79.51 Long term (current) use of inhaled steroids; Z79.899 Other long term (current) drug therapy; Z88.6 Allergy status to analgesic agent; Z91.041 Radiographic dye allergy status; Z91.040 Latex allergy status; Z88.0 Allergy status to penicillin; Z91.048 Other nonmedicinal substance allergy status; Z90.49 Acquired absence of other specified parts of digestive tract; Z98.891 History of uterine scar from previous surgery; Z98.890 Other specified postprocedural states; Z86.711 Personal history of pulmonary embolism; Z96.0 Presence of urogenital implants
CPT/HCPCS: 96376 ×2; 96361 ×4; 96365; 96366 ×2; 96367; 96375 ×3; 99285; 36415; 94640 ×7; 94760 ×2; 93005; 97116; 97530; 97163; 97535 ×2; 97167; 85379 ×2; 82747; 83880 ×2; 80053 ×3; 80048 ×2; 80076; 82607; 82728; 82248; 83540; 83550; 83690 ×3; 83735 ×4; 84100; 84484 ×2; 85025 ×5; 85610; 85730; 86140; 84145; 71045; 76705; 71275; G0378 ×4; J2270 ×2; J1200; J1940 ×2; J2930; J3360; J3480 ×2; J3475 ×2; S0179 ×3; Q9967

== ENCOUNTER 2022-05-11 00:11 | Inpatient (IN) | payer MEDICARE ==
[2022-05-11] MEDS ORDERED: SODIUM CHLORIDE 0.9% 500 ML 500 ML IV STA (00:37)
[2022-05-11] MEDS ORDERED: MORPHINE SULFATE 4 MG/ML SYRINGE IVP STA (00:42)
[2022-05-11] MEDS ORDERED: ONDANSETRON 4 MG/2 ML VIAL IVP STA (00:42)
--- NOTE | 2022-05-11 00:42 | ED ---
Abdominal Pain HPI - General Chief Complaint: Abdominal Pain Stated Complaint: Abdominal pain Time Seen by Provider: 05/11/22 00:41 Source: EMS Mode of arrival: EMS - Related Data Home Medications Medication Instructions Recorded Confirmed Divalproex ER [Depakote ER] 250 mg PO BID@0900,1400 12/31/21 04/21/22 Metoprolol Tartrate [Lopressor] 25 mg PO BID@0900,2100 12/31/21 04/21/22 Multivitamins, Thera [Multivitamin 1 tab PO DAILY@89912/31/21 04/21/22 (formulary)] Primidone [Mysoline] 50 mg PO TID@0800,1400,209912/31/21 04/21/22 Acetaminophen Tab [Tylenol] 500 mg PO Q6HR PRN 04/16/22 04/21/22 Aspirin EC [Ecotrin Low Dose] 81 mg PO DAILY@89904/16/22 04/21/22 Atorvastatin [Lipitor] 40 mg PO HS@209904/16/22 04/21/22 Budesonide 0.5 mg INHALATION RT-BID@899,209904/16/22 04/21/22 Fluticasone Nasal [place] [Flonase 1 spray EA NOSTRIL DAILY@89904/16/22 04/21/22 Nasal [place]] Furosemide [Lasix] 40 mg PO BID@0600,1200 04/16/22 04/21/22 Ipratropium-Albuterol Nebulize 3 ml INHALATION RT-Q6H 04/16/22 04/21/22 [Duoneb 0.5 mg-3 mg/3 ml Soln] Megestrol [Megace] 400 mg PO DAILY@89904/16/22 04/21/22 Pantoprazole [Protonix] 40 mg PO DAILY@59904/16/22 04/21/22 Propylene Glycol/Peg 400/Pf 1 drop BOTH EYES HS@209904/16/22 04/21/22 [Systane 0.3-0.4% Eye Drop] Sertraline [Zoloft] 25 mg PO DAILY@89904/16/22 04/21/22 Sodium Chloride 0.65% Nasal [Deep 1 spray NASAL BID PRN 04/16/22 04/21/22 Sea (Saline)] diphenhydrAMINE [Benadryl] 12.5 mg PO HS@209904/16/22 04/21/22 Clopidogrel [Plavix] 75 mg PO DAILY@0900 04/21/22 04/21/22 Divalproex Sodium [Depakote] 500 mg PO HS@209904/21/22 04/21/22 Previous Rx's Medication Instructions Recorded Lidocaine 5% Patch [Lidoderm 5% 1 patch TOPICAL DAILY #30 patch 04/17/22 Patch] Allergies Allergy/AdvReac Type Severity Reaction Status Date / Time aspirin Allergy Unknown Verified 04/21/22 21:34 Iodinated Contrast Media Allergy Unknown Verified 04/21/22 21:34 lanolin Allergy Unknown Verified 04/21/22 21:34 Penicillins Allergy Unknown Verified 04/21/22 21:34 latex AdvReac Rash/Hives Verified 04/21/22 21:34 Review of Systems ROS Statement: Those systems with pertinent positive or pertinent negative responses have been documented in the HPI. ROS Other: All systems not noted in ROS Statement are negative. Past Medical History Past Medical History: Hypertension, Seizure Disorder Additional Past Medical History / Comment(s): Headaches Last Myocardial Infarction Date:: unknown History of Any Multi-Drug Resistant Organisms: None Reported Past Surgical History: Appendectomy, Section, Cholecystectomy, Orthopedic Surgery Past Psychological History: No Psychological Hx Reported Smoking Status: Never smoker Past Alcohol Use History: None Reported Past Drug Use History: None Reported Course Vital Signs 05/11/22 05/11/22 00:16 02:16 Temperature 97.6 F Pulse Rate 89 71 Respiratory 16 16 Rate Blood Pressure 123/73 115/65 O2 Sat by Pulse 95 97 Oximetry Medical Decision Making - Lab Data Result diagrams: 05/11/22 00:54 05/11/22 00:54 Lab Results 05/11/22 05/11/22 05/11/22 Range/Units 00:37 00:54 00:54 WBC 3.3 L (3.8-10.6) k/uL RBC 3.33 L (3.80-5.40) m/uL Hgb 10.1 L (11.4-16.0) gm/dL Hct 31.5 L (34.0-46.0) % MCV 94.5 (80.0-100.0) fL MCH 30.2 (25.0-35.0) pg MCHC 31.9 (31.0-37.0) g/dL RDW 16.7 H (11.5-15.5) % Plt Count 290 (150-450) k/uL MPV 7.8 Neutrophils % 45 % Lymphocytes % 38 % Monocytes % 8 % Eosinophils % 7 % Basophils % 1 % Neutrophils # 1.5 (1.3-7.7) k/uL Lymphocytes # 1.3 (1.0-4.8) k/uL Monocytes # 0.3 (0-1.0) k/uL Eosinophils # 0.2 (0-0.7) k/uL Basophils # 0.0 (0-0.2) k/uL Anisocytosis Slight Sodium 135 L (137-145) mmol/L Potassium 2.8 L (3.5-5.1) mmol/L Chloride 99 (98-107) mmol/L Carbon Dioxide 32 H (22-30) mmol/L Anion Gap 4 mmol/L BUN 9 (7-17) mg/dL Creatinine 0.64 (0.52-1.04) mg/dL Est GFR (CKD-EPI)AfAm >90 (>60 ml/min/1.73 sqM) Est GFR (CKD-EPI)NonAf 85 (>60 ml/min/1.73 sqM) Glucose 107 H (74-99) mg/dL Calcium 8.6 (8.4-10.2) mg/dL Magnesium 1.7 (1.6-2.3) mg/dL Total Bilirubin 0.3 (0.2-1.3) mg/dL AST 31 (14-36) U/L ALT 13 (4-34) U/L Alkaline Phosphatase 77 (38-126) U/L Total Protein 6.1 L (6.3-8.2) g/dL Albumin 2.9 L (3.5-5.0) g/dL Amylase 108 (30-110) U/L Lipase 608 H (23-300) U/L Urine Color Yellow Urine Appearance Cloudy H (Clear) Urine pH 6.0 (5.0-8.0) Ur Specific [place] 1.016 (1.001-1.035) Urine Protein 1+ H (Negative) Urine Glucose (UA) Negative (Negative) Urine Ketones Negative (Negative) Urine Blood Large H (Negative) Urine Nitrite Negative (Negative) Urine Bilirubin Negative (Negative) Urine Urobilinogen <2.0 (<2.0) mg/dL Ur Leukocyte Esterase Large H (Negative) Urine RBC >182 H (0-5) /hpf Urine WBC >182 H (0-5) /hpf Ur Squamous Epith Cells 1 (0-4) /hpf Calcium Oxalate Crystal Rare H (None) /hpf Urine Bacteria Moderate H (None) /hpf Hyaline Casts 3 H (0-2) /lpf Urine Mucus Occasional H (None) /hpf - EKG Data -: EKG Interpreted by Me (EKG shows sinus rhythm 77. 100 QRS 105 and QTC 438) Disposition Clinical Impression: Pleural effusion, Urinary tract infection, Hypokalemia, Hypomagnesemia, Weakness, Pneumonia, Abdominal pain Disposition: ADMITTED IP TO THIS HOSP Condition: Fair Is patient prescribed a controlled substance at d/c from ED?: No Referrals: Mike Sanches MD [Primary Care Provider] - 1-2 days
[2022-05-11 01:04] LABS: Anisocytosis Slight; Basophils % (A) 1 %; Eosinophils # (A) 0.2 k/uL (0-0.7); Eosinophils % (A) 7 %; HCT 31.5 % (34.0-46.0); HGB 10.1 gm/dL (11.4-16.0); Lymphocytes # (A) 1.3 k/uL (1.0-4.8); Lymphocytes % (A) 38 %; MCH 30.2 pg (25.0-35.0); MCHC 31.9 g/dL (31.0-37.0); MCV 94.5 fL (80.0-100.0); Mean Platelet Volume 7.8; Monocytes # (A) 0.3 k/uL (0-1.0); Monocytes % (A) 8 %; Neutrophils # (A) 1.5 k/uL (1.3-7.7); Neutrophils % (A) 45 %; Platelet Count 290 k/uL (150-450); RBC 3.33 m/uL (3.80-5.40); RDW 16.7 % (11.5-15.5); WBC 3.3 k/uL (3.8-10.6)
[2022-05-11 01:14] LABS: ALT 13 U/L (4-34); AST 31 U/L (14-36); African American GFR (CKD) >90 (>60 ml/min/1.73 sqM); Albumin 2.9 g/dL (3.5-5.0); Alkaline Phosphatase 77 U/L (38-126); Amylase 108 U/L (30-110); Anion Gap 4 mmol/L; Blood Urea Nitrogen 9 mg/dL (7-17); Calcium 8.6 mg/dL (8.4-10.2); Carbon Dioxide 32 mmol/L (22-30); Chloride 99 mmol/L (98-107); Glucose 107 mg/dL (74-99); Lipase 608 U/L (23-300); Magnesium 1.7 mg/dL (1.6-2.3); Non-African American GFR(CKD) 85 (>60 ml/min/1.73 sqM); Potassium 2.8 mmol/L (3.5-5.1); Sodium 135 mmol/L (137-145); Total Bilirubin 0.3 mg/dL (0.2-1.3); Total Protein 6.1 g/dL (6.3-8.2)
--- NOTE | 2022-05-11 01:40 | CT ---
EXAMINATION TYPE: CT abdomen pelvis wo con DATE OF EXAM: 05/11/2022 COMPARISON: None HISTORY: generalized abdominal pain. possible obstruction/ileus CT DLP: 776 mGycm Automated exposure control for dose reduction was used. Images obtained from the diaphragm to the floor the pelvis with no contrast. There are bilateral pleural effusions. There is infiltrate and atelectasis at both lung bases. Heart is top normal in size. No pericardial effusion. Liver shows no focal defect. Spleen is intact. There is no evidence of pancreatic mass. Stomach is in tact. There is no adrenal mass. There are multiple small right side renal calculi. There is no hydronephros is. Ureters are not dilated. There is no retroperitoneal adenopathy. Abdominal aorta is atheromatous. There is some free fluid in the pelvis. There is Kong catheter in the urinary bladder. Bladder is a lmost empty. No pelvic mass. There is hysterectomy. There is no mesenteric edema. No evidence of free air. The lumbar spine is intact. There is vacuum di sc at L5-S1. No compression fracture. The bony pelvis is intact. The hip joints are intact. There are some mildly distended small bowel loops. IMPRESSION: There is some mild free fluid in the pelvis. No bowel obstruction. Nonobstructing right-sided renal c alculi. Bilateral lower lobe pneumonia and atelectasis. Moderate bilateral pleural effusions.
[2022-05-11 02:22] LABS: Appearance,Urine Cloudy (Clear); Bacteria,Urine Moderate /hpf; Bilirubin,Urine Negative (Negative); Blood,Urine Large (Negative); Calcium Oxalate Crystals,Urine Rare /hpf; Color,Urine Yellow; Glucose,Urine (UA) Negative (Negative); Hyaline Casts,Urine 3 /lpf (0-2); Ketones,Urine Negative (Negative); Leukocyte Esterase,Urine Large (Negative); Mucus,Urine Occasional /hpf; Nitrite,Urine Negative (Negative); Protein,Urine 1+ (Negative); RBC,Urine >182 /hpf (0-5); Specific Gravity,Urine 1.016 (1.001-1.035); Squamous Epithelial Cell,Urine 1 /hpf (0-4); Urobilinogen,Urine <2.0 mg/dL (<2.0); WBC,Urine >182 /hpf (0-5)
[2022-05-11] MEDS ORDERED: ONDANSETRON 4 MG/2 ML VIAL IVP PRN (02:29)
[2022-05-11] MEDS ORDERED: NALOXONE 0.4 MG/ML 1 ML VIAL IV PRN (02:29)
[2022-05-11] MEDS ORDERED: MORPHINE SULFATE 4 MG/ML SYRINGE IV PRN (02:29)
[2022-05-11] MEDS ORDERED: AZITHROMYCIN 500 MG in SODIUM CHLORIDE 0.9% 250 ML IVPB STA (02:30)
[2022-05-11] MEDS ORDERED: KETOROLAC 15 MG/ML 1 ML VIAL IVP STA (04:12)
[2022-05-11] MEDS ORDERED: Potassium Replacement Protocol 1 EACH MISC MISCELLANE PRN (04:13)
[2022-05-11] MEDS ORDERED: LORazepam 2 MG/ML INJ IV PRN (04:13)
[2022-05-11] MEDS ORDERED: Magnesium Replacement Protocol 1 EACH MISC MISCELLANE PRN (04:14)
[2022-05-11] MEDS: SODIUM CHLORIDE 0.9% 1,000 ML IV SCH ×2 (04:21→11:17)
[2022-05-11] MEDS: MAGNESIUM SULFATE-D5W PMX 1 GM in DEXTROSE/WATER 1 100ML.BAG IVPB SCH ×2 (04:50→06:25)
[2022-05-11] MEDS: POTASSIUM CHLORIDE 10 MEQ in WATER FOR INJECTION 1 100ML.BAG IVPB SCH ×6 (05:55→12:28)
[2022-05-11] MEDS ORDERED: clonazePAM 0.5 MG TAB PO PRN (13:18)
[2022-05-11] MEDS ORDERED: SODIUM CHLORIDE 0.65% NASAL SPRAY 44 ML BTL NASAL PRN (13:18)
[2022-05-11] MEDS ORDERED: NITROGLYCERIN SL TABS 0.4 MG TAB SUBLINGUAL PRN (13:18)
[2022-05-11] MEDS ORDERED: SIMETHICONE 80 MG CHEWABLE PO PRN (13:18)
--- NOTE | 2022-05-11 13:47 | HP ---
HISTORY AND PHYSICAL DATE OF SERVICE: 05/11/2022 CHIEF COMPLAINTS: Change in mental status and abdominal pain. HISTORY OF PRESENT ILLNESS: This 81-year-old woman with a past medical history of asthma, seizure disorder and hypertension, being followed by Dr. Sanches in [facility] on [facility], is complaining of abdominal pain which is diffuse in character. Patient came to [facility]. CT scan of the abdomen showed bilateral pleural effusion, bilateral pneumonia. Patient admitted for further evaluation and treatment. The patient also had a UTI. The patient is unable to provide a detailed history; most of the history is taken from my discussion with staff and review of the chart at this time. Patient has been started on broad-spectrum IV antibiotics. PAST MEDICAL HISTORY: Reviewed. It includes asthma, hypertension. HOME MEDICATIONS: Reviewed. They include Benadryl. Doses and the rest of the medications are noted. ALLERGIES: ALLERGIES INCLUDE ASPIRIN. Family history, social history and review of systems could not be taken because of the patient's mental status. PHYSICAL EXAMINATION: Pulse 88, blood pressure 96/60, respirations 16. HEENT: Conjunctivae normal. NECK: No jugular venous distention. CARDIOVASCULAR: S1, S2 muffled. RESPIRATION: Breath sounds diminished at the bases. A few scattered rhonchi. ABDOMEN: ntd LEGS: No edema. No swelling. NERVOUS SYSTEM: Diffusely weak. LABS: WBC 3.3, hemoglobin 10.1. Potassium 2.3, sodium is 135. ASSESSMENT: 1. Acute bilateral pneumonia. 2. Acute urinary tract infection. 3. Abdominal pain. 4. Hypokalemia. 5. History of asthma. 6. Bilateral pleural effusion. 7. Seizure disorder. 8. Multiple medical issues. RECOMMENDATIONS AND DISCUSSION: In this 81-year-old woman who presented with multiple complex medical issues, we will monitor the patient closely. Empiric antibiotics have been initiated. Will add bronchodilators to her current regimen and closely monitor. Cut down the IV fluids. Portable chest x-ray. I would also recommend pulmonary consultation. Prognosis is guarded because of multiple complex medical issues. See orders for further details. Further recommendations to follow. Currently patient is FULL CODE. MMODL / IJN: [id number] / MTDD
--- NOTE | 2022-05-11 14:02 | XR ---
EXAMINATION TYPE: XR chest 1V portable DATE OF EXAM: 05/11/2022 COMPARISON: Chest x-ray 04/21/[address] chest 04/23/2022 HISTORY: Congestive heart failure TECHNIQUE: Single frontal view of the chest is obtained. FINDINGS: I basilar increased attenuation is present, the left hemidiaphragm is obscured, this blunt ing of the costophrenic angles. The heart is enlarged. No evident pneumothorax. Central vascularity a ppears prominently. There is some prominence interstitium. Prominent lung volume may be indicative of underlying COPD. The aorta is dense. There is degenerative disc disease in the visualized spine. IMPRESSION: Correlate for congestive heart failure with basilar effusions, pneumonia not excluded. C orrelate for pulmonary hypertension.
[2022-05-11] MEDS: ACETAMINOPHEN TAB 325 MG TAB PO PRN ×2 (14:49→21:14)
[2022-05-11] MEDS: PRIMIDONE 50 MG TAB PO SCH ×2 (14:50→21:14)
[2022-05-11] MEDS: DIVALPROEX 250 MG TABLET.DR PO SCH (14:58)
[2022-05-11] MEDS: FUROSEMIDE 10 MG/ML 4 ML VIAL IV SCH ×2 (15:19→20:57)
[2022-05-11] MEDS: IPRATROPIUM-ALBUTEROL 3 ML NEB INHALATION SCH ×3 (15:43→19:49)
--- NOTE | 2022-05-11 16:06 | P.CNPUL ---
History of Present Illness Consult date: 05/11/22 Requesting physician: Lili Rogers Reason for consult: dyspnea, hypoxemia, abnormal CXR/CT Chief complaint: Abdominal pain History of present illness: This is a 81-year-old female patient with a known history of hypertension, seizure disorder, hypertension, hyperlipidemia, congestive heart failure who resides at [facility] on the [place]. Prior to that she had been at [facility] and we had seen her in consultation for pleural effusion. At that time she had declined thoracentesis. She presented here early this morning by EMS with complaints of abdominal pain. Chest x-ray showed possible congestive heart failure with basilar effusions. He pneumonia not excluded. Computed tomography scan of the abdomen and pelvis revealed some mild free fluid in the pelvis. No bowel obstruction. No obstructing right-sided renal calculi. There is bilateral lower lobe atelectasis and moderate bilateral pleural effusions. We are consulted for the same. She is today on the regular medical floor. She is resting comfortably in bed. Awake and alert in no acute distress. She denies any worsening shortness of breath, cough and congestion. She is somewhat dyspneic with conversation. Maintaining O2 saturation in the mid 90s on 2 L/m per nasal cannula. She's afebrile. White count 3.3. Hemoglobin 10.1. Platelets 290. Sodium 135. Potassium 2.8. Bicarb 32. BUN 9. Creatinine 0.64. Glucose 107. ProBNP 241. Amylase 108. Lipase 608. Urine with moderate bacteria cloudy with sediment. She's been initiated on ceftriaxone and azithromycin along with bronchodilators. She is given Lasix 40 mg IV every 12 hours. 0.9 normal saline at 130 ML's per hour. Review of Systems REVIEW OF SYSTEMS: CONSTITUTIONAL: Denies any recent significant weight loss or weight gain. EYES: Denies change in vision. EARS, NOSE, MOUTH, THROAT: Denies headaches, denies sore throat. CARDIOVASCULAR: Denies chest pain, palpitations or syncopal episodes. RESPIRATORY: Positive for shortness of breath, no cough, congestion or hemoptysis. GASTROINTESTINAL: Positive for abdominal pain GENITOURINARY: Denies hematuria, denies infections. MUSKULOSKELETAL: Denies pain, denies swelling. INTEGUMENTARY: Denies rash, denies eczema. NEUROLOGICAL: Denies recent memory loss, no recent seizure activity. PSYCHIATRIC: Denies anxiety, denies depression. HEMATOLOGIC/LYMPHATIC: Denies anemia, denies enlarged lymph nodes. Past Medical History Past Medical History: Asthma, Hypertension, Seizure Disorder Additional Past Medical History / Comment(s): Headaches Last Myocardial Infarction Date:: unknown History of Any Multi-Drug Resistant Organisms: None Reported Past Surgical History: Appendectomy, Section, Cholecystectomy, Ortho pedic Surgery Past Anesthesia/Blood Transfusion Reactions: Unable to Obtain Past Psychological History: No Psychological Hx Reported Smoking Status: Never smoker Past Alcohol Use History: None Reported Past Drug Use History: None Reported Medications and Allergies Home Medications Medication Instructions Recorded Confirmed Type Metoprolol Tartrate [Lopressor] 25 mg PO BID@0900,2100 12/31/21 05/11/22 History Multivitamins, Thera [Multivitamin 1 tab PO DAILY@0900 12/31/21 05/11/22 History (formulary)] Primidone [Mysoline] 50 mg PO TID@0800,1400,2100 12/31/21 05/11/22 History Acetaminophen Tab [Tylenol] 500 mg PO Q6HR PRN 04/16/22 05/11/22 History Aspirin EC [Ecotrin Low Dose] 81 mg PO DAILY@0900 04/16/22 05/11/22 History Atorvastatin [Lipitor] 40 mg PO HS@209904/16/22 05/11/22 History Budesonide 0.5 mg INHALATION RT-BID@0900,209904/16/22 05/11/22 History Fluticasone Nasal [place] [Flonase 1 spray EA NOSTRIL DAILY@0900 04/16/22 05/11/22 History Nasal [place]] Furosemide [Lasix] 40 mg PO BID@0600,1200 04/16/22 05/11/22 History Ipratropium-Albuterol Nebulize 3 ml INHALATION RT-Q6H 04/16/22 05/11/22 History [Duoneb 0.5 mg-3 mg/3 ml Soln] Megestrol [Megace] 400 mg PO DAILY@0900 04/16/22 05/11/22 History Pantoprazole [Protonix] 40 mg PO DAILY@0600 04/16/22 05/11/22 History Propylene Glycol/Peg 400/Pf 1 drop BOTH EYES HS@209904/16/22 05/11/22 History [Systane 0.3-0.4% Eye Drop] Sertraline [Zoloft] 25 mg PO DAILY@0900 04/16/22 05/11/22 History Sodium Chloride 0.65% Nasal [Deep 1 spray NASAL BID PRN 04/16/22 05/11/22 History Sea (Saline)] diphenhydrAMINE [Benadryl] 12.5 mg PO HS@2100 04/16/22 05/11/22 History Lidocaine 5% Patch [Lidoderm 5% 1 patch TOPICAL DAILY #30 patch 04/17/22 05/11/22 Rx Patch] Clopidogrel [Plavix] 75 mg PO DAILY@0900 04/21/22 05/11/22 History Divalproex Sodium [Depakote] 500 mg PO HS@2100 04/21/22 05/11/22 History Divalproex [Depakote] 250 mg PO BID@0900,1400 05/11/22 05/11/22 History Ensure Clear 1 can PO BID@0900,1300 05/11/22 05/11/22 History Nitroglycerin Sl Tabs [Nitrostat] 0.4 mg SUBLINGUAL Q5M PRN 05/11/22 05/11/22 History Simethicone [Mylanta Gas Minis] 125 mg PO Q8H PRN 05/11/22 05/11/22 History clonazePAM [KlonoPIN] 0.5 mg PO BID PRN 05/11/22 05/11/22 History Allergies Allergy/AdvReac Type Severity Reaction Status Date / Time aspirin Allergy Unknown Verified 05/11/22 08:10 Iodinated Contrast Media Allergy Unknown Verified 05/11/22 08:10 lanolin Allergy Unknown Verified 05/11/22 08:10 Penicillins Allergy Unknown Verified 05/11/22 08:10 latex AdvReac Rash/Hives Verified 05/11/22 08:10 Physical Exam Vitals: Vital Signs Temp Pulse Pulse Resp BP BP Pulse Ox 05/11/22 10:33 88 16 05/11/22 09:17 97 05/11/22 08:00 97.6 F 88 96/60 97 05/11/22 03:41 98.6 F 78 16 103/59 97 05/11/22 02:16 71 16 115/65 97 05/11/22 00:16 97.6 F 89 16 123/73 95 Intake and Output 05/11/22 05/11/22 05/11/22 06:59 14:59 22:59 Output Total 500 Balance -500 Output: Urine 500 Other: Voiding Method Indwelling Catheter Indwelling Catheter Weight 72 kg GENERAL EXAM: Alert, pale, frail 81-year-old female patient, on 2 L nasal cannula, fairly comfortable in no apparent distress. HEAD: Normocephalic. EYES: Normal reaction of pupils, equal size. NOSE: Clear with pink turbinates. THROAT: No erythema or exudates. NECK: No masses, no JVD. CHEST: No chest wall deformity. LUNGS: Equal air entry with crackles in the bilateral bases. CVS: S1 and S2 normal with no audible murmur, regular rhythm. ABDOMEN: Tender to palpation. No hepatosplenomegaly, normal bowel sounds, no guarding or rigidity. SPINE: No scoliosis or deformity SKIN: No rashes CENTRAL NERVOUS SYSTEM: No focal deficits, tone is normal in all 4 extremities. EXTREMITIES: There is 1+ peripheral edema. No clubbing, no cyanosis. Peripheral pulses are intact. Results - Laboratory Findings CBC and BMP: 05/11/22 00:54 05/11/22 00:54 Abnormal lab findings: Abnormal Labs 05/11/22 05/11/22 05/11/22 00:37 00:54 00:54 WBC 3.3 L RBC 3.33 L Hgb 10.1 L Hct 31.5 L RDW 16.7 H Sodium 135 L Potassium 2.8 L Carbon Dioxide 32 H Glucose 107 H Total Protein 6.1 L Albumin 2.9 L Lipase 608 H Urine Appearance Cloudy H Urine Protein 1+ H Urine Blood Large H Ur Leukocyte Esterase Large H Urine RBC >182 H Urine WBC >182 H Calcium Oxalate Crystal Rare H Urine Bacteria Moderate H Hyaline Casts 3 H Urine Mucus Occasional H - Diagnostic Findings Chest x-ray: image reviewed Assessment and Plan Assessment: 1 Abdominal pain of unclear etiology, possibly secondary to pancreatitis, urinary tract infection. Computed tomography scan of the abdomen revealed no bowel obstruction. Nonobstructing right-sided renal calculi. 2 Acute hypoxemic respiratory failure secondary to bilateral pleural effusions and atelectasis. Cannot rule out pneumonia. 3 Recent admission to [facility] with noted pleural effusion, however the patient had declined thoracentesis at that time 4 Recent admission here with CT angiogram showing bilateral pleural effusions on 04/23/2022, no pulmonary consult 5 History of hypertension 6 History of seizure disorder 7 Hyperlipidemia 8 Gastroesophageal reflux disease 9 History of diastolic congestive heart failure 10 Urinary tract infection, cultures pending Plan: The patient was seen and evaluated Chest x-ray, labs, CT scan of the abdomen and pelvis reviewed Continue IV diuretics Continue antibiotics Titrate the FiO2 as tolerated No plans for thoracentesis at this time Patient had declined thoracentesis in the past We will continue to follow and make further recommendations based on her clinical status I have personally seen and examined the patient, performed the documentation and the assessment and plan as written. Number of minutes spent on the visit: 20.
[2022-05-11] MEDS: BUDESONIDE 0.5 MG/2 ML NEBU INHALATION SCH (19:29)
[2022-05-11] MEDS ORDERED: IPRATROPIUM-ALBUTEROL 3 ML NEB INHALATION PRN (19:33)
[2022-05-11] MEDS: ATORVASTATIN 40 MG TAB PO SCH (21:13)
[2022-05-11] MEDS: METOPROLOL TARTRATE 25 MG TAB PO SCH (21:14)
[2022-05-11] MEDS: DIVALPROEX 500 MG TABLET.DR PO SCH (21:14)
[2022-05-11] MEDS: ARTIFICIAL TEARS-HYPROMELLOSE DROPS 15 ML BTL BOTH EYES SCH (21:34)
[2022-05-12] MEDS: AZITHROMYCIN 500 MG in SODIUM CHLORIDE 0.9% 250 ML IVPB SCH (05:05)
[2022-05-12] MEDS: PANTOPRAZOLE 40 MG TABLET PO SCH (06:20)
[2022-05-12] MEDS: SODIUM CHLORIDE 0.9% 1,000 ML IV SCH (06:51)
[2022-05-12] MEDS: ASPIRIN 81 MG PO SCH (07:29)
[2022-05-12] MEDS: PRIMIDONE 50 MG TAB PO SCH ×3 (07:29→20:30)
[2022-05-12] MEDS: METOPROLOL TARTRATE 25 MG TAB PO SCH ×3 (07:30→22:06)
[2022-05-12] MEDS: MULTIVITAMINS, THERA 1 EACH TAB PO SCH (07:30)
[2022-05-12] MEDS: CLOPIDOGREL 75 MG TAB PO SCH (07:30)
[2022-05-12] MEDS: FLUTICASONE 50MCG/SPRAY NASAL 16GM EA NOSTRIL SCH (07:31)
[2022-05-12] MEDS: FUROSEMIDE 10 MG/ML 4 ML VIAL IV SCH ×2 (07:31→20:29)
[2022-05-12] MEDS: MEGESTROL 400 MG/10 ML CUP PO SCH (07:31)
[2022-05-12] MEDS: DIVALPROEX 250 MG TABLET.DR PO SCH ×2 (07:31→14:04)
[2022-05-12] MEDS: IPRATROPIUM-ALBUTEROL 3 ML NEB INHALATION SCH ×4 (07:44→20:53)
[2022-05-12] MEDS: BUDESONIDE 0.5 MG/2 ML NEBU INHALATION SCH ×2 (07:44→20:53)
[2022-05-12] MEDS ORDERED: NON FORMULARY DRUG (Ensure Clear 1 BOX Ml) PO SCH (09:00)
[2022-05-12 09:11] LABS: Basophils # (A) 0.04 X 10*3/uL (0.00-0.10); Basophils % (A) 1.6 %; Eosinophils # (A) 0.19 X 10*3/uL (0.04-0.35); Eosinophils % (A) 7.7 %; HCT 30.1 % (37.2-46.3); HGB 9.1 g/dL (12.0-15.0); Immature Grans, Automated 0.8 %; Lymphocytes # (A) 0.71 X 10*3/uL (0.90-5.00); Lymphocytes % (A) 28.6 %; MCH 29.5 pg (27.0-32.0); MCHC 30.2 g/dL (32.0-37.0); MCV 97.7 fL (80.0-97.0); Mean Platelet Volume 10.4 fL (9.5-12.2); Monocytes # (A) 0.21 X 10*3/uL (0.20-1.00); Monocytes % (A) 8.5 %; NRBC Per 100 WBC 0 /100 WBCS (0.0-0.0); Neutrophils # (A) 1.31 X 10*3/uL (1.80-7.70); Neutrophils % (A) 52.8 %; Platelet Count 281 X 10*3/uL (140-440); RBC 3.08 X 10*6/uL (4.10-5.20); RDW 17.4 % (11.5-14.5); WBC 2.48 X 10*3/uL (4.50-10.00)
[2022-05-12 09:19] LABS: African American GFR (CKD) 100.5 (60.0-200.0); Albumin 2.6 g/dL (3.8-4.9); Albumin/Globulin Ratio 0.96 (1.60-3.17); Anion Gap 8.1 mmol/L (10.00-18.00); BUN/Creat Ratio 11.33 Ratio (12.00-20.00); Blood Urea Nitrogen 6.8 mg/dL (9.0-27.0); Calcium 8.6 mg/dL (8.7-10.3); Carbon Dioxide 27.9 mmol/L (20.0-27.5); Globulin 2.7 g/dL (1.6-3.3); Non-African American GFR(CKD) 86.7 (60.0-200.0); Potassium 3.8 mmol/L (3.5-5.5); Total Bilirubin 0.2 mg/dL (0.30-1.20); Total Protein 5.3 g/dL (6.2-8.2)
[2022-05-12] MEDS: ACETAMINOPHEN TAB 325 MG TAB PO PRN (11:55)
--- NOTE | 2022-05-12 12:46 | P.PN ---
Subjective Progress Note Date: 05/12/22 Principal diagnosis: Dyspnea, hypoxia This is a 81-year-old female patient with a known history of hypertension, seizure disorder, hypertension, hyperlipidemia, congestive heart failure who resides at [facility] on the [place]. Prior to that she had been at [facility] and we had seen her in consultation for pleural effusion. At that time she had declined thoracentesis. She presented here early this morning by EMS with complaints of abdominal pain. Chest x-ray showed possible congestive heart failure with basilar effusions. He pneumonia not excluded. Computed tomography scan of the abdomen and pelvis revealed some mild free fluid in the pelvis. No bowel obstruction. No obstructing right-sided renal calculi. There is bilateral lower lobe atelectasis and moderate bilateral pleural effusions. We are consulted for the same. She is today on the regular medical floor. She is resting comfortably in bed. Awake and alert in no acute distress. She denies any worsening shortness of breath, cough and congestion. She is somewhat dyspneic with conversation. Maintaining O2 saturation in the mid 90s on 2 L/m per nasal cannula. She's afebrile. White count 3.3. Hemoglobin 10.1. Platelets 290. Sodium 135. Potassium 2.8. Bicarb 32. BUN 9. Creatini ne 0.64. Glucose 107. ProBNP 241. Amylase 108. Lipase 608. Urine with moderate bacteria cloudy with sediment. She's been initiated on ceftriaxone and azithromycin along with bronchodilators. She is given Lasix 40 mg IV every 12 hours. 0.9 normal saline at 130 ML's per hour. On 05/12/2022 patient seen in follow-up on medical surgical floor. She is awake and alert, in no acute distress, on 2 L of oxygen pulse ox is 98%, she remains on IV diuretics at 40 mg every 12 hours, she is in negative net fluid balance over the last 24 hours, does not appear to be in any acute distress. Afebrile, no complex of chest discomfort, just appears to be fatigued, and pale. His labs have been reviewed, white blood cell count is 2.48, hemoglobin is 9.1, platelet count is 281, sodium is 1:30, potassium is 3.8, BUN is 6.8, creatinine 0.6. Urinalysis showed evidence of urinary tract infection Rocephin. Also remains on nebulized bronchodilators. Urine culture is pending, blood cultures have shown no growth thus far. Objective - Vital Signs Vital signs: Vital Signs Temp 98.5 F 05/12/22 08:01 Pulse 85 05/12/22 11:41 Resp 18 05/12/22 09:27 BP 109/62 05/12/22 08:01 Pulse Ox 98 05/12/22 08:01 FiO2 Intake & Output 05/11/22 05/12/22 05/12/22 18:59 06:59 18:59 Output Total 300 300 Balance -300 -300 Output: Urine 300 300 Other: Voiding Method Indwelling Catheter Indwelling Catheter Indwelling Catheter - Exam GENERAL EXAM: Alert, very pleasant, 81-year-old on 2 L of oxygen and pulse ox of 90%, resting in bed, appears weak and fatigued and pale but no acute distress HEAD: Normocephalic/atraumatic. EYES: Normal reaction of pupils, equal size. Conjunctiva pink, sclera white. NOSE: Clear with pink turbinates. THROAT: No erythema or exudates. NECK: No masses, no JVD, no thyroid enlargement, no adenopathy. CHEST: No chest wall deformity. Symmetrical expansion. LUNGS: Equal air entry with no crackles, wheeze, rhonchi or dullness. CVS: Regular rate and rhythm, normal S1 and S2, no gallops, no murmurs, no rubs ABDOMEN: Soft, nontender. No hepatosplenomegaly, normal bowel sounds, no guarding or rigidity. EXTREMITIES: No clubbing, no edema, no cyanosis, 2+ pulses and upper and lower extremities. MUSCULOSKELETAL: Muscle strength and tone normal. SPINE: No scoliosis or deformity SKIN: No rashes CENTRAL NERVOUS SYSTEM: Alert and oriented -3. No focal deficits, tone is normal in all 4 extremities. PSYCHIATRIC: Alert and oriented -3. Appropriate affect. Intact judgment and insight. - Labs CBC & Chem 7: 05/12/22 05:58 05/12/22 05:58 Labs: Abnormal Lab Results - Last 24 Hours (Table) 05/12/22 05/12/22 Range/Units 05:58 05:58 WBC 2.48 L (4.50-10.00) X 10*3/uL RBC 3.08 L (4.10-5.20) X 10*6/uL Hgb 9.1 L (12.0-15.0) g/dL Hct 30.1 L (37.2-46.3) % MCV 97.7 H (80.0-97.0) fL MCHC 30.2 L (32.0-37.0) g/dL RDW 17.4 H (11.5-14.5) % Neutrophils # 1.31 L (1.80-7.70) X 10*3/uL Lymphocytes # 0.71 L (0.90-5.00) X 10*3/uL Carbon Dioxide 27.9 H (20.0-27.5) mmol/L Anion Gap 8.10 L (10.00-18.00) mmol/L BUN 6.8 L (9.0-27.0) mg/dL BUN/Creatinine Ratio 11.33 L (12.00-20.00) Ratio Calcium 8.6 L (8.7-10.3) mg/dL Total Bilirubin 0.20 L (0.30-1.20) mg/dL AST 99 H (13-35) U/L ALT 46 H (8-44) U/L Total Protein 5.3 L (6.2-8.2) g/dL Albumin 2.6 L (3.8-4.9) g/dL Albumin/Globulin Ratio 0.96 L (1.60-3.17) g/dL Microbiology - Last 24 Hours (Table) 05/11/22 02:55 Blood Culture - Preliminary Blood No Growth after 24 hours 05/11/22 02:35 Blood Culture - Preliminary Blood No Growth after 24 hours 05/11/22 00:37 Urine Culture - Preliminary Urine,Voided Assessment and Plan Plan: Assessment: #1. Abdominal pain of unclear etiology, computed tomography scan of the abdomen revealed no bowel obstruction, and showed a nonobstructing right-sided renal calculi #2. Acute urinary tract infection #3. Acute hypoxic respiratory failure, chest x-ray showing basilar effusions, possibility of pneumonia seems to be less likely however not entirely excluded, #4. Neutropenia, likely related to sepsis secondary to urinary tract infection #5. Recent hospitalization at the [facility], and patient was noted to have bilateral pleural effusions she declined thoracentesis at that time #6. History of hypertension #7. Seizure disorder #8. Hyperlipidemia #9. GERD/reflux #10. History of diastolic congestive heart failure Plan: Continue diuretics Continue antibiotics Urine culture is still pending Today's labs have been noted We'll continue to follow patient's clinical course I have personally seen and examined the patient, performed the documentation and the assessment and plan as written. Number of minutes spent on the visit: [10] Time with Patient: Less than 30
--- NOTE | 2022-05-12 17:58 | PN ---
PROGRESS NOTE DATE OF SERVICE: 05/12/2022 This 81-year-old woman who was admitted with acute bilateral pneumonia also had possible pancreatitis. The patient also has some pleural effusion. No chest pain. No palpitations. No fever. PHYSICAL EXAMINATION: Pulse is 81, blood pressure 109/60, respiration 15. HEENT: Conjunctivae normal. NECK: No jugular venous distention. CARDIOVASCULAR: S1, S2 muffled. RESPIRATION: Breath sounds diminished at the bases. ABDOMEN: Soft. Minimal diffuse discomfort. LEGS: No edema. No swelling. NERVOUS SYSTEM: No focal deficit. LABS: WBC 2.42. Other labs are noted. ASSESSMENT: 1. Possible acute bilateral pneumonia. 2. Acute urinary tract infection. 3. Possible acute pancreatitis with abdominal pain. 4. Hypokalemia. 5. History of asthma. 6. Bilateral pleural effusion. 7. Seizure disorder. 8. Multiple medical issues. RECOMMENDATIONS AND DISCUSSION: I recommend to continue current medications, continue symptomatic treatment. Continue with the antibiotics. Closely follow with Pulmonary. Guarded prognosis. Further recommendations to follow. See orders for details. Repeat labs in the morning. MMODL / IJN: [id number] /
[2022-05-12] MEDS ORDERED: KETOROLAC 15 MG/ML 1 ML VIAL IVP STA (20:17)
[2022-05-12] MEDS: DIVALPROEX 500 MG TABLET.DR PO SCH (20:29)
[2022-05-12] MEDS: ATORVASTATIN 40 MG TAB PO SCH (20:30)
[2022-05-12] MEDS: ARTIFICIAL TEARS-HYPROMELLOSE DROPS 15 ML BTL BOTH EYES SCH (20:30)
[2022-05-13] MEDS: AZITHROMYCIN 500 MG in SODIUM CHLORIDE 0.9% 250 ML IVPB SCH (04:08)
[2022-05-13] MEDS: SODIUM CHLORIDE 0.9% 1,000 ML IV SCH (04:09)
[2022-05-13] MEDS: PANTOPRAZOLE 40 MG TABLET PO SCH (05:51)
[2022-05-13] MEDS: BUDESONIDE 0.5 MG/2 ML NEBU INHALATION SCH ×2 (08:05→20:45)
[2022-05-13] MEDS: IPRATROPIUM-ALBUTEROL 3 ML NEB INHALATION SCH ×4 (08:05→20:45)
[2022-05-13] MEDS: MEGESTROL 400 MG/10 ML CUP PO SCH (08:07)
[2022-05-13] MEDS: CLOPIDOGREL 75 MG TAB PO SCH (08:07)
[2022-05-13] MEDS: ASPIRIN 81 MG PO SCH (08:07)
[2022-05-13] MEDS: MULTIVITAMINS, THERA 1 EACH TAB PO SCH (08:07)
[2022-05-13] MEDS: DIVALPROEX 250 MG TABLET.DR PO SCH ×2 (08:07→13:06)
[2022-05-13] MEDS: PRIMIDONE 50 MG TAB PO SCH ×3 (08:07→20:52)
[2022-05-13] MEDS: METOPROLOL TARTRATE 25 MG TAB PO SCH ×2 (08:07→20:52)
[2022-05-13] MEDS: FUROSEMIDE 10 MG/ML 4 ML VIAL IV SCH (08:08)
[2022-05-13] MEDS: FLUTICASONE 50MCG/SPRAY NASAL 16GM EA NOSTRIL SCH (08:08)
[2022-05-13] MEDS: ACETAMINOPHEN TAB 325 MG TAB PO PRN ×2 (08:27→16:03)
[2022-05-13 09:28] LABS: ALT 31 U/L (8-44); AST 50 U/L (13-35); African American GFR (CKD) 99.6 (60.0-200.0); Albumin 2.7 g/dL (3.8-4.9); Albumin/Globulin Ratio 1.14 (1.60-3.17); Alkaline Phosphatase 76 U/L (41-126); Amylase 99 U/L (23-121); BUN/Creat Ratio 16.72 Ratio (12.00-20.00); Blood Urea Nitrogen 10.3 mg/dL (9.0-27.0); Calcium 8.5 mg/dL (8.7-10.3); Carbon Dioxide 27.5 mmol/L (20.0-27.5); Chloride 104 mmol/L (96-109); Globulin 2.3 g/dL (1.6-3.3); Glucose 95 mg/dL (70-110); Lipase 46 U/L (14-63); Sodium 137 mmol/L (135-145); Total Bilirubin <0.15 mg/dL (0.30-1.20)
[2022-05-13 09:33] LABS: Basophils # (A) 0.03 X 10*3/uL (0.00-0.10); Basophils % (A) 0.9 %; Eosinophils # (A) 0.23 X 10*3/uL (0.04-0.35); Eosinophils % (A) 6.6 %; HCT 27.3 % (37.2-46.3); HGB 8.4 g/dL (12.0-15.0); Immature Grans, Automated 0.3 %; Lymphocytes # (A) 1.18 X 10*3/uL (0.90-5.00); Lymphocytes % (A) 33.7 %; MCH 29.7 pg (27.0-32.0); MCHC 30.8 g/dL (32.0-37.0); MCV 96.5 fL (80.0-97.0); Mean Platelet Volume 10.4 fL (9.5-12.2); Monocytes # (A) 0.38 X 10*3/uL (0.20-1.00); Monocytes % (A) 10.9 %; NRBC Per 100 WBC 0 /100 WBCS (0.0-0.0); Neutrophils # (A) 1.67 X 10*3/uL (1.80-7.70); Neutrophils % (A) 47.6 %; Platelet Count 263 X 10*3/uL (140-440); RBC 2.83 X 10*6/uL (4.10-5.20); RDW 17.5 % (11.5-14.5)
--- NOTE | 2022-05-13 11:38 | P.PN ---
Subjective Progress Note Date: 05/13/22 Principal diagnosis: Dyspnea, hypoxia This is a 81-year-old female patient with a known history of hypertension, seizure disorder, hypertension, hyperlipidemia, congestive heart failure who resides at [facility] on the [place]. Prior to that she had been at [facility] and we had seen her in consultation for pleural effusion. At that time she had declined thoracentesis. She presented here early this morning by EMS with complaints of abdominal pain. Chest x-ray showed possible congestive heart failure with basilar effusions. He pneumonia not excluded. Computed tomography scan of the abdomen and pelvis revealed some mild free fluid in the pelvis. No bowel obstruction. No obstructing right-sided renal calculi. There is bilateral lower lobe atelectasis and moderate bilateral pleural effusions. We are consulted for the same. She is today on the regular medical floor. She is resting comfortably in bed. Awake and alert in no acute distress. She denies any worsening shortness of breath, cough and congestion. She is somewhat dyspneic with conversation. Maintaining O2 saturation in the mid 90s on 2 L/m per nasal cannula. She's afebrile. White count 3.3. Hemoglobin 10.1. Platelets 290. Sodium 135. Potassium 2.8. Bicarb 32. BUN 9. Creatini ne 0.64. Glucose 107. ProBNP 241. Amylase 108. Lipase 608. Urine with moderate bacteria cloudy with sediment. She's been initiated on ceftriaxone and azithromycin along with bronchodilators. She is given Lasix 40 mg IV every 12 hours. 0.9 normal saline at 130 ML's per hour. On 05/12/2022 patient seen in follow-up on medical surgical floor. She is awake and alert, in no acute distress, on 2 L of oxygen pulse ox is 98%, she remains on IV diuretics at 40 mg every 12 hours, she is in negative net fluid balance over the last 24 hours, does not appear to be in any acute distress. Afebrile, no complex of chest discomfort, just appears to be fatigued, and pale. His labs have been reviewed, white blood cell count is 2.48, hemoglobin is 9.1, platelet count is 281, sodium is 1:30, potassium is 3.8, BUN is 6.8, creatinine 0.6. Urinalysis showed evidence of urinary tract infection Rocephin. Also remains on nebulized bronchodilators. Urine culture is pending, blood cultures have shown no growth thus far. On 05/13/2022 patient seen in follow-up on medical surgical floor. Patient is awake and alert, in no acute distress, resting comfortably in bed. Room air pulse ox is 94%, she is breathing comfortably, she has had no fever or chills. She remains on oral diuretics with Lasix 40 mg every 12 hours, remains on empiric antibiotics and bronchodilators. She's had no acute issues overnight, urine culture showed enterococcus urinnae, and blood culture was negative. Today's labs have been noted, white blood cell count is 3.5, hemoglobin is 8.4, electrolytes and renal profile are unremarkable. Patient is maintaining negative net fluid balance. No clear evidence of bleeding, patient remains on baby aspirin, and Plavix. Objective - Vital Signs Vital signs: Vital Signs Temp 97.7 F 05/13/22 07:48 Pulse 77 05/13/22 10:56 Resp 18 05/13/22 10:56 BP 104/63 05/13/22 07:48 Pulse Ox 95 05/13/22 08:06 FiO2 Intake & Output 05/12/22 05/13/22 05/13/22 18:59 06:59 18:59 Intake Total 400 Output Total 400 300 Balance 0 -300 Intake: Oral 400 Output: Urine 400 300 Other: Voiding Method Indwelling Catheter Indwelling Catheter Indwelling Catheter - Exam GENERAL EXAM: Alert, very pleasant, 81-year-old on 2 L of oxygen and pulse ox of 95%, resting in bed, appears weak and fatigued and pale but no acute distress HEAD: Normocephalic/atraumatic. EYES: Normal reaction of pupils, equal size. Conjunctiva pink, sclera white. NOSE: Clear with pink turbinates. THROAT: No erythema or exudates. NECK: No masses, no JVD, no thyroid enlargement, no adenopathy. CHEST: No chest wall deformity. Symmetrical expansion. LUNGS: Equal air entry with no crackles, wheeze, rhonchi or dullness. CVS: Regular rate and rhythm, normal S1 and S2, no gallops, no murmurs, no rubs ABDOMEN: Soft, nontender. No hepatosplenomegaly, normal bowel sounds, no guarding or rigidity. EXTREMITIES: No clubbing, no edema, no cyanosis, 2+ pulses and upper and lower extremities. MUSCULOSKELETAL: Muscle strength and tone normal. SPINE: No scoliosis or deformity SKIN: No rashes CENTRAL NERVOUS SYSTEM: Alert and oriented -3. No focal deficits, tone is normal in all 4 extremities. PSYCHIATRIC: Alert and oriented -3. Appropriate affect. Intact judgment and insight. - Labs CBC & Chem 7: 05/13/22 05:48 05/13/22 05:48 Labs: Abnormal Lab Results - Last 24 Hours (Table) 05/13/22 05/13/22 Range/Units 05:48 05:48 WBC 3.50 L (4.50-10.00) X 10*3/uL RBC 2.83 L (4.10-5.20) X 10*6/uL Hgb 8.4 L (12.0-15.0) g/dL Hct 27.3 L (37.2-46.3) % MCHC 30.8 L (32.0-37.0) g/dL RDW 17.5 H (11.5-14.5) % Neutrophils # 1.67 L (1.80-7.70) X 10*3/uL Anion Gap 5.50 L (10.00-18.00) mmol/L Calcium 8.5 L (8.7-10.3) mg/dL Total Bilirubin <0.15 L (0.30-1.20) mg/dL AST 50 H (13-35) U/L Total Protein 5.0 L (6.2-8.2) g/dL Albumin 2.7 L (3.8-4.9) g/dL Albumin/Globulin Ratio 1.14 L (1.60-3.17) g/dL Microbiology - Last 24 Hours (Table) 05/11/22 02:55 Blood Culture - Preliminary Blood No Growth after 48 hours 05/11/22 02:35 Blood Culture - Preliminary Blood No Growth after 48 hours 05/11/22 00:37 Urine Culture - Final Urine,Voided Aerococcus urinae Assessment and Plan Plan: Assessment: #1. Abdominal pain of unclear etiology, computed tomography scan of the abdomen revealed no bowel obstruction, and showed a nonobstructing right-sided renal calculi #2. Acute urinary tract infection #3. Acute hypoxic respiratory failure, chest x-ray showing basilar effusions, possibility of pneumonia seems to be less likely however not entirely excluded, #4. Neutropenia, likely related to sepsis secondary to urinary tract infection #5. Recent hospitalization at the [facility], and patient was noted to have bilateral pleural effusions she declined thoracentesis at that time #6. History of hypertension #7. Seizure disorder #8. Hyperlipidemia #9. GERD/reflux #10. History of diastolic congestive heart failure #11. Anemia, with no clear evidence of bleeding, stool for occult blood has been ordered Plan: No worsening dyspnea Continue diuretics Continue antibiotics Stool for occult blood Monitor hemoglobin We'll continue to follow patient's clinical course I have personally seen and examined the patient, performed the documentation and the assessment and plan as written. Number of minutes spent on the visit: [10] Time with Patient: Less than 30
[2022-05-13] MEDS: DOCUSATE 100 MG CAP PO SCH ×2 (13:06→21:00)
--- NOTE | 2022-05-13 15:08 | PN ---
PROGRESS NOTE DATE OF SERVICE: 05/13/2022 This 81-year-old woman who was admitted with bilateral pneumonia also had pancreatitis. Patient is being closely monitored. No chest pain. No palpitations. No fever. PHYSICAL EXAMINATION: Pulse 78, blood pressure 104/60, respiration 18. HEENT: Conjunctivae normal. NECK: No jugular venous distention. CARDIOVASCULAR: S1, S2 muffled. RESPIRATION: Bilateral scattered rhonchi and crackles. ABDOMEN: Soft. NERVOUS SYSTEM: No focal deficit. LABS: Reviewed. WBC 3.2, hemoglobin is 8.4. ASSESSMENT: 1. Acute bilateral pneumonia. 2. Acute urinary tract infection, present on admission. 3. Possible acute pancreatitis with abdominal pain. 4. Hypokalemia. 5. History of asthma. 6. Multiple medical issues. RECOMMENDATIONS AND DISCUSSION: In this 81-year-old woman who presented with multiple complex medical issues, we will monitor the patient closely, continue the current medication. Continue the broad- spectrum IV antibiotics. Will repeat labs and closely follow with Pulmonary. Guarded prognosis. Further recommendations to follow. MMODL / IJN: [id number] /
[2022-05-13] MEDS: FUROSEMIDE 40 MG TAB PO SCH (16:03)
[2022-05-13] MEDS: DIVALPROEX 500 MG TABLET.DR PO SCH (20:52)
[2022-05-13] MEDS: ATORVASTATIN 40 MG TAB PO SCH (20:52)
[2022-05-13] MEDS: ARTIFICIAL TEARS-HYPROMELLOSE DROPS 15 ML BTL BOTH EYES SCH (20:59)
[2022-05-14] MEDS: AZITHROMYCIN 500 MG in SODIUM CHLORIDE 0.9% 250 ML IVPB SCH (05:39)
[2022-05-14] MEDS: SODIUM CHLORIDE 0.9% 1,000 ML IV SCH (05:39)
[2022-05-14] MEDS: PANTOPRAZOLE 40 MG TABLET PO SCH (06:19)
[2022-05-14] MEDS: PRIMIDONE 50 MG TAB PO SCH ×3 (08:04→21:04)
[2022-05-14] MEDS: DOCUSATE 100 MG CAP PO SCH ×2 (08:04→21:04)
[2022-05-14] MEDS: MULTIVITAMINS, THERA 1 EACH TAB PO SCH (08:04)
[2022-05-14] MEDS: CLOPIDOGREL 75 MG TAB PO SCH (08:04)
[2022-05-14] MEDS: METOPROLOL TARTRATE 25 MG TAB PO SCH ×2 (08:04→21:04)
[2022-05-14] MEDS: MEGESTROL 400 MG/10 ML CUP PO SCH (08:04)
[2022-05-14] MEDS: FUROSEMIDE 40 MG TAB PO SCH ×2 (08:04→18:24)
[2022-05-14] MEDS: ASPIRIN 81 MG PO SCH (08:04)
[2022-05-14] MEDS: DIVALPROEX 250 MG TABLET.DR PO SCH ×2 (08:04→13:18)
[2022-05-14] MEDS: ACETAMINOPHEN TAB 325 MG TAB PO PRN ×2 (08:20→13:49)
[2022-05-14] MEDS: IPRATROPIUM-ALBUTEROL 3 ML NEB INHALATION SCH ×4 (08:52→19:10)
[2022-05-14] MEDS: BUDESONIDE 0.5 MG/2 ML NEBU INHALATION SCH ×2 (08:52→19:10)
[2022-05-14 09:20] LABS: Basophils # (A) 0.04 X 10*3/uL (0.00-0.10); Eosinophils % (A) 5.2 %; HCT 27.8 % (37.2-46.3); HGB 8.5 g/dL (12.0-15.0); Immature Grans, Automated 0.3 %; Lymphocytes # (A) 1.28 X 10*3/uL (0.90-5.00); Lymphocytes % (A) 33.3 %; MCH 29.4 pg (27.0-32.0); MCHC 30.6 g/dL (32.0-37.0); MCV 96.2 fL (80.0-97.0); Mean Platelet Volume 10.8 fL (9.5-12.2); NRBC Per 100 WBC 0 /100 WBCS (0.0-0.0); Neutrophils # (A) 1.81 X 10*3/uL (1.80-7.70); Neutrophils % (A) 47.2 %; Platelet Count 277 X 10*3/uL (140-440); RBC 2.89 X 10*6/uL (4.10-5.20); RDW 17.8 % (11.5-14.5); WBC 3.84 X 10*3/uL (4.50-10.00)
[2022-05-14 11:06] LABS: African American GFR (CKD) 100.5 (60.0-200.0); Anion Gap 5.9 mmol/L (10.00-18.00); Calcium 8.5 mg/dL (8.7-10.3); Carbon Dioxide 27.1 mmol/L (20.0-27.5); Non-African American GFR(CKD) 86.7 (60.0-200.0); Potassium 3.9 mmol/L (3.5-5.5)
--- NOTE | 2022-05-14 12:05 | XR ---
EXAMINATION TYPE: XR chest 1V portable DATE OF EXAM: 05/14/2022 COMPARISON: Prior chest x-ray 05/11/2022 HISTORY: Shortness of breath TECHNIQUE: Single frontal view of the chest is obtained. FINDINGS: Right basilar increased attenuation persists, the hemidiaphragm is obscured on the left. N o evident pneumothorax. Cardiac mediastinal silhouette is stable. The aorta is dense. Bone mineraliza tion is low. IMPRESSION: Correlate for basilar atelectasis versus pneumonia, maybe associated effusion, follow-up is recommended
[2022-05-14] MEDS: FLUTICASONE 50MCG/SPRAY NASAL 16GM EA NOSTRIL SCH (12:08)
--- NOTE | 2022-05-14 13:07 | P.PN ---
Subjective Progress Note Date: 05/14/22 Principal diagnosis: Dyspnea, hypoxia This is a 81-year-old female patient with a known history of hypertension, seizure disorder, hypertension, hyperlipidemia, congestive heart failure who resides at [facility] on the [place]. Prior to that she had been at [facility] and we had seen her in consultation for pleural effusion. At that time she had declined thoracentesis. She presented here early this morning by EMS with complaints of abdominal pain. Chest x-ray showed possible congestive heart failure with basilar effusions. He pneumonia not excluded. Computed tomography scan of the abdomen and pelvis revealed some mild free fluid in the pelvis. No bowel obstruction. No obstructing right-sided renal calculi. There is bilateral lower lobe atelectasis and moderate bilateral pleural effusions. We are consulted for the same. She is today on the regular medical floor. She is resting comfortably in bed. Awake and alert in no acute distress. She denies any worsening shortness of breath, cough and congestion. She is somewhat dyspneic with conversation. Maintaining O2 saturation in the mid 90s on 2 L/m per nasal cannula. She's afebrile. White count 3.3. Hemoglobin 10.1. Platelets 290. Sodium 135. Potassium 2.8. Bicarb 32. BUN 9. Creatini ne 0.64. Glucose 107. ProBNP 241. Amylase 108. Lipase 608. Urine with moderate bacteria cloudy with sediment. She's been initiated on ceftriaxone and azithromycin along with bronchodilators. She is given Lasix 40 mg IV every 12 hours. 0.9 normal saline at 130 ML's per hour. On 05/12/2022 patient seen in follow-up on medical surgical floor. She is awake and alert, in no acute distress, on 2 L of oxygen pulse ox is 98%, she remains on IV diuretics at 40 mg every 12 hours, she is in negative net fluid balance over the last 24 hours, does not appear to be in any acute distress. Afebrile, no complex of chest discomfort, just appears to be fatigued, and pale. His labs have been reviewed, white blood cell count is 2.48, hemoglobin is 9.1, platelet count is 281, sodium is 1:30, potassium is 3.8, BUN is 6.8, creatinine 0.6. Urinalysis showed evidence of urinary tract infection Rocephin. Also remains on nebulized bronchodilators. Urine culture is pending, blood cultures have shown no growth thus far. On 05/13/2022 patient seen in follow-up on medical surgical floor. Patient is awake and alert, in no acute distress, resting comfortably in bed. Room air pulse ox is 94%, she is breathing comfortably, she has had no fever or chills. She remains on oral diuretics with Lasix 40 mg every 12 hours, remains on empiric antibiotics and bronchodilators. She's had no acute issues overnight, urine culture showed enterococcus urinnae, and blood culture was negative. Today's labs have been noted, white blood cell count is 3.5, hemoglobin is 8.4, electrolytes and renal profile are unremarkable. Patient is maintaining negative net fluid balance. No clear evidence of bleeding, patient remains on baby aspirin, and Plavix. On 05/14/2022 patient is seen in follow-up on medical surgical floor. She is awake and alert, she is on room air satting 91-94%, no worsening cough, the patient is complaining of increased abdominal distention, and epigastric discomfort. No nausea or vomiting, nursing staff reports that patient has not had a bowel movement in several days. Patient had small bilateral pleural effusions, she currently remains on diuretics, follow-up chest x-ray showing basilar atelectasis and maybe associated effusion. Today's labs have been reviewed, blood blood cell count is improving and is up to 3.8, hemoglobin is 8.5, electrolytes and renal profile are unremarkable, amylase and lipase were within normal limits at 99 and 46 respectively. Patient currently remains on Rocephin, nebulized breathing treatments, and oral Lasix 40 mg twice daily. 1+ lower extremity edema remains, patient is in -2400 mL net fluid balance over the last 24 hours. Objective - Vital Signs Vital signs: Vital Signs Temp 98.2 F 05/14/22 08:00 Pulse 80 05/14/22 11:45 Resp 18 05/14/22 08:00 BP 118/67 05/14/22 08:00 Pulse Ox 91 L 05/14/22 08:00 FiO2 Intake & Output 05/13/22 05/14/22 05/14/22 18:59 06:59 18:59 Output Total 800 1650 Balance -800 -1650 Output: Urine 800 1650 Other: Voiding Method Indwelling Catheter Indwelling Catheter Indwelling Catheter - Exam GENERAL EXAM: Alert, very pleasant, 81-year-old on 2 L of oxygen and pulse ox of 95%, resting in bed, appears weak and fatigued and pale but no acute distress HEAD: Normocephalic/atraumatic. EYES: Normal reaction of pupils, equal size. Conjunctiva pink, sclera white. NOSE: Clear with pink turbinates. THROAT: No erythema or exudates. NECK: No masses, no JVD, no thyroid enlargement, no adenopathy. CHEST: No chest wall deformity. Symmetrical expansion. LUNGS: Equal air entry with no crackles, wheeze, rhonchi, some basilar dullness CVS: Regular rate and rhythm, normal S1 and S2, no gallops, no murmurs, no rubs ABDOMEN: Soft, nontender. No hepatosplenomegaly, normal bowel sounds, no guarding or rigidity. EXTREMITIES: No clubbing, 1+ edema, no cyanosis, 2+ pulses and upper and lower extremities. MUSCULOSKELETAL: Muscle strength and tone normal. SPINE: No scoliosis or deformity SKIN: No rashes CENTRAL NERVOUS SYSTEM: Alert and oriented -3. No focal deficits, tone is normal in all 4 extremities. PSYCHIATRIC: Alert and oriented -3. Appropriate affect. Intact judgment and insight. - Labs CBC & Chem 7: 05/14/22 06:22 05/14/22 06:22 Labs: Abnormal Lab Results - Last 24 Hours (Table) 05/14/22 05/14/22 Range/Units 06:22 06:22 WBC 3.84 L (4.50-10.00) X 10*3/uL RBC 2.89 L (4.10-5.20) X 10*6/uL Hgb 8.5 L (12.0-15.0) g/dL Hct 27.8 L (37.2-46.3) % MCHC 30.6 L (32.0-37.0) g/dL RDW 17.8 H (11.5-14.5) % Anion Gap 5.90 L (10.00-18.00) mmol/L Calcium 8.5 L (8.7-10.3) mg/dL Microbiology - Last 24 Hours (Table) 05/11/22 02:55 Blood Culture - Preliminary Blood No Growth after 72 hours 05/11/22 02:35 Blood Culture - Preliminary Blood No Growth after 72 hours Assessment and Plan Plan: Assessment: #1. Abdominal pain of unclear etiology, computed tomography scan of the abdomen revealed no bowel obstruction, and showed a nonobstructing right-sided renal calculi #2. Acute urinary tract infection #3. Acute hypoxic respiratory failure, chest x-ray showing basilar effusions, possibility of pneumonia seems to be less likely however not entirely excluded, #4. Neutropenia, likely related to sepsis secondary to urinary tract infection #5. Recent hospitalization at the [facility], and patient was noted to have bilateral pleural effusions she declined thoracentesis at that time #6. History of hypertension #7. Seizure disorder #8. Hyperlipidemia #9. GERD/reflux #10. History of diastolic congestive heart failure #11. Anemia, with no clear evidence of bleeding, stool for occult blood has been ordered Plan: Patient denies cough, phlegm production or wheezing She is a bit dyspneic related to increased abdominal distention and epigastric discomfort She has not had a bowel movement in several days Surgical consultation has been requested She continues on oral diuretics,, follow-up chest x-ray showing bibasilar atelectasis and small pleural effusions No plans for thoracentesis We'll continue to monitor her clinical course and make further recommendations I have personally seen and examined the patient, performed the documentation and the assessment and plan as written. Number of minutes spent on the visit: [10] Time with Patient: Less than 30
[2022-05-14] MEDS: BARIUM SULFATE 450 ML ORAL.SUSP BOTTLE PO PRN ×2 (13:18→16:12)
--- NOTE | 2022-05-14 13:51 | CDI ---
Documentation Clarification Form Date: 05/14/2022 01:21:45 PM From: Noreen Montero RN CCDS Admit Date: 05/11/2022 02:29:00 AM Patient Name: Arin Fulton Visit Number: [id number] Discharge Date: ATTENTION: The Clinical Documentation Specialists (CDI) and [facility] Coding Staff appreciate your assistance in clarifying documentation. Please respond to the clarification below the line at the bottom and electronically sign. The CDI & [facility] Coding staff will review the response and follow-up if needed. Please note: Queries are made part of the Legal Health Record. If you have any questions, please contact the author of this message via ITS. Dr. Lili Rogers Sepsis 05/12, Pulmonary progress note, but is not noted in subsequent documentation. Clarification is requested. History/Risk Factors: 81-year-old female presents to the ED for abdominal pain. Medical history: Asthma, HTN, chronic diastolic chf. Clinical Indicators: 05/11, VSS B/P 123/73; HR 89; SpO2 97.6 F Oral; RR 16; SpO2 95% ra 05/11, Labs: Wbc 3.3 05/11, Culture UA: Aerococcus urinae 05/11, CXR: Correlate for congestive heart failure. 05/12, Pulmonary consult: Neutropenia, likely related to sepsis secondary to UTI. Treatment: 05/11 Azithromycin 500mg IVPB x 1; 05/11 Ceftriaxone 2gm IVPB x 1; 05/11 Ceftriaxone 1gm IVPB Q12H; 05/12 Azithromycin 500mg IVPB Q24H. Please clarify if the Sepsis is: [ ] Sepsis POA confirmed, remains under treatment [ ] Sepsis POA confirmed, resolved [ ] Sepsis ruled out [ ] Other condition, please specify [ ] Unable to determine (Template Last Revised: December 2020) Unable to determine MTDD
[2022-05-14 16:13] VITALS: BMI 25.6
--- NOTE | 2022-05-14 18:11 | CT ---
EXAMINATION TYPE: CT abdomen pelvis wo con DATE OF EXAM: 05/14/2022 COMPARISON: 05/11/2022 HISTORY: epigastric pain CT DLP: 757 mGycm Automated exposure control for dose reduction was used. Images obtained from the diaphragm to the floor the pelvis with oral contrast only. There are moderately large bilateral pleural effusions. Heart is top normal in size. There is small p ericardial effusion. There is some atelectasis and infiltrate at the lung bases. There is coronary ar bill calcification. Liver is intact. Spleen is intact. There is no evidence of pancreatic mass. The stomach is intact. Ga llbladder appears absent. There is no adrenal mass. The bile ducts are not dilated. Kidneys have normal size. There are several right-sided renal calculi measuring up to 7 mm. No hydronephrosis. Ureters are not dilated. Abdomina l aorta is atheromatous. There is no retroperitoneal adenopathy. There is Kong catheter in the urina ry bladder. No evidence of bladder mass. No inguinal hernia. There is some mild presacral edema. There is no evidence of a bowel obstruction. Fecal pattern is normal. No evidence of free air. No asc ites. IMPRESSION: Nonobstructing right-sided renal calculi. Presacral fluid. No bowel obstruction. Large pleural effusions with basilar infiltrates and atelectasis. No significant change compared to recent exam.
[2022-05-14] MEDS: DIVALPROEX 500 MG TABLET.DR PO SCH (21:04)
[2022-05-14] MEDS: ARTIFICIAL TEARS-HYPROMELLOSE DROPS 15 ML BTL BOTH EYES SCH (21:04)
[2022-05-14] MEDS: ATORVASTATIN 40 MG TAB PO SCH (21:04)
[2022-05-15] MEDS: SODIUM CHLORIDE 0.9% 1,000 ML IV SCH ×2 (05:04→09:22)
[2022-05-15] MEDS: PANTOPRAZOLE 40 MG TABLET PO SCH (05:07)
[2022-05-15] MEDS: ACETAMINOPHEN TAB 325 MG TAB PO PRN (05:16)
[2022-05-15 07:06] LABS: Anisocytosis Slight; Basophils % (A) 1 %; Eosinophils # (A) 0.2 k/uL (0-0.7); Eosinophils % (A) 6 %; HCT 28.4 % (34.0-46.0); HGB 9.1 gm/dL (11.4-16.0); Lymphocytes # (A) 0.9 k/uL (1.0-4.8); Lymphocytes % (A) 30 %; MCH 30.6 pg (25.0-35.0); MCHC 31.8 g/dL (31.0-37.0); MCV 96.1 fL (80.0-100.0); Macrocytosis Slight; Mean Platelet Volume 7.7; Monocytes # (A) 0.3 k/uL (0-1.0); Monocytes % (A) 10 %; Neutrophils # (A) 1.6 k/uL (1.3-7.7); Neutrophils % (A) 52 %; Platelet Count 277 k/uL (150-450); RBC 2.96 m/uL (3.80-5.40); RDW 17.3 % (11.5-15.5); WBC 3.1 k/uL (3.8-10.6)
[2022-05-15 07:24] LABS: African American GFR (CKD) >90 (>60 ml/min/1.73 sqM); Anion Gap 1 mmol/L; Blood Urea Nitrogen 5 mg/dL (7-17); Calcium 7.9 mg/dL (8.4-10.2); Carbon Dioxide 28 mmol/L (22-30); Chloride 107 mmol/L (98-107); Glucose 82 mg/dL (74-99); Non-African American GFR(CKD) >90 (>60 ml/min/1.73 sqM); Potassium 3.5 mmol/L (3.5-5.1); Sodium 136 mmol/L (137-145)
[2022-05-15] MEDS: PRIMIDONE 50 MG TAB PO SCH ×3 (08:33→20:24)
[2022-05-15] MEDS: METOPROLOL TARTRATE 25 MG TAB PO SCH ×2 (08:34→20:24)
[2022-05-15] MEDS: DIVALPROEX 250 MG TABLET.DR PO SCH ×2 (08:34→14:41)
[2022-05-15] MEDS: CLOPIDOGREL 75 MG TAB PO SCH (08:34)
[2022-05-15] MEDS: DOCUSATE 100 MG CAP PO SCH ×2 (08:34→20:24)
[2022-05-15] MEDS: FUROSEMIDE 40 MG TAB PO SCH ×2 (08:34→19:43)
[2022-05-15] MEDS: MULTIVITAMINS, THERA 1 EACH TAB PO SCH (08:34)
[2022-05-15] MEDS: ASPIRIN 81 MG PO SCH (08:35)
[2022-05-15] MEDS: MEGESTROL 400 MG/10 ML CUP PO SCH (08:38)
[2022-05-15] MEDS: BUDESONIDE 0.5 MG/2 ML NEBU INHALATION SCH ×2 (08:40→20:07)
[2022-05-15] MEDS: IPRATROPIUM-ALBUTEROL 3 ML NEB INHALATION SCH ×4 (08:41→20:07)
[2022-05-15] MEDS: POTASSIUM CHLORIDE ER 20 MEQ TAB.ER PO SCH ×2 (09:20→10:35)
[2022-05-15] MEDS: FLUTICASONE 50MCG/SPRAY NASAL 16GM EA NOSTRIL SCH (09:22)
--- NOTE | 2022-05-15 15:01 | P.PN ---
Subjective Progress Note Date: 05/15/22 Principal diagnosis: Pneumonia. On 05/13/2022 patient seen in follow-up on medical surgical floor. Patient is awake and alert, in no acute distress, resting comfortably in bed. Room air pulse ox is 94%, she is breathing comfortably, she has had no fever or chills. She remains on oral diuretics with Lasix 40 mg every 12 hours, remains on empiric antibiotics and bronchodilators. She's had no acute issues overnight, urine culture showed enterococcus urinnae, and blood culture was negative. Today's labs have been noted, white blood cell count is 3.5, hemoglobin is 8.4, electrolytes and renal profile are unremarkable. Patient is maintaining negative net fluid balance. No clear evidence of bleeding, patient remains on baby aspirin, and Plavix. On 05/14/2022 patient is seen in follow-up on medical surgical floor. She is awake and alert, she is on room air satting 91-94%, no worsening cough, the patient is complaining of increased abdominal distention, and epigastric discomfort. No nausea or vomiting, nursing staff reports that patient has not had a bowel movement in several days. Patient had small bilateral pleural effusions, she currently remains on diuretics, follow-up chest x-ray showing basilar atelectasis and maybe associated effusion. Today's labs have been reviewed, blood blood cell count is improving and is up to 3.8, hemoglobin is 8.5, electrolytes and renal profile are unremarkable, amylase and lipase were within normal limits at 99 and 46 respectively. Patient currently remains on Rocephin, nebulized breathing treatments, and oral Lasix 40 mg twice daily. 1+ lower extremity edema remains, patient is in -2400 mL net fluid balance over the last 24 hours. Progress note dated 05/15/2022. This is a 81-year-old female who seen today in room 472. She is alert and awake. She is not manifesting any signs of estrogen toward distress. She is on 2 L of nasal O2. She's getting saline at 40 mL an hour. The epigastric abdominal discomfort that she was describing yesterday, is apparently much better today. Also, it appears that her breathing is very stable as well. She denies any difficulty in her breathing. White count 3.1, hemoglobin 9.1, hematocrit 28.4, and platelet count 277,000. Sodium 136, potassium 3.5, chlorides 107, CO2 28, BUN 5, with a creatinine 0.49. Urine specimen was positive for Aerococcus urinae. Chest x-ray from yesterday was consistent with basilar atelectasis versus pneumonia. She is currently on Rocephin. Objective - Vital Signs Vital signs: Vital Signs Temp 98.3 F 05/15/22 11:46 Pulse 84 05/15/22 13:33 Resp 16 05/15/22 11:46 BP 109/66 05/15/22 11:46 Pulse Ox 91 L 05/15/22 11:46 FiO2 Intake & Output 05/14/22 05/15/22 05/15/22 18:59 06:59 18:59 Output Total 1000 675 350 Balance -1000 -675 -350 Weight 72 kg Output: Urine 1000 675 350 Other: Voiding Method Indwelling Catheter Indwelling Catheter Indwelling Catheter - Exam No acute distress, oriented 3. Currently on 2 L nasal cannula. HEENT examination is grossly unremarkable. Neck supple. Full range of motion. No adenopathy thyromegaly or neck vein distention. Cardiovascular examination reveals regular rhythm rate. S1-S2 normal. No S3 or S4. No discernible murmur noted. Heart rate 84 bpm. Lungs reveal mostly clear breath sounds. She does not take deep breaths. Mild scattered rhonchi. No wheezes or crackles. 2 L saturation is 93%. Abdomen soft bowel sounds are heard. No masses or tenderness. Extremities are intact. No cyanosis clubbing or edema. Skin is without rash or lesion. Neurologic examination is brief but nonfocal. - Labs CBC & Chem 7: 05/15/22 06:35 05/15/22 11:37 Labs: Abnormal Lab Results - Last 24 Hours (Table) 05/15/22 05/15/22 Range/Units 06:35 06:35 WBC 3.1 L (3.8-10.6) k/uL RBC 2.96 L (3.80-5.40) m/uL Hgb 9.1 L (11.4-16.0) gm/dL Hct 28.4 L (34.0-46.0) % RDW 17.3 H (11.5-15.5) % Lymphocytes # 0.9 L (1.0-4.8) k/uL Sodium 136 L (137-145) mmol/L BUN 5 L (7-17) mg/dL Creatinine 0.49 L (0.52-1.04) mg/dL Calcium 7.9 L (8.4-10.2) mg/dL Microbiology - Last 24 Hours (Table) 05/11/22 02:55 Blood Culture - Preliminary Blood No Growth after 96 hours 05/11/22 02:35 Blood Culture - Preliminary Blood No Growth after 96 hours Assessment and Plan Assessment: Abdominal pain, of unclear etiology, much improved. Acute urinary tract infection with Aerococcus. Acute hypoxemic respiratory failure, secondary to atelectasis versus pneumonia, and small effusions. Leukopenia, possibly related to sepsis. Recent hospitalization at [facility], where thoracentesis was declined. History of hypertension. Seizure disorder. Hyperlipidemia. GERD. History of diastolic CHF. History of anemia. Plan: Plan dated 05/15/2022. The patient continues on appropriate medications for her urinary tract infection, including Rocephin. She's also getting breathing treatments, and Pulmicort. Steroids are not necessary at this time. We will continue to follow and make recommendations were appropriate. No additional recommendations are made. Prognosis is guarded. Time with Patient: Less than 30
[2022-05-15] MEDS: ATORVASTATIN 40 MG TAB PO SCH (20:24)
[2022-05-15] MEDS: DIVALPROEX 500 MG TABLET.DR PO SCH (20:24)
[2022-05-15] MEDS: ARTIFICIAL TEARS-HYPROMELLOSE DROPS 15 ML BTL BOTH EYES SCH (20:25)
--- NOTE | 2022-05-16 01:23 | P.PN ---
Subjective Progress Note Date: 05/14/22 This is a 81-year-old female who was recently admitted bilateral pneumonia also has pancreatitis and being closely monitored. Patient has multiple concerns of pain including abdominal distention noted on exam today and will order CT abdomen pelvis which is currently pending. Recommend decreasing the diet to clear liquids and will also obtain a chest x-ray. Multiple medical consultations following and appreciate input and recommendations. Patient continues with indwelling Kong catheter and will continue for now. Awaiting cultures. Patient is currently afebrile and denies chest pain or shortness of breath. Patient continues to be extremely anxious at times as well. Patient is confused. Patient is maintained on IV ceftriaxone with infectious disease following and also continued on breathing inhalational treatments and oral Lasix and will continue. Patient is weak and will have physical therapy evaluate. Possible ECF being planned. Review of systems: Unable to obtain as patient is confused Active Medications Acetaminophen (Acetaminophen Tab 325 Mg Tab) 650 mg PO Q6HR PRN PRN Reason: Fever and/ or Pain Last Admin: 05/14/22 13:49 Dose: 650 mg Albuterol/Ipratropium (Ipratropium-Albuterol 3 Ml Neb) 3 ml INHALATION RT-QID [facility] Last Admin: 05/14/22 11:36 Dose: 3 ml Albuterol/Ipratropium (Ipratropium-Albuterol 3 Ml Neb) 3 ml INHALATION RT-Q2H PRN PRN Reason: Shortness Of Breath Or Wheezing Artificial Tears (Artificial Tears-Hypromellose Drops 15 Ml Btl) 1 drops BOTH EYES HS@2100 [facility] Last Admin: 05/13/22 20:59 Dose: 1 drops Aspirin (Aspirin 81 Mg) 81 mg PO DAILY@0900 [facility] Last Admin: 05/14/22 08:04 Dose: 81 mg Atorvastatin Calcium (Atorvastatin 40 Mg Tab) 40 mg PO HS@2100 [facility] Last Admin: 05/13/22 20:52 Dose: 40 mg Barium Sulfate (Barium Sulfate 450 Ml Oral.Susp Bottle) 450 ml PO Q3HR PRN PRN Reason: CT Scan Stop: 05/15/22 12:38 Last Admin: 05/14/22 13:18 Dose: 450 ml Budesonide (Budesonide 0.5 Mg/2 Ml Nebu) 0.5 mg INHALATION RT-BID@0900,2099 [facility] Last Admin: 05/14/22 08:52 Dose: 0.5 mg Clonazepam (Clonazepam 0.5 Mg Tab) 0.5 mg PO BID PRN PRN Reason: Anxiety Last Admin: 05/14/22 13:49 Dose: 0.5 mg Clopidogrel Bisulfate (Clopidogrel 75 Mg Tab) 75 mg PO DAILY@0900 [facility] Last Admin: 05/14/22 08:04 Dose: 75 mg Divalproex Sodium (Divalproex 500 Mg Tablet.) 500 mg PO HS@2100 [facility] Last Admin: 05/13/22 20:52 Dose: 500 mg Divalproex Sodium (Divalproex 250 Mg Tablet.) 250 mg PO BID@0900,1400 [facility] Last Admin: 05/14/22 13:18 Dose: 250 mg Docusate Sodium (Docusate 100 Mg Cap) 100 mg PO BID [facility] Last Admin: 05/14/22 08:04 Dose: 100 mg Fluticasone Propionate (Fluticasone 50mcg/[place] Nasal 16gm) 1 spray EA NOSTRIL DAILY@0900 [facility] Last Admin: 05/14/22 12:08 Dose: 1 spray Furosemide (Furosemide 40 Mg Tab) 40 mg PO BID@0900,1600 [facility] Last Admin: 05/14/22 08:04 Dose: 40 mg Sodium Chloride (Saline 0.9%) 1,000 mls @ 40 mls/hr IV .Q24H [facility] Last Admin: 05/14/22 05:39 Dose: 40 mls/hr Ceftriaxone Sodium 1 gm/ (Sodium Chloride) 50 mls @ 100 mls/hr IVPB Q12HR [facility]; Protocol Last Admin: 05/14/22 08:04 Dose: 100 mls/hr Lorazepam (Lorazepam 2 Mg/Ml Inj) 0.5 mg IV BID PRN PRN Reason: Anxiety Last Admin: 05/11/22 05:02 Dose: 0.5 mg Megestrol Acetate (Megestrol 400 Mg/10 Ml Cup) 400 mg PO DAILY@0900 [facility] Last Admin: 05/14/22 08:04 Dose: 400 mg Metoprolol Tartrate (Metoprolol Tartrate 25 Mg Tab) 25 mg PO BID@0900,2100 [facility] Last Admin: 05/14/22 08:04 Dose: 25 mg Miscellaneous Information (Potassium Replacement Protocol 1 Each Misc) 1 each MISCELLANE DAILY PRN; Protocol PRN Reason: Per Protocol Miscellaneous Information (Magnesium Replacement Protocol 1 Each Misc) 1 each MISCELLANE DAILY PRN; Protocol PRN Reason: Per Protocol Morphine Sulfate (Morphine Sulfate 4 Mg/Ml Syringe) 4 mg IV Q4HR PRN PRN Reason: Severe Pain Last Admin: 05/11/22 02:42 Dose: 4 mg Multivitamins (Multivitamins, Thera 1 Each Tab) 1 each PO DAILY@0900 [facility] Last Admin: 05/14/22 08:04 Dose: 1 each Naloxone HCl (Naloxone 0.4 Mg/Ml 1 Ml Vial) 0.2 mg IV Q2M PRN PRN Reason: Opioid Reversal Nitroglycerin (Nitroglycerin Sl Tabs 0.4 Mg Tab) 0.4 mg SUBLINGUAL Q5M PRN PRN Reason: Chest Pain Ondansetron HCl (Ondansetron 4 Mg/2 Ml Vial) 4 mg IVP Q8HR PRN PRN Reason: Nausea And Vomiting Pantoprazole Sodium (Pantoprazole 40 Mg Tablet) 40 mg PO DAILY@0600 [facility] Last Admin: 05/14/22 06:19 Dose: 40 mg Primidone (Primidone 50 Mg Tab) 50 mg PO TID@0800,1400,2100 [facility] Last Admin: 05/14/22 13:18 Dose: 50 mg Simethicone (Simethicone 80 Mg Chewable) 120 mg PO Q8H PRN PRN Reason: GAS Sodium Chloride (Sodium Chloride 0.65% Nasal [place] 44 Ml Btl) 1 spray NASAL BID PRN PRN Reason: DRY NOSE PHYSICAL EXAMINATION: GENERAL: The patient is confused, awake, Well developed, well nourished. HEENT: Pupils are round and equally reacting to light. EOMI. no scleral icterus. No conjunctival pallor. Normocephalic, atraumatic. No pharyngeal erythema. No thyromegaly. CARDIOVASCULAR: S1 and S2 muffled PULMONARY: diminished breath sounds bilaterally with some scattered rhonchi noted. ABDOMEN: Firm. tender on exam. obese. distended, normoactive bowel sounds. No palpable organomegaly. MUSCULOSKELETAL: No joint swelling or deformity. EXTREMITIES: No cyanosis, clubbing, or pedal edema. NEUROLOGICAL: Unable to completely assess as patient is confused. Diffuse weakness SKIN: No rashes. Assessment: Acute bilateral pneumonia Sepsis, present on admission possibly secondary to pneumonia or acute urinary tract infection Acute urinary tract infection, present on admission Possible acute pancreatitis with abdominal pain Hypokalemia History of asthma Multiple medical issues GI prophylaxis DVT prophylaxis Full code Plan: Recommend to continue with current medications and management with multiple medical consultations following. Patient is maintained on IV antibiotics and will continue while waiting for cultures. Patient's abdomen is distended and firm and will repeat CT abdomen is patient is also having pain. Recommend decreasing the diet to clear liquids and will await CT abdomen and pelvis. Repeat chest x-ray ordered which shows correlate for basilar atelectasis versus pneumonia may be associated effusion. Patient to be evaluated by PT/OT and possibly planning ECF as patient continues to be weak. Follow-up on CT report and recommend repeat labs and awaiting cultures at this time. Due to multiple complex medical issues, prognosis is guarded. The impression and plan of care has been dictated by Renetta Fox, nurse practitioner as directed. MD Libby I have performed a history and examination and MDM of this patient, discussed the same with the dictator, and agree with the dictator's assessment and plan as written ,documented as a scribe. Based on total visit time, I have performed more than 50% of the visit. Any additional findings or plans will be noted. Objective - Vital Signs Vital signs: Vital Signs Temp 98.2 F 05/14/22 08:00 Pulse 78 05/14/22 09:05 Resp 18 05/14/22 08:00 BP 118/67 05/14/22 08:00 Pulse Ox 91 L 05/14/22 08:00 FiO2 Intake & Output 05/13/22 05/14/22 05/14/22 18:59 06:59 18:59 Output Total 800 1650 Balance -800 -1650 Output: Urine 800 1650 Other: Voiding Method Indwelling Catheter Indwelling Catheter Indwelling Catheter - Labs CBC & Chem 7: 05/15/22 06:35 05/15/22 11:37 Labs: Abnormal Lab Results - Last 24 Hours (Table) 05/14/22 Range/Units 06:22 WBC 3.84 L (4.50-10.00) X 10*3/uL RBC 2.89 L (4.10-5.20) X 10*6/uL Hgb 8.5 L (12.0-15.0) g/dL Hct 27.8 L (37.2-46.3) % MCHC 30.6 L (32.0-37.0) g/dL RDW 17.8 H (11.5-14.5) % Microbiology - Last 24 Hours (Table) 05/11/22 02:55 Blood Culture - Preliminary Blood No Growth after 72 hours 05/11/22 02:35 Blood Culture - Preliminary Blood No Growth after 72 hours
--- NOTE | 2022-05-16 01:33 | P.PN ---
Subjective Progress Note Date: 05/15/22 This is a 81-year-old female who was recently admitted bilateral pneumonia also has pancreatitis and being closely monitored. Patient has multiple concerns of pain including abdominal distention noted on exam today and will order CT abdomen pelvis which is currently pending. Recommend decreasing the diet to clear liquids and will also obtain a chest x-ray. Multiple medical consultations following and appreciate input and recommendations. Patient continues with indwelling Kong catheter and will continue for now. Awaiting cultures. Patient is currently afebrile and denies chest pain or shortness of breath. Patient continues to be extremely anxious at times as well. Patient is confused. Patient is maintained on IV ceftriaxone with infectious disease following and also continued on breathing inhalational treatments and oral Lasix and will continue. Patient is weak and will have physical therapy evaluate. Possible ECF being planned. 05/15/2022 Patient is seen in follow up today and reports her abdominal pain is improved and is reporting to feeling hungry. Will slowly advance diet to tolerance and follow up in am. Pulmonary and ID following and patient is continued on IV ceftriaxone for UTI. Patient is afebrile and denies worsening shortness of breath. Patient is intermittently using 1-2 L via NC. Patient to continue with breathing treatments as well. PT/OT following. Patient to go to ECF once stabilized. Will follow up with chest xray in the am. CT abd/pelvis was done and revealed non-obstructing renal calculi with continued large pleural effusions with no significant change from previous exam. Review of systems: Unable to obtain as patient is confused Active Medications Acetaminophen (Acetaminophen Tab 325 Mg Tab) 650 mg PO Q6HR PRN PRN Reason: Fever and/ or Pain Last Admin: 05/15/22 05:16 Dose: 650 mg Albuterol/Ipratropium (Ipratropium-Albuterol 3 Ml Neb) 3 ml INHALATION RT-QID [facility] Last Admin: 05/15/22 20:07 Dose: 3 ml Albuterol/Ipratropium (Ipratropium-Albuterol 3 Ml Neb) 3 ml INHALATION RT-Q2H PRN PRN Reason: Shortness Of Breath Or Wheezing Artificial Tears (Artificial Tears-Hypromellose Drops 15 Ml Btl) 1 drops BOTH EYES HS@2100 [facility] Last Admin: 05/15/22 20:25 Dose: 1 drops Aspirin (Aspirin 81 Mg) 81 mg PO DAILY@0900 [facility] Last Admin: 05/15/22 08:35 Dose: 81 mg Atorvastatin Calcium (Atorvastatin 40 Mg Tab) 40 mg PO HS@2100 [facility] Last Admin: 05/15/22 20:24 Dose: 40 mg Budesonide (Budesonide 0.5 Mg/2 Ml Nebu) 0.5 mg INHALATION RT-BID@0900,2100 [facility] Last Admin: 05/15/22 20:07 Dose: 0.5 mg Clonazepam (Clonazepam 0.5 Mg Tab) 0.5 mg PO BID PRN PRN Reason: Anxiety Last Admin: 05/14/22 13:49 Dose: 0.5 mg Clopidogrel Bisulfate (Clopidogrel 75 Mg Tab) 75 mg PO DAILY@0900 [facility] Last Admin: 05/15/22 08:34 Dose: 75 mg Divalproex Sodium (Divalproex 500 Mg Tablet.) 500 mg PO HS@2100 [facility] Last Admin: 05/15/22 20:24 Dose: 500 mg Divalproex Sodium (Divalproex 250 Mg Tablet.) 250 mg PO BID@0900,1400 [facility] Last Admin: 05/15/22 14:41 Dose: 250 mg Docusate Sodium (Docusate 100 Mg Cap) 100 mg PO BID [facility] Last Admin: 05/15/22 20:24 Dose: 100 mg Fluticasone Propionate (Fluticasone 50mcg/[place] Nasal 16gm) 1 spray EA NOSTRIL DAILY@0900 [facility] Last Admin: 05/15/22 09:22 Dose: 1 spray Furosemide (Furosemide 40 Mg Tab) 40 mg PO BID@0900,1600 [facility] Last Admin: 05/15/22 19:43 Dose: 40 mg Sodium Chloride (Saline 0.9%) 1,000 mls @ 40 mls/hr IV .Q24H [facility] Last Admin: 05/15/22 09:22 Dose: 40 mls/hr Ceftriaxone Sodium 1 gm/ (Sodium Chloride) 50 mls @ 100 mls/hr IVPB Q12HR [facility]; Protocol Last Admin: 05/15/22 20:24 Dose: 100 mls/hr Lorazepam (Lorazepam 2 Mg/Ml Inj) 0.5 mg IV BID PRN PRN Reason: Anxiety Last Admin: 05/11/22 05:02 Dose: 0.5 mg Megestrol Acetate (Megestrol 400 Mg/10 Ml Cup) 400 mg PO DAILY@0900 [facility] Last Admin: 05/15/22 08:38 Dose: 400 mg Metoprolol Tartrate (Metoprolol Tartrate 25 Mg Tab) 25 mg PO BID@0900,2100 [facility] Last Admin: 05/15/22 20:24 Dose: 25 mg Miscellaneous Information (Potassium Replacement Protocol 1 Each Misc) 1 each MISCELLANE DAILY PRN; Protocol PRN Reason: Per Protocol Miscellaneous Information (Magnesium Replacement Protocol 1 Each Misc) 1 each MISCELLANE DAILY PRN; Protocol PRN Reason: Per Protocol Morphine Sulfate (Morphine Sulfate 4 Mg/Ml Syringe) 4 mg IV Q4HR PRN PRN Reason: Severe Pain Last Admin: 05/11/22 02:42 Dose: 4 mg Multivitamins (Multivitamins, Thera 1 Each Tab) 1 each PO DAILY@0900 [facility] Last Admin: 05/15/22 08:34 Dose: 1 each Naloxone HCl (Naloxone 0.4 Mg/Ml 1 Ml Vial) 0.2 mg IV Q2M PRN PRN Reason: Opioid Reversal Nitroglycerin (Nitroglycerin Sl Tabs 0.4 Mg Tab) 0.4 mg SUBLINGUAL Q5M PRN PRN Reason: Chest Pain Ondansetron HCl (Ondansetron 4 Mg/2 Ml Vial) 4 mg IVP Q8HR PRN PRN Reason: Nausea And Vomiting Pantoprazole Sodium (Pantoprazole 40 Mg Tablet) 40 mg PO DAILY@0600 [facility] Last Admin: 05/15/22 05:07 Dose: 40 mg Primidone (Primidone 50 Mg Tab) 50 mg PO TID@0800,1400,2100 [facility] Last Admin: 05/15/22 20:24 Dose: 50 mg Simethicone (Simethicone 80 Mg Chewable) 120 mg PO Q8H PRN PRN Reason: GAS Sodium Chloride (Sodium Chloride 0.65% Nasal [place] 44 Ml Btl) 1 spray NASAL BID PRN PRN Reason: DRY NOSE PHYSICAL EXAMINATION: GENERAL: The patient is confused, more alert today, awake, Well developed, well nourished. HEENT: Pupils are round and equally reacting to light. EOMI. no scleral icterus. No conjunctival pallor. Normocephalic, atraumatic. No pharyngeal erythema. No thyromegaly. CARDIOVASCULAR: S1 and S2 muffled PULMONARY: diminished breath sounds bilaterally with some scattered rhonchi noted. ABDOMEN: soft. non tender on exam. obese. mildly distended, normoactive bowel sounds. No palpable organomegaly. MUSCULOSKELETAL: No joint swelling or deformity. EXTREMITIES: No cyanosis, clubbing, or pedal edema. NEUROLOGICAL: Unable to completely assess as patient is confused. Diffuse weakness SKIN: No rashes. Assessment: Acute bilateral pneumonia Sepsis, present on admission possibly secondary to pneumonia or acute urinary tract infection Acute urinary tract infection, present on admission Possible acute pancreatitis with abdominal pain Bilateral pleural effusions Hypokalemia History of asthma Multiple medical issues GI prophylaxis DVT prophylaxis Full code Plan: Recommend to continue with current medications and management with multiple medical consultations following. Patient is maintained on IV antibiotics and will continue for now and will discuss with ID about discharge planning and abx on discharge. Patient's abdomen is soft and denies any further pain. Patient is reporting she feels hungry and requesting an advance in diet. Will increase to low fiber and monitor for tolerance and any further abdominal pain. Repeat chest x-ray ordered for am and will repeat am labs. Patient to be followed by PT/OT as planning on ECF as patient continues to be weak. Due to multiple complex medical issues, prognosis is guarded. Possible discharge in 24-48 hours. The impression and plan of care has been dictated by Renetta Fox, nurse practitioner as directed. MD Libby I have performed a history and examination and MDM of this patient, discussed the same with the dictator, and agree with the dictator's assessment and plan as written ,documented as a scribe. Based on total visit time, I have performed more than 50% of the visit. Any additional findings or plans will be noted. Objective - Vital Signs Vital signs: Vital Signs Temp 98.4 F 05/15/22 19:52 Pulse 107 H 05/15/22 20:45 Resp 14 05/15/22 20:45 BP 108/68 05/15/22 19:52 Pulse Ox 94 L 05/15/22 19:52 FiO2 Intake & Output 05/15/22 05/15/22 05/16/22 06:59 18:59 06:59 Output Total 675 350 Balance -675 -350 Output: Urine 675 350 Other: Voiding Method Indwelling Catheter Indwelling Catheter Indwelling Catheter - Labs CBC & Chem 7: 05/15/22 06:35 05/15/22 11:37 Labs: Abnormal Lab Results - Last 24 Hours (Table) 05/15/22 05/15/22 Range/Units 06:35 06:35 WBC 3.1 L (3.8-10.6) k/uL RBC 2.96 L (3.80-5.40) m/uL Hgb 9.1 L (11.4-16.0) gm/dL Hct 28.4 L (34.0-46.0) % RDW 17.3 H (11.5-15.5) % Lymphocytes # 0.9 L (1.0-4.8) k/uL Sodium 136 L (137-145) mmol/L BUN 5 L (7-17) mg/dL Creatinine 0.49 L (0.52-1.04) mg/dL Calcium 7.9 L (8.4-10.2) mg/dL Microbiology - Last 24 Hours (Table) 05/11/22 02:55 Blood Culture - Preliminary Blood No Growth after 96 hours 05/11/22 02:35 Blood Culture - Preliminary Blood No Growth after 96 hours
[2022-05-16] MEDS: PANTOPRAZOLE 40 MG TABLET PO SCH (06:33)
[2022-05-16 07:35] LABS: African American GFR (CKD) >90 (>60 ml/min/1.73 sqM); Anion Gap 4 mmol/L; Blood Urea Nitrogen 7 mg/dL (7-17); Calcium 8.4 mg/dL (8.4-10.2); Carbon Dioxide 26 mmol/L (22-30); Chloride 109 mmol/L (98-107); Glucose 85 mg/dL (74-99); Non-African American GFR(CKD) 88 (>60 ml/min/1.73 sqM); Potassium 4.4 mmol/L (3.5-5.1); Sodium 139 mmol/L (137-145)
--- NOTE | 2022-05-16 07:38 | XR ---
EXAMINATION TYPE: XR chest 1V portable DATE OF EXAM: 05/16/2022 COMPARISON: Chest x-ray 05/14/2022 HISTORY: Shortness of breath TECHNIQUE: Single frontal view of the chest is obtained. FINDINGS: Bibasilar increased attenuation obscures the hemidiaphragms. Central vascularity and inter stitium are increased. There is no evident pneumothorax. Heart is likely stable. Aorta is dense. IMPRESSION: Correlate for congestive heart failure with basilar effusions, pneumonia not excluded.
[2022-05-16] MEDS: IPRATROPIUM-ALBUTEROL 3 ML NEB INHALATION SCH ×4 (07:57→20:42)
[2022-05-16] MEDS: BUDESONIDE 0.5 MG/2 ML NEBU INHALATION SCH ×2 (07:57→20:42)
[2022-05-16] MEDS: MULTIVITAMINS, THERA 1 EACH TAB PO SCH (08:42)
[2022-05-16] MEDS: ASPIRIN 81 MG PO SCH (08:42)
[2022-05-16] MEDS: PRIMIDONE 50 MG TAB PO SCH ×3 (08:42→19:53)
[2022-05-16] MEDS: DOCUSATE 100 MG CAP PO SCH ×2 (08:42→19:53)
[2022-05-16] MEDS: METOPROLOL TARTRATE 25 MG TAB PO SCH ×2 (08:42→19:53)
[2022-05-16] MEDS: CLOPIDOGREL 75 MG TAB PO SCH (08:42)
[2022-05-16] MEDS: FUROSEMIDE 40 MG TAB PO SCH (08:42)
[2022-05-16] MEDS: DIVALPROEX 250 MG TABLET.DR PO SCH ×2 (08:44→13:48)
[2022-05-16] MEDS: MEGESTROL 400 MG/10 ML CUP PO SCH (08:44)
[2022-05-16] MEDS: FLUTICASONE 50MCG/SPRAY NASAL 16GM EA NOSTRIL SCH (08:44)
[2022-05-16] MEDS: ACETAMINOPHEN TAB 325 MG TAB PO PRN ×2 (10:06→19:56)
--- NOTE | 2022-05-16 12:12 | P.PN ---
Subjective Progress Note Date: 05/16/22 Principal diagnosis: Pneumonia. On 05/13/2022 patient seen in follow-up on medical surgical floor. Patient is awake and alert, in no acute distress, resting comfortably in bed. Room air pulse ox is 94%, she is breathing comfortably, she has had no fever or chills. She remains on oral diuretics with Lasix 40 mg every 12 hours, remains on empiric antibiotics and bronchodilators. She's had no acute issues overnight, urine culture showed enterococcus urinnae, and blood culture was negative. Today's labs have been noted, white blood cell count is 3.5, hemoglobin is 8.4, electrolytes and renal profile are unremarkable. Patient is maintaining negative net fluid balance. No clear evidence of bleeding, patient remains on baby aspirin, and Plavix. On 05/14/2022 patient is seen in follow-up on medical surgical floor. She is awake and alert, she is on room air satting 91-94%, no worsening cough, the patient is complaining of increased abdominal distention, and epigastric discomfort. No nausea or vomiting, nursing staff reports that patient has not had a bowel movement in several days. Patient had small bilateral pleural effusions, she currently remains on diuretics, follow-up chest x-ray showing basilar atelectasis and maybe associated effusion. Today's labs have been reviewed, blood blood cell count is improving and is up to 3.8, hemoglobin is 8.5, electrolytes and renal profile are unremarkable, amylase and lipase were within normal limits at 99 and 46 respectively. Patient currently remains on Rocephin, nebulized breathing treatments, and oral Lasix 40 mg twice daily. 1+ lower extremity edema remains, patient is in -2400 mL net fluid balance over the last 24 hours. Progress note dated 05/15/2022. This is a 81-year-old female who seen today in room 472. She is alert and awake. She is not manifesting any signs of estrogen toward distress. She is on 2 L of nasal O2. She's getting saline at 40 mL an hour. The epigastric abdominal discomfort that she was describing yesterday, is apparently much better today. Also, it appears that her breathing is very stable as well. She denies any difficulty in her breathing. White count 3.1, hemoglobin 9.1, hematocrit 28.4, and platelet count 277,000. Sodium 136, potassium 3.5, chlorides 107, CO2 28, BUN 5, with a creatinine 0.49. Urine specimen was positive for Aerococcus urinae. Chest x-ray from yesterday was consistent with basilar atelectasis versus pneumonia. She is currently on Rocephin. Progress note dated 05/16/2022. 81-year-old female seen in room 472. She remains on saline at 10 mL an hour, and 2 L of oxygen by nasal cannula. She is clinically very stable. Her chest x -ray is potentially consistent with mild CHF. I did order a pro-calcitonin level, and an N-terminal proBNP. Sodium 139, potassium 4.4, chlorides 109, CO2 26, BUN 7, creatinine 0.58. The patient denies any shortness of breath, and denies any abdominal discomfort. Objective - Vital Signs Vital signs: Vital Signs Temp 97.6 F 05/16/22 07:11 Pulse 85 05/16/22 11:57 Resp 20 05/16/22 10:00 BP 126/59 05/16/22 08:37 Pulse Ox 90 L 05/16/22 08:37 FiO2 Intake & Output 05/15/22 05/16/22 05/16/22 18:59 06:59 18:59 Intake Total 480 Output Total 350 200 Balance -350 280 Intake: Intake, IV Titration 480 Amount Sodium Chloride 0.9% 1, 480 000 ml @ 40 mls/hr IV . Q24H [facility] Rx#:[id number] Output: Urine 350 200 Other: Voiding Method Indwelling Catheter Indwelling Catheter Indwelling Catheter - Exam No acute distress, oriented 3. Currently on 2 L nasal cannula. HEENT examination is grossly unremarkable. Neck supple. Full range of motion. No adenopathy thyromegaly or neck vein distention. Cardiovascular examination reveals regular rhythm rate. S1-S2 normal. No S3 or S4. No discernible murmur noted. Heart rate 84 bpm. Lungs reveal mostly clear breath sounds. She does not take deep breaths. Mild scattered rhonchi. No wheezes or crackles. 2 L saturation is 94%. Room air saturation is 90%. Abdomen soft bowel sounds are heard. No masses or tenderness. Extremities are intact. No cyanosis clubbing or edema. Skin is without rash or lesion. Neurologic examination is brief but nonfocal. - Labs CBC & Chem 7: 05/15/22 06:35 05/16/22 06:40 Labs: Abnormal Lab Results - Last 24 Hours (Table) 05/16/22 Range/Units 06:40 Chloride 109 H (98-107) mmol/L Microbiology - Last 24 Hours (Table) 05/11/22 02:55 Blood Culture - Preliminary Blood No Growth after 120 hours 05/11/22 02:35 Blood Culture - Preliminary Blood No Growth after 120 hours Assessment and Plan Assessment: Abdominal pain, of unclear etiology, much improved. Acute urinary tract infection with Aerococcus. Acute hypoxemic respiratory failure, secondary to atelectasis, CHF and/or pneumonia. Leukopenia, possibly related to sepsis. Recent hospitalization at [facility], where thoracentesis was declined. History of hypertension. Seizure disorder. Hyperlipidemia. GERD. History of diastolic CHF. History of anemia. Plan: Plan dated 05/15/2022. The patient continues on appropriate medications for her urinary tract infection, including Rocephin. She's also getting breathing treatments, and Pulmicort. Steroids are not necessary at this time. We will continue to follow and make recommendations were appropriate. No additional recommendations are made. Prognosis is guarded. Plan dated 05/16/2022. The patient appears to be doing relatively well. She is being treated for a urinary tract infection with Rocephin. Her respiratory status is stable. Chest x-rays reviewed. Labs, x-rays, and medications are reviewed. The abdominal pain that she was having previously, has not resolved itself. She has no new complaints today. We will continue to follow make recommendations. Time with Patient: Less than 30
--- NOTE | 2022-05-16 13:27 | CDI ---
Documentation Clarification Form Date: 05/16/2022 01:04:07 PM From: Noreen Montero RN CCDS Admit Date: 05/11/2022 02:29:00 AM Patient Name: Arin Fulton Visit Number: [id number] Discharge Date: ATTENTION: The Clinical Documentation Specialists (CDI) and [facility] Coding Staff appreciate your assistance in clarifying documentation. Please respond to the clarification below the line at the bottom and electronically sign. The CDI & [facility] Coding staff will review the response and follow-up if needed. Please note: Queries are made part of the Legal Health Record. If you have any questions, please contact the author of this message via ITS. Dr. Giovani Burgess There is documentation of CHF, 05/16, Pulmonology progress note. Additional clarification is requested. History/Risk Factors: 81-year-old female presents to the ED via EMS from ECF for abdominal pain. The patient had been seen at [facility] pleural effusion at that time declined thoracentesis. Pulmonary has been consulted for the same. Medical History: 05/11, Pulmonary consult: Diastolic CHF, Asthma, HTN and Seizure disorder Clinical Indicators: 05/11, VSS: B/P 123/73; HR 89; Temp 97.6 F Oral; RR 16; SpO2 95% room air 05/11, BNP: 241 05/11,CXR: Correlate for congestive heart failure with basilar effusions, pneumonia not excluded. 05/16, Pulmonary progress note: Acute hypoxemic respiratory failure, secondary to atelectasis, CHF and/or pneumonia. 04/17, Echo: EF 55% Normal left ventricular dimension and systolic function Treatment: 05/11 05/13 Lasix 50mg IV Q12H; 05/13- 05/16 Lasix 40mg PO BID; 05/16 Lasix 50mg IV Q12H; 05/11 Lopressor 25mg PO BID. Can you please clarify the acuity of the Diastolic CHF? [ ] Chronic Diastolic CHF [ ] Acute on Chronic Diastolic CHF [ ] Other, please specify [ ] Unable to determine (Template Last Revised: December 2020) MTDD
[2022-05-16] MEDS: FUROSEMIDE 10 MG/ML 4 ML VIAL IV SCH ×2 (13:49→19:53)
[2022-05-16] MEDS: LACTULOSE 20 GM/30 ML CUP PO SCH ×3 (15:43→20:01)
--- NOTE | 2022-05-16 16:33 | P.PN ---
Subjective Progress Note Date: 05/16/22 This is a 81-year-old female who was recently admitted bilateral pneumonia also has pancreatitis and being closely monitored. Patient has multiple concerns of pain including abdominal distention noted on exam today and will order CT abdomen pelvis which is currently pending. Recommend decreasing the diet to clear liquids and will also obtain a chest x-ray. Multiple medical consultations following and appreciate input and recommendations. Patient continues with indwelling Kong catheter and will continue for now. Awaiting cultures. Patient is currently afebrile and denies chest pain or shortness of breath. Patient continues to be extremely anxious at times as well. Patient is confused. Patient is maintained on IV ceftriaxone with infectious disease following and also continued on breathing inhalational treatments and oral Lasix and will continue. Patient is weak and will have physical therapy evaluate. Possible ECF being planned. 05/15/2022 Patient is seen in follow up today and reports her abdominal pain is improved and is reporting to feeling hungry. Will slowly advance diet to tolerance and follow up in am. Pulmonary and ID following and patient is continued on IV ceftriaxone for UTI. Patient is afebrile and denies worsening shortness of breath. Patient is intermittently using 1-2 L via NC. Patient to continue with breathing treatments as well. PT/OT following. Patient to go to ECF once stabilized. Will follow up with chest xray in the am. CT abd/pelvis was done and revealed non-obstructing renal calculi with continued large pleural effusions with no significant change from previous exam. 05/16/2022 Patient is seen and evaluated in follow-up this morning reports her abdominal pain continues to improve and reports no abdominal pain today and tolerating full liquid diet. Patient continues with effusions with pulmonary following and was maintained on oral Lasix and will transition to IV Lasix as patient abdomen continues to be distended and has been having intermittent periods of shortness of breath. Chest x-ray this morning shows some chf and continued lower extremity swelling and edema. Will add yair wraps to bilateral lower extremities and encouraged elevating while at rest. Continue with breathing treatments. Patient is afebrile and denies chest pain or shortness of breath. Review of systems: Unable to obtain as patient is confused Active Medications Acetaminophen (Acetaminophen Tab 325 Mg Tab) 650 mg PO Q6HR PRN PRN Reason: Fever and/ or Pain Last Admin: 05/16/22 10:06 Dose: 650 mg Albuterol/Ipratropium (Ipratropium-Albuterol 3 Ml Neb) 3 ml INHALATION RT-QID [facility] Last Admin: 05/16/22 15:06 Dose: 3 ml Albuterol/Ipratropium (Ipratropium-Albuterol 3 Ml Neb) 3 ml INHALATION RT-Q2H PRN PRN Reason: Shortness Of Breath Or Wheezing Artificial Tears (Artificial Tears-Hypromellose Drops 15 Ml Btl) 1 drops BOTH EYES HS@2099 [facility] Last Admin: 05/15/22 20:25 Dose: 1 drops Aspirin (Aspirin 81 Mg) 81 mg PO DAILY@899 [facility] [place] Last Admin: 05/16/22 08:42 Dose: 81 mg Atorvastatin Calcium (Atorvastatin 40 Mg Tab) 40 mg PO HS@2099 [facility] [place] Last Admin: 05/15/22 20:24 Dose: 40 mg Budesonide (Budesonide 0.5 Mg/2 Ml Nebu) 0.5 mg INHALATION RT-BID@899,2099 [facility] [place] Last Admin: 05/16/22 07:57 Dose: 0.5 mg Clonazepam (Clonazepam 0.5 Mg Tab) 0.5 mg PO BID PRN PRN Reason: Anxiety Last Admin: 05/14/22 13:49 Dose: 0.5 mg Clopidogrel Bisulfate (Clopidogrel 75 Mg Tab) 75 mg PO DAILY@0900 [facility] [place] Last Admin: 05/16/22 08:42 Dose: 75 mg Divalproex Sodium (Divalproex 500 Mg Tablet.Dr) 500 mg PO HS@2099 [facility] [place] Last Admin: 05/15/22 20:24 Dose: 500 mg Divalproex Sodium (Divalproex 250 Mg Tablet.Dr) 250 mg PO BID@0900,1400 [facility] [place] Last Admin: 05/16/22 13:48 Dose: 250 mg Docusate Sodium (Docusate 100 Mg Cap) 100 mg PO BID [facility] [place] Last Admin: 05/16/22 08:42 Dose: 100 mg Fluticasone Propionate (Fluticasone 50mcg/[place] Nasal 16gm) 1 spray EA NOSTRIL DAILY@0900 [facility] [place] Last Admin: 05/16/22 08:44 Dose: 1 spray Furosemide (Furosemide 10 Mg/Ml 4 Ml Vial) 40 mg IV Q12HR [facility] [place] Last Admin: 05/16/22 13:49 Dose: 40 mg Sodium Chloride (Saline 0.9%) 1,000 mls @ 40 mls/hr IV .Q24H [facility] [place] Last Admin: 05/15/22 09:22 Dose: 40 mls/hr Ceftriaxone Sodium 1 gm/ (Sodium Chloride) 50 mls @ 100 mls/hr IVPB Q12HR [facility]; Protocol Last Admin: 05/16/22 08:43 Dose: 100 mls/hr Lactulose (Lactulose 20 Gm/30 Ml Cup) 30 gm PO TID [facility] [place] Last Admin: 05/16/22 15:43 Dose: Not Given Lorazepam (Lorazepam 2 Mg/Ml Inj) 0.5 mg IV BID PRN PRN Reason: Anxiety Last Admin: 05/11/22 05:02 Dose: 0.5 mg Megestrol Acetate (Megestrol 400 Mg/10 Ml Cup) 400 mg PO DAILY@0900 [facility] [place] Last Admin: 05/16/22 08:44 Dose: 400 mg Metoprolol Tartrate (Metoprolol Tartrate 25 Mg Tab) 25 mg PO BID@0900,2100 [facility] [place] Last Admin: 05/16/22 08:42 Dose: 25 mg Miscellaneous Information (Potassium Replacement Protocol 1 Each Misc) 1 each MISCELLANE DAILY PRN; Protocol PRN Reason: Per Protocol Miscellaneous Information (Magnesium Replacement Protocol 1 Each Misc) 1 each MISCELLANE DAILY PRN; Protocol PRN Reason: Per Protocol Morphine Sulfate (Morphine Sulfate 4 Mg/Ml Syringe) 4 mg IV Q4HR PRN PRN Reason: Severe Pain Last Admin: 05/11/22 02:42 Dose: 4 mg Multivitamins (Multivitamins, Thera 1 Each Tab) 1 each PO DAILY@0900 [facility] [place] Last Admin: 05/16/22 08:42 Dose: 1 each Naloxone HCl (Naloxone 0.4 Mg/Ml 1 Ml Vial) 0.2 mg IV Q2M PRN PRN Reason: Opioid Reversal Nitroglycerin (Nitroglycerin Sl Tabs 0.4 Mg Tab) 0.4 mg SUBLINGUAL Q5M PRN PRN Reason: Chest Pain Ondansetron HCl (Ondansetron 4 Mg/2 Ml Vial) 4 mg IVP Q8HR PRN PRN Reason: Nausea And Vomiting Pantoprazole Sodium (Pantoprazole 40 Mg Tablet) 40 mg PO DAILY@0600 [facility] [place] Last Admin: 05/16/22 06:33 Dose: 40 mg Primidone (Primidone 50 Mg Tab) 50 mg PO TID@0800,1400,2100 [facility] Last Admin: 05/16/22 13:48 Dose: 50 mg Simethicone (Simethicone 80 Mg Chewable) 120 mg PO Q8H PRN PRN Reason: GAS Sodium Chloride (Sodium Chloride 0.65% Nasal [place] 44 Ml Btl) 1 spray NASAL BID PRN PRN Reason: DRY NOSE PHYSICAL EXAMINATION: GENERAL: The patient is confused, more alert today, awake, Well developed, well nourished. HEENT: Pupils are round and equally reacting to light. EOMI. no scleral icterus. No conjunctival pallor. Normocephalic, atraumatic. No pharyngeal erythema. No thyromegaly. CARDIOVASCULAR: S1 and S2 muffled PULMONARY: diminished breath sounds bilaterally with some scattered rhonchi noted. ABDOMEN: firm distended. non tender on exam. obese. normoactive bowel sounds. No palpable organomegaly. MUSCULOSKELETAL: No joint swelling or deformity. EXTREMITIES: No cyanosis, clubbing, bilateral lower extremity edema noted NEUROLOGICAL: Unable to completely assess as patient is confused. Diffuse weakness SKIN: No rashes. Assessment: Acute bilateral pneumonia Sepsis, present on admission possibly secondary to pneumonia or acute urinary tract infection Acute urinary tract infection, present on admission Possible acute pancreatitis with abdominal pain Bilateral pleural effusions Hypokalemia History of asthma Multiple medical issues GI prophylaxis DVT prophylaxis Full code Plan: Recommend to continue with current medications and management with multiple medical consultations following. Patient is maintained on IV antibiotics and will continue for now. Patient's abdomen is more firm and distended today and unsure of last bowel movement. will add lactulose until bowel movement. Patient is reporting she is tolerating advance in diet. Will transition to IV lasix bid for lower extremity edema and abdominal distention. Encouraged elevating lower extremities and yair wraps to them. Patient to be followed by PT/OT as planning on ECF as patient continues to be weak. Due to multiple complex medical issues, prognosis is guarded. Possible discharge in the next 24-48 hours. The impression and plan of care has been dictated by Renetta Fox, nurse practitioner as directed. MD Libby I have performed a history and examination and MDM of this patient, discussed the same with the dictator, and agree with the dictator's assessment and plan as written ,documented as a scribe. Based on total visit time, I have performed more than 50% of the visit. Any additional findings or plans will be noted. Objective - Vital Signs Vital signs: Vital Signs Temp 98.0 F 05/16/22 13:19 Pulse 90 05/16/22 15:16 Resp 18 05/16/22 15:16 BP 112/70 05/16/22 13:19 Pulse Ox 96 05/16/22 13:19 FiO2 Intake & Output 05/15/22 05/16/22 05/16/22 18:59 06:59 18:59 Intake Total 480 Output Total 350 200 Balance -350 280 Intake: Intake, IV Titration 480 Amount Sodium Chloride 0.9% 1, 480 000 ml @ 40 mls/hr IV . Q24H [facility] Rx#:[id number] Output: Urine 350 200 Other: Voiding Method Indwelling Catheter Indwelling Catheter Indwelling Catheter - Labs CBC & Chem 7: 05/15/22 06:35 05/16/22 06:40 Labs: Abnormal Lab Results - Last 24 Hours (Table) 05/16/22 Range/Units 06:40 Chloride 109 H (98-107) mmol/L Microbiology - Last 24 Hours (Table) 05/11/22 02:55 Blood Culture - Preliminary Blood No Growth after 120 hours 05/11/22 02:35 Blood Culture - Preliminary Blood No Growth after 120 hours
[2022-05-16] MEDS ORDERED: LORazepam 0.5 MG TAB PO PRN (17:26)
[2022-05-16] MEDS: DIVALPROEX 500 MG TABLET.DR PO SCH (19:53)
[2022-05-16] MEDS: ATORVASTATIN 40 MG TAB PO SCH (19:53)
[2022-05-16] MEDS: ARTIFICIAL TEARS-HYPROMELLOSE DROPS 15 ML BTL BOTH EYES SCH (23:00)
[2022-05-17] MEDS: SODIUM CHLORIDE 0.9% 1,000 ML IV SCH (06:23)
[2022-05-17] MEDS: PANTOPRAZOLE 40 MG TABLET PO SCH (06:24)
[2022-05-17] MEDS: FUROSEMIDE 10 MG/ML 4 ML VIAL IV SCH ×2 (07:50→19:35)
[2022-05-17] MEDS: PRIMIDONE 50 MG TAB PO SCH ×3 (08:08→19:35)
[2022-05-17] MEDS: BUDESONIDE 0.5 MG/2 ML NEBU INHALATION SCH ×2 (08:12→19:55)
[2022-05-17] MEDS: IPRATROPIUM-ALBUTEROL 3 ML NEB INHALATION SCH ×4 (08:12→19:55)
[2022-05-17] MEDS: CLOPIDOGREL 75 MG TAB PO SCH (10:07)
[2022-05-17] MEDS: DOCUSATE 100 MG CAP PO SCH ×2 (10:08→19:35)
[2022-05-17] MEDS: MEGESTROL 400 MG/10 ML CUP PO SCH (10:08)
[2022-05-17] MEDS: DIVALPROEX 250 MG TABLET.DR PO SCH ×2 (10:08→14:44)
[2022-05-17] MEDS: MULTIVITAMINS, THERA 1 EACH TAB PO SCH (10:08)
[2022-05-17] MEDS: LACTULOSE 20 GM/30 ML CUP PO SCH ×3 (10:08→19:37)
[2022-05-17] MEDS: METOPROLOL TARTRATE 25 MG TAB PO SCH ×2 (10:08→19:35)
[2022-05-17] MEDS: ASPIRIN 81 MG PO SCH (10:08)
[2022-05-17] MEDS: FLUTICASONE 50MCG/SPRAY NASAL 16GM EA NOSTRIL SCH (10:15)
--- NOTE | 2022-05-17 12:42 | XR ---
Abdomen HISTORY: Constipation Frontal view of the abdomen on [address] scan 05/14/2022 There is high dense material throughout the distribution of the colon, gas-distended colon is present . Lung bases show patchy increased attenuation as on prior. No evident pneumoperitoneum. Suspect ther e is some retained fecal debris within the pelvis. 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 impression: Contrast hasn't coursed into the colon in the interval. There may be some retained fecal debris, findings suggest constipation. Persistent basilar effusions, associated atelectasis may be pr esent, correlate to exclude pneumonia
[2022-05-17] MEDS ORDERED: NA PHOS,M-B/NA PHOS,DI-BA 133 ML ENEMA RECTAL ONE (14:12)
--- NOTE | 2022-05-17 14:31 | P.PN ---
Subjective Progress Note Date: 05/17/22 Principal diagnosis: Pneumonia. On 05/13/2022 patient seen in follow-up on medical surgical floor. Patient is awake and alert, in no acute distress, resting comfortably in bed. Room air pulse ox is 94%, she is breathing comfortably, she has had no fever or chills. She remains on oral diuretics with Lasix 40 mg every 12 hours, remains on empiric antibiotics and bronchodilators. She's had no acute issues overnight, urine culture showed enterococcus urinnae, and blood culture was negative. Today's labs have been noted, white blood cell count is 3.5, hemoglobin is 8.4, electrolytes and renal profile are unremarkable. Patient is maintaining negative net fluid balance. No clear evidence of bleeding, patient remains on baby aspirin, and Plavix. On 05/14/2022 patient is seen in follow-up on medical surgical floor. She is awake and alert, she is on room air satting 91-94%, no worsening cough, the patient is complaining of increased abdominal distention, and epigastric discomfort. No nausea or vomiting, nursing staff reports that patient has not had a bowel movement in several days. Patient had small bilateral pleural effusions, she currently remains on diuretics, follow-up chest x-ray showing basilar atelectasis and maybe associated effusion. Today's labs have been reviewed, blood blood cell count is improving and is up to 3.8, hemoglobin is 8.5, electrolytes and renal profile are unremarkable, amylase and lipase were within normal limits at 99 and 46 respectively. Patient currently remains on Rocephin, nebulized breathing treatments, and oral Lasix 40 mg twice daily. 1+ lower extremity edema remains, patient is in -2400 mL net fluid balance over the last 24 hours. Progress note dated 05/15/2022. This is a 81-year-old female who seen today in room 472. She is alert and awake. She is not manifesting any signs of estrogen toward distress. She is on 2 L of nasal O2. She's getting saline at 40 mL an hour. The epigastric abdominal discomfort that she was describing yesterday, is apparently much better today. Also, it appears that her breathing is very stable as well. She denies any difficulty in her breathing. White count 3.1, hemoglobin 9.1, hematocrit 28.4, and platelet count 277,000. Sodium 136, potassium 3.5, chlorides 107, CO2 28, BUN 5, with a creatinine 0.49. Urine specimen was positive for Aerococcus urinae. Chest x-ray from yesterday was consistent with basilar atelectasis versus pneumonia. She is currently on Rocephin. Progress note dated 05/16/2022. 81-year-old female seen in room 472. She remains on saline at 10 mL an hour, and 2 L of oxygen by nasal cannula. She is clinically very stable. Her chest x -ray is potentially consistent with mild CHF. I did order a pro-calcitonin level, and an N-terminal proBNP. Sodium 139, potassium 4.4, chlorides 109, CO2 26, BUN 7, creatinine 0.58. The patient denies any shortness of breath, and denies any abdominal discomfort. Progress note dated 05/17/2022. 81-year-old female seen again in room 472. Physical therapy was working with the patient today. She has a difficult time getting out of bed, and is very stiff. In addition, if she moves quickly, she gets lightheaded and dizzy. When I saw her today, she is not receiving any IV fluids, or supplemental oxygen. She remains on Rocephin for a urinary tract infection with Aerococcus. No new labs today. Abdominal x-ray suggests constipation. Objective - Vital Signs Vital signs: Vital Signs Temp 97.4 F L 05/17/22 13:36 Pulse 84 05/17/22 13:36 Resp 17 05/17/22 13:36 BP 102/71 05/17/22 13:36 Pulse Ox 95 05/17/22 13:36 FiO2 Intake & Output 05/16/22 05/17/22 05/17/22 18:59 06:59 18:59 Output Total 1600 1775 1000 Balance -1599 -1775 -1000 Weight 72 kg Output: Urine 1600 1775 1000 Other: Voiding Method Indwelling Catheter Indwelling Catheter Indwelling Catheter - Exam No acute distress, oriented 3. Room air saturation 95%. HEENT examination is grossly unremarkable. Neck supple. Full range of motion. No adenopathy thyromegaly or neck vein distention. Cardiovascular examination reveals regular rhythm rate. S1-S2 normal. No S3 or S4. No discernible murmur noted. Heart rate 80 bpm. Lungs reveal mostly clear breath sounds. She does not take deep breaths. Mild scattered rhonchi. No wheezes or crackles. Abdomen soft bowel sounds are heard. No masses or tenderness. Extremities are intact. No cyanosis clubbing or edema. Skin is without rash or lesion. Neurologic examination is brief but nonfocal. - Labs CBC & Chem 7: 05/15/22 06:35 05/16/22 06:40 Labs: Microbiology - Last 24 Hours (Table) 05/11/22 02:55 Blood Culture - Final Blood No Growth after 144 hours 05/11/22 02:35 Blood Culture - Final Blood No Growth after 144 hours Assessment and Plan Assessment: Abdominal pain, of unclear etiology, much improved. Acute urinary tract infection with Aerococcus. Acute hypoxemic respiratory failure, secondary to atelectasis, CHF and/or pneumonia. Leukopenia, possibly related to sepsis. Recent hospitalization at [facility], where thoracentesis was declined. History of hypertension. Seizure disorder. Hyperlipidemia. GERD. History of diastolic CHF. History of anemia. Plan: Plan dated 05/15/2022. The patient continues on appropriate medications for her urinary tract infection, including Rocephin. She's also getting breathing treatments, and Pulmicort. Steroids are not necessary at this time. We will continue to follow and make recommendations were appropriate. No additional recommendations are made. Prognosis is guarded. Plan dated 05/16/2022. The patient appears to be doing relatively well. She is being treated for a urinary tract infection with Rocephin. Her respiratory status is stable. Chest x-rays reviewed. Labs, x-rays, and medications are reviewed. The abdominal pain that she was having previously, has not resolved itself. She has no new complaints today. We will continue to follow make recommendations. Plan dated 05/17/2022. The patient appears to be doing much better. She's on room air now. Saturations are 95-96%. Her N-terminal proBNP was only to 87. Her pro- calcitonin level was 0.03. She remains on Rocephin. Some consideration to de-e scalation of antibiotics and/or oral antibiotics should be given. The patient is not having any respiratory issues at this time. She is working with physical therapy the time of the evaluation. Labs, x-rays, and medications are reviewed. Time with Patient: Less than 30
[2022-05-17] MEDS: ATORVASTATIN 40 MG TAB PO SCH (19:35)
[2022-05-17] MEDS: DIVALPROEX 500 MG TABLET.DR PO SCH (19:35)
[2022-05-17] MEDS: ARTIFICIAL TEARS-HYPROMELLOSE DROPS 15 ML BTL BOTH EYES SCH (19:37)
--- NOTE | 2022-05-18 02:24 | P.PN ---
Subjective Progress Note Date: 05/17/22 This is a 81-year-old female who was recently admitted bilateral pneumonia also has pancreatitis and being closely monitored. Patient has multiple concerns of pain including abdominal distention noted on exam today and will order CT abdomen pelvis which is currently pending. Recommend decreasing the diet to clear liquids and will also obtain a chest x-ray. Multiple medical consultations following and appreciate input and recommendations. Patient continues with indwelling Almeida catheter and will continue for now. Awaiting cultures. Patient is currently afebrile and denies chest pain or shortness of breath. Patient continues to be extremely anxious at times as well. Patient is confused. Patient is maintained on IV ceftriaxone with infectious disease following and also continued on breathing inhalational treatments and oral Lasix and will continue. Patient is weak and will have physical therapy evaluate. Possible ECF being planned. 05/15/2022 Patient is seen in follow up today and reports her abdominal pain is improved and is reporting to feeling hungry. Will slowly advance diet to tolerance and follow up in am. Pulmonary and ID following and patient is continued on IV ceftriaxone for UTI. Patient is afebrile and denies worsening shortness of breath. Patient is intermittently using 1-2 L via NC. Patient to continue with breathing treatments as well. PT/OT following. Patient to go to ECF once stabilized. Will follow up with chest xray in the am. CT abd/pelvis was done and revealed non-obstructing renal calculi with continued large pleural effusions with no significant change from previous exam. 05/16/2022 Patient is seen and evaluated in follow-up this morning reports her abdominal pain continues to improve and reports no abdominal pain today and tolerating full liquid diet. Patient continues with effusions with pulmonary following and was maintained on oral Lasix and will transition to IV Lasix as patient abdomen continues to be distended and has been having intermittent periods of shortness of breath. Chest x-ray this morning shows some chf and continued lower extremity swelling and edema. Will add yair wraps to bilateral lower extremities and encouraged elevating while at rest. Continue with breathing treatments. Patient is afebrile and denies chest pain or shortness of breath. 05/17/2022 Patient is evaluated today and no reported bowel movement but is passing gas. Per nursing staff, patient was refusing lactulose. Discussed with the patient an d RN the importance of medication compliance and abd xray ordered. consider enema. Patient is afebrile and denies chest pain or shortness of breath. Patient is weak and working with physical therapy and will be returning to [facility] once discharged. Patient encouraged oral intake and continue lactulose until bowel movement. Patient is also on IV lasix bid and will transition back to her scheduled 40 mg oral bid. Pulmonary following. Patient was also on ceftriaxone for UTI and has received adequate coverage and will discontinue. Continue almeida catheter. Review of systems: Unable to obtain as patient is confused Active Medications Acetaminophen (Acetaminophen Tab 325 Mg Tab) 650 mg PO Q6HR PRN PRN Reason: Fever and/ or Pain Last Admin: 05/16/22 10:06 Dose: 650 mg Albuterol/Ipratropium (Ipratropium-Albuterol 3 Ml Neb) 3 ml INHALATION RT-QID [facility] Last Admin: 05/16/22 15:06 Dose: 3 ml Albuterol/Ipratropium (Ipratropium-Albuterol 3 Ml Neb) 3 ml INHALATION RT-Q2H PRN PRN Reason: Shortness Of Breath Or Wheezing Artificial Tears (Artificial Tears-Hypromellose Drops 15 Ml Btl) 1 drops BOTH EYES HS@2099 [facility] Last Admin: 05/15/22 20:25 Dose: 1 drops Aspirin (Aspirin 81 Mg) 81 mg PO DAILY@899 [facility] Last Admin: 05/16/22 08:42 Dose: 81 mg Atorvastatin Calcium (Atorvastatin 40 Mg Tab) 40 mg PO HS@2099 [facility] Last Admin: 05/15/22 20:24 Dose: 40 mg Budesonide (Budesonide 0.5 Mg/2 Ml Nebu) 0.5 mg INHALATION RT-BID@ [facility] Last Admin: 05/16/22 07:57 Dose: 0.5 mg Clonazepam (Clonazepam 0.5 Mg Tab) 0.5 mg PO BID PRN PRN Reason: Anxiety Last Admin: 05/14/22 13:49 Dose: 0.5 mg Clopidogrel Bisulfate (Clopidogrel 75 Mg Tab) 75 mg PO DAILY@09 [facility] Last Admin: 05/16/22 08:42 Dose: 75 mg Divalproex Sodium (Divalproex 500 Mg Tablet.) 500 mg PO HS@2099 [facility] Last Admin: 05/15/22 20:24 Dose: 500 mg Divalproex Sodium (Divalproex 250 Mg Tablet.Dr) 250 mg PO BID@0900,1400 [facility] Last Admin: 05/16/22 13:48 Dose: 250 mg Docusate Sodium (Docusate 100 Mg Cap) 100 mg PO BID [facility] Last Admin: 05/16/22 08:42 Dose: 100 mg Fluticasone Propionate (Fluticasone 50mcg/[place] Nasal 16gm) 1 spray EA NOSTRIL DAILY@0900 [facility] Last Admin: 05/16/22 08:44 Dose: 1 spray Furosemide (Furosemide 10 Mg/Ml 4 Ml Vial) 40 mg IV Q12HR [facility] Last Admin: 05/16/22 13:49 Dose: 40 mg Sodium Chloride (Saline 0.9%) 1,000 mls @ 40 mls/hr IV .Q24H [facility] Last Admin: 05/15/22 09:22 Dose: 40 mls/hr Ceftriaxone Sodium 1 gm/ (Sodium Chloride) 50 mls @ 100 mls/hr IVPB Q12HR [facility]; Protocol Last Admin: 05/16/22 08:43 Dose: 100 mls/hr Lactulose (Lactulose 20 Gm/30 Ml Cup) 30 gm PO TID [facility] Last Admin: 05/16/22 15:43 Dose: Not Given Lorazepam (Lorazepam 2 Mg/Ml Inj) 0.5 mg IV BID PRN PRN Reason: Anxiety Last Admin: 05/11/22 05:02 Dose: 0.5 mg Megestrol Acetate (Megestrol 400 Mg/10 Ml Cup) 400 mg PO DAILY@0900 [facility] Last Admin: 05/16/22 08:44 Dose: 400 mg Metoprolol Tartrate (Metoprolol Tartrate 25 Mg Tab) 25 mg PO BID@0900,2100 [facility] Last Admin: 05/16/22 08:42 Dose: 25 mg Miscellaneous Information (Potassium Replacement Protocol 1 Each Misc) 1 each MISCELLANE DAILY PRN; Protocol PRN Reason: Per Protocol Miscellaneous Information (Magnesium Replacement Protocol 1 Each Misc) 1 each MISCELLANE DAILY PRN; Protocol PRN Reason: Per Protocol Morphine Sulfate (Morphine Sulfate 4 Mg/Ml Syringe) 4 mg IV Q4HR PRN PRN Reason: Severe Pain Last Admin: 05/11/22 02:42 Dose: 4 mg Multivitamins (Multivitamins, Thera 1 Each Tab) 1 each PO DAILY@0900 [facility] Last Admin: 05/16/22 08:42 Dose: 1 each Naloxone HCl (Naloxone 0.4 Mg/Ml 1 Ml Vial) 0.2 mg IV Q2M PRN PRN Reason: Opioid Reversal Nitroglycerin (Nitroglycerin Sl Tabs 0.4 Mg Tab) 0.4 mg SUBLINGUAL Q5M PRN PRN Reason: Chest Pain Ondansetron HCl (Ondansetron 4 Mg/2 Ml Vial) 4 mg IVP Q8HR PRN PRN Reason: Nausea And Vomiting Pantoprazole Sodium (Pantoprazole 40 Mg Tablet) 40 mg PO DAILY@0600 [facility] Last Admin: 05/16/22 06:33 Dose: 40 mg Primidone (Primidone 50 Mg Tab) 50 mg PO TID@0800,1400,2100 [facility] Last Admin: 05/16/22 13:48 Dose: 50 mg Simethicone (Simethicone 80 Mg Chewable) 120 mg PO Q8H PRN PRN Reason: GAS Sodium Chloride (Sodium Chloride 0.65% Nasal [place] 44 Ml Btl) 1 spray NASAL BID PRN PRN Reason: DRY NOSE PHYSICAL EXAMINATION: GENERAL: The patient is confused, more alert today, awake, Well developed, well nourished. HEENT: Pupils are round and equally reacting to light. EOMI. no scleral icterus. No conjunctival pallor. Normocephalic, atraumatic. No pharyngeal erythema. No thyromegaly. CARDIOVASCULAR: S1 and S2 muffled PULMONARY: diminished breath sounds bilaterally with some scattered rhonchi noted. ABDOMEN: less firm distended. non tender on exam. obese. normoactive bowel sounds. No palpable organomegaly. MUSCULOSKELETAL: No joint swelling or deformity. EXTREMITIES: No cyanosis, clubbing, bilateral lower extremity edema noted NEUROLOGICAL: Unable to completely assess as patient is confused. Diffuse weakness SKIN: No rashes. Assessment: Acute bilateral pneumonia Sepsis, present on admission possibly secondary to pneumonia or acute urinary tract infection Acute urinary tract infection, present on admission Possible acute pancreatitis with abdominal pain, improved constipation Bilateral pleural effusions Hypokalemia History of asthma Multiple medical issues GI prophylaxis DVT prophylaxis Full code Plan: Recommend to continue with current medications and management with multiple [facility] consultations following. Patient is maintained on IV antibiotics and will discontinue as patient has received adequate amount of abx. Patient had been refusing lactulose for bowel movement and xray of the abdomen consistent with constipation. Will order fleet enema. Patient is reporting she is tolerating advance in diet. Will transition IV lasix back to oral. Encouraged elevating lower extremities and yair wraps to them. Patient to be followed by PT/OT as planning on ECF as patient continues to be weak. Due to multiple complex medical issues, prognosis is guarded. Possible discharge to [facility] in the next 24 hours. The impression and plan of care has been dictated by Renetta Fox, nurse practitioner as directed. MD Libby I have performed a history and examination and MDM of this patient, discussed the same with the dictator, and agree with the dictator's assessment and plan as written ,documented as a scribe. Based on total visit time, I have performed more than 50% of the visit. Any additional findings or plans will be noted. Objective - Vital Signs Vital signs: Vital Signs Temp 98.6 F 05/18/22 01:42 Pulse 93 05/18/22 01:42 Resp 16 05/18/22 01:42 BP 101/61 05/18/22 01:42 Pulse Ox 93 L 05/18/22 01:42 FiO2 Intake & Output 05/17/22 05/17/22 05/18/22 06:59 18:59 06:59 Output Total 1775 1000 Balance -1775 -1000 Weight 72 kg Output: Urine 1775 1000 Other: Voiding Method Indwelling Catheter Indwelling Catheter Indwelling Catheter # Bowel Movements 1 - Labs CBC & Chem 7: 05/15/22 06:35 05/16/22 06:40 Labs: Microbiology - Last 24 Hours (Table) 05/11/22 02:55 Blood Culture - Final Blood No Growth after 144 hours 05/11/22 02:35 Blood Culture - Final Blood No Growth after 144 hours
[2022-05-18] MEDS: SODIUM CHLORIDE 0.9% 1,000 ML IV SCH (06:24)
[2022-05-18] MEDS: PANTOPRAZOLE 40 MG TABLET PO SCH (06:24)
[2022-05-18] MEDS: MEGESTROL 400 MG/10 ML CUP PO SCH (07:55)
[2022-05-18] MEDS: DOCUSATE 100 MG CAP PO SCH (07:55)
[2022-05-18] MEDS: ASPIRIN 81 MG PO SCH (07:56)
[2022-05-18] MEDS: DIVALPROEX 250 MG TABLET.DR PO SCH (07:56)
[2022-05-18] MEDS: PRIMIDONE 50 MG TAB PO SCH (07:56)
[2022-05-18] MEDS: MULTIVITAMINS, THERA 1 EACH TAB PO SCH (07:56)
[2022-05-18] MEDS: LACTULOSE 20 GM/30 ML CUP PO SCH (07:57)
[2022-05-18] MEDS: FLUTICASONE 50MCG/SPRAY NASAL 16GM EA NOSTRIL SCH (07:57)
[2022-05-18] MEDS: CLOPIDOGREL 75 MG TAB PO SCH (07:57)
--- NOTE | 2022-05-18 07:59 | CDI ---
Documentation Clarification Form Date: 05/16/2022 01:04:07 PM From: Noreen Montero RN CCDS Admit Date: 05/11/2022 02:29:00 AM Patient Name: Arin Fulton Visit Number: [id number] Discharge Date: ATTENTION: The Clinical Documentation Specialists (CDI) and [facility] Coding Staff appreciate your assistance in clarifying documentation. Please respond to the clarification below the line at the bottom and electronically sign. The CDI & [facility] Coding staff will review the response and follow-up if needed. Please note: Queries are made part of the Legal Health Record. If you have any questions, please contact the author of this message via ITS. Dr. Giovani Burgess There is documentation of CHF, 05/16, Pulmonology progress note. Additional clarification is requested. History/Risk Factors: 81-year-old female presents to the ED via EMS from ECF for abdominal pain. The patient had been seen at [facility] pleural effusion at that time declined thoracentesis. Pulmonary has been consulted for the same. Medical History: 05/11, Pulmonary consult: Diastolic CHF, Asthma, HTN and Seizure disorder Clinical Indicators: 05/11, VSS: B/P 123/73; HR 89; Temp 97.6 F Oral; RR 16; SpO2 95% room air 05/11, BNP: 241 05/11,CXR: Correlate for congestive heart failure with basilar effusions, pneumonia not excluded. 05/16, Pulmonary progress note: Acute hypoxemic respiratory failure, secondary to atelectasis, CHF and/or pneumonia. 04/17, Echo: EF 55% Normal left ventricular dimension and systolic function Treatment: 05/11 05/13 Lasix 50mg IV Q12H; 05/13- 05/16 Lasix 40mg PO BID; 05/16 Lasix 50mg IV Q12H; 05/11 Lopressor 25mg PO BID. Can you please clarify the acuity of the Diastolic CHF? [ ] Chronic Diastolic CHF [ ] Acute on Chronic Diastolic CHF [ ] Other, please specify [ ] Unable to determine (Template Last Revised: December 2020) MTDD
[2022-05-18] MEDS: METOPROLOL TARTRATE 25 MG TAB PO SCH (08:03)
[2022-05-18] MEDS: IPRATROPIUM-ALBUTEROL 3 ML NEB INHALATION SCH ×3 (08:38→16:12)
[2022-05-18] MEDS: BUDESONIDE 0.5 MG/2 ML NEBU INHALATION SCH (08:38)
[2022-05-18] MEDS ORDERED: FUROSEMIDE 40 MG TAB PO SCH (09:00)
--- NOTE | 2022-05-18 11:57 | P.PN ---
Subjective Progress Note Date: 05/18/22 Principal diagnosis: Dyspnea, hypoxia This is a 81-year-old female patient with a known history of hypertension, seizure disorder, hypertension, hyperlipidemia, congestive heart failure who resides at [facility] on the [place]. Prior to that she had been at [facility] and we had seen her in consultation for pleural effusion. At that time she had declined thoracentesis. She presented here early this morning by EMS with complaints of abdominal pain. Chest x-ray showed possible congestive heart failure with basilar effusions. He pneumonia not excluded. Computed tomography scan of the abdomen and pelvis revealed some mild free fluid in the pelvis. No bowel obstruction. No obstructing right-sided renal calculi. There is bilateral lower lobe atelectasis and moderate bilateral pleural effusions. We are consulted for the same. She is today on the regular medical floor. She is resting comfortably in bed. Awake and alert in no acute distress. She denies any worsening shortness of breath, cough and congestion. She is somewhat dyspneic with conversation. Maintaining O2 saturation in the mid 90s on 2 L/m per nasal cannula. She's afebrile. White count 3.3. Hemoglobin 10.1. Platelets 290. Sodium 135. Potassium 2.8. Bicarb 32. BUN 9. Creatini ne 0.64. Glucose 107. ProBNP 241. Amylase 108. Lipase 608. Urine with moderate bacteria cloudy with sediment. She's been initiated on ceftriaxone and azithromycin along with bronchodilators. She is given Lasix 40 mg IV every 12 hours. 0.9 normal saline at 130 ML's per hour. On 05/12/2022 patient seen in follow-up on medical surgical floor. She is awake and alert, in no acute distress, on 2 L of oxygen pulse ox is 98%, she remains on IV diuretics at 40 mg every 12 hours, she is in negative net fluid balance over the last 24 hours, does not appear to be in any acute distress. Afebrile, no complex of chest discomfort, just appears to be fatigued, and pale. His labs have been reviewed, white blood cell count is 2.48, hemoglobin is 9.1, platelet count is 281, sodium is 1:30, potassium is 3.8, BUN is 6.8, creatinine 0.6. Urinalysis showed evidence of urinary tract infection Rocephin. Also remains on nebulized bronchodilators. Urine culture is pending, blood cultures have shown no growth thus far. On 05/13/2022 patient seen in follow-up on medical surgical floor. Patient is awake and alert, in no acute distress, resting comfortably in bed. Room air pulse ox is 94%, she is breathing comfortably, she has had no fever or chills. She remains on oral diuretics with Lasix 40 mg every 12 hours, remains on empiric antibiotics and bronchodilators. She's had no acute issues overnight, urine culture showed enterococcus urinnae, and blood culture was negative. Today's labs have been noted, white blood cell count is 3.5, hemoglobin is 8.4, electrolytes and renal profile are unremarkable. Patient is maintaining negative net fluid balance. No clear evidence of bleeding, patient remains on baby aspirin, and Plavix. On 05/14/2022 patient is seen in follow-up on medical surgical floor. She is awake and alert, she is on room air satting 91-94%, no worsening cough, the patient is complaining of increased abdominal distention, and epigastric discomfort. No nausea or vomiting, nursing staff reports that patient has not had a bowel movement in several days. Patient had small bilateral pleural effusions, she currently remains on diuretics, follow-up chest x-ray showing basilar atelectasis and maybe associated effusion. Today's labs have been reviewed, blood blood cell count is improving and is up to 3.8, hemoglobin is 8.5, electrolytes and renal profile are unremarkable, amylase and lipase were within normal limits at 99 and 46 respectively. Patient currently remains on Rocephin, nebulized breathing treatments, and oral Lasix 40 mg twice daily. 1+ lower extremity edema remains, patient is in -2400 mL net fluid balance over the last 24 hours. On 05/18/2022 patient is seen in follow-up on medical surgical floor. She is calm and comfortable, she sits up in the recliner. Room air pulse ox is 92%, she denies any pulmonary complaints, no cough, no chest pain, no phlegm production. Vital signs have been stable. Her abdomen feels better today, is soft on physical exam. No nausea or vomiting. Serum pro calcitonin level was low at 0.03, proBNP was 287. Last chest x-ray from 05/16/2022 shows central vascularity and interstitial. Patient remains on oral Lasix 40 mg twice daily. Objective - Vital Signs Vital signs: Vital Signs Temp 99.1 F 05/18/22 08:00 Pulse 75 05/18/22 08:56 Resp 16 05/18/22 08:00 BP 121/64 05/18/22 08:00 Pulse Ox 92 L 05/18/22 08:00 FiO2 Intake & Output 05/17/22 05/18/22 05/18/22 18:59 06:59 18:59 Output Total 1000 1400 Balance -1000 -1400 Weight 72 kg Output: Urine 1000 1400 Other: Voiding Method Indwelling Catheter Indwelling Catheter # Bowel Movements 1 - Exam GENERAL EXAM: Alert, very pleasant, 81-year-old on 2 L of oxygen and pulse ox of 95%, resting in bed, appears weak and fatigued and pale but no acute distress HEAD: Normocephalic/atraumatic. EYES: Normal reaction of pupils, equal size. Conjunctiva pink, sclera white. NOSE: Clear with pink turbinates. THROAT: No erythema or exudates. NECK: No masses, no JVD, no thyroid enlargement, no adenopathy. CHEST: No chest wall deformity. Symmetrical expansion. LUNGS: Equal air entry with no crackles, wheeze, rhonchi, some basilar dullness CVS: Regular rate and rhythm, normal S1 and S2, no gallops, no murmurs, no rubs ABDOMEN: Soft, nontender. No hepatosplenomegaly, normal bowel sounds, no guarding or rigidity. EXTREMITIES: No clubbing, 1+ edema, no cyanosis, 2+ pulses and upper and lower extremities. MUSCULOSKELETAL: Muscle strength and tone normal. SPINE: No scoliosis or deformity SKIN: No rashes CENTRAL NERVOUS SYSTEM: Alert and oriented -3. No focal deficits, tone is normal in all 4 extremities. PSYCHIATRIC: Alert and oriented -3. Appropriate affect. Intact judgment and insight. - Labs CBC & Chem 7: 05/15/22 06:35 05/16/22 06:40 Assessment and Plan Plan: Assessment: #1. Abdominal pain of unclear etiology, computed tomography scan of the abdomen revealed no bowel obstruction, and showed a nonobstructing right-sided renal calculi #2. Acute urinary tract infection #3. Acute hypoxic respiratory failure, chest x-ray showing basilar effusions, possibility of pneumonia seems to be less likely however not entirely excluded, #4. Neutropenia, likely related to sepsis secondary to urinary tract infection, improved #5. Recent hospitalization at the [facility], and patient was noted to have bilateral pleural effusions she declined thoracentesis at that time #6. History of hypertension #7. Seizure disorder #8. Hyperlipidemia #9. GERD/reflux #10. History of diastolic congestive heart failure #11. Anemia, with no clear evidence of bleeding, stool for occult blood has been ordered Plan: Patient denies any pulmonary complaints Breathing comfortable, remains on room air Last chest x-ray was showing changes consistent with CHF Continue oral diuretics From pulmonary perspective she could be considered for discharge to ECF We'll see on as needed basis I have personally seen and examined the patient, performed the documentation and the assessment and plan as written. Number of minutes spent on the visit: [10] Time with Patient: Less than 30
--- NOTE | 2022-05-18 12:29 | P.DS ---
Providers Date of admission: 05/11/22 02:29 Expected date of discharge: 05/18/22 Attending physician: Lili Rogers Consults: 05/11/22 13:21 Consult Physician Routine Consulting Provider: Brandon Jacinto Consult Reason/Comments: pneumonia Do you want consulting provider notified?: Yes Primary care physician: Lemuel Shattuck Hospital Course: 81-year-old female who was recently admitted bilateral pneumonia also has pancreatitis and being closely monitored. Patient has multiple concerns of pain including abdominal distention noted on exam today and will order CT abdomen pelvis which is currently pending. Recommend decreasing the diet to clear liquids and will also obtain a chest x-ray. Multiple medical consultations following and appreciate input and recommendations. Patient continues with indwelling Al[place] catheter and will continue for now. Awaiting cultures. Patient is currently afebrile and denies chest pain or shortness of breath. Patient continues to be extremely anxious at times as well. Patient is confused. Patient is maintained on IV ceftriaxone with infectious disease following and also continued on breathing inhalational treatments and oral Lasix and will continue. Patient is weak and will have physical therapy evaluate. Possible ECF being planned. 05/15/2022 Patient is seen in follow up today and reports her abdominal pain is improved and is reporting to feeling hungry. Will slowly advance diet to tolerance and follow up in am. Pulmonary and ID following and patient is continued on IV ceftriaxone for UTI. Patient is afebrile and denies worsening shortness of breath. Patient is intermittently using 1-2 L via NC. Patient to continue with breathing treatments as well. PT/OT following. Patient to go to ECF once stabilized. Will follow up with chest xray in the am. CT abd/pelvis was done and revealed non-obstructing renal calculi with continued large pleural effusions with no significant change from previous exam. 05/16/2022 Patient is seen and evaluated in follow-up this morning reports her abdominal pain continues to improve and reports no abdominal pain today and tolerating full liquid diet. Patient continues with effusions with pulmonary following and was maintained on oral Lasix and will transition to IV Lasix as patient abdomen continues to be distended and has been having intermittent periods of shortness of breath. Chest x-ray this morning shows some chf and continued lower extremity swelling and edema. Will add yair wraps to bilateral lower extremities and encouraged elevating while at rest. Continue with breathing treatments. Patient is afebrile and denies chest pain or shortness of breath. 05/17/2022 Patient is evaluated today and no reported bowel movement but is passing gas. Per nursing staff, patient was refusing lactulose. Discussed with the patient and RN the importance of medication compliance and abd xray ordered. consider enema. Patient is afebrile and denies chest pain or shortness of breath. Patient is weak and working with physical therapy and will be returning to [facility] once discharged. Patient encouraged oral intake and continue lactulose until bowel movement. Patient is also on IV lasix bid and will transition back to her scheduled 40 mg oral bid. Pulmonary following. Patient was also on ceftriaxone for UTI and has received adequate coverage and will discontinue. Continue almeida catheter. 05/18/2022; patient is hemodynamically stable; cleared for discharge from pulmonary service; patient to discharge to [facility] Patient Condition at Discharge: Fair Plan - Discharge Summary Discharge Rx Participant: Yes New Discharge Prescriptions: No Action Multivitamins, Thera [Multivitamin (formulary)] 1 tab PO DAILY@0900 Acetaminophen Tab [Tylenol] 500 mg PO Q6HR PRN PRN Reason: Pain diphenhydrAMINE [Benadryl] 12.5 mg PO HS@2100 Lidocaine 5% Patch [Lidoderm 5% Patch] 1 patch TOPICAL DAILY #30 patch Clopidogrel [Plavix] 75 mg PO DAILY@0900 Nitroglycerin Sl Tabs [Nitrostat] 0.4 mg SUBLINGUAL Q5M PRN PRN Reason: Chest Pain Primidone [Mysoline] 50 mg PO TID@0800,1400,2100 Metoprolol Tartrate [Lopressor] 25 mg PO BID@0900,2100 Sodium Chloride 0.65% Nasal [Deep Sea (Saline)] 1 spray NASAL BID PRN PRN Reason: DRY NOSE Ipratropium-Albuterol Nebulize [Duoneb 0.5 mg-3 mg/3 ml Soln] 3 ml INHALATION RT-Q6H Furosemide [Lasix] 40 mg PO BID@0600,1200 Budesonide 0.5 mg INHALATION RT-BID@0900,2100 Sertraline [Zoloft] 25 mg PO DAILY@0900 Propylene Glycol/Peg 400/Pf [Systane 0.3-0.4% Eye Drop] 1 drop BOTH EYES HS@2100 Pantoprazole [Protonix] 40 mg PO DAILY@0600 Megestrol [Megace] 400 mg PO DAILY@0900 Fluticasone Nasal [place] [Flonase Nasal [place]] 1 spray EA NOSTRIL DAILY@0900 Atorvastatin [Lipitor] 40 mg PO HS@2100 Aspirin EC [Ecotrin Low Dose] 81 mg PO DAILY@0900 Divalproex Sodium [Depakote] 500 mg PO HS@2100 clonazePAM [KlonoPIN] 0.5 mg PO BID PRN PRN Reason: Anxiety Divalproex [Depakote] 250 mg PO BID@0900,1400 Ensure Clear 1 can PO BID@0900,1300 Simethicone [Mylanta Gas Minis] 125 mg PO Q8H PRN PRN Reason: GAS Discharge Medication List Metoprolol Tartrate [Lopressor] 25 mg PO BID@0900,209912/31/21 [History] Multivitamins, Thera [Multivitamin (formulary)] 1 tab PO DAILY@0900 12/31/21 [History] Primidone [Mysoline] 50 mg PO TID@0800,1400,209912/31/21 [History] Acetaminophen Tab [Tylenol] 500 mg PO Q6HR PRN 04/16/22 [History] Aspirin EC [Ecotrin Low Dose] 81 mg PO DAILY@89904/16/22 [History] Atorvastatin [Lipitor] 40 mg PO HS@209904/16/22 [History] Budesonide 0.5 mg INHALATION RT-BID@0900,209904/16/22 [History] Fluticasone Nasal [place] [Flonase Nasal [place]] 1 spray EA NOSTRIL DAILY@0904/16/22 [History] Furosemide [Lasix] 40 mg PO BID@0600,1200 04/16/22 [History] Ipratropium-Albuterol Nebulize [Duoneb 0.5 mg-3 mg/3 ml Soln] 3 ml INHALATION RT-Q6H 04/16/22 [History] Megestrol [Megace] 400 mg PO DAILY@0904/16/22 [History] Pantoprazole [Protonix] 40 mg PO DAILY@0604/16/22 [History] Propylene Glycol/Peg 400/Pf [Systane 0.3-0.4% Eye Drop] 1 drop BOTH EYES HS@209904/16/22 [History] Sertraline [Zoloft] 25 mg PO DAILY@89904/16/22 [History] Sodium Chloride 0.65% Nasal [Deep Sea (Saline)] 1 spray NASAL BID PRN 04/16/22 [History] diphenhydrAMINE [Benadryl] 12.5 mg PO HS@209904/16/22 [History] Lidocaine 5% Patch [Lidoderm 5% Patch] 1 patch TOPICAL DAILY #30 patch 04/17/22 [Rx] Clopidogrel [Plavix] 75 mg PO DAILY@89904/21/22 [History] Divalproex Sodium [Depakote] 500 mg PO HS@209904/21/22 [History] Divalproex [Depakote] 250 mg PO BID@0900,1400 05/11/22 [History] Ensure Clear 1 can PO BID@0900,1300 05/11/22 [History] Nitroglycerin Sl Tabs [Nitrostat] 0.4 mg SUBLINGUAL Q5M PRN 05/11/22 [History] Simethicone [Mylanta Gas Minis] 125 mg PO Q8H PRN 05/11/22 [History] clonazePAM [KlonoPIN] 0.5 mg PO BID PRN 05/11/22 [History] Follow up Appointment(s)/Referral(s): Mike Sanches MD [Primary Care Provider] - 1-2 days [facility], [NON-STAFF] - As Needed
[2022-05-18 15:02] VITALS: BP 97/60; PULSE 90; RESP 17; TEMP 98.5
--- NOTE | 2022-05-22 07:40 | CDI ---
Documentation Clarification Form Date: 05/16/2022 01:04:07 PM From: Noreen Montero RN CCDS Admit Date: 05/11/2022 02:29:00 AM Patient Name: Arin Fulton Visit Number: [id number] Discharge Date: ATTENTION: The Clinical Documentation Specialists (CDI) and [facility] Coding Staff appreciate your assistance in clarifying documentation. Please respond to the clarification below the line at the bottom and electronically sign. The CDI & [facility] Coding staff will review the response and follow-up if needed. Please note: Queries are made part of the Legal Health Record. If you have any questions, please contact the author of this message via ITS. Dr. Giovani Burgess There is documentation of CHF, 05/16, Pulmonology progress note. Additional clarification is requested. History/Risk Factors: 81-year-old female presents to the ED via EMS from ECF for abdominal pain. The patient had been seen at [facility] pleural effusion at that time declined thoracentesis. Pulmonary has been consulted for the same. Medical History: 05/11, Pulmonary consult: Diastolic CHF, Asthma, HTN and Seizure disorder Clinical Indicators: 05/11, VSS: B/P 123/73; HR 89; Temp 97.6 F Oral; RR 16; SpO2 95% room air 05/11, BNP: 241 05/11,CXR: Correlate for congestive heart failure with basilar effusions, pneumonia not excluded. 05/16, Pulmonary progress note: Acute hypoxemic respiratory failure, secondary to atelectasis, CHF and/or pneumonia. 04/17, Echo: EF 55% Normal left ventricular dimension and systolic function Treatment: 05/11 05/13 Lasix 50mg IV Q12H; 05/13- 05/16 Lasix 40mg PO BID; 05/16 Lasix 50mg IV Q12H; 05/11 Lopressor 25mg PO BID. Can you please clarify the acuity of the Diastolic CHF? [ ] Chronic Diastolic CHF [ X] Acute on Chronic Diastolic CHF [ ] Other, please specify [ ] Unable to determine (Template Last Revised: December 2020) MTDD
== END 2022-05-18 16:40 | DRG 871 ==
LOC: EC 00:11 → 4SSUR 02:29
PROVIDERS: ADMIT Hospitalist; ATTEND Hospitalist
DX: A41.9 Sepsis, unspecified organism (principal); I50.33 Acute on chronic diastolic (congestive) heart failure; J18.9 Pneumonia, unspecified organism; J96.01 Acute respiratory failure with hypoxia; K85.90 Acute pancreatitis without necrosis or infection, unspecified; J98.11 Atelectasis; N39.0 Urinary tract infection, site not specified; D64.9 Anemia, unspecified; E78.5 Hyperlipidemia, unspecified; E83.42 Hypomagnesemia; E87.6 Hypokalemia; G40.909 Epilepsy, unspecified, not intractable, without status epilepticus; I11.0 Hypertensive heart disease with heart failure; J45.909 Unspecified asthma, uncomplicated; K21.9 Gastro-esophageal reflux disease without esophagitis; N20.0 Calculus of kidney; Z79.02 Long term (current) use of antithrombotics/antiplatelets; Z79.82 Long term (current) use of aspirin; Z79.899 Other long term (current) drug therapy; Z88.0 Allergy status to penicillin; Z91.041 Radiographic dye allergy status; Z91.040 Latex allergy status
CPT/HCPCS: 36415; 71045; 74018; 74176; 80048; 80053; 81001; 82150; 83690; 83735; 83880; 84132; 84145; 84484; 85025; 87040; 87086; 93005; 94640; 94760; 96365; 96375; 96376; 99285

== ENCOUNTER 2022-09-26 23:55 | Observation (INO) | payer MEDICARE ==
[2022-09-27] MEDS ORDERED: LIDOCAINE 5% PATCH TOPICAL STA (00:31)
--- NOTE | 2022-09-27 00:31 | ED ---
General Adult HPI - General Chief complaint: Chest Pain Stated complaint: Chest Pain Time Seen by Provider: 09/27/22 00:06 Source: EMS Mode of arrival: EMS Limitations: no limitations - History of Present Illness Initial comments: Dictation was produced using [employer] dictation software. please excuse any grammatical, word or spelling errors. Chief Complaint: 81-year-old porcine presents to the ER for chest pain History of Present Illness: Patient is 81-year-old female she is a poor historian. States that she has some chest pain. States it is severe substernally radiates to her left anterior chest and back. No numbness and par esthesias. Denies any radiation to the shoulders or jaw or down the extremity. No associated diaphoresis or nausea. History of coronary disease and myocardial infarction. States that she does have shortness of breath. Pain is exacerbated with deep inspiration. The ROS documented in this emergency department record has been reviewed and confirmed by me. Those systems with pertinent positive or negative responses have been documented in the HPI. All other systems are other negative and/or noncontributory. PHYSICAL EXAM: General Impression: Alert and oriented x3, acute distress secondary to pain HEENT: Normocephalic atraumatic, extra-ocular movements intact, pupils equal and reactive to light bilaterally, mucous membranes moist. Cardiovascular: Heart regular rate and rhythm Chest: Able to complete full sentences, no retractions, no tachypnea, palpatory tenderness to the left anterior chest Abdomen: abdomen soft, non-tender, non-distended, no organomegaly Musculoskeletal: Pulses present and equal in all extremities, 2+ pitting edema to the bilateral lower extremities with mild erythema Motor: no focal deficits noted Neurological: CN II-XII grossly intact, no focal motor or sensory deficits noted Skin: Intact with no visualized rashes Psych: Normal affect and mood ED course: 81-year-old male presents to the emergency department for atypical chest pain. Vital Signs upon arrival are within acceptable limits. Chest pain is reproduced at bedside. EKG shows no signs of ischemia or infarction Nursing notes and chart review was performed EKG interpreted by me: Ventricular rate 70, sinus rhythm, NE interval 27, QRS 96, QTC 46. No NE prolongation, no QTC prolongation, no ST or T-wave changes noted. Overall, this EKG is unremarkable Laboratory evaluation obtained. CBC, coag panel, metabolic panel is unremarkable. First troponin is negative. Chest x-ray is nonacute. Patient observed in emergency department for 2 hours. Given that patient has cardiac history with chest pain she'll be admitted for second troponin. Admitted to [facility]. Spoke with Dr. Anton. - Related Data Home Medications Medication Instructions Recorded Confirmed Metoprolol Tartrate [Lopressor] 25 mg PO BID@0900,2100 12/31/21 05/11/22 Multivitamins, Thera [Multivitamin 1 tab PO DAILY@0912/31/21 05/11/22 (formulary)] Primidone [Mysoline] 50 mg PO TID@0800,1400,2100 12/31/21 05/11/22 Acetaminophen Tab [Tylenol] 500 mg PO Q6HR PRN 04/16/22 05/11/22 Aspirin EC [Ecotrin Low Dose] 81 mg PO DAILY@0900 04/16/22 05/11/22 Atorvastatin [Lipitor] 40 mg PO HS@209904/16/22 05/11/22 Budesonide 0.5 mg INHALATION RT-BID@0900,209904/16/22 05/11/22 Fluticasone Nasal [place] [Flonase 1 spray EA NOSTRIL DAILY@89904/16/22 05/11/22 Nasal [place]] Furosemide [Lasix] 40 mg PO BID@0600,1200 04/16/22 05/11/22 Ipratropium-Albuterol Nebulize 3 ml INHALATION RT-Q6H 04/16/22 05/11/22 [Duoneb 0.5 mg-3 mg/3 ml Soln] Megestrol [Megace] 400 mg PO DAILY@89904/16/22 05/11/22 Pantoprazole [Protonix] 40 mg PO DAILY@0604/16/22 05/11/22 Propylene Glycol/Peg 400/Pf 1 drop BOTH EYES HS@209904/16/22 05/11/22 [Systane 0.3-0.4% Eye Drop] Sertraline [Zoloft] 25 mg PO DAILY@0900 04/16/22 05/11/22 Sodium Chloride 0.65% Nasal [Deep 1 spray NASAL BID PRN 04/16/22 05/11/22 Sea (Saline)] diphenhydrAMINE [Benadryl] 12.5 mg PO HS@2100 04/16/22 05/11/22 Clopidogrel [Plavix] 75 mg PO DAILY@0900 04/21/22 05/11/22 Divalproex Sodium [Depakote] 500 mg PO HS@2100 04/21/22 05/11/22 Divalproex [Depakote] 250 mg PO BID@0900,1400 05/11/22 05/11/22 Ensure Clear 1 can PO BID@0900,1300 05/11/22 05/11/22 Nitroglycerin Sl Tabs [Nitrostat] 0.4 mg SUBLINGUAL Q5M PRN 05/11/22 05/11/22 Simethicone [Mylanta Gas Minis] 125 mg PO Q8H PRN 05/11/22 05/11/22 Previous Rx's Medication Instructions Recorded Lidocaine 5% Patch [Lidoderm 5% 1 patch TOPICAL DAILY #30 patch 04/17/22 Patch] Docusate [Colace] 100 mg PO BID 30 Days #60 cap 05/18/22 clonazePAM [KlonoPIN] 0.5 mg PO BID PRN 3 Days #6 tab 05/18/22 Allergies Allergy/AdvReac Type Severity Reaction Status Date / Time aspirin Allergy Unknown Verified 05/11/22 08:10 Iodinated Contrast Media Allergy Unknown Verified 05/11/22 08:10 lanolin Allergy Unknown Verified 05/11/22 08:10 Penicillins Allergy Unknown Verified 05/11/22 08:10 latex AdvReac Rash/Hives Verified 05/11/22 08:10 Review of Systems ROS Statement: Those systems with pertinent positive or pertinent negative responses have been documented in the HPI. ROS Other: All systems not noted in ROS Statement are negative. Past Medical History Past Medical History: Asthma, Coronary Artery Disease (CAD), Heart Failure, COPD, CVA/TIA, Diabetes Mellitus, GERD/Reflux, Hyperlipidemia, Hypertension, Myocardial Infarction (IA), Seizure Disorder Additional Past Medical History / Comment(s): Headaches Last Myocardial Infarction Date:: unknown History of Any Multi-Drug Resistant Organisms: None Reported Past Surgical History: Appendectomy, Section, Cholecystectomy, Heart Catheterization, Hysterectomy, Orthopedic Surgery, Tonsillectomy Additional Past Surgical History / Comment(s): Cataracts Past Anesthesia/Blood Transfusion Reactions: Unable to Obtain Past Psychological History: Anxiety Smoking Status: Never smoker Past Alcohol Use History: None Reported Past Drug Use History: None Reported General Exam Limitations: no limitations Course Vital Signs 09/26/22 23:59 Temperature 98.7 F Pulse Rate 83 Respiratory 16 Rate O2 Sat by Pulse 100 Oximetry Medical Decision Making - Lab Data Result diagrams: 09/27/22 00:51 09/27/22 00:51 Lab Results 09/27/22 09/27/22 09/27/22 Range/Units 00:51 00:51 00:51 WBC 5.7 (3.8-10.6) k/uL RBC 3.30 L (3.80-5.40) m/uL Hgb 10.3 L (11.4-16.0) gm/dL Hct 29.9 L (34.0-46.0) % MCV 90.5 (80.0-100.0) fL MCH 31.1 (25.0-35.0) pg MCHC 34.4 (31.0-37.0) g/dL RDW 14.5 (11.5-15.5) % Plt Count 199 (150-450) k/uL MPV 8.0 Neutrophils % 59 % Lymphocytes % 31 % Monocytes % 7 % Eosinophils % 1 % Basophils % 0 % Neutrophils # 3.3 (1.3-7.7) k/uL Lymphocytes # 1.8 (1.0-4.8) k/uL Monocytes # 0.4 (0-1.0) k/uL Eosinophils # 0.1 (0-0.7) k/uL Basophils # 0.0 (0-0.2) k/uL PT 11.8 (9.0-12.0) sec INR 1.1 (<1.2) APTT 20.2 L (22.0-30.0) sec Sodium 135 L (137-145) mmol/L Potassium 3.7 (3.5-5.1) mmol/L Chloride 103 (98-107) mmol/L Carbon Dioxide 26 (22-30) mmol/L Anion Gap 6 mmol/L BUN 24 H (7-17) mg/dL Creatinine 0.81 (0.52-1.04) mg/dL Est GFR (CKD-EPI)AfAm 80 (>60 ml/min/1.73 sqM) Est GFR (CKD-EPI)NonAf 70 (>60 ml/min/1.73 sqM) Glucose 88 (74-99) mg/dL Calcium 8.7 (8.4-10.2) mg/dL Total Bilirubin 0.3 (0.2-1.3) mg/dL AST 22 (14-36) U/L ALT 13 (4-34) U/L Alkaline Phosphatase 87 (38-126) U/L Troponin I (0.000-0.034) ng/mL Total Protein 5.8 L (6.3-8.2) g/dL Albumin 3.2 L (3.5-5.0) g/dL 09/27/22 Range/Units 00:51 WBC (3.8-10.6) k/uL RBC (3.80-5.40) m/uL Hgb (11.4-16.0) gm/dL Hct (34.0-46.0) % MCV (80.0-100.0) fL MCH (25.0-35.0) pg MCHC (31.0-37.0) g/dL RDW (11.5-15.5) % Plt Count (150-450) k/uL MPV Neutrophils % % Lymphocytes % % Monocytes % % Eosinophils % % Basophils % % Neutrophils # (1.3-7.7) k/uL Lymphocytes # (1.0-4.8) k/uL Monocytes # (0-1.0) k/uL Eosinophils # (0-0.7) k/uL Basophils # (0-0.2) k/uL PT (9.0-12.0) sec INR (<1.2) APTT (22.0-30.0) sec Sodium (137-145) mmol/L Potassium (3.5-5.1) mmol/L Chloride (98-107) mmol/L Carbon Dioxide (22-30) mmol/L Anion Gap mmol/L BUN (7-17) mg/dL Creatinine (0.52-1.04) mg/dL Est GFR (CKD-EPI)AfAm (>60 ml/min/1.73 sqM) Est GFR (CKD-EPI)NonAf (>60 ml/min/1.73 sqM) Glucose (74-99) mg/dL Calcium (8.4-10.2) mg/dL Total Bilirubin (0.2-1.3) mg/dL AST (14-36) U/L ALT (4-34) U/L Alkaline Phosphatase (38-126) U/L Troponin I <0.012 (0.000-0.034) ng/mL Total Protein (6.3-8.2) g/dL Albumin (3.5-5.0) g/dL Disposition Clinical Impression: Chest pain Disposition: ADMITTED IP TO THIS HOSP Condition: Fair Referrals: Mike Sanches MD [Primary Care Provider] - 1-2 days Decision Time: 02:02
[2022-09-27 01:04] LABS: Basophils % (A) 0 %; Eosinophils # (A) 0.1 k/uL (0-0.7); Eosinophils % (A) 1 %; HCT 29.9 % (34.0-46.0); HGB 10.3 gm/dL (11.4-16.0); Lymphocytes # (A) 1.8 k/uL (1.0-4.8); Lymphocytes % (A) 31 %; MCH 31.1 pg (25.0-35.0); MCHC 34.4 g/dL (31.0-37.0); MCV 90.5 fL (80.0-100.0); Monocytes # (A) 0.4 k/uL (0-1.0); Monocytes % (A) 7 %; Neutrophils # (A) 3.3 k/uL (1.3-7.7); Neutrophils % (A) 59 %; Platelet Count 199 k/uL (150-450); RDW 14.5 % (11.5-15.5); WBC 5.7 k/uL (3.8-10.6)
[2022-09-27 01:28] LABS: INR 1.1 (<1.2); Partial Thromboplastin Time 20.2 sec (22.0-30.0); Prothrombin Time 11.8 sec (9.0-12.0)
[2022-09-27 01:34] LABS: Albumin 3.2 g/dL (3.5-5.0); Calcium 8.7 mg/dL (8.4-10.2); Potassium 3.7 mmol/L (3.5-5.1); Total Bilirubin 0.3 mg/dL (0.2-1.3); Total Protein 5.8 g/dL (6.3-8.2)
--- NOTE | 2022-09-27 01:36 | XR ---
EXAMINATION TYPE: XR chest 2V DATE OF EXAM: 09/27/2022 COMPARISON: 05/16/2022 HISTORY: Chest pain TECHNIQUE: FINDINGS: There is no heart failure or confluent pneumonic infiltrate. There is some coarsening of in terstitial markings. No pleural effusion. There are chest leads. IMPRESSION: Congestive heart failure is essentially cleared compared to old exam. Increased interstit ial markings.
[2022-09-27] MEDS ORDERED: NITROGLYCERIN SL TABS 0.4 MG TAB SUBLINGUAL PRN (02:00)
[2022-09-27] MEDS ORDERED: ASPIRIN 81 MG PO STA (02:00)
--- NOTE | 2022-09-27 04:12 | P.HPIM ---
History of Present Illness H&P Date: 09/27/22 Chief Complaint: chest pain 81 year old female with COPD, hypertension , DM patient is very hard of hearing and provides very limited history , she reports that today she suddenly started experiencing central chest pain radiating to the left side of the chest , sharp in nature short lived episodes of pain 10./10 in severity , triggered by deep breath, and movement. she is concerned regarding heart attack , she denies any nausea or vomiting, denies any fever chills, de nies any cough or SOB. she lives at [facility] patient denies any GI bleeding , changes on bowel or urinary habits she has chronic anemia , initial trops negative CXR no acute findings EKG , no acute ST changes Review of Systems Pertinent positives as noted in HPI. All other systems were reviewed and are negative Past Medical History Past Medical History: Asthma, Coronary Artery Disease (CAD), Heart Failure, COPD, CVA/TIA, Diabetes Mellitus, GERD/Reflux, Hyperlipidemia, Hypertension, Myocardial Infarction ([place]), Seizure Disorder Additional Past Medical History / Comment(s): Headaches Last Myocardial Infarction Date:: unknown History of Any Multi-Drug Resistant Organisms: None Reported Past Surgical History: Appendectomy, Section, Cholecystectomy, Heart Catheterization, Hysterectomy, Orthopedic Surgery, Tonsillectomy Additional Past Surgical History / Comment(s): Cataracts Past Anesthesia/Blood Transfusion Reactions: Unable to Obtain Past Psychological History: Anxiety Smoking Status: Never smoker Past Alcohol Use History: None Reported Past Drug Use History: None Reported - Past Family History familiy Family Medical History: Unable to Obtain Medications and Allergies Home Medications Medication Instructions Recorded Confirmed Type Metoprolol Tartrate [Lopressor] 25 mg PO BID@0900,209912/31/21 05/11/22 History Multivitamins, Thera [Multivitamin 1 tab PO DAILY@0900 12/31/21 05/11/22 History (formulary)] Primidone [Mysoline] 50 mg PO TID@0800,1400,209912/31/21 05/11/22 History Acetaminophen Tab [Tylenol] 500 mg PO Q6HR PRN 04/16/22 05/11/22 History Aspirin EC [Ecotrin Low Dose] 81 mg PO DAILY@0900 04/16/22 05/11/22 History Atorvastatin [Lipitor] 40 mg PO HS@209904/16/22 05/11/22 History Budesonide 0.5 mg INHALATION RT-BID@0900,209904/16/22 05/11/22 History Fluticasone Nasal Lee [Flonase 1 spray EA NOSTRIL DAILY@0904/16/22 05/11/22 History Nasal Lee] Furosemide [Lasix] 40 mg PO BID@0600,1200 04/16/22 05/11/22 History Ipratropium-Albuterol Nebulize 3 ml INHALATION RT-Q6H 04/16/22 05/11/22 History [Duoneb 0.5 mg-3 mg/3 ml Soln] Megestrol [Megace] 400 mg PO DAILY@89904/16/22 05/11/22 History Pantoprazole [Protonix] 40 mg PO DAILY@59904/16/22 05/11/22 History Propylene Glycol/Peg 400/Pf 1 drop BOTH EYES HS@209904/16/22 05/11/22 History [Systane 0.3-0.4% Eye Drop] Sertraline [Zoloft] 25 mg PO DAILY@89904/16/22 05/11/22 History Sodium Chloride 0.65% Nasal [Deep 1 spray NASAL BID PRN 04/16/22 05/11/22 History Sea (Saline)] diphenhydrAMINE [Benadryl] 12.5 mg PO HS@209904/16/22 05/11/22 History Lidocaine 5% Patch [Lidoderm 5% 1 patch TOPICAL DAILY #30 patch 04/17/22 05/11/22 Rx Patch] Clopidogrel [Plavix] 75 mg PO DAILY@89904/21/22 05/11/22 History Divalproex Sodium [Depakote] 500 mg PO HS@209904/21/22 05/11/22 History Divalproex [Depakote] 250 mg PO BID@0900,1400 05/11/22 05/11/22 History Ensure Clear 1 can PO BID@0900,1300 05/11/22 05/11/22 History Nitroglycerin Sl Tabs [Nitrostat] 0.4 mg SUBLINGUAL Q5M PRN 05/11/22 05/11/22 History Simethicone [Mylanta Gas Minis] 125 mg PO Q8H PRN 05/11/22 05/11/22 History Docusate [Colace] 100 mg PO BID 30 Days #60 cap 05/18/22 Rx clonazePAM [KlonoPIN] 0.5 mg PO BID PRN 3 Days #6 tab 05/18/22 Rx Allergies Allergy/AdvReac Type Severity Reaction Status Date / Time aspirin Allergy Unknown Verified 05/11/22 08:10 Iodinated Contrast Media Allergy Unknown Verified 05/11/22 08:10 lanolin Allergy Unknown Verified 05/11/22 08:10 Penicillins Allergy Unknown Verified 05/11/22 08:10 latex AdvReac Rash/Hives Verified 05/11/22 08:10 Physical Exam Vitals: Vital Signs Temp Pulse Resp BP Pulse Ox 09/27/22 03:18 82 16 117/54 96 09/26/22 23:59 98.7 F 83 16 100 Intake and Output 09/26/22 09/26/22 09/27/22 14:59 22:59 06:59 Other: Weight 77.111 kg Constitutional: No acute distress , chest pain triggered by deep b reaths Eyes: Anicteric sclerae, moist conjunctiva, Pupils equal round reactive to light ENMT: NC/AT Oropharynx clear, no erythema, or exudates Neck: Supple, no masses, or JVD No carotid bruits No thyromegaly Lungs: Clear to auscultation Clear to percussion Normal respiratory effort, no accessory muscle use Cardiovascular: Heart regular in rate and rhythm, No murmurs, gallops, or rubs bilateral +2 peripheral leg edema Abdominal: Soft Nontender, no guarding, rebound or rigidity Abdomen moving with respiration Normoactive bowel sounds Skin: Normal temperature, tone, texture, turgor erythema of bilateral lower thirds of the legs, no increase warmth to palpation no tenderness, small pressure dressing over right lateral leg over the lower third Extremities: No digital cyanosis No clubbing Pedal pulses intact and symmetrical Radial pulses intact and symmetrical No calf tenderness Psychiatric: Alert and oriented to person, place Neuro Muscles Strength 3/5 in bilateral lower extremities , and 4/5 bilater al upper extremities Sensation to light touch grossly present throughout Cranial nerves II-XII grossly intact Lymphatics: no palpable cervical or supraclavicular lymph nodes Results CBC & Chem 7: 09/27/22 00:51 09/27/22 00:51 Labs: Abnormal Lab Results - Last 24 Hours (Table) 09/27/22 09/27/22 09/27/22 Range/Units 00:51 00:51 00:51 RBC 3.30 L (3.80-5.40) m/uL Hgb 10.3 L (11.4-16.0) gm/dL Hct 29.9 L (34.0-46.0) % APTT 20.2 L (22.0-30.0) sec Sodium 135 L (137-145) mmol/L BUN 24 H (7-17) mg/dL Total Protein 5.8 L (6.3-8.2) g/dL Albumin 3.2 L (3.5-5.0) g/dL Assessment and Plan Assessment: atypical chest pain rule out ACS, EKG no acute changes CXR no acute pathology trops 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
[2022-09-27] MEDS ORDERED: MORPHINE SULFATE 2 MG/ML SYRINGE IVP PRN (04:17)
[2022-09-27] MEDS: FUROSEMIDE 40 MG TAB PO SCH ×2 (05:09→12:36)
[2022-09-27 07:16] LABS: Glucose,Whole Blood 89 mg/dL (70-110)
[2022-09-27] MEDS: INSULIN ASPART (NovoLOG) 100 UNIT/ML VIAL SQ SCH ×4 (07:17→22:54)
[2022-09-27] MEDS: BUDESONIDE 0.5 MG/2 ML NEBU INHALATION SCH ×2 (08:24→20:50)
[2022-09-27] MEDS: IPRATROPIUM-ALBUTEROL 3 ML NEB INHALATION SCH ×3 (08:24→20:50)
[2022-09-27] MEDS: PANTOPRAZOLE 40 MG TABLET PO SCH (08:49)
[2022-09-27] MEDS: HEPARIN SODIUM,PORCINE/PF 5,000 UNIT/0.5 ML SYRINGE SQ SCH ×3 (08:55→22:54)
[2022-09-27] MEDS: CLOPIDOGREL 75 MG TAB PO SCH (10:34)
[2022-09-27] MEDS: SERTRALINE 25 MG TAB PO SCH (10:34)
[2022-09-27] MEDS: METOPROLOL TARTRATE 25 MG TAB PO SCH ×2 (10:34→22:53)
[2022-09-27] MEDS: DOCUSATE 100 MG CAP PO SCH ×2 (10:34→22:53)
[2022-09-27] MEDS: DIVALPROEX 250 MG TABLET.DR PO SCH ×2 (11:20→18:10)
--- NOTE | 2022-09-27 11:33 | P.CRDCN ---
History of Present Illness Consult date: 09/27/22 History of present illness: HISTORY OF PRESENTING ILLNESS This is a pleasant 81-year-old female past medical history significant for mild nonobstructive coronary artery disease, hypertension, dyslipidemia, seizure disorder. She follows in the office with Dr. Rubio. Patient resides at [facility]. Patient states she was sleeping and developed a sharp chest pain under her left breast. Patient has significant tenderness to the chest wall and pain with deep breathing. She denies shortness of breath. Patient presented in April of this year with similar concerns diagnosed with musculoskeletal pain. DIAGNOSTICS EKG reveals sinus rhythm, heart rate 78 Cardiac catheterization 10/2016 revealed normal ejection fraction, 30% distal left main, 30% proximal LAD, 30% mid RCA Echocardiogram 04/2022 revealed normal left ventricular dimension and systolic function, mild tricuspid regurgitation. Lexiscan stress test 04/2020 was negative for reversible ischemia Chest xray reveals congestive heart failure is cleared compared to old exam, increased interstitial markings Laboratory reviewed, WBC 5.7, hemoglobin 10.3, platelet count 199. Sodium 135, potassium 3.7, chloride 103, CO2 26, BUN 24 creatinine 0.8. Troponin negative 3 draws. Liver function tests are within normal limits. Current home medications include aspirin 81 mg daily, Lipitor 40 mg daily, Plavix 75 mg daily, Lasix 40 mg twice daily, metolazone 5 mg as directed, Lopressor 25 mg twice daily, Nitrostat as needed. REVIEW OF SYSTEMS At the time of my exam: CONSTITUTIONAL: Denies fever or chills. CARDIOVASCULAR: Denies chest pain, shortness of breath, orthopnea, PND or palpitations. RESPIRATORY: Denies cough. GASTROINTESTINAL: Denies abdominal pain, diarrhea, constipation, nausea or vomiting. MUSCULOSKELETAL: Positive left chest wall pain with palpation NEUROLOGIC: Denies numbness, tingling, headache or weakness. ENDOCRINE: Denies fatigue, weight change, polydipsia or polyurina. GENITOURINARY: Denies burning, hematuria or urgency with micturation. HEMATOLOGIC: Denies history of anemia or bleeding. PHYSICAL EXAMINATION Vitals reviewed CONSTITUTIONAL: No apparent distress. HEENT: Head is normocephalic. Pupils are equal, round. Sclerae anicteric. Mucous membranes of the mouth are moist. No JVD. No carotid bruit. CHEST EXAMINATION: Lungs are clear to auscultation. Chest wall tenderness is noted on palpation and with deep breathing. HEART EXAMINATION: Regular rate and rhythm. S1, S2 heard. Systolic ejection murmur at the apex noted. Chest wall tenderness under the left breast ABDOMEN: Soft, nontender. Positive bowel sounds. EXTREMITIES: 2+ peripheral pulses, no lower extremity edema and no calf tenderness. SKIN: warm dry NEUROLOGIC EXAMINATION: Patient is awake, alert and oriented x3. ASSESSMENT Chest discomfort, noncardiac, appears musculoskeletal in nature Mild nonobstructive coronary artery disease Hypertension Dyslipidemia History of seizure disorder PLAN Obtain 2-D echocardiogram Resume patient's home cardiac medications If echocardiogram is unchanged from previous, patient is cleared from cardiology for discharge home Thank you kindly for the consult. Past Medical History Past Medical History: Asthma, Coronary Artery Disease (CAD), Heart Failure, COPD, CVA/TIA, Diabetes Mellitus, GERD/Reflux, Hyperlipidemia, Hypertension, Myocardial Infarction ([place]), Seizure Disorder Additional Past Medical History / Comment(s): Headaches Last Myocardial Infarction Date:: unknown History of Any Multi-Drug Resistant Organisms: None Reported Past Surgical History: Appendectomy, Section, Cholecystectomy, Heart Catheterization, Hysterectomy, Orthopedic Surgery, Tonsillectomy Additional Past Surgical History / Comment(s): Cataracts Past Anesthesia/Blood Transfusion Reactions: Unable to Obtain Past Psychological History: Anxiety Smoking Status: Never smoker Past Alcohol Use History: None Reported Past Drug Use History: None Reported - Past Family History familiy Family Medical History: Unable to Obtain Medications and Allergies Home Medications Medication Instructions Recorded Confirmed Type Metoprolol Tartrate [Lopressor] 25 mg PO BID@0900,2100 12/31/21 09/27/22 History Multivitamins, Thera [Multivitamin 1 tab PO DAILY@0900 12/31/21 09/27/22 History (formulary)] Primidone [Mysoline] 50 mg PO TID@0900,1300,2100 12/31/21 09/27/22 History Acetaminophen Tab [Tylenol] 500 mg PO Q6HR PRN 04/16/22 09/27/22 History Aspirin EC [Ecotrin Low Dose] 81 mg PO HS 04/16/22 09/27/22 History Atorvastatin [Lipitor] 40 mg PO HS@2100 04/16/22 09/27/22 History Budesonide 0.5 mg INHALATION RT-DAILY 04/16/22 09/27/22 History Fluticasone Nasal [place] [Flonase 1 spray EA NOSTRIL DAILY@0900 04/16/22 09/27/22 History Nasal [place]] Furosemide [Lasix] 40 mg PO BID@0900,1400 04/16/22 09/27/22 History Pantoprazole [Protonix] 40 mg PO DAILY@0600 04/16/22 09/27/22 History Propylene Glycol/Peg 400/Pf 1 drop BOTH EYES Q15M PRN 04/16/22 09/27/22 History [Systane 0.3-0.4% Eye Drop] Sertraline [Zoloft] 25 mg PO DAILY@0900 04/16/22 09/27/22 History Clopidogrel [Plavix] 75 mg PO DAILY@0900 04/21/22 09/27/22 History Divalproex Sodium [Depakote] 500 mg PO HS@2100 04/21/22 09/27/22 History Divalproex [Depakote] 250 mg PO BID@0900,1300 05/11/22 09/27/22 History Nitroglycerin Sl Tabs [Nitrostat] 0.4 mg SUBLINGUAL Q5M PRN 05/11/22 09/27/22 History Docusate [Colace] 100 mg PO BID 30 Days #60 cap 05/18/22 09/27/22 Rx Ascorbic Acid [Vitamin C] 500 mg PO DAILY 09/27/22 09/27/22 History Folic Acid 1 mg PO DAILY 09/27/22 09/27/22 History Methyl Salicylate/Menth/Camph 1 patch TOPICAL DAILY@0600 09/27/22 09/27/22 Histo ry [Salonpas 3.1%-6.0%-10.0% Patch] Refresh Liquagel 1% 1 drop LEFT EYE HS 09/27/22 09/27/22 History Thiamine [Vitamin B-1] 50 mg PO DAILY 09/27/22 09/27/22 History clonazePAM [KlonoPIN] 0.25 mg PO DAILY 09/27/22 09/27/22 History clonazePAM [KlonoPIN] 0.5 mg PO HS 09/27/22 09/27/22 History cycloSPORINE [Restasis Multidose] 1 drop BOTH EYES Q12H 09/27/22 09/27/22 History metOLazone 5 mg PO DIRECTED 09/27/22 09/27/22 History Allergies Allergy/AdvReac Type Severity Reaction Status Date / Time aspirin Allergy Unknown Verified 05/11/22 08:10 Iodinated Contrast Media Allergy Unknown Verified 05/11/22 08:10 lanolin Allergy Unknown Verified 05/11/22 08:10 Penicillins Allergy Unknown Verified 05/11/22 08:10 latex AdvReac Rash/Hives Verified 05/11/22 08:10 Physical Exam Vitals: Vital Signs Temp Pulse Resp BP Pulse Ox 09/27/22 06:13 74 18 122/57 94 L 09/27/22 05:16 80 18 135/64 96 09/27/22 04:20 78 18 127/55 97 09/27/22 03:18 82 16 117/54 96 09/26/22 23:59 98.7 F 83 16 100 Intake and Output 09/26/22 09/27/22 09/27/22 22:59 06:59 14:59 Other: Weight 77.111 kg Results 09/27/22 00:51 09/27/22 00:51 Cardiac Enzymes 09/27/22 09/27/22 09/27/22 Range/Units 00:51 00:51 02:57 AST 22 (14-36) U/L Troponin I <0.012 <0.012 (0.000-0.034) ng/mL 09/27/22 Range/Units 05:00 AST (14-36) U/L Troponin I <0.012 (0.000-0.034) ng/mL Coagulation 09/27/22 Range/Units 00:51 PT 11.8 (9.0-12.0) sec APTT 20.2 L (22.0-30.0) sec CBC 09/27/22 Range/Units 00:51 WBC 5.7 (3.8-10.6) k/uL RBC 3.30 L (3.80-5.40) m/uL Hgb 10.3 L (11.4-16.0) gm/dL Hct 29.9 L (34.0-46.0) % Plt Count 199 (150-450) k/uL Comprehensive Metabolic Panel 09/27/22 Range/Units 00:51 Sodium 135 L (137-145) mmol/L Potassium 3.7 (3.5-5.1) mmol/L Chloride 103 (98-107) mmol/L Carbon Dioxide 26 (22-30) mmol/L BUN 24 H (7-17) mg/dL Creatinine 0.81 (0.52-1.04) mg/dL Glucose 88 (74-99) mg/dL Calcium 8.7 (8.4-10.2) mg/dL AST 22 (14-36) U/L ALT 13 (4-34) U/L Alkaline Phosphatase 87 (38-126) U/L Total Protein 5.8 L (6.3-8.2) g/dL Albumin 3.2 L (3.5-5.0) g/dL Current Medications Generic Name Dose Route Start Last Admin Trade Name Freq PRN Reason Stop Dose Admin Albuterol/Ipratropium 3 ml 09/27/22 08:00 Ipratropium-Albuterol 3 Ml Neb INHALATION RT-Q6H [facility] Aspirin 325 mg 09/28/22 09:00 Aspirin 325 Mg Tab PO DAILY [facility] Atorvastatin Calcium 40 mg 09/27/22 21:00 Atorvastatin 40 Mg Tab PO HS@2100 [facility] Budesonide 0.5 mg 09/27/22 09:00 Budesonide 0.5 Mg/2 Ml Nebu INHALATION RT-BID@0900,2100 [facility] Clopidogrel Bisulfate 75 mg 09/27/22 09:00 Clopidogrel 75 Mg Tab PO DAILY@0900 [facility] Divalproex Sodium 250 mg 09/27/22 09:00 Divalproex 250 Mg Tablet. PO BID@0900,1400 [facility] Divalproex Sodium 500 mg 09/27/22 21:00 Divalproex 500 Mg Tablet. PO HS@2100 [facility] Docusate Sodium 100 mg 09/27/22 09:00 Docusate 100 Mg Cap PO BID [facility] Furosemide 40 mg 09/27/22 06:00 09/27/22 05:09 Furosemide 40 Mg Tab PO 40 mg BID@0600,1200 [facility] Administration Heparin Sodium (Porcine) 5,000 unit 09/27/22 08:00 Heparin Sodium,Porcine/Pf 5,000 Unit/0.5 Ml Syringe SQ Q8HR [facility] Insulin Aspart 0 unit 09/27/22 07:30 09/27/22 07:17 Insulin Aspart (Novolog) 100 Unit/Ml Vial SQ Not Given ACHS [facility] Protocol Metoprolol Tartrate 25 mg 09/27/22 09:00 Metoprolol Tartrate 25 Mg Tab PO BID@0900,2100 [facility] Morphine Sulfate 2 mg 09/27/22 04:17 09/27/22 05:09 Morphine Sulfate 2 Mg/Ml Syringe IVP 2 mg Q4HR PRN Administration Pain/Discomfort Nitroglycerin 0.4 mg 09/27/22 02:00 Nitroglycerin Sl Tabs 0.4 Mg Tab SUBLINGUAL Q5M PRN Chest Pain Pantoprazole Sodium 40 mg 09/27/22 07:30 Pantoprazole 40 Mg Tablet PO AC-BRKFST VIC Sertraline HCl 25 mg 09/27/22 09:00 Sertraline 25 Mg Tab PO DAILY@0900 [facility] Intake and Output 09/26/22 09/27/22 09/27/22 22:59 06:59 14:59 Other: Weight 77.111 kg 09/27/22 00:51 09/27/22 00:51
[2022-09-27 12:26] LABS: Glucose,Whole Blood 106 mg/dL (70-110)
--- NOTE | 2022-09-27 15:37 | P.PN ---
Subjective Progress Note Date: 09/27/22 Hospital course: Patient is a very pleasant 81-year-old female with a past medical history of CAD, hypertension, hyperlipidemia, diabetes mellitus, COPD, CVA, and seizure disorder. She presented to the emergency department from [facility] via EMS with a chief complaint of chest pain to left anterior chest. It was reported pain began centrally radiating into the left side of her chest and is exacerbated by movement, deep breath, or touch. Patient underwent full evaluat ion in the emergency department. Upon personal review of labs noted CBC to reveal normocytic anemia with hemoglobin of 10.3 and CMP showing hypoalbuminemia with albumin of 3.2. Upon review of troponin was negative at less than 0.012. EKG personally reviewed showing normal sinus rhythm at 78 bpm with mild first- degree AV block with NJ interval of 207 ms. Chest x-ray reviewed and appears negative for acute cardiopulmonary process, radiology reporting congestive heart failure previously seen has essentially cleared with regard to previous examination completed 05/16/22. Patient was admitted under our services with consultation to cardiology. Troponins were trended all negative at less than 0.0123 draws. Patient underwent evaluation by semiconductor package symbol stamper ruling out an acute coronary event and clearing patient from cardiac perspective if normal echocardiogram. Physical exam: Vital signs reviewed and stable. General: Nontoxic, no distress and appears stated age. Derm: Skin warm and dry, normal coloration for ethnicity. No rash noted to left flank, left chest or left upper back area where patient reported pain with light touch. Head: Atraumatic, normocephalic and symmetric. Hard of hearing. Eyes: EOMs intact, no lid lag, and anicteric sclera Mouth: no lip lesions, mucus membranes moist Cardiovascular: regular rate and rhythm with normal S1S2, systolic murmur, positive posterior tibial pulses bilaterally, and cap refill < 2 seconds. Lungs: Respirations even, regular, and unlabored on room air. Lungs CTA bilaterally, no rhonchi, no rales, no wheezing, and no accessory muscle usage. Abdominal: soft, nontender to palpation, no guarding, no appreciable organomegaly Ext: ROM intact. No gross muscle atrophy, no edema, no contractures Neuro: Speech clear, face symmetrical and CN II-XII grossly intact with no noted focal neuro deficits Psych: Alert and oriented to person, place and situation. Appropriate and pleasant affect. Assessment and Plan of Care: Chest pain, rule out acute coronary event History of CAD Hypertension Hyperlipidemia -Cardiology following, clearing patient from cardiac perspective if normal echocardiogram. -Telemetry monitoring -Troponins negative -Cardiac diet -Continue daily cardiac medication regimen Aspirin, atorvastatin, furosemide, and metoprolol -Echocardiogram Seizure disorder -Continue medication regimen with Depakote. Maintain seizure precautions, aspiration precautions, and fall precautions. CODE STATUS: Full code DVT prophylaxis: Heparin Discussed with: Patient and RN Anticipated discharge date: Likely within the next 24 hours, pending echocardiogram results. Anticipated discharge place: Return to [facility] A total of 33 minutes was spent on the care of this complex patient more than 50% of the time was spent in counseling and care coordination. Rajesh Simons NP rendered care for this patient independently, reviewed the findings and plan as documented in the note above. I did not physically speak with or examine the patient on this date. Objective - Vital Signs Vital signs: Vital Signs Temp 98.7 F 09/26/22 23:59 Pulse 95 09/27/22 10:32 Resp 18 09/27/22 10:32 BP 116/51 09/27/22 10:32 Pulse Ox 98 09/27/22 10:32 FiO2 Intake & Output 09/26/22 09/27/22 09/27/22 18:59 06:59 18:59 Weight 77.111 kg - Labs CBC & Chem 7: 09/27/22 00:51 09/27/22 00:51 Labs: Abnormal Lab Results - Last 24 Hours (Table) 09/27/22 09/27/22 09/27/22 Range/Units 00:51 00:51 00:51 RBC 3.30 L (3.80-5.40) m/uL Hgb 10.3 L (11.4-16.0) gm/dL Hct 29.9 L (34.0-46.0) % APTT 20.2 L (22.0-30.0) sec Sodium 135 L (137-145) mmol/L BUN 24 H (7-17) mg/dL Total Protein 5.8 L (6.3-8.2) g/dL Albumin 3.2 L (3.5-5.0) g/dL
[2022-09-27 17:21] LABS: Glucose,Whole Blood 93 mg/dL (70-110)
[2022-09-27 20:58] LABS: Glucose,Whole Blood 127 mg/dL (70-110)
[2022-09-27] MEDS ORDERED: DIVALPROEX 500 MG TABLET.DR PO SCH (21:00)
[2022-09-27] MEDS ORDERED: ATORVASTATIN 40 MG TAB PO SCH (21:00)
[2022-09-27] MEDS: PRIMIDONE 50 MG TAB PO SCH (22:53)
[2022-09-28] MEDS: IPRATROPIUM-ALBUTEROL 3 ML NEB INHALATION SCH ×3 (00:14→11:09)
[2022-09-28] MEDS: INSULIN ASPART (NovoLOG) 100 UNIT/ML VIAL SQ SCH ×2 (06:33→12:40)
[2022-09-28] MEDS: PANTOPRAZOLE 40 MG TABLET PO SCH (06:33)
[2022-09-28] MEDS: FUROSEMIDE 40 MG TAB PO SCH ×2 (06:34→12:45)
[2022-09-28] MEDS: BUDESONIDE 0.5 MG/2 ML NEBU INHALATION SCH (07:47)
[2022-09-28 08:09] VITALS: TEMP 98.1
[2022-09-28] MEDS ORDERED: ASPIRIN 325 MG TAB PO SCH (09:00)
--- NOTE | 2022-09-28 09:00 | CA ---
Transthoracic Echo Report Name: Arin Fulton Age: 81 Gender: F : 1940 Exam Date: 09/28/2022 08:02 Exam Location: [place] [facility] Ht (in): 60 Wt (lb): 170 Ordering Physician: Shyann Ren Attending/Referring Phys: [id number], Gela [employer] Maker Idalia Allen RDCS Procedure CPT: Indications: LVF Cardiac Hx: Technical Quality: Contrast 1: Total Dose (mL): Contrast 2: Total Dose (mL): MEASUREMENTS (Male / Female) Normal Values 2D ECHO LV Diastolic Diameter PLAX 4.5 cm 4.2 - 5.9 / 3.9 - 5.3 cm LV Systolic Diameter PLAX 3.3 cm IVS Diastolic Thickness 1.1 cm 0.6 - 1.0 / 0.6 - 0.9 cm LVPW Diastolic Thickness 1.4 cm 0.6 - 1.0 / 0.6 - 0.9 cm LV Relative Wall Thickness 0.6 RV Internal Dim ED PLAX 3.0 cm LA Systolic Diameter LX 3.2 cm 3.0 - 4.0 / 2.7 - 3.8 cm M-MODE Aortic Root Diameter MM 3.0 cm LA Systolic Diameter MM 3.7 cm LA Ao Ratio MM 1.2 MV E Point Septal Separation 0.5 cm AV Cusp Separation MM 2.2 cm DOPPLER MV Area PHT 5.1 cm??? Mitral E Point Velocity 86.2 cm/s Mitral A Point Velocity 91.0 cm/s Mitral E to A Ratio 0.9 MV Deceleration Time 149.6 ms MV E' Velocity 6.2 cm/s Mitral E to MV E' Ratio 14.0 TR Peak Velocity 213.8 cm/s TR Peak Gradient 18.3 mmHg Right Ventricular Systolic Press 23.3 mmHg FINDINGS Left Ventricle Mildly increased septal wall thickness.left ventricular cavity size normal. Left ventricular ejection fraction is estimated at 55 %. Right Ventricle Normal right ventricular size and function. Right ventricular systolic pressure within normal limits. Right Atrium Normal right atrial size. Left Atrium Normal left atrial size. Mitral Valve Structurally normal mitral valve. Mild mitral regurgitation. Aortic Valve Trileaflet aortic valve. Tricuspid Valve Structurally normal tricuspid valve. Mild tricuspid regurgitation. Pulmonic Valve Structurally normal pulmonic valve. Pericardium Normal pericardium. Aorta Normal size aortic root and proximal ascending aorta. CONCLUSIONS Normal LV function Previewed by: Dr. Michael Granado MD (Electronically Signed) Final Date: 28 September 2022 08:59
[2022-09-28 09:48] LABS: Chol/HDL Ratio 2.58 Ratio; LDL Cholesterol,Calculated 88.5 mg/dL (0.0-131.0); VLDL Calculation 18.68 mg/dL (5.00-40.00)
[2022-09-28] MEDS: PRIMIDONE 50 MG TAB PO SCH ×2 (10:17→12:45)
[2022-09-28] MEDS: SERTRALINE 25 MG TAB PO SCH (10:17)
[2022-09-28] MEDS: METOPROLOL TARTRATE 25 MG TAB PO SCH (10:17)
[2022-09-28] MEDS: HEPARIN SODIUM,PORCINE/PF 5,000 UNIT/0.5 ML SYRINGE SQ SCH (10:17)
[2022-09-28] MEDS: DOCUSATE 100 MG CAP PO SCH (10:17)
[2022-09-28] MEDS: CLOPIDOGREL 75 MG TAB PO SCH (10:18)
[2022-09-28] MEDS: DIVALPROEX 250 MG TABLET.DR PO SCH ×2 (10:19→14:25)
--- NOTE | 2022-09-28 10:24 | P.PN ---
Subjective Progress Note Date: 09/28/22 HISTORY OF PRESENTING ILLNESS This is a pleasant 81-year-old female past medical history significant for mild nonobstructive coronary artery disease, hypertension, dyslipidemia, seizure disorder. She follows in the office with Dr. Rubio. Patient resides at [facility]. Patient states she was sleeping and developed a sharp chest pain under her left breast. Patient has significant tenderness to the chest wall and pain with deep breathing. She denies shortness of breath. Patient presented in April of this year with similar concerns diagnosed with musculoskeletal pain. DIAGNOSTICS EKG reveals sinus rhythm, heart rate 78 Cardiac catheterization 10/2016 revealed normal ejection fraction, 30% distal left main, 30% proximal LAD, 30% mid RCA Echocardiogram 04/2022 revealed normal left ventricular dimension and systolic function, mild tricuspid regurgitation. Lexiscan stress test 04/2020 was negative for reversible ischemia Chest xray reveals congestive heart failure is cleared compared to old exam, increased interstitial markings Laboratory reviewed, WBC 5.7, hemoglobin 10.3, platelet count 199. Sodium 135, potassium 3.7, chloride 103, CO2 26, BUN 24 creatinine 0.8. Troponin negative 3 draws. Liver function tests are within normal limits. Current home medications include aspirin 81 mg daily, Lipitor 40 mg daily, Plavix 75 mg daily, Lasix 40 mg twice daily, metolazone 5 mg as directed, Lopressor 25 mg twice daily, Nitrostat as needed. 09/28 Patient states she still has some chest pain under the left breast but is much improved from yesterday. Echocardiogram reveals normal LV function. Blood pressure 126/65, heart rate between 78 and 100. traffic monitor specialist sinus rhythm. PHYSICAL EXAMINATION Vitals reviewed CONSTITUTIONAL: No apparent distress. HEENT: Head is normocephalic. Pupils are equal, round. Sclerae anicteric. Mucous membranes of the mouth are moist. No JVD. No carotid bruit. CHEST EXAMINATION: Lungs are clear to auscultation. Chest wall tenderness is noted on palpation and with deep breathing. HEART EXAMINATION: Regular rate and rhythm. S1, S2 heard. Systolic ejection murmur at the apex noted. Chest wall tenderness under the left breast ABDOMEN: Soft, nontender. Positive bowel sounds. EXTREMITIES: 2+ peripheral pulses, erythema bilat lower leg, wound covered right lateral calf, mild lower extremity edema SKIN: warm dry NEUROLOGIC EXAMINATION: Patient is awake, alert and oriented x3. ASSESSMENT Chest discomfort, noncardiac, appears musculoskeletal in nature Mild nonobstructive coronary artery disease Hypertension Dyslipidemia History of seizure disorder PLAN Continue patient's home cardiac medications Patient is cleared from cardiology for discharge home Thank you kindly for the consult. Nurse practitioner note has been reviewed, I agree with the documented findings and plan of care. Patient was seen and examined. Objective - Vital Signs Vital signs: Vital Signs Temp 98.2 F 09/28/22 02:03 Pulse 77 09/28/22 02:03 Resp 19 09/28/22 02:03 BP 110/64 09/28/22 02:03 Pulse Ox 95 09/28/22 02:03 FiO2 21 09/27/22 20:51 Intake & Output 09/27/22 09/28/22 09/28/22 18:59 06:59 18:59 Other: Voiding Method Toilet # Voids 1 - Labs CBC & Chem 7: 09/27/22 00:51 09/27/22 00:51 Labs: Abnormal Lab Results - Last 24 Hours (Table) 09/27/22 Range/Units 20:56 POC Glucose (mg/dL) 127 H (70-110) mg/dL
[2022-09-28 12:38] LABS: Glucose,Whole Blood 95 mg/dL (70-110)
--- NOTE | 2022-09-28 14:05 | P.DS ---
Providers Date of admission: 09/27/22 02:00 Expected date of discharge: 09/28/22 Attending physician: Desire Ramírez MD Consults: 09/27/22 02:00 Consult Physician Urgent Consulting Provider: Al Altamirano Consult Reason/Comments: chest pian Do you want consulting provider notified?: Yes Primary care physician: Mike Sanches Hospital Course: Discharge Diagnosis: Chest pain, acute coronary event ruled out. Troponins negative at less than 0.0123 draws. Echocardiogram revealing preserved EF with no reported valvular or structural abnormalities. History of CAD, Continue daily cardiac medication regimen Aspirin, atorvastatin, furosemide, and metoprolol Hypertension, monitor vital signs and continue daily medication regimen with metoprolol. Hyperlipidemia, continue daily medication regimen with atorvastatin. Seizure disorder. Continue medication regimen with Depakote. Maintain seizure precautions, aspiration precautions, and fall precautions. Hospital Course: Patient is a very pleasant 81-year-old female with a past medical history of CAD, hypertension, hyperlipidemia, diabetes mellitus, COPD, CVA, and seizure disorder. She presented to the emergency department from [facility] via EMS with a chief complaint of chest pain to left anterior chest. It was reported pain began centrally radiating into the left side of her chest and is exacerbated by movement, deep breath, or touch. Patient underwent full evaluation in the emergency department. Upon personal review of labs noted CBC to reveal normocytic anemia with hemoglobin of 10.3 and CMP showing hypoalbuminemia with albumin of 3.2. Upon review of troponin was negative at less than 0.012. EKG personally reviewed showing normal sinus rhythm at 78 bpm with mild first-degree AV block with ME interval of 207 ms. Chest x-ray reviewed and appears negative for acute cardiopulmonary process, radiology reporting congestive heart failure previously seen has essentially cleared with regard to previous examination completed 05/16/22. Patient was admitted under our services with consultation to cardiology. Troponins were trended all negative at less than 0.0123 draws. Patient underwent evaluation by radiological metallurgist ruling out an acute coronary event and clearing patient from cardiac perspective if normal echocardiogram. Patient was monitored overnight and had full resolution of previously reported chest pain. Echocardiogram was completed and upon review of report it stated normal EF of 55% with no reported structural or valvular abnormalities. Vital signs are unremarkable with blood pressure 126/65, heart rate 78, respiratory rate 20, and SpO2 of 95% on room air and temperature 98.1 F. Patient is medically stable at this time and being discharged back to [facility]. No medication changes were made this admission Physical exam: Vital signs reviewed and stable. General: Nontoxic, no distress and appears stated age. Derm: Skin warm and dry, normal coloration for ethnicity. No rash noted to left flank, left chest or left upper back area where patient reported pain with light touch. Head: Atraumatic, normocephalic and symmetric. Hard of hearing. Eyes: EOMs intact, no lid lag, and anicteric sclera Mouth: no lip lesions, mucus membranes moist Cardiovascular: regular rate and rhythm with normal S1S2, no murmur, positive posterior tibial pulses bilaterally, and cap refill < 2 seconds. Lungs: Respirations even, regular, and unlabored on room air. Lungs CTA bilaterally, no rhonchi, no rales, no wheezing, and no accessory muscle usage. Abdominal: soft, nontender to palpation, no guarding, no appreciable organomeg benito Ext: ROM intact. No gross muscle atrophy, no edema, no contractures Neuro: Speech clear, face symmetrical and CN II-XII grossly intact with no noted focal neuro deficits Psych: Alert and oriented to person, place and situation. Appropriate and pleasant affect. A total of 34 minutes of time were spent preparing this complex discharge summary. Pt was discharged on 09/28/22 at 2:06 PM. Rajesh Simons NP rendered care for this patient independently, reviewed the findings and plan as documented in the note above. I did not physically speak with or examine the patient on this date. Patient Condition at Discharge: Stable Plan - Discharge Summary Discharge Rx Participant: Yes New Discharge Prescriptions: Continue Multivitamins, Thera [Multivitamin (formulary)] 1 tab PO DAILY@0900 Acetaminophen Tab [Tylenol] 500 mg PO Q6HR PRN PRN Reason: Pain Clopidogrel [Plavix] 75 mg PO DAILY@0900 Nitroglycerin Sl Tabs [Nitrostat] 0.4 mg SUBLINGUAL Q5M PRN PRN Reason: Chest Pain Docusate [Colace] 100 mg PO BID 30 Days #60 cap Refresh Liquagel 1% 1 drop LEFT EYE HS Folic Acid 1 mg PO DAILY Methyl Salicylate/Menth/Camph [Salonpas 3.1%-6.0%-10.0% Patch] 1 patch TOPICAL DAILY@0600 metOLazone 5 mg PO DIRECTED clonazePAM [KlonoPIN] 0.25 mg PO DAILY #3 tab Primidone [Mysoline] 50 mg PO TID@0900,1300,2100 Metoprolol Tartrate [Lopressor] 25 mg PO BID@0900,2100 Furosemide [Lasix] 40 mg PO BID@0900,1400 Budesonide 0.5 mg INHALATION RT-DAILY Sertraline [Zoloft] 25 mg PO DAILY@0900 Propylene Glycol/Peg 400/Pf [Systane 0.3-0.4% Eye Drop] 1 drop BOTH EYES Q15M PRN PRN Reason: Dry Eye(S) Pantoprazole [Protonix] 40 mg PO DAILY@0600 Fluticasone Nasal [place] [Flonase Nasal [place]] 1 spray EA NOSTRIL DAILY@0900 Atorvastatin [Lipitor] 40 mg PO HS@2100 Aspirin EC [Ecotrin Low Dose] 81 mg PO HS Divalproex Sodium [Depakote] 500 mg PO HS@2100 Divalproex [Depakote] 250 mg PO BID@0900,1300 Ascorbic Acid [Vitamin C] 500 mg PO DAILY cycloSPORINE [Restasis Multidose] 1 drop BOTH EYES Q12H Thiamine [Vitamin B-1] 50 mg PO DAILY Changed clonazePAM [KlonoPIN] 0.5 mg PO HS #3 tab Discharge Medication List Metoprolol Tartrate [Lopressor] 25 mg PO BID@0900,2100 12/31/21 [History] Multivitamins, Thera [Multivitamin (formulary)] 1 tab PO DAILY@0900 12/31/21 [History] Primidone [Mysoline] 50 mg PO TID@0900,1300,209912/31/21 [History] Acetaminophen Tab [Tylenol] 500 mg PO Q6HR PRN 04/16/22 [History] Aspirin EC [Ecotrin Low Dose] 81 mg PO HS 04/16/22 [History] Atorvastatin [Lipitor] 40 mg PO HS@209904/16/22 [History] Budesonide 0.5 mg INHALATION RT-DAILY 04/16/22 [History] Fluticasone Nasal [place] [Flonase Nasal [place]] 1 spray EA NOSTRIL DAILY@0900 04/16/22 [History] Furosemide [Lasix] 40 mg PO BID@0900,1400 04/16/22 [History] Pantoprazole [Protonix] 40 mg PO DAILY@0600 04/16/22 [History] Propylene Glycol/Peg 400/Pf [Systane 0.3-0.4% Eye Drop] 1 drop BOTH EYES Q15M PRN 04/16/22 [History] Sertraline [Zoloft] 25 mg PO DAILY@0900 04/16/22 [History] Clopidogrel [Plavix] 75 mg PO DAILY@0900 04/21/22 [History] Divalproex Sodium [Depakote] 500 mg PO HS@2100 04/21/22 [History] Divalproex [Depakote] 250 mg PO BID@0900,1300 05/11/22 [History] Nitroglycerin Sl Tabs [Nitrostat] 0.4 mg SUBLINGUAL Q5M PRN 05/11/22 [History] Docusate [Colace] 100 mg PO BID 30 Days #60 cap 05/18/22 [Rx] Ascorbic Acid [Vitamin C] 500 mg PO DAILY 09/27/22 [History] Folic Acid 1 mg PO DAILY 09/27/22 [History] Methyl Salicylate/Menth/Camph [Salonpas 3.1%-6.0%-10.0% Patch] 1 patch TOPICAL DAILY@0600 09/27/22 [History] Refresh Liquagel 1% 1 drop LEFT EYE HS 09/27/22 [History] Thiamine [Vitamin B-1] 50 mg PO DAILY 09/27/22 [History] cycloSPORINE [Restasis Multidose] 1 drop BOTH EYES Q12H 09/27/22 [History] metOLazone 5 mg PO DIRECTED 09/27/22 [History] clonazePAM [KlonoPIN] 0.25 mg PO DAILY #3 tab 09/28/22 [Rx] clonazePAM [KlonoPIN] 0.5 mg PO HS #3 tab 09/28/22 [Rx] Follow up Appointment(s)/Referral(s): Mike Sanches MD [Primary Care Provider] - 1-2 days Michael Granado MD [STAFF PHYSICIAN] - 1 Week Patient Instructions/Handouts: Chest Pain (DC), Chest Wall Pain (GEN) Discharge Disposition: TRANSFER TO SNF/ECF
[2022-09-28 15:02] VITALS: BP 105/56; PULSE 82; RESP 18
== END 2022-09-28 15:48 ==
LOC: EC 23:55 → 6NMEDSUR 09-27 02:00
PROVIDERS: ADMIT Internal Medicine; ATTEND Internal Medicine
DX: R07.89 Other chest pain (principal); J44.9 Chronic obstructive pulmonary disease, unspecified; I25.10 Atherosclerotic heart disease of native coronary artery without angina pectoris; I11.0 Hypertensive heart disease with heart failure; I50.9 Heart failure, unspecified; E78.5 Hyperlipidemia, unspecified; E11.9 Type 2 diabetes mellitus without complications; K21.9 Gastro-esophageal reflux disease without esophagitis; F41.9 Anxiety disorder, unspecified; G40.909 Epilepsy, unspecified, not intractable, without status epilepticus; D64.9 Anemia, unspecified; I25.2 Old myocardial infarction; Z86.73 Personal history of transient ischemic attack (TIA), and cerebral infarction without residual deficits; Z79.899 Other long term (current) drug therapy; Z79.82 Long term (current) use of aspirin; Z79.02 Long term (current) use of antithrombotics/antiplatelets; Z88.0 Allergy status to penicillin; Z88.6 Allergy status to analgesic agent; Z91.040 Latex allergy status
CPT/HCPCS: 96372 ×3; 96374; 99285; 36415; 94640 ×4; 94760; 93005; 93306; 97161; 97165; 80061; 80053; 84484; 85025; 85610; 85730; 71046; G0378 ×2; J2270; J1644 ×2

== ENCOUNTER 2023-11-25 07:48 | Inpatient (IN) | payer MEDICARE, OTHER ==
--- NOTE | 2023-11-25 08:12 | ED ---
Fall HPI - General Chief Complaint: Fall Stated Complaint: Fall Time Seen by Provider: 11/25/23 08:00 Source: patient, RN notes reviewed, old records reviewed Mode of arrival: EMS Limitations: no limitations - History of Present Illness Initial Comments: This is a 83-year-old female to the ER for evaluation today. Patient presents today for evaluation regards to fall. Patient does have some altered mental status was complaining of severe pain fall right hip pain. 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 Fall Witnessed: no Place Fall Occurred: home Loss of Consciousness: none Prolonged Down Time?: no Symptoms Prior to Fall: none Location - Extremities: Right: Thigh, Knee Severity: severe Severity scale (1-10): 7 Quality: sharp Context: tripped/slipped Associated Symptoms: denies - Related Data Home Medications Medication Instructions Recorded Confirmed Multivitamins, Thera [Multivitamin 1 tab PO DAILY@0900 12/31/21 11/25/23 (formulary)] Primidone [Mysoline] 50 mg PO TID@0900,1300,209912/31/21 11/25/23 Aspirin EC [Ecotrin Low Dose] 81 mg PO DAILY@89904/16/22 11/25/23 Atorvastatin [Lipitor] 40 mg PO HS@209904/16/22 11/25/23 Fluticasone Nasal [place] [Flonase 1 spray EA NOSTRIL DAILY@0904/16/22 11/25/23 Nasal [place]] Pantoprazole [Protonix] 40 mg PO DAILY@0604/16/22 11/25/23 Propylene Glycol/Peg 400/Pf 1 drop BOTH EYES Q15M PRN 04/16/22 11/25/23 [Systane 0.3-0.4% Ophth Dropperette] Sertraline [Zoloft] 25 mg PO DAILY@0900 04/16/22 11/25/23 Divalproex Sodium [Depakote] 500 mg PO HS@209904/21/22 11/25/23 Divalproex [Depakote] 250 mg PO BID@0900,1300 05/11/22 11/25/23 Nitroglycerin Sl Tabs [Nitrostat] 0.4 mg SUBLINGUAL Q5M PRN 05/11/22 11/25/23 Ascorbic Acid [Vitamin C] 500 mg PO DAILY@0900 09/27/22 11/25/23 Thiamine [Vitamin B-1] 50 mg PO DAILY@0900 09/27/22 11/25/23 Carboxymethylcellulose Sodium 1 drop BOTH EYES BID@0900,2100 04/30/23 11/25/23 [Refresh Tears] Clotrimazole/Betameth Cream 1 applic TOPICAL BID 04/30/23 11/25/23 [Lotrisone] Docusate [Colace] 100 mg PO BID@0900,2100 04/30/23 11/25/23 Bumetanide [BUMEX] 1 mg PO DAILY PRN 11/25/23 11/25/23 cycloSPORINE 0.05% OPHTH SOLN 1 applicator BOTH EYES Q12H 11/25/23 11/25/23 [Restasis] Previous Rx's Medication Instructions Recorded Metoprolol Tartrate [Lopressor] 50 mg PO BID@0900,2100 #60 tab 05/02/23 HYDROcodone/APAP 5-325MG [[place] 1 - 2 tab PO Q6HR PRN #32 tab 12/01/23 5-325] Sennosides-Docusate Sodium 1 tab PO BID #60 tablet 12/01/23 [Senokot-S] ALPRAZolam [Xanax] 0.25 mg PO HS@2100 #3 tab 12/02/23 Acetaminophen Tab [Tylenol] 650 mg PO Q6HR PRN tab 12/02/23 Nystatin 100,000 Unit/gm Powd 1 applic TOPICAL BID each 12/02/23 [Mycostatin Powder] Tamsulosin [Flomax] 0.4 mg PO PC-[id number] cap 12/02/23 Allergies Allergy/AdvReac Type Severity Reaction Status Date / Time aspirin Allergy Unknown Verified 11/26/23 16:35 Iodinated Contrast Media Allergy Unknown Verified 11/26/23 16:35 lanolin Allergy Unknown Verified 11/26/23 16:35 Penicillins Allergy Unknown Verified 11/26/23 16:35 [email or web address] Allergy Unknown Verified 11/26/23 16:55 latex AdvReac Rash/Hives Verified 11/26/23 16:35 Review of Systems ROS Statement: Those systems with pertinent positive or pertinent negative responses have been documented in the HPI. ROS Other: All systems not noted in ROS Statement are negative. Past Medical History Past Medical History: Asthma, Coronary Artery Disease (CAD), Heart Failure, COPD, CVA/TIA, GERD/Reflux, Hyperlipidemia, Hypertension, Myocardial Infarction (TX), Seizure Disorder Additional Past Medical History / Comment(s): Headaches Last Myocardial Infarction Date:: unknown History of Any Multi-Drug Resistant Organisms: None Reported Past Surgical History: Appendectomy, Section, Cholecystectomy, Heart Catheterization, Hysterectomy, Orthopedic Surgery, Tonsillectomy Additional Past Surgical History / Comment(s): Cataracts Past Anesthesia/Blood Transfusion Reactions: Unable to Obtain Past Psychological History: Anxiety Smoking Status: Never smoker Past Alcohol Use History: None Reported Past Drug Use History: None Reported - Past Family History familiy Family Medical History: Unable to Obtain General Exam Limitations: no limitations General appearance: alert, in no apparent distress Head exam: Present: atraumatic, normocephalic, normal inspection Eye exam: Present: normal appearance, PERRL, EOMI. Absent: scleral icterus, conjunctival injection, periorbital swelling ENT exam: Present: normal exam, mucous membranes moist Neck exam: Present: normal inspection. Absent: tenderness, meningismus, lymphadenopathy Respiratory exam: Present: normal lung sounds bilaterally. Absent: respiratory distress, wheezes, rales, rhonchi, stridor Cardiovascular Exam: Present: regular rate, normal rhythm, normal heart sounds. Absent: systolic murmur, diastolic murmur, rubs, gallop, clicks GI/Abdominal exam: Present: soft, normal bowel sounds. Absent: distended, tenderness, guarding, rebound, rigid Extremities exam: Present: full ROM, tenderness, normal capillary refill. Absent: pedal edema, joint swelling, calf tenderness Back exam: Present: normal inspection Neurological exam: Present: alert, oriented X3, CN II-XII intact Psychiatric exam: Present: normal affect, normal mood Skin exam: Present: warm, dry, intact, normal color. Absent: rash Course Vital Signs 11/25/23 11/25/23 11/25/23 07:51 08:35 10:00 Temperature 97.6 F Pulse Rate 74 70 81 Respiratory 18 18 16 Rate Blood Pressure 170/91 170/80 159/69 O2 Sat by Pulse 93 L 97 94 L Oximetry 11/25/23 11/25/23 13:40 16:11 Temperature 98.9 F Pulse Rate 78 92 Respiratory 18 16 Rate Blood Pressure 136/62 113/58 O2 Sat by Pulse 94 L 97 Oximetry - Reevaluation(s) Reevaluation #1: 11/25/23 13:19 Medical record is reviewed Reevaluation #2: 11/25/23 13:19 Patient symptoms are unchanged Reevaluation #3: 11/25/23 13:19 Patient informed of results and questions answered Reevaluation #4: Was pt. sent in by a medical professional or institution (, MARK, WELD INSPECTOR, urgent care, hospital, or retirement...) When possible be specific @ -no Did you speak to anyone other than the patient for history (EMS, parent, family, police, friend...)? What history was obtained from this source @ -no Did you review nursing and triage notes (agree or disagree)? Why? @ -agree Are old charts reviewed (outside hosp., previous admission, EMS record, old EKG, old radiological studies, urgent care reports/EKG's, retirement records)? Report findings @ -yes Differential Diagnosis (chest pain, altered mental status, abdominal pain women, abdominal pain men, vaginal bleeding, weakness, fever, dyspnea, syncope, headache, dizziness, GI bleed, back pain, seizure, CVA, palpatations, mental health, musculoskeletal)? @ -prior EKG interpreted by me (3pts min.). @ -yes X-rays interpreted by me (1pt min.). @ -yes positive for right hip fracture CT interpreted by me (1pt min.). @ -no U/S interpreted by me (1pt. min.). @ -no What testing was considered but not performed or refused? (CT, X-rays, U/S, labs)? Why? @ -none What meds were considered but not given or refused? Why? @ -none Did you discuss the management of the patient with other professionals (professionals i.e. MARK Zapien, WELD INSPECTOR, lab, RT, psych nurse, social media assistant, retail wireless sales consultant, teacher, plain clothes police officer, community case manager)? Give summary @ -no Was smoking cessation discussed for >3mins.? @ -no Was critical care preformed (if so, how long)? @ -no Were there social determinants of health that impacted care today? How? (Homelessness, low income, unemployed, alcoholism, drug addiction, transportation, low edu. Level, literacy, decrease access to med. care, senior care, rehab)? @ -none Was there de-escalation of care discussed even if they declined (Discuss DNR or withdrawal of care, Hospice)? DNR status @ -no What co-morbidities impacted this encounter? (DM, HTN, Smoking, COPD, CAD, Cancer, CVA, ARF, Chemo, Hep., AIDS, mental health diagnosis, sleep apnea, m orbid obesity)? @ -none Was patient admitted / discharged? Hospital course, mention meds given and route, prescriptions, significant lab abnormalities, going to OR and other pertinent info. @ - 83 female to the ER for evaluation today. Patient presents today for evaluation of a fall with right hip fracture. Patient admitted for orthopedic evaluation and treatment Admitted Undiagnosed new problem with uncertain prognosis? @ -no Drug Therapy requiring intensive monitoring for toxicity (Heparin, Nitro, Insulin, Cardizem)? @ -no Were any procedures done? @ -no Diagnosis/symptom? @ -Fall with right hip fracture Acute, or Chronic, or Acute on Chronic? @ -Acute Uncomplicated (without systemic symptoms) or Complicated (systemic symptoms)? @ -Complicated Side effects of treatment? @ -no Exacerbation, Progression, or Severe Exacerbation? @ -exacerbation Poses a threat to life or bodily function? How? (Chest pain, [place], [place], pneumonia, PE, COPD, DKA, ARF, appy, cholecystitis, CVA, Diverticulitis, Homicidal, Suicidal, threat to staff... and all critical care pts) @ -yes Reevaluation #5: Differential Weakness: Hypoglycemia, shock, sepsis, hyponatremia, anemia, infection, [place], ETOH, adverse medicine reaction, overdose, stroke, this is not meant to be an all-inclusive list. - Consultations Consultation #1: Spoke with orthopedics who agreed to admit this patient Medical Decision Making - Medical Decision Making 83 female to the ER for evaluation today. Patient presents today for evaluation of a fall with right hip fracture. Patient admitted for orthopedic evaluation and treatment - Lab Data Result diagrams: 12/01/23 05:49 12/01/23 05:49 Lab Results 11/25/23 11/25/23 11/25/23 Range/Units 08:27 08:27 08:27 WBC 9.5 (3.8-10.6) k/uL RBC 3.53 L (3.80-5.40) m/uL Hgb 11.0 L (11.4-16.0) gm/dL Hct 33.0 L (34.0-46.0) % MCV 93.3 (80.0-100.0) fL MCH 31.0 (25.0-35.0) pg MCHC 33.2 (31.0-37.0) g/dL RDW 13.4 (11.5-15.5) % Plt Count 281 (150-450) k/uL MPV 7.4 Neutrophils % 78 % Lymphocytes % 14 % Monocytes % 5 % Eosinophils % 1 % Basophils % 0 % Neutrophils # 7.4 (1.3-7.7) k/uL Lymphocytes # 1.4 (1.0-4.8) k/uL Monocytes # 0.5 (0-1.0) k/uL Eosinophils # 0.1 (0-0.7) k/uL Basophils # 0.0 (0-0.2) k/uL PT 11.1 (10.0-12.5) sec INR 1.0 (<1.2) APTT 20.3 L (22.0-30.0) sec Sodium 133 L (137-145) mmol/L Potassium 3.9 (3.5-5.1) mmol/L Chloride 102 (98-107) mmol/L Carbon Dioxide 24 (22-30) mmol/L Anion Gap 7 mmol/L BUN 16 (7-17) mg/dL Creatinine 0.63 (0.52-1.04) mg/dL Est GFR (CKD-EPI)AfAm >90 (>60 ml/min/1.73 sqM) Est GFR (CKD-EPI)NonAf 84 (>60 ml/min/1.73 sqM) Glucose 106 H (74-99) mg/dL Calcium 8.7 (8.4-10.2) mg/dL Phosphorus 3.7 (2.5-4.5) mg/dL Magnesium 1.8 (1.6-2.3) mg/dL Total Bilirubin 0.4 (0.2-1.3) mg/dL AST 24 (14-36) U/L ALT 16 (4-34) U/L Alkaline Phosphatase 89 (38-126) U/L Creatine Kinase (30-135) U/L Troponin I (0.000-0.034) ng/mL NT-Pro-B Natriuret Pep 462 pg/mL Total Protein 6.2 L (6.3-8.2) g/dL Albumin 3.4 L (3.5-5.0) g/dL 11/25/23 11/25/23 Range/Units 08:27 08:27 WBC (3.8-10.6) k/uL RBC (3.80-5.40) m/uL Hgb (11.4-16.0) gm/dL Hct (34.0-46.0) % MCV (80.0-100.0) fL MCH (25.0-35.0) pg MCHC (31.0-37.0) g/dL RDW (11.5-15.5) % Plt Count (150-450) k/uL MPV Neutrophils % % Lymphocytes % % Monocytes % % Eosinophils % % Basophils % % Neutrophils # (1.3-7.7) k/uL Lymphocytes # (1.0-4.8) k/uL Monocytes # (0-1.0) k/uL Eosinophils # (0-0.7) k/uL Basophils # (0-0.2) k/uL PT (10.0-12.5) sec INR (<1.2) APTT (22.0-30.0) sec Sodium (137-145) mmol/L Potassium (3.5-5.1) mmol/L Chloride (98-107) mmol/L Carbon Dioxide (22-30) mmol/L Anion Gap mmol/L BUN (7-17) mg/dL Creatinine (0.52-1.04) mg/dL Est GFR (CKD-EPI)AfAm (>60 ml/min/1.73 sqM) Est GFR (CKD-EPI)NonAf (>60 ml/min/1.73 sqM) Glucose (74-99) mg/dL Calcium (8.4-10.2) mg/dL Phosphorus (2.5-4.5) mg/dL Magnesium (1.6-2.3) mg/dL Total Bilirubin (0.2-1.3) mg/dL AST (14-36) U/L ALT (4-34) U/L Alkaline Phosphatase (38-126) U/L Creatine Kinase 83 (30-135) U/L Troponin I <0.012 (0.000-0.034) ng/mL NT-Pro-B Natriuret Pep pg/mL Total Protein (6.3-8.2) g/dL Albumin (3.5-5.0) g/dL - EKG Data -: EKG Interpreted by Me (EKG sinus 73 NC 181 QRS 114 QTc 442) - Radiology Data Radiology results: report reviewed (X-ray chest and pelvis are negative for traumatic injury), image reviewed Disposition Clinical Impression: Weakness, Fall, Closed right hip fracture Disposition: ADMITTED IP TO THIS [facility] Condition: Fair Is patient prescribed a controlled substance at d/c from ED?: No Time of Disposition: 10:15
[2023-11-25] MEDS: SODIUM CHLORIDE 0.9% 1,000 ML IV STA ×2 (08:36→09:55)
[2023-11-25] MEDS: MORPHINE SULFATE 4 MG/ML SYRINGE IV STA (08:36)
[2023-11-25 08:44] LABS: Basophils % (A) 0 %; Eosinophils # (A) 0.1 k/uL (0-0.7); Eosinophils % (A) 1 %; Lymphocytes # (A) 1.4 k/uL (1.0-4.8); Lymphocytes % (A) 14 %; MCHC 33.2 g/dL (31.0-37.0); MCV 93.3 fL (80.0-100.0); Mean Platelet Volume 7.4; Monocytes # (A) 0.5 k/uL (0-1.0); Monocytes % (A) 5 %; Neutrophils # (A) 7.4 k/uL (1.3-7.7); Neutrophils % (A) 78 %; Platelet Count 281 k/uL (150-450); RBC 3.53 m/uL (3.80-5.40); RDW 13.4 % (11.5-15.5); WBC 9.5 k/uL (3.8-10.6)
--- NOTE | 2023-11-25 08:48 | XR ---
EXAMINATION TYPE: XR chest 1V DATE OF EXAM: 11/25/2023 8:30 AM CLINICAL INDICATION:Female, 83 years old with history of fall; [facility] COMPARISON: Chest radiographs from 05/01/2023 TECHNIQUE: XR chest 1V Frontal view of the chest. FINDINGS: Lungs/Pleura: Low lung volumes are present. There is no evidence of pleural effusion, focal consolida tion, or pneumothorax. Pulmonary vascularity: Unremarkable. Heart/mediastinum: Cardiomediastinal silhouette is unremarkable. Musculoskeletal: No acute osseous pathology. Other findings: None IMPRESSION: 1. Low lung volumes with a generalized hazy appearance which could represent atelectasis. 2. No evidence of fracture.
--- NOTE | 2023-11-25 08:49 | XR ---
EXAMINATION TYPE: XR Hip RT and AP Pelvis DATE OF EXAM: 11/25/2023 8:30 AM CLINICAL INDICATION:Female, 83 years old with history of fall; [facility] COMPARISON: None. TECHNIQUE: XR Hip RT and AP Pelvis; hip was examined in the frontal and lateral projections and a AP pelvis. FINDINGS/IMPRESSION: * Intra-articular fracture with varus deformity of the right proximal femur with fragment involving the lesser trochanter. The bony pelvis appears intact. 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
[2023-11-25 09:07] LABS: ALT 16 U/L (4-34); AST 24 U/L (14-36); African American GFR (CKD) >90 (>60 ml/min/1.73 sqM); Albumin 3.4 g/dL (3.5-5.0); Alkaline Phosphatase 89 U/L (38-126); Anion Gap 7 mmol/L; Blood Urea Nitrogen 16 mg/dL (7-17); Calcium 8.7 mg/dL (8.4-10.2); Carbon Dioxide 24 mmol/L (22-30); Chloride 102 mmol/L (98-107); Glucose 106 mg/dL (74-99); Magnesium 1.8 mg/dL (1.6-2.3); Non-African American GFR(CKD) 84 (>60 ml/min/1.73 sqM); Phosphorus 3.7 mg/dL (2.5-4.5); Potassium 3.9 mmol/L (3.5-5.1); Sodium 133 mmol/L (137-145); Total Bilirubin 0.4 mg/dL (0.2-1.3); Total Protein 6.2 g/dL (6.3-8.2)
[2023-11-25 09:08] LABS: Prothrombin Time 11.1 sec (10.0-12.5)
[2023-11-25 09:13] LABS: NT-Pro-B-Type Natriuretic Pept 462 pg/mL
[2023-11-25 09:24] LABS: Partial Thromboplastin Time 20.3 sec (22.0-30.0)
[2023-11-25] MEDS: SODIUM CHLORIDE 0.9% 500 ML 500 ML IV STA (09:55)
[2023-11-25] MEDS ORDERED: ACETAMINOPHEN TAB 325 MG TAB PO PRN (10:03)
[2023-11-25] MEDS ORDERED: NALOXONE 0.4 MG/ML 1 ML VIAL IV PRN ×2 (10:03→10:42)
[2023-11-25] MEDS: SODIUM CHLORIDE 0.9% 1,000 ML IV SCH (10:12)
[2023-11-25] MEDS ORDERED: ONDANSETRON 4 MG/2 ML VIAL IVP PRN (10:42)
--- NOTE | 2023-11-25 12:34 | P.HPOR ---
History of Present Illness H&P Date: 11/25/23 Chief Complaint: Right hip pain s/p fall The patient is an 83 y/o female with a past medical history including asthma, CAD, COPD, CVA, [place], hypertension, and seizures who is a resident at [facility], presented to the emergency department at [facility] after sustaining a fall. She states she was getting out of her wheelchair in the bathroom and her right leg gave out. The staff at [facility] found the patient and she was transferred to the ER via ambulance. Upon evaluation in the ER, she was found to have right hip pain and leg shortening. X-rays revealed a displaced intertrochanteric hip fracture. Orthopedics was contacted for admission and surgical intervention. Internal medicine is on consult for surgical clearance and medical management. Review of Systems Constitutional: Denies chills, Denies fatigue, Denies fever Cardiovascular: Denies chest pain, Denies shortness of breath Respiratory: Denies cough Gastrointestinal: Denies diarrhea, Denies nausea, Denies vomiting Musculoskeletal: right: hip pain, hip stiffness, hip swelling Past Medical History Past Medical History: Asthma, Coronary Artery Disease (CAD), Heart Failure, COPD, CVA/TIA, GERD/Reflux, Hyperlipidemia, Hypertension, Myocardial Infarction ([place]), Seizure Disorder Additional Past Medical History / Comment(s): Headaches Last Myocardial Infarction Date:: unknown History of Any Multi-Drug Resistant Organisms: None Reported Past Surgical History: Appendectomy, Section, Cholecystectomy, Heart Catheterization, Hysterectomy, Orthopedic Surgery, Tonsillectomy Additional Past Surgical History / Comment(s): Cataracts Past Anesthesia/Blood Transfusion Reactions: Unable to Obtain Past Psychological History: Anxiety Smoking Status: Never smoker Past Alcohol Use History: None Reported Past Drug Use History: None Reported - Past Family History familiy Family Medical History: Unable to Obtain Medications and Allergies Home Medications Medication Instructions Recorded Confirmed Type Multivitamins, Thera [Multivitamin 1 tab PO DAILY@0900 12/31/21 11/25/23 History (formulary)] Primidone [Mysoline] 50 mg PO TID@0900,1300,2100 12/31/21 11/25/23 History Acetaminophen Tab [Tylenol] 500 mg PO Q6HR PRN 04/16/22 11/25/23 History Aspirin EC [Ecotrin Low Dose] 81 mg PO DAILY@0900 04/16/2224 History Atorvastatin [Lipitor] 40 mg PO HS@209904/16/22 11/25/23 History Fluticasone Nasal [place] [Flonase 1 spray EA NOSTRIL DAILY@89904/16/22 11/25/23 History Nasal [place]] Pantoprazole [Protonix] 40 mg PO DAILY@0604/16/22 11/25/23 History Propylene Glycol/Peg 400/Pf 1 drop BOTH EYES Q15M PRN 04/16/22 11/25/23 History [Systane 0.3-0.4% Ophth Dropperette] Sertraline [Zoloft] 25 mg PO DAILY@89904/16/22 11/25/23 History Divalproex Sodium [Depakote] 500 mg PO HS@209904/21/22 11/25/23 History Divalproex [Depakote] 250 mg PO BID@0900,1300 05/11/22 11/25/23 History Nitroglycerin Sl Tabs [Nitrostat] 0.4 mg SUBLINGUAL Q5M PRN 05/11/22 11/25/23 History Ascorbic Acid [Vitamin C] 500 mg PO DAILY@89909/27/22 11/25/23 History Thiamine [Vitamin B-1] 50 mg PO DAILY@89909/27/22 11/25/23 History ALPRAZolam [Xanax] 0.25 mg PO HS@209904/30/23 11/25/23 History Carboxymethylcellulose Sodium 1 drop BOTH EYES BID@0900,209904/30/23 11/25/23 History [Refresh Tears] Clotrimazole/Betameth Cream 1 applic TOPICAL BID 04/30/23 11/25/23 History [Lotrisone] Docusate [Colace] 100 mg PO BID@0900,209904/30/23 11/25/23 History Metoprolol Tartrate [Lopressor] 50 mg PO BID@899,2099 #60 tab 05/02/23 11/25/23 Rx Bumetanide [Bumex] 1 mg PO BID@0600,1300 11/25/23 11/25/23 History Bumetanide [Bumex] 1 mg PO DAILY PRN 11/25/23 11/25/23 History cycloSPORINE 0.05% OPHTH SOLN 1 applicator BOTH EYES Q12H 11/25/23 11/25/23 History [Restasis] lisinopriL [Zestril] 2.5 mg PO DAILY@0900 11/25/23 11/25/23 History Allergies Allergy/AdvReac Type Severity Reaction Status Date / Time aspirin Allergy Unknown Verified 11/25/23 10:09 Iodinated Contrast Media Allergy Unknown Verified 11/25/23 10:09 lanolin Allergy Unknown Verified 11/25/23 10:09 Penicillins Allergy Unknown Verified 11/25/23 10:09 latex AdvReac Rash/Hives Verified 11/25/23 10:09 Physical Examination The patient is an 83 year-old female in no acute distress. She is alert and oriented 2. The patient's head is normocephalic, atraumatic. No pain upon palpation to the cervical spine, no step-offs noted. Exam of the bilateral upper extremities reveal no obvious deformities or wounds. Exam of the left lower extremity reveals no deformity or wounds. No pain upon range of motion of the right leg. Exam of the right lower extremity reveals severe guarding to the left hip. There is pain to palpation to the lateral hip. There is pain to external and internal rotation of the left hip. Calf is soft and nontender. She is able to wiggle his toes. Circulatory status is intact. Results X-ray of the right hip reveals a displaced intertrochanteric fracture. - Labs Labs: Abnormal Lab Results - Last 24 Hours (Table) 11/25/23 11/25/23 11/25/23 Range/Units 08:27 08:27 08:27 RBC 3.53 L (3.80-5.40) m/uL Hgb 11.0 L (11.4-16.0) gm/dL Hct 33.0 L (34.0-46.0) % APTT 20.3 L (22.0-30.0) sec Sodium 133 L (137-145) mmol/L Glucose 106 H (74-99) mg/dL Total Protein 6.2 L (6.3-8.2) g/dL Albumin 3.4 L (3.5-5.0) g/dL H & H 11/25/23 Range/Units 08:27 Hgb 11.0 L (11.4-16.0) gm/dL Hct 33.0 L (34.0-46.0) % Coagulation 11/25/23 Range/Units 08: INR 1.0 (<1.2) Result Diagrams: 11/25/23 08:27 11/25/23 08:27 Assessment and Plan (1) History of myocardial infarction Current Visit: Yes Status: Acute Code(s): I25.2 - OLD MYOCARDIAL INFARCTION SNOMED Code(s): 038257473 (2) Hypertension Current Visit: Yes Status: Acute Code(s): I10 - ESSENTIAL (PRIMARY) HYPERTENSION SNOMED Code(s): 78653237 (3) CAD (coronary artery disease) Current Visit: Yes Status: Acute Code(s): I25.10 - ATHSCL HEART DISEASE OF [place] CORONARY ARTERY W/O ANG PCTRS SNOMED Code(s): 18496504 (4) COPD (chronic obstructive pulmonary disease) Current Visit: Yes Status: Acute Code(s): J44.9 - CHRONIC OBSTRUCTIVE PULMONARY DISEASE, UNSPECIFIED SNOMED Code(s): 06559797 (5) Intertrochanteric fracture of right hip Current Visit: Yes Status: Acute Code(s): S72.141A - DISPLACED INTERTROCHANTERIC FRACTURE OF RIGHT FEMUR, INIT SNOMED Code(s): 300039323 (6) Fall Current Visit: Yes Status: Acute Code(s): W19.XXXA - UNSPECIFIED FALL, INITIAL ENCOUNTER SNOMED Code(s): 0654181 Plan: The clinical and x-ray findings were discussed with the patient. The case was discussed with Dr. Guillory. Treatment options were discussed and surgical intervention is recommended. We discussed the surgical plan as well as the expected postoperative course. Risks and benefits were reviewed including (but not limited to) the risks of infection, bleeding, blood clots, delayed or nonunion, anesthesia-related complications and possible need for additional chambers rgery. These will also be discussed with her public guardian as well. Questions were invited and answered. The patient expressed understanding and wishes to proceed with surgery. The patient will be kept on bedrest. Continue PRN pain management. NPO at midnight tonight. She is scheduled for a closed reduction with insertion of cephalomedullary nail of the right hip tomorrow afternoon. We will await pre-op clearance from internal medicine.
--- NOTE | 2023-11-25 12:47 | P.CONS ---
History of Present Illness - Reason for Consult Consult date: 11/25/23 Medical clearance - Chief Complaint S/p fall - History of Present Illness * 83-year-old patient with past medical history significant for coronary artery disease, history of cardiac catheterization, history of CVA/TIA, COPD, heart failure with preserved ejection fraction, hypertension, hyperlipidemia, history of seizure disorder, mild cognitive impairment presents to the emergency department after a fall. Workup initiated in ER included CBC which showed WBC count of 9.5 hemoglobin 11 hematocrit 33 platelet 281. 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 A chest x-ray was obtained which was negative for fracture no lung volumes were noted * Internal medicine team was contacted to evaluate preoperatively and give medical clearance/ RISK stratification REVIEW OF SYSTEMS: S/p fall, right hip pain CONSTITUTIONAL: No fever, no malaise, no fatigue. HEENT: No recent visual problems or hearing problems. Denied any sore throat. CARDIOVASCULAR: No chest pain, orthopnea, PND, no palpitations, no syncope. PULMONARY: No shortness of breath, no cough, no hemoptysis. GASTROINTESTINAL: No diarrhea, no nausea, no vomiting, no abdominal pain. NEUROLOGICAL: No headaches, no weakness, no numbness. HEMATOLOGICAL: Denies any bleeding or petechiae. GENITOURINARY: Denies any burning micturition, frequency, or urgency. MUSCULOSKELETAL/RHEUMATOLOGICAL: S/p fall, right hip pain ENDOCRINE: Denies any polyuria or polydipsia. PHYSICAL EXAMINATION: GENERAL: The patient is alert and oriented x3, not in any acute distress. Well developed, well nourished. HEENT: Pupils are round and equally reacting to light. EOMI. CARDIOVASCULAR: S1 and S2 present. No murmurs, rubs, or gallops. PULMONARY: Chest is clear to auscultation, no wheezing or crackles. ABDOMEN: Soft, nontender, nondistended, normoactive bowel sounds. No palpable organomegaly. MUSCULOSKELETAL: Right hip deformity, swelling range of motion limited EXTREMITIES: No cyanosis, clubbing, or pedal edema. NEUROLOGICAL: Gross neurological examination did not reveal any focal deficits. Past Medical History Past Medical History: Asthma, Coronary Artery Disease (CAD), Heart Failure, COPD, CVA/TIA, GERD/Reflux, Hyperlipidemia, Hypertension, Myocardial Infarction ([place]), Seizure Disorder Additional Past Medical History / Comment(s): Headaches Last Myocardial Infarction Date:: unknown History of Any Multi-Drug Resistant Organisms: None Reported Past Surgical History: Appendectomy, Section, Cholecystectomy, Heart Catheterization, Hysterectomy, Orthopedic Surgery, Tonsillectomy Additional Past Surgical History / Comment(s): Cataracts Past Anesthesia/Blood Transfusion Reactions: Unable to Obtain Past Psychological History: Anxiety Smoking Status: Never smoker Past Alcohol Use History: None Reported Past Drug Use History: None Reported - Past Family History familiy Family Medical History: Unable to Obtain Medications and Allergies Home Medications Medication Instructions Recorded Confirmed Type Multivitamins, Thera [Multivitamin 1 tab PO DAILY@0912/31/21 11/25/23 History (formulary)] Primidone [Mysoline] 50 mg PO TID@0900,1300,209912/31/21 11/25/23 History Acetaminophen Tab [Tylenol] 500 mg PO Q6HR PRN 04/16/22 11/25/23 History Aspirin EC [Ecotrin Low Dose] 81 mg PO DAILY@0904/16/22 11/25/23 History Atorvastatin [Lipitor] 40 mg PO HS@209904/16/22 11/25/23 History Fluticasone Nasal [place] [Flonase 1 spray EA NOSTRIL DAILY@89904/16/22 11/25/23 History Nasal [place]] Pantoprazole [Protonix] 40 mg PO DAILY@0604/16/22 11/25/23 History Propylene Glycol/Peg 400/Pf 1 drop BOTH EYES Q15M PRN 04/16/22 11/25/23 History [Systane 0.3-0.4% Oph Dropperette] Sertraline [Zoloft] 25 mg PO DAILY@0900 04/16/22 11/25/23 History Divalproex Sodium [Depakote] 500 mg PO HS@209904/21/22 11/25/23 History Divalproex [Depakote] 250 mg PO BID@0900,1300 05/11/22 11/25/23 History Nitroglycerin Sl Tabs [Nitrostat] 0.4 mg SUBLINGUAL Q5M PRN 05/11/22 11/25/23 History Ascorbic Acid [Vitamin C] 500 mg PO DAILY@0900 09/27/22 11/25/23 History Thiamine [Vitamin B-1] 50 mg PO DAILY@0900 09/27/22 11/25/23 History ALPRAZolam [Xanax] 0.25 mg PO HS@209904/30/23 11/25/23 History Carboxymethylcellulose Sodium 1 drop BOTH EYES BID@0900,209904/30/23 11/25/23 History [Refresh Tears] Clotrimazole/Betameth Cream 1 applic TOPICAL BID 04/30/23 11/25/23 History [Lotrisone] Docusate [Colace] 100 mg PO BID@0900,209904/30/23 11/25/23 History Metoprolol Tartrate [Lopressor] 50 mg PO BID@899,2099 #60 tab 05/02/23 11/25/23 Rx Bumetanide [Bumex] 1 mg PO BID@0600,1300 11/25/23 11/25/23 History Bumetanide [Bumex] 1 mg PO DAILY PRN 11/25/23 11/25/23 History cycloSPORINE 0.05% OPHTH SOLN 1 applicator BOTH EYES Q12H 11/25/23 11/25/23 History [Restasis] lisinopriL [Zestril] 2.5 mg PO DAILY@0900 11/25/23 11/25/23 History Allergies Allergy/AdvReac Type Severity Reaction Status Date / Time aspirin Allergy Unknown Verified 11/25/23 10:09 Iodinated Contrast Media Allergy Unknown Verified 11/25/23 10:09 lanolin Allergy Unknown Verified 11/25/23 10:09 Penicillins Allergy Unknown Verified 11/25/23 10:09 latex AdvReac Rash/Hives Verified 11/25/23 10:09 Physical Exam Vitals: Vital Signs Temp Pulse Resp BP Pulse Ox 11/25/23 08:35 70 18 170/80 97 11/25/23 07:51 97.6 F 74 18 170/91 93 L Intake and Output 0211/25/23 11/25/23 22:59 06:59 14:59 Other: Weight 83.915 kg Results CBC & Chem 7: 11/25/23 08:27 11/25/23 08:27 Labs: Abnormal Lab Results - Last 24 Hours (Table) 11/25/23 11/25/23 11/25/23 Range/Units 08:27 08:27 08:27 RBC 3.53 L (3.80-5.40) m/uL Hgb 11.0 L (11.4-16.0) gm/dL Hct 33.0 L (34.0-46.0) % APTT 20.3 L (22.0-30.0) sec Sodium 133 L (137-145) mmol/L Glucose 106 H (74-99) mg/dL Total Protein 6.2 L (6.3-8.2) g/dL Albumin 3.4 L (3.5-5.0) g/dL Assessment and Plan Assessment: Assessment and plan * Preoperative risk stratification * S/p fall with right femur fracture * History of congestive heart failure with preserved ejection fraction * History of nonobstructive coronary artery disease with a negative stress test in April 2023 * Hyperlipidemia * History of mild pulmonary hypertension * In regards to preoperative evaluation, patient remains at moderate risk second misa to underlying cardiac comorbidities. However benefit of surgery supersedes the risks. Okay to proceed with surgery for hip fracture repair * In regards to s/p fall, patient admitted under orthopedic, proceed with surgical intervention * In regards to history of congestive heart failure Home medications to be confirmed and reconciled * Patient admitted under orthopedic service with medicine consultation
--- NOTE | 2023-11-25 14:19 | XR ---
EXAMINATION TYPE: XR femur RT DATE OF EXAM: 11/25/2023 1:59 PM CLINICAL INDICATION:Female, 83 years old with history of right IT fracture; [facility] COMPARISON: Same day radiograph. TECHNIQUE: XR femur RT examined in Frontal and lateral projections. FINDINGS/IMPRESSION: * Intertrochanteric fracture with varus deformity of the right proximal femur with fragment involvin g the lesser trochanter. The bony pelvis appears intact. 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 * Atherosclerosis of the arterial vasculature. Moderate degeneration changes of the right knee.
[2023-11-25] MEDS: MORPHINE SULFATE 4 MG/ML SYRINGE IV PRN (18:28)
[2023-11-25] MEDS: KETOROLAC 15 MG/ML 1 ML VIAL IVP PRN (19:37)
[2023-11-25] MEDS ORDERED: ACETAMINOPHEN TAB 500 MG TAB PO PRN (19:39)
[2023-11-25] MEDS ORDERED: ARTIFICIAL TEARS-HYPROMELLOSE DROPS 15 ML BTL BOTH EYES PRN (19:39)
[2023-11-25] MEDS ORDERED: NITROGLYCERIN SL TABS 0.4 MG TAB SUBLINGUAL PRN (19:39)
[2023-11-25] MEDS: DIVALPROEX 500 MG TABLET.DR PO SCH (20:41)
[2023-11-25] MEDS: ATORVASTATIN 40 MG TAB PO SCH (20:41)
[2023-11-25] MEDS: cycloSPORINE 0.05% OPHTH 0.4 ML DROPERETTE BOTH EYES SCH (20:42)
[2023-11-25] MEDS: METOPROLOL TARTRATE 50 MG TAB PO SCH (20:42)
[2023-11-25] MEDS: PRIMIDONE 50 MG TAB PO SCH (20:42)
[2023-11-25] MEDS: ALPRAZolam 0.25 MG TAB PO SCH (20:42)
[2023-11-25 22:28] LABS: Appearance,Urine Clear (Clear); Bilirubin,Urine Negative (Negative); Blood,Urine Negative (Negative); Color,Urine Yellow; Glucose,Urine (UA) Negative (Negative); Ketones,Urine Negative (Negative); Leukocyte Esterase,Urine Negative (Negative); Nitrite,Urine Negative (Negative); PH, Urine 5.5 (5.0-8.0); Protein,Urine Trace (Negative); Specific Gravity,Urine 1.016 (1.001-1.035)
[2023-11-26] MEDS: PANTOPRAZOLE 40 MG TABLET PO SCH (05:55)
[2023-11-26] MEDS: BUMETANIDE 1 MG TAB PO SCH (05:55)
[2023-11-26] MEDS: THIAMINE 100 MG TAB PO SCH (09:25)
[2023-11-26] MEDS: SERTRALINE 25 MG TAB PO SCH (09:26)
[2023-11-26] MEDS: DIVALPROEX 250 MG TABLET.DR PO SCH (09:26)
[2023-11-26] MEDS: FLUTICASONE 50MCG/SPRAY NASAL 16GM EA NOSTRIL SCH (09:26)
[2023-11-26 11:29] LABS: Basophils # (A) 0.01 X 10*3/uL (0.00-0.10); Basophils % (A) 0.2 %; Eosinophils # (A) 0 X 10*3/uL (0.04-0.35); Eosinophils % (A) 0 %; HCT 25.2 % (37.2-46.3); HGB 8.3 g/dL (12.0-15.0); Lymphocytes # (A) 1.09 X 10*3/uL (0.90-5.00); Lymphocytes % (A) 17.9 %; MCHC 32.9 g/dL (32.0-37.0); Mean Platelet Volume 10.2 FL (9.5-12.2); Monocytes # (A) 0.65 X 10*3/uL (0.20-1.00); Monocytes % (A) 10.7 %; NRBC Per 100 WBC 0 X 10*3/uL (0.00-0.01); Neutrophils # (A) 4.31 X 10*3/uL (1.80-7.70); Neutrophils % (A) 70.9 %; Platelet Count 224 X 10*3/uL (140-440); RBC 2.68 X 10*6/uL (4.10-5.20); RDW 14.2 % (11.5-14.5); WBC 6.08 X 10*3/uL (4.50-10.00)
[2023-11-26 11:34] LABS: ALT 279 U/L (8-44); AST 341 U/L (13-35); Albumin 3.1 g/dL (3.8-4.9); Albumin/Globulin Ratio 1.48 Ratio (1.60-3.17); Alkaline Phosphatase 131 U/L (41-126); BUN/Creat Ratio 18.89 Ratio (12.00-20.00); Calcium 8.6 mg/dL (8.7-10.3); Carbon Dioxide 26.7 mmol/L (21.6-31.8); Chloride 104 mmol/L (96-109); Globulin 2.1 g/dL (1.6-3.3); Glucose 93 mg/dL (70-110); Magnesium 1.8 mg/dL (1.5-2.4); Phosphorus 4.2 mg/dL (2.4-5.1); Potassium 4.7 mmol/L (3.5-5.5); Sodium 140 mmol/L (135-145); Total Bilirubin 0.5 mg/dL (0.3-1.2); Total Protein 5.2 g/dL (6.2-8.2)
[2023-11-26] MEDS: ASPIRIN 81 MG PO SCH (11:55)
[2023-11-26 12:14] LABS: Basophils % (A) 0 %; Eosinophils # (A) 0.1 k/uL (0-0.7); Eosinophils % (A) 1 %; HCT 24.8 % (34.0-46.0); Lymphocytes # (A) 1.2 k/uL (1.0-4.8); Lymphocytes % (A) 19 %; MCH 31.8 pg (25.0-35.0); MCHC 33.3 g/dL (31.0-37.0); MCV 95.5 fL (80.0-100.0); Mean Platelet Volume 7.7; Monocytes # (A) 0.5 k/uL (0-1.0); Monocytes % (A) 8 %; Neutrophils # (A) 4.6 k/uL (1.3-7.7); Neutrophils % (A) 70 %; Platelet Count 217 k/uL (150-450); RBC 2.59 m/uL (3.80-5.40); RDW 13.7 % (11.5-15.5); WBC 6.5 k/uL (3.8-10.6)
[2023-11-26 12:18] LABS: ALT 270 U/L (4-34); AST 363 U/L (14-36); African American GFR (CKD) 72 (>60 ml/min/1.73 sqM); Albumin 2.6 g/dL (3.5-5.0); Albumin/Globulin Ratio 1.1; Alkaline Phosphatase 122 U/L (38-126); Anion Gap 2 mmol/L; Blood Urea Nitrogen 21 mg/dL (7-17); Calcium 8.1 mg/dL (8.4-10.2); Carbon Dioxide 27 mmol/L (22-30); Chloride 106 mmol/L (98-107); Globulin 2.4 g/dL; Glucose 92 mg/dL (74-99); HGB 8.2 gm/dL (11.4-16.0); Non-African American GFR(CKD) 62 (>60 ml/min/1.73 sqM); Potassium 3.9 mmol/L (3.5-5.1); Sodium 135 mmol/L (137-145); Total Bilirubin 0.8 mg/dL (0.2-1.3)
--- NOTE | 2023-11-26 12:36 | P.PN ---
Subjective Progress Note Date: 11/26/23 * 83-year-old patient with past medical history significant for coronary artery disease, history of cardiac catheterization, history of CVA/TIA, COPD, heart failure with preserved ejection fraction, hypertension, hyperlipidemia, history of seizure disorder, mild cognitive impairment presents to the emergen cy department after a fall. Workup initiated in ER included CBC which showed WBC count of 9.5 hemoglobin 11 hematocrit 33 platelet 281. 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 A chest x-ray was obtained which was negative for fracture no lung volumes were noted * Internal medicine team was contacted to evaluate preoperatively and give medical clearance/ RISK stratification * 11/26/2023: Patient seen and evaluated bedside, during evaluation patient is awake and alert, patient does complain of right hip pain, plan for surgical intervention scheduled for today. Liver profile reviewed, patient denies abdominal pain. Ultrasound right upper quadrant ordered REVIEW OF SYSTEMS: S/p fall, right hip pain CONSTITUTIONAL: No fever, no malaise, no fatigue. HEENT: No recent visual problems or hearing problems. Denied any sore throat. CARDIOVASCULAR: No chest pain, orthopnea, PND, no palpitations, no syncope. PULMONARY: No shortness of breath, no cough, no hemoptysis. GASTROINTESTINAL: No diarrhea, no nausea, no vomiting, no abdominal pain. NEUROLOGICAL: No headaches, no weakness, no numbness. HEMATOLOGICAL: Denies any bleeding or petechiae. GENITOURINARY: Denies any burning micturition, frequency, or urgency. MUSCULOSKELETAL/RHEUMATOLOGICAL: S/p fall, right hip pain ENDOCRINE: Denies any polyuria or polydipsia. PHYSICAL EXAMINATION: GENERAL: The patient is alert and oriented x3, not in any acute distress. Well developed, well nourished. HEENT: Pupils are round and equally reacting to light. EOMI. CARDIOVASCULAR: S1 and S2 present. No murmurs, rubs, or gallops. PULMONARY: Chest is clear to auscultation, no wheezing or crackles. ABDOMEN: Soft, nontender, nondistended, normoactive bowel sounds. No palpable organomegaly. MUSCULOSKELETAL: Right hip deformity, swelling range of motion limited EXTREMITIES: No cyanosis, clubbing, or pedal edema. NEUROLOGICAL: Gross neurological examination did not reveal any focal deficits. Objective - Vital Signs Vital signs: Vital Signs Temp 99.1 F 11/26/23 11:34 Pulse 74 11/26/23 11:34 Resp 12 11/26/23 11:34 BP 93/52 11/26/23 11:34 Pulse Ox 92 L 11/26/23 11:34 FiO2 Intake & Output 11/25/23 11/26/23 11/26/23 18:59 06:59 18:59 Intake Total 480 Output Total 3700 Balance -3220 Weight 83.915 kg Intake: Intake, IV Titration 240 Amount Sodium Chloride 0.9% 1, 240 000 ml @ 20 mls/hr IV . Q24H [facility] Rx#:[id number] Oral 240 Output: Urine 3700 Uretheral ([place]) 2000 Other: Voiding Method Indwelling Catheter - Labs CBC & Chem 7: 11/26/23 11:58 11/26/23 11:58 Labs: Abnormal Lab Results - Last 24 Hours (Table) 11/25/23 11/26/23 11/26/23 Range/Units 21:30 06:22 06:22 RBC 2.68 L (4.10-5.20) X 10*6/uL Hgb 8.3 L (12.0-15.0) g/dL Hct 25.2 L (37.2-46.3) % Eosinophils # 0 L (0.04-0.35) X 10*3/uL Sodium (137-145) mmol/L BUN (7-17) mg/dL Calcium 8.6 L (8.7-10.3) mg/dL AST 341 H (13-35) U/L ALT 279 H (8-44) U/L Alkaline Phosphatase 131 H (41-126) U/L Total Protein 5.2 L (6.2-8.2) g/dL Albumin 3.1 L (3.8-4.9) g/dL Albumin/Globulin Ratio 1.48 L (1.60-3.17) Ratio Urine Protein Trace H (Negative) 11/26/23 11/26/23 Range/Units 11:58 11:58 RBC 2.59 L (4.10-5.20) X 10*6/uL Hgb 8.2 L D (12.0-15.0) g/dL Hct 24.8 L (37.2-46.3) % Eosinophils # (0.04-0.35) X 10*3/uL Sodium 135 L (137-145) mmol/L BUN 21 H (7-17) mg/dL Calcium 8.1 L (8.7-10.3) mg/dL AST 363 H (13-35) U/L ALT 270 H (8-44) U/L Alkaline Phosphatase (41-126) U/L Total Protein 5.0 L (6.2-8.2) g/dL Albumin 2.6 L (3.8-4.9) g/dL Albumin/Globulin Ratio (1.60-3.17) Ratio Urine Protein (Negative) Assessment and Plan Assessment: Assessment and plan * Preoperative risk stratification * S/p fall with right femur fracture * History of congestive heart failure with preserved ejection fraction * History of nonobstructive coronary artery disease with a negative stress test in April 2023 * Hyperlipidemia * History of seizure disorder * History of mild pulmonary hypertension * In regards to preoperative evaluation, patient remains at moderate risk secondary to underlying cardiac comorbidities. However benefit of surgery supersedes the risks. Okay to proceed with surgery for hip fracture repair * In regards to s/p fall, patient admitted under orthopedic, proceed with surgical intervention * In regards to history of congestive heart failure, continue Bumex, lisinopril and metoprolol * Regards to history of seizure disorder continue patient on Depakote * In regards to transaminitis, ultrasound right upper quadrant ordered Lipitor placed on hold * Patient admitted under orthopedic service with medicine consultation
[2023-11-26] MEDS: NYSTATIN 100,000 UNIT/GM POWD 15 GM TOPICAL SCH (12:39)
[2023-11-26] MEDS: IV FLUID CONTINUATION 1,000 ML IV ONE (16:34)
[2023-11-26 16:45] LABS: Glucose,Whole Blood 98 mg/dL (70-110)
[2023-11-26] MEDS: ONDANSETRON 4 MG/2 ML VIAL IVP PRN (16:58)
[2023-11-26] MEDS: DEXAMETHASONE SOD PHOSPHATE 4 MG/ML 1 ML VIAL IVP ONE (17:00)
[2023-11-26] MEDS: fentaNYL (PF) 50 MCG/ML 2 ML AMP IVP ONE ×2 (17:02→17:05)
[2023-11-26] MEDS ORDERED: PROPOFOL 10 MG/ML 20 ML VIAL IV ONE (18:00)
[2023-11-26] MEDS ORDERED: NEOSTIGMINE 1 MG/ML 10 ML VIAL ONE (18:00)
[2023-11-26] MEDS ORDERED: ROCURONIUM 10 MG/ML (5 ML VIAL) IV ONE (18:00)
[2023-11-26] MEDS ORDERED: fentaNYL (PF) 50 MCG/ML 2 ML AMP ONE (18:00)
[2023-11-26] MEDS ORDERED: GLYCOPYRROLATE 0.2 MG/ML 2 ML VIAL ONE (18:00)
[2023-11-26] MEDS ORDERED: LIDOCAINE 1% INJ 10MG/ML (20 ML MDV) ONE (18:00)
[2023-11-26] MEDS ORDERED: SUCCINYLCHOLINE CHLORIDE 200 MG/10 ML VIAL IV ONE (18:00)
[2023-11-26] MEDS ORDERED: NALOXONE 0.4 MG/ML 1 ML VIAL IV PRN (19:37)
--- NOTE | 2023-11-26 19:37 | P.OP ---
Date of Procedure: 11/26/23 Preoperative Diagnosis: 1. Right intertrochanteric hip fracture 2. Heart failure 3. Severe bilateral lower extremity edema 4. Coronary artery disease Postoperative Diagnosis: Same Procedure(s) Performed: Operative fixation of right intertrochanteric hip fracture with short intramedullary hip screw Anesthesia: MYA Surgeon: Charli Guillory Estimated Blood Loss (ml): 200 Pathology: none sent Condition: stable Disposition: PACU Indications for Procedure: I met with the patient and their family preoperatively to discuss their injury and treatment options. They have an extra-capsular, intertrochanteric hip fracture and my recommendation was to stabilize the fracture with an intramedullary hip screw to facilitate early mobilization. We discussed the potential risks and complications of this surgical procedure including but certainly not limited to risks from anesthesia, superficial infection, deep infection, fracture nonunion, fracture malunion, hardware failure including broken hardware, varus collapse with lag screw cut out of the femoral head, progression of hip arthritis, limb length discrepancy, symptomatic hardware, need for further surgery including hardware removal and conversion to arthroplasty, DVT, PE, acute coronary event, pressure ulcers, urinary tract infection, failure to thrive, an inability to regain preinjury level of function, and possibly . The patient and their family understand these potential complications and also awknowledge that other less common complications are possible. They provided both their verbal and written consent to go forward with operative fixation of their hip fracture with an intramedullary hip screw. Description of Procedure: The patient was identified in preoperative holding and the correct operative extremity was marked with my initials. I reviewed the consent form with the patient and their family and all of their questions were answered. The patient was then brought back to the operating room by anesthesia. Anesthesia, preoperative antibiotics, and tranexamic acid were given by the anesthesia team while on the [facility]. Both ankles were padded with webril and boots for the [place] table were applied. The patient was then carefully transferred onto the [place] table. A perineal post was immediately placed. The contralateral arm was secured on a well-padded arm saavedra. The ipsilateral arm was draped across the chest and secured with a pillow, foam, and paper tape to allow access to the proximal femur. Nonsterile drapes were applied to the operative extremity. The height of the table was elevated and the contralateral extremity was dropped towards the floor to facilitate imaging. A timeout was performed identifying the correct patient, operative extremity, and procedure. Fluoroscopy was brought in to assess the fracture. A provisional reduction was performed using longitudinal traction, adduction, and internal rotation. An AP and lateral view were obtained to assess the reduction. The operative extremity was then prepped and draped in the standard sterile fashion. A straight incision was made at the tip of the greater trochanter and extended proximally for 3 cm. Skin and subcutaneous tissues were incised sharply. The underlying fascia was incised in line with the skin incision. An awl was placed just medial to the tip of the greater trochanter on the AP view and colinear with the canal on the lateral view. A 3.2 mm guide pin was then advanced into the proximal femur. The position of the guidepin was verified with fluoroscopy. An opening reamer and soft tissue cannula were placed over the guidepin and used to open the proximal femur to the level of the lesser trochanter. The 3.2 mm guide pin and opening reamer were removed. A short gamma nail was dispensed, hooked up to the targeting arm and I verified that the trochar through the targeting arm lined up with the slots on the nail. The nail was then impacted into the proximal femur until the appropriate depth had been reached. A small stab incision was made over the lateral aspect of the femur using the targeting arm as a reference for the lag screw. Incision was carried down to the skin and fascia down to the lateral cortex of the femur. The trocar was then placed up to the lateral cortex of the femur and a guidepin was placed in the low center position on the AP view and centered in the femoral head on the lateral view. Once the position of the guidewire was verified, we reamed to appropriate depth and placed a lag screw over the guidewire and into the femoral head. The position of the lag screw was assessed with fluoroscopy. The guidewire was then removed from the femoral head. The set screw was placed proximally, brought fully down and then released a quarter turn to allow compression. A final stab incision was made over the lateral femur at the site of the distal interlocking screw, again using the targeting arm as a reference. The trocar and sleeve were placed to the lateral cortex of the femur. We then drilled and placed a distal interlocking screw. Final fluoroscopic images were taken showing excellent reduction of the fracture and appropriate position of the implants. All wounds were thoroughly irrigated and closed in layers. Sterile dressings were applied. The drapes were taken down, the patient was transferred off the [place] table, and was brought to recovery having tolerated the procedure well. PLAN: The patient can weight-bear as tolerated on their operative extremity. 2 doses of postoperative antibiotics. DVT prophylaxis with aspirin 81 mg twice a day starting the day of surgery. Dressing change on postoperative day #2. Appreciate Internal Medical assistance with perioperative medical management. Discharge planning in process.
--- NOTE | 2023-11-26 20:13 | XR ---
EXAMINATION TYPE: XR Hip Complete RT, FL guidance operating room DATE OF EXAM: 11/26/2023 Comparison: None Clinical History: 83-year-old female RT HIP NAIL Findings: RIGHT HIP IT NAIL. FL TIME 2 MIN 36.8 SECONDS[address] DAP 11.[address] GUO. 12 IMAGES SENT INTO PAC S. Impression: Intraoperative fluoroscopy as above.
[2023-11-26 20:56] LABS: Basophils % (A) 0 %; Eosinophils % (A) 0 %; HCT 24.6 % (34.0-46.0); Lymphocytes # (A) 1.5 k/uL (1.0-4.8); Lymphocytes % (A) 13 %; MCH 31.5 pg (25.0-35.0); MCHC 32.5 g/dL (31.0-37.0); MCV 96.9 fL (80.0-100.0); Mean Platelet Volume 8.3; Monocytes # (A) 0.7 k/uL (0-1.0); Monocytes % (A) 6 %; Neutrophils # (A) 9.3 k/uL (1.3-7.7); Neutrophils % (A) 80 %; Platelet Count 219 k/uL (150-450); RBC 2.53 m/uL (3.80-5.40); RDW 13.7 % (11.5-15.5); WBC 11.7 k/uL (3.8-10.6)
--- NOTE | 2023-11-26 21:36 | US ---
EXAMINATION TYPE: US abdomen limited DATE OF EXAM: 11/26/2023 COMPARISON: 05/14/2022 CLINICAL INDICATION: Female, 83 years old with history of Evaluate liver and gallbladder; GB surgical ly absent. TECHNIQUE: Multiple sonographic images of the right upper quadrant are obtained. FINDINGS: EXAM MEASUREMENTS: Liver Length: 18.5 cm CBD: 0.9 cm Right Kidney: 9.4 x 4.9 x 3.8 cm Pancreas: Head and tail obscured by overlying bowel gas Liver: Appears enlarged in size. Possible intrahepatic biliary dilatation. Gallbladder: Surgically absent Evidence for sonographic Austin's sign: neg CBD: wnl Right Kidney: Inferior obscured by overlying bowel gas. Medial mid hypoechoic lesion = 1.6 x 1.4 x 1.3 cm. Mid echogenic focus = 0.8 cm. IMPRESSION: 1. No evidence for acute process. 2. Right renal cyst.
--- NOTE | 2023-11-27 07:41 | P.PN ---
Subjective Patient appears to be doing well this morning. Objective - Vital Signs Vital signs: Vital Signs Temp 99.1 F 11/27/23 01:14 Pulse 99 11/27/23 01:14 Resp 16 11/27/23 01:14 BP 108/60 11/27/23 01:14 Pulse Ox 97 11/27/23 01:14 FiO2 Intake & Output 11/26/23 11/27/23 11/27/23 18:59 06:59 18:59 Intake Total 450 590 Output Total 600 400 Balance -150 190 Intake: IV 450 0 Oral 590 Output: Urine 600 200 Estimated Blood Loss 200 Other: Voiding Method Indwelling Catheter Indwelling Catheter - Exam The patient is sleeping when I entered the room. She awakens is able to answer questions. Dressings over the lateral aspect of her right leg are intact. Both legs are swollen consistent with heart failure. Her right leg is warm and well perfused. She is able to actively plantarflex and dorsiflex her ankle and her toes. - Labs CBC & Chem 7: 11/26/23 20:38 11/26/23 11:58 Labs: Abnormal Lab Results - Last 24 Hours (Table) 11/26/23 11/26/23 11/26/23 Range/Units 06:22 06:22 11:58 WBC (3.8-10.6) k/uL RBC 2.68 L 2.59 L (4.10-5.20) X 10*6/uL Hgb 8.3 L 8.2 L D (12.0-15.0) g/dL Hct 25.2 L 24.8 L (37.2-46.3) % Neutrophils # (1.3-7.7) k/uL Eosinophils # 0 L (0.04-0.35) X 10*3/uL Sodium (137-145) mmol/L BUN (7-17) mg/dL Calcium 8.6 L (8.7-10.3) mg/dL AST 341 H (13-35) U/L ALT 279 H (8-44) U/L Alkaline Phosphatase 131 H (41-126) U/L Total Protein 5.2 L (6.2-8.2) g/dL Albumin 3.1 L (3.8-4.9) g/dL Albumin/Globulin Ratio 1.48 L (1.60-3.17) Ratio 11/26/23 11/26/23 Range/Units 11:58 20:38 WBC 11.7 H (3.8-10.6) k/uL RBC 2.53 L (4.10-5.20) X 10*6/uL Hgb 8.0 L (12.0-15.0) g/dL Hct 24.6 L (37.2-46.3) % Neutrophils # 9.3 H (1.3-7.7) k/uL Eosinophils # (0.04-0.35) X 10*3/uL Sodium 135 L (137-145) mmol/L BUN 21 H (7-17) mg/dL Calcium 8.1 L (8.7-10.3) mg/dL AST 363 H (13-35) U/L ALT 270 H (8-44) U/L Alkaline Phosphatase (41-126) U/L Total Protein 5.0 L (6.2-8.2) g/dL Albumin 2.6 L (3.8-4.9) g/dL Albumin/Globulin Ratio (1.60-3.17) Ratio Assessment and Plan Assessment: Postoperative day #1 status post right hip gamma nail for intertrochanteric hip fracture Multiple medical problems Plan: 1. Weight-bear as tolerated right lower extremity, up with assistance and a walker, mobilize out of bed to a chair is able 2. 2 doses postoperative antibiotics 3. DVT prophylaxis with aspirin 81 mg 2 times a day unless internal medicine would like stronger anticoagulation, no contraindications from an orthopedic sta ndpoint 4. Internal medicine for perioperative medical management 5. Leave surgical dressing in place 6. Discharge planning in process
[2023-11-27 08:28] LABS: HCT 20.3 % (37.2-46.3); HGB 6.6 g/dL (12.0-15.0); MCH 30.8 pg (27.0-32.0); MCHC 32.5 g/dL (32.0-37.0); MCV 94.9 FL (80.0-97.0); Mean Platelet Volume 10.2 FL (9.5-12.2); NRBC Per 100 WBC 0 X 10*3/uL (0.00-0.01); Platelet Count 182 X 10*3/uL (140-440); RBC 2.14 X 10*6/uL (4.10-5.20); RDW 14.2 % (11.5-14.5); WBC 7.66 X 10*3/uL (4.50-10.00)
[2023-11-27 09:02] LABS: ALT 159 U/L (8-44); AST 150 U/L (13-35); Albumin 2.8 g/dL (3.8-4.9); Albumin/Globulin Ratio 1.56 Ratio (1.60-3.17); Alkaline Phosphatase 101 U/L (41-126); BUN/Creat Ratio 18.36 Ratio (12.00-20.00); Blood Urea Nitrogen 20.2 mg/dL (9.0-27.0); Calcium 8.4 mg/dL (8.7-10.3); Carbon Dioxide 25.9 mmol/L (21.6-31.8); Chloride 104 mmol/L (96-109); Globulin 1.8 g/dL (1.6-3.3); Glucose 94 mg/dL (70-110); Potassium 4.8 mmol/L (3.5-5.5); Sodium 140 mmol/L (135-145); Total Bilirubin 0.3 mg/dL (0.3-1.2); Total Protein 4.6 g/dL (6.2-8.2)
[2023-11-27] MEDS: ENOXAPARIN 40 MG/0.4 ML SYRINGE SQ SCH (09:02)
[2023-11-27] MEDS: HYDROcodone/APAP 5-325MG 1 EACH TAB PO PRN (10:12)
--- NOTE | 2023-11-27 12:39 | P.PN ---
Subjective Progress Note Date: 11/27/23 * 83-year-old patient with past medical history significant for coronary artery disease, history of cardiac catheterization, history of CVA/TIA, COPD, heart failure with preserved ejection fraction, hypertension, hyperlipidemia, history of seizure disorder, mild cognitive impairment presents to the emergen cy department after a fall. Workup initiated in ER included CBC which showed WBC count of 9.5 hemoglobin 11 hematocrit 33 platelet 281. 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 A chest x-ray was obtained which was negative for fracture no lung volumes were noted * Internal medicine team was contacted to evaluate preoperatively and give medical clearance/ RISK stratification * 11/26/2023: Patient seen and evaluated bedside, during evaluation patient is awake and alert, patient does complain of right hip pain, plan for surgical intervention scheduled for today. Liver profile reviewed, patient denies abdominal pain. Ultrasound right upper quadrant ordered * 11/27/2023: Seen post operatively, Hb noted, 1 unit PRBC Given, Lovenox on hold , Aspirin on hold REVIEW OF SYSTEMS: S/p fall, right hip pain CONSTITUTIONAL: No fever, no malaise, no fatigue. HEENT: No recent visual problems or hearing problems. Denied any sore throat. CARDIOVASCULAR: No chest pain, orthopnea, PND, no palpitations, no syncope. PULMONARY: No shortness of breath, no cough, no hemoptysis. GASTROINTESTINAL: No diarrhea, no nausea, no vomiting, no abdominal pain. NEUROLOGICAL: No headaches, no weakness, no numbness. HEMATOLOGICAL: Denies any bleeding or petechiae. GENITOURINARY: Denies any burning micturition, frequency, or urgency. MUSCULOSKELETAL/RHEUMATOLOGICAL: S/p fall, right hip pain ENDOCRINE: Denies any polyuria or polydipsia. PHYSICAL EXAMINATION: GENERAL: The patient is alert and oriented x3, not in any acute distress. Well developed, well nourished. HEENT: Pupils are round and equally reacting to light. EOMI. CARDIOVASCULAR: S1 and S2 present. No murmurs, rubs, or gallops. PULMONARY: Chest is clear to auscultation, no wheezing or crackles. ABDOMEN: Soft, nontender, nondistended, normoactive bowel sounds. No palpable organomegaly. MUSCULOSKELETAL: Right hip deformity, Right Hip Surgery, Bandage in place EXTREMITIES: No cyanosis, clubbing, or pedal edema. NEUROLOGICAL: Gross neurological examination did not reveal any focal deficits. Objective - Vital Signs Vital signs: Vital Signs Temp 98 F 11/27/23 12:06 Pulse 76 11/27/23 12:16 Resp 16 11/27/23 12:16 BP 86/40 11/27/23 12:16 Pulse Ox 95 11/27/23 12:06 FiO2 Intake & Output 11/26/23 11/27/23 11/27/23 18:59 06:59 18:59 Intake Total 450 590 0 Output Total 600 400 Balance -150 190 0 Intake: IV 450 0 Oral 590 Blood Product 0 Unit 0 Output: Urine 600 200 Estimated Blood Loss 200 Other: Voiding Method Indwelling Catheter Indwelling Catheter - Labs CBC & Chem 7: 11/27/23 04:54 11/27/23 04:54 Labs: Abnormal Lab Results - Last 24 Hours (Table) 11/26/23 11/27/23 11/27/23 Range/Units 20:38 04:54 04:54 WBC 11.7 H (3.8-10.6) k/uL RBC 2.53 L 2.14 L (3.80-5.40) m/uL Hgb 8.0 L 6.6 A* (11.4-16.0) gm/dL Hct 24.6 L 20.3 L (34.0-46.0) % Neutrophils # 9.3 H (1.3-7.7) k/uL Est GFR (CKD-EPI) 50 L (>=60) Calcium 8.4 L (8.7-10.3) mg/dL AST 150 H (13-35) U/L ALT 159 H (8-44) U/L Total Protein 4.6 L (6.2-8.2) g/dL Albumin 2.8 L (3.8-4.9) g/dL Albumin/Globulin Ratio 1.56 L (1.60-3.17) Ratio Crossmatch 02/14/24 Range/Units 09:50 WBC (3.8-10.6) k/uL RBC (3.80-5.40) m/uL Hgb (11.4-16.0) gm/dL Hct (34.0-46.0) % Neutrophils # (1.3-7.7) k/uL Est GFR (CKD-EPI) (>=60) Calcium (8.7-10.3) mg/dL AST (13-35) U/L ALT (8-44) U/L Total Protein (6.2-8.2) g/dL Albumin (3.8-4.9) g/dL Albumin/Globulin Ratio (1.60-3.17) Ratio Crossmatch See Detail Assessment and Plan Assessment: Assessment and plan * Preoperative risk stratification POD 1 * S/p fall with right femur fracture s/p POD 1 Fracture repair * History of congestive heart failure with preserved ejection fraction * History of nonobstructive coronary artery disease with a negative stress test in April 2023 * Acute on Chronic Anemia * Hyperlipidemia * History of seizure disorder * History of mild pulmonary hypertension * In regards to preoperative evaluation, patient remains at moderate risk secondary to underlying cardiac comorbidities.s/p POD 1 * In regards to s/p fall, patient admitted under orthopedic * In regards to history of congestive heart failure, continue Bumex, lisinopril and metoprolol * Regards to history of seizure disorder continue patient on Depakote * In regards to transaminitis, ultrasound right upper quadrant ordered Lipitor placed on hold * In regards to anemia, 1 unit PRBC given , follow up cbc ordered , Lovenox on hold * Patient admitted under orthopedic service with medicine consultation
[2023-11-28] MEDS: HYDROmorphone 0.5 MG/0.5 ML SYRINGE IVP PRN (06:32)
[2023-11-28 10:16] LABS: HCT 21.1 % (37.2-46.3); HGB 7.1 g/dL (12.0-15.0); MCH 31.7 pg (27.0-32.0); MCHC 33.6 g/dL (32.0-37.0); MCV 94.2 FL (80.0-97.0); Mean Platelet Volume 10.3 FL (9.5-12.2); NRBC Per 100 WBC 0 X 10*3/uL (0.00-0.01); Platelet Count 178 X 10*3/uL (140-440); RBC 2.24 X 10*6/uL (4.10-5.20); RDW 14.3 % (11.5-14.5); WBC 7.84 X 10*3/uL (4.50-10.00)
[2023-11-28 10:43] LABS: Blood Urea Nitrogen 24.4 mg/dL (9.0-27.0); Calcium 8.3 mg/dL (8.7-10.3); Carbon Dioxide 25.3 mmol/L (21.6-31.8); Chloride 102 mmol/L (96-109); Glucose 88 mg/dL (70-110); Potassium 4.4 mmol/L (3.5-5.5); Sodium 138 mmol/L (135-145)
--- NOTE | 2023-11-28 11:09 | P.PN ---
Subjective Progress Note Date: 11/28/23 * 83-year-old patient with past medical history significant for coronary artery disease, history of cardiac catheterization, history of CVA/TIA, COPD, heart failure with preserved ejection fraction, hypertension, hyperlipidemia, history of seizure disorder, mild cognitive impairment presents to the emergen cy department after a fall. Workup initiated in ER included CBC which showed WBC count of 9.5 hemoglobin 11 hematocrit 33 platelet 281. 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 A chest x-ray was obtained which was negative for fracture no lung volumes were noted * Internal medicine team was contacted to evaluate preoperatively and give medical clearance/ RISK stratification * 11/26/2023: Patient seen and evaluated bedside, during evaluation patient is awake and alert, patient does complain of right hip pain, plan for surgical intervention scheduled for today. Liver profile reviewed, patient denies abdominal pain. Ultrasound right upper quadrant ordered * 11/27/2023: Seen post operatively, Hb noted, 1 unit PRBC Given, Lovenox on hold , Aspirin on hold * 11/28/2023: Patient seen and evaluated bedside, patient does complain of right hip pain, no hematoma noted, 1 unit of packed RBC ordered we will follow-up on H&H. Bumex and lisinopril placed on hold secondary to hypotension. Continue with pain control follow-up on liver profile for tomorrow. Patient will need discharge to subacute rehab REVIEW OF SYSTEMS: S/p fall, right hip pain CONSTITUTIONAL: No fever, no malaise, no fatigue. HEENT: No recent visual problems or hearing problems. Denied any sore throat. CARDIOVASCULAR: No chest pain, orthopnea, PND, no palpitations, no syncope. PULMONARY: No shortness of breath, no cough, no hemoptysis. GASTROINTESTINAL: No diarrhea, no nausea, no vomiting, no abdominal pain. NEUROLOGICAL: No headaches, no weakness, no numbness. HEMATOLOGICAL: Denies any bleeding or petechiae. GENITOURINARY: Denies any burning micturition, frequency, or urgency. MUSCULOSKELETAL/RHEUMATOLOGICAL: S/p fall, right hip pain ENDOCRINE: Denies any polyuria or polydipsia. PHYSICAL EXAMINATION: GENERAL: The patient is alert and oriented x3, not in any acute distress. Well developed, well nourished. HEENT: Pupils are round and equally reacting to light. EOMI. CARDIOVASCULAR: S1 and S2 present. No murmurs, rubs, or gallops. PULMONARY: Chest is clear to auscultation, no wheezing or crackles. ABDOMEN: Soft, nontender, nondistended, normoactive bowel sounds. No palpable organomegaly. MUSCULOSKELETAL: Right hip deformity, Right Hip Surgery, Bandage in place EXTREMITIES: No cyanosis, clubbing, or pedal edema. NEUROLOGICAL: Gross neurological examination did not reveal any focal deficits. Objective - Vital Signs Vital signs: Vital Signs Temp 98.5 F 11/28/23 07:07 Pulse 95 11/28/23 07:07 Resp 16 11/28/23 07:07 BP 96/54 11/28/23 07:07 Pulse Ox 92 L 11/28/23 07:07 FiO2 Intake & Output 11/27/23 11/28/23 11/28/23 18:59 06:59 18:59 Intake Total 600 590 Output Total 300 600 Balance 300 -10 Intake: Intake, IV Titration 290 Amount IV Fluid Continuation 1, 240 000 ml @ 0 mls/hr IV .STK -[facility] ONE Rx#:[id number] ceFAZolin 2 gm In Sodium 50 Chloride 0.9% 50 ml @ 100 mls/hr IVPB Q8HR [facility] Rx# :[id number] Oral 590 Blood Product 310 Rc As-1 Unit 310 [id number] Output: Urine 300 600 Other: Voiding Method Indwelling Catheter - Labs CBC & Chem 7: 11/28/23 06:22 11/28/23 06:22 Labs: Abnormal Lab Results - Last 24 Hours (Table) 11/27/23 11/28/23 11/28/23 Range/Units 09:50 06:22 06:22 RBC 2.24 L (4.10-5.20) X 10*6/uL Hgb 7.1 L (12.0-15.0) g/dL Hct 21.1 L (37.2-46.3) % Est GFR (CKD-EPI) 57 L (>=60) BUN/Creatinine Ratio 24.40 H (12.00-20.00) Ratio Calcium 8.3 L (8.7-10.3) mg/dL Crossmatch See Detail Assessment and Plan Assessment: Assessment and plan * S/p fall with right femur fracture s/p POD 2 Fracture repair * History of congestive heart failure with preserved ejection fraction * History of nonobstructive coronary artery disease with a negative stress test in April 2023 * Acute on Chronic Anemia , postoperative blood loss anemia * Hyperlipidemia * History of seizure disorder * History of mild pulmonary hypertension * In regards to preoperative evaluation, patient was considered moderate risk secondary to underlying cardiac comorbidities.s/p POD 2, continue to monitor * In regards to s/p fall, patient admitted under orthopedic * In regards to history of congestive heart failure, Bumex and lisinopril placed on hold secondary to hypotension, continue metoprolol * Regards to history of seizure disorder continue patient on Depakote * In regards to transaminitis, ultrasound right upper quadrant negative for acute hepatobiliary process, Lipitor placed on hold * In regards to anemia, Lovenox and aspirin placed on hold, 1 unit of packed RBC given 11/27, 1 unit ordered 11/28 * Patient admitted under orthopedic service with medicine consultation
--- NOTE | 2023-11-28 11:44 | P.PN ---
Subjective Progress Note Date: 11/28/23 Doing better today, particularly her pain is improved. Mirella CP/SOB. Objective - Vital Signs Vital signs: Vital Signs Temp 98.5 F 11/28/23 07:07 Pulse 95 11/28/23 07:07 Resp 16 11/28/23 07:07 BP 96/54 11/28/23 07:07 Pulse Ox 92 L 11/28/23 07:07 FiO2 Intake & Output 11/27/23 11/28/23 11/28/23 18:59 06:59 18:59 Intake Total 600 590 Output Total 300 600 Balance 300 -10 Intake: Intake, IV Titration 290 Amount IV Fluid Continuation 1, 240 000 ml @ 0 mls/hr IV .STK -[facility] Rx#:[id number] ceFAZolin 2 gm In Sodium 50 Chloride 0.9% 50 ml @ 100 mls/hr IVPB Q8HR [facility] Rx# :[id number] Oral 590 Blood Product 310 Rc As-1 Unit 310 [id number] Output: Urine 300 600 Other: Voiding Method Indwelling Catheter - Exam Sitting up in chair Alert and answers questions Dressings over thigh intact with minimal drainage or strikethrough Moderate swelling throughout both legs Moves anklle and toes up and down on both legs - Labs CBC & Chem 7: 11/28/23 06:22 11/28/23 06:22 Labs: Abnormal Lab Results - Last 24 Hours (Table) 11/27/23 11/28/23 11/28/23 Range/Units 09:50 06:22 06:22 RBC 2.24 L (4.10-5.20) X 10*6/uL Hgb 7.1 L (12.0-15.0) g/dL Hct 21.1 L (37.2-46.3) % Est GFR (CKD-EPI) 57 L (>=60) BUN/Creatinine Ratio 24.40 H (12.00-20.00) Ratio Calcium 8.3 L (8.7-10.3) mg/dL Crossmatch See Detail Assessment and Plan Assessment: POD#2 s/p right hip gamma nail Transfused pRBCS yesteday for Hgb <7 Multiple medical problems Plan: Continue treatment as outlined yesteday. WBAT as tolerated, up with assistance. Medical management per IM. Discharge planning in process.
[2023-11-28 19:51] LABS: Basophils % (A) 0 %; Eosinophils # (A) 0.2 k/uL (0-0.7); Eosinophils % (A) 2 %; HCT 26.7 % (34.0-46.0); HGB 9.3 gm/dL (11.4-16.0); Lymphocytes # (A) 1.3 k/uL (1.0-4.8); Lymphocytes % (A) 19 %; MCH 32.7 pg (25.0-35.0); MCHC 34.6 g/dL (31.0-37.0); MCV 94.3 fL (80.0-100.0); Mean Platelet Volume 7.9; Monocytes # (A) 0.4 k/uL (0-1.0); Monocytes % (A) 6 %; Neutrophils # (A) 4.9 k/uL (1.3-7.7); Neutrophils % (A) 71 %; Platelet Count 191 k/uL (150-450); RBC 2.84 m/uL (3.80-5.40); RDW 13.7 % (11.5-15.5); WBC 6.9 k/uL (3.8-10.6)
[2023-11-29 08:18] LABS: HGB 7.8 g/dL (12.0-15.0); MCH 31.5 pg (27.0-32.0); MCHC 33.9 g/dL (32.0-37.0); MCV 92.7 FL (80.0-97.0); Mean Platelet Volume 10.1 FL (9.5-12.2); NRBC Per 100 WBC 0 X 10*3/uL (0.00-0.01); Platelet Count 186 X 10*3/uL (140-440); RBC 2.48 X 10*6/uL (4.10-5.20); RDW 14.3 % (11.5-14.5); WBC 5.66 X 10*3/uL (4.50-10.00)
[2023-11-29 08:32] LABS: BUN/Creat Ratio 24.38 Ratio (12.00-20.00); Blood Urea Nitrogen 19.5 mg/dL (9.0-27.0); Carbon Dioxide 27.6 mmol/L (21.6-31.8); Chloride 101 mmol/L (96-109); Glucose 87 mg/dL (70-110); Potassium 4.9 mmol/L (3.5-5.5); Sodium 133 mmol/L (135-145)
[2023-11-29] MEDS: TAMSULOSIN 0.4 MG CAP.ER.24H PO SCH (18:04)
--- NOTE | 2023-11-30 09:03 | P.PN ---
Subjective Progress Note Date: 11/30/23 Principal diagnosis: Intertrochanteric fracture right hip. Status post closed reduction with insertion of intramedullary hip screw right hip. This is an 83-year-old female who is status post closed reduction with insertion of intertrochanteric nail of the right hip on 11/26/2023. She has complaint of some discomfort to her lateral hip and thigh. Otherwise pain is fairly well-c ontrolled. She has no complaint of nausea, vomiting or diarrhea. She states that she is not very hungry this morning. Objective - Vital Signs Vital signs: Vital Signs Temp 98.8 F 11/30/23 07:04 Pulse 91 11/30/23 07:04 Resp 20 11/30/23 07:04 BP 121/58 11/30/23 07:04 Pulse Ox 93 L 11/30/23 07:04 FiO2 Intake & Output 11/29/23 11/30/23 11/30/23 18:59 06:59 18:59 Intake Total 237 Output Total 400 1725 Balance -400 -1488 Intake: Oral 237 Output: Urine 400 1725 Uretheral (Kong) 400 Other: Voiding Method Indwelling Catheter Indwelling Catheter - Exam This is an 83-year-old female in no acute distress. She is alert and oriented to person and place. Exam of the right hip reveals some drainage on the proxima l incisional dressing. The distal dressings are clean and dry. She has full foot and ankle motion without difficulty or pain. Neurovascular status to the lower extremities is intact. - Labs CBC & Chem 7: 11/29/23 05:34 11/29/23 05:34 Assessment and Plan (1) Closed right hip fracture Current Visit: Yes Status: Acute Code(s): S72.001A - FRACTURE OF UNSP PART OF NECK OF RIGHT FEMUR, INIT SNOMED Code(s): 996765878 (2) Fall Current Visit: Yes Status: Acute Code(s): W19.XXXA - UNSPECIFIED FALL, INITIAL ENCOUNTER SNOMED Code(s): 7126829 (3) Intertrochanteric fracture of right hip Current Visit: Yes Status: Acute Code(s): S72.141A - DISPLACED INTERTROCHANTERIC FRACTURE OF RIGHT FEMUR, INIT SNOMED Code(s): 649848058 Plan: The clinical findings are discussed with the patient. We are awaiting transfer to inpatient rehab. Continue current care and physical therapy.
--- NOTE | 2023-11-30 21:49 | P.PN ---
Subjective Progress Note Date: 11/29/23 * 83-year-old patient with past medical history significant for coronary artery disease, history of cardiac catheterization, history of CVA/TIA, COPD, heart failure with preserved ejection fraction, hypertension, hyperlipidemia, history of seizure disorder, mild cognitive impairment presents to the emergen cy department after a fall. Workup initiated in ER included CBC which showed WBC count of 9.5 hemoglobin 11 hematocrit 33 platelet 281. 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 A chest x-ray was obtained which was negative for fracture no lung volumes were noted * Internal medicine team was contacted to evaluate preoperatively and give medical clearance/ RISK stratification Objective - Vital Signs Vital signs: Vital Signs Temp 98.0 F 11/29/23 12:32 Pulse 73 11/29/23 12:32 Resp 18 11/29/23 12:32 BP 108/60 11/29/23 12:32 Pulse Ox 98 11/29/23 12:32 FiO2 Intake & Output 11/28/23 11/29/23 11/29/23 18:59 06:59 18:59 Intake Total 310 235 Output Total 475 625 400 Balance -165 -390 -400 Intake: Oral 235 Blood Product 310 Rc As-1 Unit 310 [id number] Output: Urine 475 625 400 Other: Voiding Method Indwelling Catheter - Exam GENERAL: The patient is alert and oriented x3, not in any acute distress. Well developed, well nourished. HEENT: Pupils are round and equally reacting to light. EOMI. CARDIOVASCULAR: S1 and S2 present. No murmurs, rubs, or gallops. PULMONARY: Chest is clear to auscultation, no wheezing or crackles. ABDOMEN: Soft, nontender, nondistended, normoactive bowel sounds. No palpable organomegaly. MUSCULOSKELETAL: Right hip deformity, Right Hip Surgery, Bandage in place EXTREMITIES: No cyanosis, clubbing, or pedal edema. NEUROLOGICAL: Gross neurological examination did not reveal any focal deficits. - Labs CBC & Chem 7: 02/16/24 05:34 11/29/23 05:34 Labs: Abnormal Lab Results - Last 24 Hours (Table) 11/27/23 11/28/23 11/29/23 Range/Units 09:50 19:40 05:34 RBC 2.84 L 2.48 L (3.80-5.40) m/uL Hgb 9.3 L 7.8 L (11.4-16.0) gm/dL Hct 26.7 L 23.0 L (34.0-46.0) % Sodium (135-145) mmol/L BUN/Creatinine Ratio (12.00-20.00) Ratio Calcium (8.7-10.3) mg/dL Crossmatch See Detail 11/29/23 Range/Units 05:34 RBC (3.80-5.40) m/uL Hgb (11.4-16.0) gm/dL Hct (34.0-46.0) % Sodium 133 L (135-145) mmol/L BUN/Creatinine Ratio 24.38 H (12.00-20.00) Ratio Calcium 8.0 L (8.7-10.3) mg/dL Crossmatch Assessment and Plan Assessment: * S/p fall with right femur fracture s/p POD 2 Fracture repair * History of congestive heart failure with preserved ejection fraction * History of nonobstructive coronary artery disease with a negative stress test in April 2023 * Acute on Chronic Anemia , postoperative blood loss anemia * Hyperlipidemia * History of seizure disorder * History of mild pulmonary hypertension * In regards to preoperative evaluation, patient was considered moderate risk secondary to underlying cardiac comorbidities.s/p POD 2, continue to monitor * In regards to s/p fall, patient admitted under orthopedic * In regards to history of congestive heart failure, Bumex and lisinopril placed on hold secondary to hypotension, continue metoprolol * Regards to history of seizure disorder continue patient on Depakote * In regards to transaminitis, ultrasound right upper quadrant negative for acute hepatobiliary process, Lipitor placed on hold * In regards to anemia, Lovenox and aspirin placed on hold, 1 unit of packed RBC given 11/27, 1 unit ordered 11/28 * Patient admitted under orthopedic service with medicine consultation
--- NOTE | 2023-11-30 21:53 | P.PN ---
Subjective Progress Note Date: 11/30/23 * 83-year-old patient with past medical history significant for coronary artery disease, history of cardiac catheterization, history of CVA/TIA, COPD, heart failure with preserved ejection fraction, hypertension, hyperlipidemia, history of seizure disorder, mild cognitive impairment presents to the emergen cy department after a fall. Workup initiated in ER included CBC which showed WBC count of 9.5 hemoglobin 11 hematocrit 33 platelet 281. 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 A chest x-ray was obtained which was negative for fracture no lung volumes were noted * Internal medicine team was contacted to evaluate preoperatively and give medical clearance/ RISK stratification * 11/30/2023 Patient is seen and evaluated in room at bedside; discussed with nursing staff; no specific complaints reported Vital signs are reviewed and stable with temperature of 98.8, pulse 91, respiration 20 and blood pressure of 121/58 No new labs available for today Patient has been evaluated by PT/OT and is recommended skilled rehab Stable for discharge when arrangements are made Objective - Vital Signs Vital signs: Vital Signs Temp 99.3 F 11/30/23 20:00 Pulse 93 11/30/23 20:00 Resp 18 11/30/23 20:00 BP 122/60 11/30/23 20:00 Pulse Ox 94 L 11/30/23 20:00 FiO2 Intake & Output 11/30/23 11/30/23 12/01/23 06:59 18:59 06:59 Intake Total 237 Output Total 1725 750 Balance -1488 -750 Intake: Oral 237 Output: Urine 1725 750 Uretheral ([place]ong) 400 Other: Voiding Method Indwelling Catheter Indwelling Catheter - Exam GENERAL: The patient is alert and oriented x3, not in any acute distress. Well developed, well nourished. HEENT: Pupils are round and equally reacting to light. EOMI. CARDIOVASCULAR: S1 and S2 present. No murmurs, rubs, or gallops. PULMONARY: Chest is clear to auscultation, no wheezing or crackles. ABDOMEN: Soft, nontender, nondistended, normoactive bowel sounds. No palpable organomegaly. MUSCULOSKELETAL: Right hip deformity, Right Hip Surgery, Bandage in place EXTREMITIES: No cyanosis, clubbing, or pedal edema. NEUROLOGICAL: Gross neurological examination did not reveal any focal deficits. - Labs CBC & Chem 7: 11/29/23 05:34 11/29/23 05:34 Assessment and Plan Assessment: * S/p fall with right femur fracture s/p POD 2 Fracture repair * History of congestive heart failure with preserved ejection fraction * History of nonobstructive coronary artery disease with a negative stress test in April 2023 * Acute on Chronic Anemia , postoperative blood loss anemia * Hyperlipidemia * History of seizure disorder * History of mild pulmonary hypertension * In regards to preoperative evaluation, patient was considered moderate risk secondary to underlying cardiac comorbidities.s/p POD 2, continue to monitor * In regards to s/p fall, patient admitted under orthopedic * In regards to history of congestive heart failure, Bumex and lisinopril placed on hold secondary to hypotension, continue metoprolol * Regards to history of seizure disorder continue patient on Depakote * In regards to transaminitis, ultrasound right upper quadrant negative for acute hepatobiliary process, Lipitor placed on hold * In regards to anemia, Lovenox and aspirin placed on hold, 1 unit of packed RBC given 11/27, 1 unit ordered 11/28 * Patient admitted under orthopedic service with medicine consultation
--- NOTE | 2023-12-01 09:41 | P.PN ---
Subjective Progress Note Date: 12/01/23 Principal diagnosis: Intertrochanteric fracture right hip. Status post closed reduction with insertion of intramedullary hip screw right hip. This is an 83-year-old female who is status post closed reduction with insertion of intertrochanteric nail of the right hip on 11/26/2023. She is resting soundly. There are no reports of any new complaints or concerns. Objective - Vital Signs Vital signs: Vital Signs Temp 98.5 F 12/01/23 07:11 Pulse 86 12/01/23 07:11 Resp 18 12/01/23 07:11 BP 131/70 12/01/23 07:11 Pulse Ox 92 L 12/01/23 07:11 FiO2 Intake & Output 11/30/23 12/01/23 12/01/23 18:59 06:59 18:59 Output Total 750 900 Balance -750 -900 Output: Urine 750 900 Other: Voiding Method Indwelling Catheter Indwelling Catheter - Exam This is an 83-year-old female in no acute distress. She is resting soundly. Ex am of the right hip reveals some drainage on the proximal incisional dressing. The distal dressings are clean and dry. Distal extremities are warm and pink. Pedal pulses are +1/4 bilaterally. - Labs CBC & Chem 7: 11/29/23 05:34 11/29/23 05:34 Assessment and Plan (1) Closed right hip fracture Current Visit: Yes Status: Acute Code(s): S72.001A - FRACTURE OF UNSP PART OF NECK OF RIGHT FEMUR, INIT SNOMED Code(s): 016727998 (2) Fall Current Visit: Yes Status: Acute Code(s): W19.XXXA - UNSPECIFIED FALL, INITIAL ENCOUNTER SNOMED Code(s): 1171157 (3) Intertrochanteric fracture of right hip Current Visit: Yes Status: Acute Code(s): S72.141A - DISPLACED INTERTROCHANTERIC FRACTURE OF RIGHT FEMUR, INIT SNOMED Code(s): 673355435 Plan: The clinical findings are discussed with nursing staff. She may be discharged from an orthopedic standpoint. We will transfer attending to internal medicine for further medical treatment.
[2023-12-01 10:04] LABS: BUN/Creat Ratio 22.71 Ratio (12.00-20.00); Basophils # (A) 0.02 X 10*3/uL (0.00-0.10); Basophils % (A) 0.4 %; Blood Urea Nitrogen 15.9 mg/dL (9.0-27.0); Calcium 8.4 mg/dL (8.7-10.3); Carbon Dioxide 24.9 mmol/L (21.6-31.8); Chloride 101 mmol/L (96-109); Eosinophils # (A) 0.14 X 10*3/uL (0.04-0.35); Eosinophils % (A) 2.5 %; Glucose 90 mg/dL (70-110); HCT 25.9 % (37.2-46.3); HGB 8.7 g/dL (12.0-15.0); Lymphocytes # (A) 1.11 X 10*3/uL (0.90-5.00); Lymphocytes % (A) 19.9 %; MCH 31.5 pg (27.0-32.0); MCHC 33.6 g/dL (32.0-37.0); MCV 93.8 FL (80.0-97.0); Mean Platelet Volume 9.4 FL (9.5-12.2); Monocytes % (A) 10.8 %; NRBC Per 100 WBC 0 X 10*3/uL (0.00-0.01); Neutrophils # (A) 3.67 X 10*3/uL (1.80-7.70); Neutrophils % (A) 65.9 %; Platelet Count 276 X 10*3/uL (140-440); Potassium 4.8 mmol/L (3.5-5.5); RBC 2.76 X 10*6/uL (4.10-5.20); Sodium 135 mmol/L (135-145); WBC 5.57 X 10*3/uL (4.50-10.00)
[2023-12-02 08:36] VITALS: RESP 17
[2023-12-02 12:15] VITALS: BMI 29.8
[2023-12-02 13:45] VITALS: BP 127/66; PULSE 77; TEMP 98.8
--- NOTE | 2023-12-02 14:14 | P.DS ---
Providers Date of admission: 11/25/23 10:43 Expected date of discharge: 12/02/23 Attending physician: Nelson Palacios MD Consults: 11/25/23 09:34 Consult Physician Stat Consulting Provider: Lili Rogers Reason/Comments: surgical clearance, medical management Do you want consulting provider notified?: Yes Primary care physician: Mike Sanches Hospital Course: Final diagnosis S/p fall with right femur fracture s/p POD 2 Fracture repair with nailing History of congestive heart failure with preserved ejection fraction History of nonobstructive coronary artery disease with a negative stress test in April 2023 Acute on Chronic Anemia , postoperative blood loss anemia, improved, hemoglobin is 8.7 Hyperlipidemia History of seizure disorder History of mild pulmonary hypertension GI prophylaxis DVT prophylaxis No code Discharge disposition Patient is being discharged in a stable condition with guarded prognosis to [facility]. Patient will follow-up with Dr. Sanches in the outpatient setting upon discharge. Patient is to continue with outpatient follow-up with orthopedics as scheduled. Total time taken is greater than 35 minutes. Hospital course This is a 83-year-old female who was recently admitted with a fall and a right hip fracture status post nailing for a right proximal femur fracture. Patient was followed by orthopedics and has been cleared for outpatient follow-up. Surgical site is dry and intact with no significant swelling noted, no erythema noted. Patient with continued weakness will be returning to [facility] for continued PT/OT therapy. Hemoglobin is stable above 8 with no active bleeding noted. Patient to follow-up with primary care provider on discharge. Please refer to consultation notes for further HPI. Currently no reports of chest pain, shortness of breath, or palpitations. Patient is afebrile. No reports of nausea or vomiting and patient is tolerating diet. Patient will be going to [facility] today. Physical exam: Gen: This is a 83-year-old female who is awake, alert and oriented x 2, well- developed, well-nourished, elderly appearing HEENT: Head is atraumatic, normocephalic. Pupils equal, round. Sclerae is anicteric. NECK: Supple. No JVD. No lymphadenopathy. No thyromegaly. LUNGS: Clear to auscultation. No wheezes or rhonchi. No intercostal retractions. HEART: Regular rate and rhythm. No murmur. ABDOMEN: Soft. Bowel sounds are present. No masses. No tenderness. EXTREMITIES: No pedal edema. No calf tenderness. Right hip surgical dressing is dry and intact with no surrounding redness noted, minimal swelling noted NEUROLOGICAL: Patient is awake, alert and oriented x2. Cranial nerves 2 through 12 are grossly intact. Diffusely weak Please refer to medication reconciliation sheet for a list of medications. The impression and plan of care has been dictated by Renetta Fox, Nurse Practitioner as directed. Dr. Georgette MD I have performed a history and examination and MDM of this patient, discussed the same with the dictator, and agree with the dictator's assessment and plan as written ,documented as a scribe. Based on total visit time, I have performed more than 50% of the visit. Patient Condition at Discharge: Fair Plan - Discharge Summary Discharge Rx Participant: No New Discharge Prescriptions: New HYDROcodone/APAP 5-325MG [[place] 5-325] 1 - 2 tab PO Q6HR PRN #32 tab PRN Reason: Pain Sennosides-Docusate Sodium [Senokot-S] 1 tab PO BID #60 tablet Tamsulosin [Flomax] 0.4 mg PO PC-BRKFST cap Nystatin 100,000 Unit/gm Powd [Mycostatin Powder] 1 applic TOPICAL BID each Acetaminophen Tab [Tylenol] 650 mg PO Q6HR PRN tab PRN Reason: Mild Pain Or Fever > 100.5 Continue Multivitamins, Thera [Multivitamin (formulary)] 1 tab PO DAILY@0900 Nitroglycerin Sl Tabs [Nitrostat] 0.4 mg SUBLINGUAL Q5M PRN PRN Reason: Chest Pain Carboxymethylcellulose Sodium [Refresh Tears] 1 drop BOTH EYES BID@0900,2100 Bumetanide [BUMEX] 1 mg PO DAILY PRN PRN Reason: ACUTE SYSTOLIC HEART FAILURE cycloSPORINE 0.05% OPHTH SOLN [Restasis] 1 applicator BOTH EYES Q12H ALPRAZolam [Xanax] 0.25 mg PO HS@2100 #3 tab Primidone [Mysoline] 50 mg PO TID@0900,1300,2100 Sertraline [Zoloft] 25 mg PO DAILY@0900 Propylene Glycol/Peg 400/Pf [Systane 0.3-0.4% Ophth Dropperette] 1 drop BOTH EYES Q15M PRN PRN Reason: Dry Eye(S) Pantoprazole [Protonix] 40 mg PO DAILY@0600 Fluticasone Nasal [place] [Flonase Nasal [place]] 1 spray EA NOSTRIL DAILY@0900 Atorvastatin [Lipitor] 40 mg PO HS@2100 Aspirin EC [Ecotrin Low Dose] 81 mg PO DAILY@0900 Divalproex Sodium [Depakote] 500 mg PO HS@2099 Divalproex [Depakote] 250 mg PO BID@0900,1300 Ascorbic Acid [Vitamin C] 500 mg PO DAILY@0900 Thiamine [Vitamin B-1] 50 mg PO DAILY@0900 Docusate [Colace] 100 mg PO BID@0900,2099 Clotrimazole/Betameth Cream [Lotrisone] 1 applic TOPICAL BID Metoprolol Tartrate [Lopressor] 50 mg PO BID@0900,2099 #60 tab Discontinued Acetaminophen Tab [Tylenol] 500 mg PO Q6HR PRN PRN Reason: Pain Bumetanide [Bumex] 1 mg PO BID@0600,1300 lisinopriL [Zestril] 2.5 mg PO DAILY@0900 Discharge Medication List Multivitamins, Thera [Multivitamin (formulary)] 1 tab PO DAILY@0900 12/31/21 [History] Primidone [Mysoline] 50 mg PO TID@0900,1300,209912/31/21 [History] Aspirin EC [Ecotrin Low Dose] 81 mg PO DAILY@0904/16/22 [History] Atorvastatin [Lipitor] 40 mg PO HS@209904/16/22 [History] Fluticasone Nasal [place] [Flonase Nasal [place]] 1 spray EA NOSTRIL DAILY@0904/16/22 [History] Pantoprazole [Protonix] 40 mg PO DAILY@0604/16/22 [History] Propylene Glycol/Peg 400/Pf [Systane 0.3-0.4% Ophth Dropperette] 1 drop BOTH EYES Q15M PRN 04/16/22 [History] Sertraline [Zoloft] 25 mg PO DAILY@0900 04/16/22 [History] Divalproex Sodium [Depakote] 500 mg PO HS@209904/21/22 [History] Divalproex [Depakote] 250 mg PO BID@0900,1300 05/11/22 [History] Nitroglycerin Sl Tabs [Nitrostat] 0.4 mg SUBLINGUAL Q5M PRN 05/11/22 [History] Ascorbic Acid [Vitamin C] 500 mg PO DAILY@0900 09/27/22 [History] Thiamine [Vitamin B-1] 50 mg PO DAILY@0900 09/27/22 [History] Carboxymethylcellulose Sodium [Refresh Tears] 1 drop BOTH EYES BID@0900,209904/30/23 [History] Clotrimazole/Betameth Cream [Lotrisone] 1 applic TOPICAL BID 04/30/23 [History] Docusate [Colace] 100 mg PO BID@0900,209904/30/23 [History] Metoprolol Tartrate [Lopressor] 50 mg PO BID@0900,2100 #60 tab 05/02/23 [Rx] Bumetanide [BUMEX] 1 mg PO DAILY PRN 11/25/23 [History] cycloSPORINE 0.05% OPHTH SOLN [Restasis] 1 applicator BOTH EYES Q12H 11/25/23 [History] HYDROcodone/APAP 5-325MG [[place] 5-325] 1 - 2 tab PO Q6HR PRN #32 tab 12/01/23 [Rx] Sennosides-Docusate Sodium [Senokot-S] 1 tab PO BID #60 tablet 12/01/23 [Rx] ALPRAZolam [Xanax] 0.25 mg PO HS@2100 #3 tab 12/02/23 [Rx] Acetaminophen Tab [Tylenol] 650 mg PO Q6HR PRN tab 12/02/23 [Rx] Nystatin 100,000 Unit/gm Powd [Mycostatin Powder] 1 applic TOPICAL BID each 12/02/23 [Rx] Tamsulosin [Flomax] 0.4 mg PO PC-BRKFST cap 12/02/23 [Rx] Follow up Appointment(s)/Referral(s): Mike Sanches MD [Primary Care Provider] - 1-2 days Charli Guillory MD [Medical Doctor] - 1 Week Activity/Diet/Wound Care/Special Instructions: Patient is going to [facility] on the [place] Activity as tolerated Continue heart healthy diet Follow-up with primary care provider on discharge Follow-up with orthopedics outpatient Continue with oral supplements including Magic cups Continue ankle flexion and extension 10 times per hour Continue incentive spirometer use at least 10 times an hour while awake Discharge Disposition: TRANSFER TO SNF/ECF
--- NOTE | 2023-12-04 14:10 | P.PN ---
Subjective Progress Note Date: 12/01/23 * 83-year-old patient with past medical history significant for coronary artery disease, history of cardiac catheterization, history of CVA/TIA, COPD, heart failure with preserved ejection fraction, hypertension, hyperlipidemia, history of seizure disorder, mild cognitive impairment presents to the emergen cy department after a fall. Workup initiated in ER included CBC which showed WBC count of 9.5 hemoglobin 11 hematocrit 33 platelet 281. 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 A chest x-ray was obtained which was negative for fracture no lung volumes were noted * Internal medicine team was contacted to evaluate preoperatively and give medical clearance/ RISK stratification * 11/30/2023 Patient is seen and evaluated in room at bedside; discussed with nursing staff; no specific complaints reported Vital signs are reviewed and stable with temperature of 98.8, pulse 91, respiration 20 and blood pressure of 121/58 No new labs available for today Patient has been evaluated by PT/OT and is recommended skilled rehab Stable for discharge when arrangements are made 12/01/2023 83-year-old female who is status post closed reduction with insertion of intertrochanteric nail of the right hip on 11/26/2023. She is resting soundly. There are no reports of any new complaints or concerns. Patient care is transferred to our service Patient clinically stable for dc when arrangements are made Objective - Vital Signs Vital signs: Vital Signs Temp 99.3 F 11/30/23 20:00 Pulse 93 11/30/23 20:00 Resp 18 11/30/23 20:00 BP 122/60 11/30/23 20:00 Pulse Ox 94 L 11/30/23 20:00 FiO2 Intake & Output 11/30/23 11/30/23 12/01/23 06:59 18:59 06:59 Intake Total 237 Output Total 1725 750 Balance -1488 -750 Intake: Oral 237 Output: Urine 1725 750 Uretheral ([place]) 400 Other: Voiding Method Indwelling Catheter Indwelling Catheter Indwelling Catheter - Exam GENERAL: The patient is alert and oriented x3, not in any acute distress. Well developed, well nourished. HEENT: Pupils are round and equally reacting to light. EOMI. CARDIOVASCULAR: S1 and S2 present. No murmurs, rubs, or gallops. PULMONARY: Chest is clear to auscultation, no wheezing or crackles. ABDOMEN: Soft, nontender, nondistended, normoactive bowel sounds. No palpable organomegaly. MUSCULOSKELETAL: Right hip deformity, Right Hip Surgery, Bandage in place EXTREMITIES: No cyanosis, clubbing, or pedal edema. NEUROLOGICAL: Gross neurological examination did not reveal any focal deficits. - Labs CBC & Chem 7: 12/01/23 05:49 12/01/23 05:49 Assessment and Plan Assessment: * S/p fall with right femur fracture s/p POD 2 Fracture repair * History of congestive heart failure with preserved ejection fraction * History of nonobstructive coronary artery disease with a negative stress test in April 2023 * Acute on Chronic Anemia , postoperative blood loss anemia * Hyperlipidemia * History of seizure disorder * History of mild pulmonary hypertension * In regards to preoperative evaluation, patient was considered moderate risk secondary to underlying cardiac comorbidities.s/p POD 2, continue to monitor * In regards to s/p fall, patient admitted under orthopedic * In regards to history of congestive heart failure, Bumex and lisinopril placed on hold secondary to hypotension, continue metoprolol * Regards to history of seizure disorder continue patient on Depakote * In regards to transaminitis, ultrasound right upper quadrant negative for acute hepatobiliary process, Lipitor placed on hold * In regards to anemia, Lovenox and aspirin placed on hold, 1 unit of packed RBC given 11/27, 1 unit ordered 11/28 * Patient admitted under orthopedic service with medicine consultation
== END 2023-12-02 15:07 | DRG 481 ==
LOC: EC 07:48 → 4SSUR 10:43 → 5NMEDONC 16:48
PROVIDERS: ADMIT Internal Medicine; ATTEND Internal Medicine
PROC: 0QSB36Z Reposition Right Lower Femur with Intramedullary Internal Fixation Device, Percutaneous Approach (ICD-10-PCS; principal; 2023-11-26 17:00)
PROC: 30233P1 Transfusion of Nonautologous Frozen Red Cells into Peripheral Vein, Percutaneous Approach (ICD-10-PCS; 2023-11-27)
DX: S72.141A Displaced intertrochanteric fracture of right femur, initial encounter for closed fracture (principal); D62 Acute posthemorrhagic anemia; I50.32 Chronic diastolic (congestive) heart failure; W19.XXXA Unspecified fall, initial encounter; E78.5 Hyperlipidemia, unspecified; F41.9 Anxiety disorder, unspecified; G40.909 Epilepsy, unspecified, not intractable, without status epilepticus; I11.0 Hypertensive heart disease with heart failure; I25.10 Atherosclerotic heart disease of native coronary artery without angina pectoris; I25.2 Old myocardial infarction; I27.20 Pulmonary hypertension, unspecified; J44.89 Other specified chronic obstructive pulmonary disease; M21.70 Unequal limb length (acquired), unspecified site; M81.0 Age-related osteoporosis without current pathological fracture; Z79.82 Long term (current) use of aspirin; Z79.899 Other long term (current) drug therapy; Z86.73 Personal history of transient ischemic attack (TIA), and cerebral infarction without residual deficits; Z88.0 Allergy status to penicillin; Z88.8 Allergy status to other drugs, medicaments and biological substances; Z88.6 Allergy status to analgesic agent; Z91.041 Radiographic dye allergy status
CPT/HCPCS: 36415; 71045; 73502; 76705; 80048; 80053; 81003; 82550; 83735; 83880; 84100; 84484; 85025; 85027; 85610; 85730; 86850; 86900; 86901; 86920; 93005; 96361; 96374; 99285